=== PATIENT | female | born 1950 | race Caucasian/White ===

== ENCOUNTER 2023-04-23 13:50 | Inpatient (IN) | payer MEDICARE, BC, SELFPAY ==
[2023-04-23] VITALS (15 sets, daily range): BP systolic 138–199; BP diastolic 60–123; PULSE 85–109; RESP 18–32; TEMP 37.3–37.9; O2SAT 90–95; BMI 46.1
--- NOTE | 2023-04-23 14:28 | ED_ITS ---
HPI - General Adult General Time Seen by Provider: 14:28 Date Seen: 04/23/23 Chief complaint: Nausea/Vomiting Stated complaint: Nausea/vomiting fever Time Seen by Provider: 04/23/23 14:20 Source: patient, EMS and RN notes reviewed Mode of arrival: EMS Limitations: no limitations History of Present Illness HPI narrative: Patient is a 72-year-old female whom ambulance was called to come to her home to bring her in for abrupt change in her status. Patient reportedly was doing fine this morning, ate breakfast. By noon she suddenly had an abrupt change in status, had nausea vomiting chills and weakness. Temperature was noted to be 102.2. EMS brought her in from home. Her and daughter accompanied her into the ED. She has a history of sepsis, was hospitalized I believe they said about a year or so ago in [place] for sepsis, source was thought to be her lower extremities, has venous stasis changes and problems with skin of her lower extremities. Her daughter notes that she also had sepsis in 2019, again she believes it was the lower extremities. Patient is moaning, her notes that if she is uncomfortable or ill that she will frequently do this. She is not really giving us any meaningful communication but is hemodynamically stable outside of being febrile. She is not really answering my questions but is moving around, moaning. She seems to be maintaining her airway but cannot get a meaningful history from her. She is known to have atrial fibrillation, hypertension, CHF, diabetes per family. Linezolid is on her med rec, family knows that it was maybe recently filled but has no further information on this. They are not sure why this was filled. After arrival, nursing staff actually came to me with concerns this patient actually might be septic, did try to expedite seeing her. Related Data Home Medications Medication Instructions Recorded Confirmed diltiazem HCl 240 mg 240 mg PO DAILY 04/23/23 04/23/23 capsule,extended release 24 hr furosemide 20 mg tablet 20 mg PO DAILY 04/23/23 04/23/23 glipizide 5 mg tablet 5 mg PO DAILY 04/23/23 04/23/23 hydrochlorothiazide 25 mg tablet 25 mg PO DAILY 04/23/23 linezolid 600 mg tablet 600 mg PO BID 04/23/23 04/23/23 lisinopril 10 mg tablet 10 mg PO DAILY 04/23/23 04/23/23 metformin 500 mg tablet 500 mg PO BID 04/23/23 04/23/23 metoprolol succinate 50 mg 25 mg PO DAILY 04/23/23 04/23/23 tablet,extended release 24 hr sitagliptin phosphate 50 mg tablet 50 mg PO DAILY 04/23/23 04/23/23 (Januvia) warfarin 5 mg tablet 5 mg PO DAILY 04/23/23 04/23/23 Allergies Allergy/AdvReac Type Severity Reaction Status Date / Time No Known Drug Allergies Allergy Verified 04/23/23 17:54 Review of Systems Status of ROS: Reports: unobtainable due to medical condition PFSH PFS Social History Smoking Status: Never smoker How often do you have a drink containing alcohol: never AUDIT-C Alcohol total score: 0 Non-prescribed substance use: denies use Exam Const: Vital Signs, click to edit/add: Vital Signs - 24 hr 04/23/23 13:55 04/23/23 14:29 04/23/23 14:32 Temperature 99.2 F Pulse Rate 88 Pulse Rate [Pulse Oximeter] 85 Respiratory Rate 24 20 Blood Pressure 145/86 H Blood Pressure [Ri ght Upper Arm] 199/123 H Pulse Oximetry 95 94 95 Oxygen Delivery Me thod Room Air Oxygen Flow Rate 04/23/23 15:26 04/23/23 15:32 04/23/23 16:02 Temperature Pulse Rate 93 93 95 Pulse Rate [Pulse Oximeter] Respiratory Rate 22 20 22 Blood Pressure 144/87 H 160/66 H 155/60 H Blood Pressure [Ri ght Upper Arm] Pulse Oximetry 93 91 90 Oxygen Delivery Me thod Oxygen Flow Rate 04/23/23 16:15 04/23/23 16:32 04/23/23 17:02 Temperature Pulse Rate 97 102 H Pulse Rate [Pulse Oximeter] Respiratory Rate 18 20 Blood Pressure 158/74 H 152/97 H Blood Pressure [Ri ght Upper Arm] Pulse Oximetry 92 92 Oxygen Delivery Me thod Nasal Cannula Oxygen Flow Rate 2 04/23/23 17:51 04/23/23 18:02 04/23/23 18:25 Temperature 100.2 F H Pulse Rate 109 H 107 H Pulse Rate [Pulse Oximeter] Respiratory Rate 24 22 Blood Pressure 156/88 H 162/88 H Blood Pressure [Ri ght Upper Arm] Pulse Oximetry 90 92 Oxygen Delivery Me thod Nasal Cannula Oxygen Flow Rate 3 This is a 72-year-old female seen in exam room 1, she looks flushed and skin feels warm but is dry. She opens her eyes easily, does follow some minimal commands like squeezing my hands when ask her to. Strength is symmetric but diminished. She has a conjugate gaze, sclera look clear. Lips look dry and cracked. From what I can see she has normal symmetrical facial function. She is moaning and groaning, moving about some in the bed. CV fast but regular, soft murmur heard, normal S1-S2 no S3-S4. Lungs are clear but she really is not following commands to take a deep breath. Abdomen is obese, seems to be soft, does not seem to have any tenderness when I palpate. She has thickening in venous stasis changes of both lower extremities. She has significant nonpitting edema of her legs, her legs are large. Legs in the distribution of the pigmentary changes do have some erythema and warmth, seemed to be bilateral. Documenting provider has reviewed patient's vital signs: yes Course Course ED Course: Patient is concerning for recurrent sepsis. Certainly her legs could be the source but need to consider other etiologies. Also need to consider possible viral etiologies such as COVID or influenza. Blood cultures will be drawn, will establish a line. Will get full complement of blood work. Order portable chest x-ray. Patient did do some coughing when I with his interacting with her. She certainly has altered mental status but with the fever this is most definitely infectious. Reevaluation(s) Time of Reevaluation #1: 15:34 Reevaluation #1: Have checked back on patient, monitoring is on her. I asked staff to recheck her temperature. Daughter thinks she might be able to take some Tylenol, took Tylenol about 11 15, did throw that back up. She is moaning, face is flushed. Would really like to know what her temperature is. We could consider rectal Tylenol, even IV Tylenol if need be. I have ordered IV antibiotics, nursing staff is getting the Zosyn to start right now. Vitals are still stable, need to consider IV fluids if we start seeing her pressures drop. Need to be judicious with fluids as daughter notes that this patient does have congestive heart failure. Time of Reevaluation #2: 15:48 Reevaluation #2: Nursing staff has hung the Zosyn, did talk to me about patient's agitation. I still do not have a temperature on her. May need to use IV Tylenol, would like to see what her temperature is 1st. Her lactate is elevated at 3.4. I will start a L of normal saline over 2 hours but watch her closely. Her O2 sats are hovering just above 90, need to watch her closely. Time of Reevaluation #3: 15:55 Reevaluation #3: Nursing staff did do a rectal temperature, patient has a fever of 103.3? F. 650 mg rectal Tylenol has been administered. There where that I have ordered a L of IV fluids over 2 hours, she needs to be watched closely for fluid overload but do believe she is septic. Additional Reevaluation(s): 4:33pm Have reviewed with and daughter that she is certainly septic, we need to ensure that we are not missing occult infection. Per , they have discussed DNR/DNI if things were looking severe. I reviewed with them that she is certainly ill, would consider her situation concerning. She is more comfortable now that the Tylenol seems to be taking effect. Her CXR is showing changes of fluid overload, have asked nursing staff to slow IVF, the vancomycin is in 500ml as well which is infusing. Do think that we need to proceed with CT CAP on this patient but her girth may be problematic, are talking to radiology about limits. Will proceed if able. Also reviewed with family that she may very well require transfer to higher level of care, reviewed that even when needed that we run into problems with outside institutions not having capacity. We will continue to monitor closely. 5:21pm patient is moving about in the CT scan, not redirectable. We are going to order Ativan 1 mg, nursing staff will start was 0.5 mg IV, give her another dose if needed. Unfortunately, Ativan did not work at all for patient. She was brought back to room. I will talk to the hospitalist regarding her situation. 7:08pm despite 5 mg IV Zyprexa, patient is not tolerating CT imaging. She is moving around, cannot be talked into holding still. Called Dr. Vega back to let him know that we cannot get imaging. He will still take the patient. Consultations Consultation #1: Did speak with hospitalist Dr. Vega. He will accept this patient, does not feel she needs to transfer. He would like me try to give her IV Zyprexa to see if we can get the scan done. Reviewed fluid given to this patient, her lactate is now 3.5, may need to give her more fluids despite the concern for congestive heart failure. She is not hypotensive and does not require blood pressure support at this time. Time: 18:28 Vital Signs Vital signs: Initial Vital Signs Temperature 99.2 F 04/23/23 13:55 Temperature Source Oral 04/23/23 13:55 Pulse Rate 85 04/23/23 13:55 Pulse Rhythm Regular 04/23/23 13:55 Respiratory Rate 24 04/23/23 13:55 Blood Pressure 199/123 H 04/23/23 13:55 Blood Pressure Mean 148 H 04/23/23 13:55 Blood Pressure Position Supine 04/23/23 13:55 Pulse Oximetry 95 04/23/23 13:55 Oxygen Delivery Method Room Air 04/23/23 13:55 Vital Signs Temperature 99.2 F 04/23/23 13:55 Pulse Rate 85 04/23/23 13:55 Respiratory Rate 24 04/23/23 13:55 Blood Pressure 199/123 H 04/23/23 13:55 Pulse Oximetry 95 04/23/23 13:55 Oxygen Delivery Method Room Air 04/23/23 13:55 Temperature 100.2 F H 04/23/23 18:25 Pulse Rate 107 H 04/23/23 18:02 Respiratory Rate 22 04/23/23 18:02 Blood Pressure 162/88 H 04/23/23 18:02 Pulse Oximetry 92 04/23/23 18:02 Oxygen Delivery Method Nasal Cannula 04/23/23 17:51 Oxygen Flow Rate 3 04/23/23 17:51 Medications Administered Medications: Discontinued Medications Generic Name Dose Route Start Last Admin Trade Name Freq PRN Reason Stop Dose Admin Acetaminophen 650 mg 04/23/23 15:54 04/23/23 16:05 Acetaminophen 650 Mg Supp [place] 04/23/23 15:55 650 mg ONCE ONE Administration Piperacillin Sod/Tazobactam 100 mls @ 200 mls/hr 04/23/23 15:15 04/23/23 16:30 Sod 3.375 gm/ Sodium Chloride IVPB 04/23/23 15:16 Infused ONCE ONE Infusion Vancomycin HCl 2,000 mg/ 520 mls @ 260 mls/hr 04/23/23 15:28 04/23/23 16:10 Sodium Chloride IVPB 04/23/23 15:29 260 mls/hr ONCE ONE Administration Protocol Sodium Chloride 1,000 mls @ 500 mls/hr 04/23/23 15:47 04/23/23 18:23 0.9 % Sodium Chloride 1000 Ml IV 04/23/23 17:46 Infused .Q2H JESSICA Infusion Lorazepam 1 mg 04/23/23 17:20 04/23/23 17:20 Lorazepam 2 Mg/Ml Inj IVP 04/23/23 17:21 1 mg ONCE ONE Administration Medical Decision Making Lab Data Lab results reviewed: Yes I reviewed the patient's lab results Labs: Lab Results 04/23/23 04/23/23 04/23/23 Range/Units 14:35 14:44 18:10 WBC 10.38 (4.50-11.00) K/uL RBC 3.74 L (4.00-5.20) m/uL Hgb 11.9 L (12.0-16.0) gm/dL Hct 37.2 (33.0-51.0) % MCV 100 (80-100) fL MCH 32 (26-34) pg MCHC 32 (32-36) gm/dL RDW Coeff of Maria 15.2 (11.5-15.5) % Plt Count 268 (140-440) K/uL Neut % (Auto) 87.4 H (42.0-72.0) % Lymph % (Auto) 6.8 L (20-44) % [place] % (Auto) 4.2 (0.0-11.0) % Eos % (Auto) 0.3 (0.0-7.0) % Baso % (Auto) 0.3 (0.0-3.0) % Neut # (Auto) 9.10 H (1.7-7.0) K/uL Lymph # (Auto) 0.70 L (0.90-2.90) K/uL [place] # (Auto) 0.40 (0.00-0.90) K/UL Eos # (Auto) 0.03 (0.00-0.50) K/uL Baso # (Auto) 0.03 (0.00-0.30) K/uL Abs Immat Gran (auto) 0.10 (0.00-0.30) K/uL Imm/Tot Granulo (auto) 1.0 % VBG pH 7.393 (7.32-7.43) VBG pCO2 33 L (40-50) mmHG VBG pO2 48.6 H (25-47) mmHG VBG HCO3 20 L (21-28) mmol/L Sodium 139 (135-149) mmol/L Potassium 4.3 (3.6-5.1) mmol/L Chloride 108 (96-114) mmol/L Carbon Dioxide 19 L (20-32) mmol/L Anion Gap 12 (7-15) mEq/L BUN 12 (7-30) mg/dL Creatinine 0.8 (0.5-1.5) mg/dL Estimated Creat Clear 43.30 Estimated GFR 79 ml/min Glucose 190 H (60-115) mg/dL Lactate 3.4 H 3.5 H (0.5-1.9) mmol/L Calcium 9.5 (8.4-10.6) mg/dL Total Bilirubin 1.6 H (0.1-1.5) mg/dL AST 35 (12-35) U/L ALT 21 (4-35) U/L Alkaline Phosphatase 71 (40-150) U/L Troponin I < 0.01 L (0.01-0.04) ng/mL C-Reactive Protein 0.7 (0.5-1.0) mg/dL NT-Pro-B Natriuret Pep 386 pg/mL Total Protein 7.5 (6.0-8.3) g/dL Albumin 4.2 (3.3-5.0) g/dL Urine Color (Yellow) Urine Appearance (Clear) Urine pH (5.0-8.5) Ur Specific [place] (1.000-1.030) Urine Protein (Negative) Urine Glucose (UA) (Negative) Urine Ketones (Negative) Urine Blood (Negative) Urine Nitrite (Negative) Urine Bilirubin (Negative) Urine Urobilinogen (0.2-1.0) Ur Leukocyte Esterase (Negative) Urine RBC (0-2) Urine WBC (0-5) Ur Squamous Epith Cells (None-Few) Urine Bacteria (None) Ethyl Alcohol < 0.01 L (0.01-0.03) % SARS-CoV-2 (PCR) Negative SARS-CoV-2 (Negative) Influenza Type A (PCR) Negative PCR FLU A (Negative) Influenza Type B (PCR) Negative PCR FLU B (Negative) RSV (PCR) Negative PCR RSV (Negative) 04/23/23 Range/Units 18:58 WBC (4.50-11.00) K/uL RBC (4.00-5.20) m/uL Hgb (12.0-16.0) gm/dL Hct (33.0-51.0) % MCV (80-100) fL MCH (26-34) pg MCHC (32-36) gm/dL RDW Coeff of Maria (11.5-15.5) % Plt Count (140-440) K/uL Neut % (Auto) (42.0-72.0) % Lymph % (Auto) (20-44) % [place] % (Auto) (0.0-11.0) % Eos % (Auto) (0.0-7.0) % Baso % (Auto) (0.0-3.0) % Neut # (Auto) (1.7-7.0) K/uL Lymph # (Auto) (0.90-2.90) K/uL [place] # (Auto) (0.00-0.90) K/UL Eos # (Auto) (0.00-0.50) K/uL Baso # (Auto) (0.00-0.30) K/uL Abs Immat Gran (auto) (0.00-0.30) K/uL Imm/Tot Granulo (auto) % VBG pH (7.32-7.43) VBG pCO2 (40-50) mmHG VBG pO2 (25-47) mmHG VBG HCO3 (21-28) mmol/L Sodium (135-149) mmol/L Potassium (3.6-5.1) mmol/L Chloride (96-114) mmol/L Carbon Dioxide (20-32) mmol/L Anion Gap (7-15) mEq/L BUN (7-30) mg/dL Creatinine (0.5-1.5) mg/dL Estimated Creat Clear Estimated GFR ml/min Glucose (60-115) mg/dL Lactate (0.5-1.9) mmol/L Calcium (8.4-10.6) mg/dL Total Bilirubin (0.1-1.5) mg/dL AST (12-35) U/L ALT (4-35) U/L Alkaline Phosphatase (40-150) U/L Troponin I (0.01-0.04) ng/mL C-Reactive Protein (0.5-1.0) mg/dL NT-Pro-B Natriuret Pep pg/mL Total Protein (6.0-8.3) g/dL Albumin (3.3-5.0) g/dL Urine Color Yellow (Yellow) Urine Appearance Clear (Clear) Urine pH 5.5 (5.0-8.5) Ur Specific [place] 1.025 (1.000-1.030) Urine Protein Negative (Negative) Urine Glucose (UA) Negative (Negative) Urine Ketones Negative (Negative) Urine Blood Negative (Negative) Urine Nitrite Negative (Negative) Urine Bilirubin Negative (Negative) Urine Urobilinogen 0.2 (0.2-1.0) Ur Leukocyte Esterase Negative (Negative) Urine RBC 2-5 A (0-2) Urine WBC 2-5 (0-5) Ur Squamous Epith Cells None (None-Few) Urine Bacteria None (None) Ethyl Alcohol (0.01-0.03) % SARS-CoV-2 (PCR) (Negative) Influenza Type A (PCR) (Negative) Influenza Type B (PCR) (Negative) RSV (PCR) (Negative) Imaging Data Chest x-ray: Attestation: I have reviewed the pertinent imaging results. Radiologist's impression: Patient: [facility] Facility:?[facility] Patient ID:?[id number] Site Patient ID:?[id number]. Site :?[id number] Study:?XRay Chest PORTABLE-04/23/2023 3:08:35 PM Ordering Physician:Tiffanie Garnett Final Report: Indication: Fever and wheezing Comparison: None available. Technique: Single AP view chest Findings: There is mild central bronchial thickening. Evaluation of the lung bases is limited due to large body habitus. There is no apical consolidation or pneumothorax. There is no focal consolidation, effusion, or pneumothorax. The cardiac silhouette is mildly prominent. The bony thorax is grossly intact. Impression: Diffusely increased interstitial markings likely representing pulmonary edema and/or bronchitis changes. Somewhat limited evaluation of the lung bases due to patient body habitus. Lower lobe infiltrates may not be entirely excluded. Dictated by Maxi Ventura MD @ 04/23/2023 4:13:45 PM (Electronic Signature) ECG Data Attestation: I personally reviewed and interpreted this ECG as follows: (Atrial fibrillation, 87 beats per minute. QT corrected 442 milliseconds. No definitive evidence of ischemia.) Prior ECG tracings: not available for review Critical Care Time Critical Care Time Critical Care Time: Yes Attestation: The patient required my highest level preparedness to intervene emergently and I personally spent this critical care time directly and personally managing the patient. This critical care time included: Obtaining a history; Examining the patient; Pulse oximetry; Ordering and reviewing of studies; Arranging urgent treatment with development of a management plan; Evaluation of patients respo nse to treatment; Frequent reassessment discussions with other providers. This critical care time was performed to assess and manage the high probability of imminent life-threatening deterioration that could result in multiorgan failure. It was exclusive of separate billable procedures and treating other patients and teaching time. Total Critical Care Time in Minutes: 120 (2 hours patient's time in the ED is attributed to critical care time.) Discharge Plan Discharge Clinical Impression: Fever Qualifiers: Fever type: unspecified Qualified Code(s): R50.9 - Fever, unspecified Sepsis Qualifiers: Sepsis type: sepsis due to unspecified organism Patient Disposition: Admitted As Observation Prescriptions: No Action metformin 500 mg tablet 500 mg PO BID metoprolol succinate 50 mg tablet extended release 24 hr 25 mg PO DAILY diltiazem HCl 240 mg capsule,extended release 24hr 240 mg PO DAILY linezolid 600 mg tablet 600 mg PO BID lisinopril 10 mg tablet 10 mg PO DAILY warfarin 5 mg tablet 5 mg PO DAILY hydrochlorothiazide 25 mg tablet 25 mg PO DAILY furosemide 20 mg tablet 20 mg PO DAILY glipizide 5 mg tablet 5 mg PO DAILY Januvia 50 mg tablet 50 mg PO DAILY Follow Up/Referrals: Gomez Argueta MD [Primary Care Provider] -
--- NOTE | 2023-04-23 14:29 | CRLHL7_ITS ---
For Patients: As a result of the Cures Act, medical imaging exams and procedure reports are released immediately into your electronic medical record. You may view this report before your referring provider. If you have questions, please contact your health care provider. Indication: Fever and wheezing Comparison: None available. Technique: Single AP view chest Findings: There is mild central bronchial thickening. Evaluation of the lung bases is limited due to large body habitus. There is no apical consolidation or pneumothorax. There is no focal consolidation, effusion, or pneumothorax. The cardiac silhouette is mildly prominent. The bony thorax is grossly intact. Impression: Diffusely increased interstitial markings likely representing pulmonary edema and/or bronchitis changes. Somewhat limited evaluation of the lung bases due to patient body habitus. Lower lobe infiltrates may not be entirely excluded. Dictated by Maxi Ventura MD @ 04/23/2023 4:13:45 PM (Electronically Signed)
[2023-04-23 14:57] LABS: HCO3 VBG 20 mmol/L (21-28); Lactate* 3.4 mmol/L (0.5-1.9); PCO2 VBG 33 mmHG (40-50); PO2 VBG 48.6 mmHG (25-47); pH VBG 7.393 (7.32-7.43)
[2023-04-23 14:58] LABS: Basophils Absolute Auto 0.03 K/uL (0.00-0.30); Basophils Percent Auto 0.3 % (0.0-3.0); Eosinophils Absolute Auto 0.03 K/uL (0.00-0.50); Eosinophils Percent Auto 0.3 % (0.0-7.0); Hematocrit 37.2 % (33.0-51.0); Hemoglobin* 11.9 gm/dL (12.0-16.0); Lymphocytes Percent Auto 6.8 % (20-44); Mean Corpuscular HGB Conc 32 gm/dL (32-36); Mean Corpuscular Hemoglobin 32 pg (26-34); Mean Corpuscular Volume 100 fL (80-100); Monocytes Percent Auto 4.2 % (0.0-11.0); Neutrophils Percent Auto 87.4 % (42.0-72.0); Platelet Count* 268 K/uL (140-440); RDW Coefficient of Variation % 15.2 % (11.5-15.5); Red Blood Count 3.74 m/uL (4.00-5.20); White Blood Count* 10.38 K/uL (4.50-11.00)
[2023-04-23 15:11] LABS: Slide Review Reflex No
[2023-04-23 15:22] LABS: Albumin* 4.2 g/dL (3.3-5.0); Chloride* 108 mmol/L (96-114)
[2023-04-23 15:23] LABS: Potassium* 4.3 mmol/L (3.6-5.1); Sodium* 139 mmol/L (135-149)
[2023-04-23 15:25] LABS: Bilirubin Total* 1.6 mg/dL (0.1-1.5); Creatinine* 0.8 mg/dL (0.5-1.5); Estimated Glomerular Filt Rate 79 ml/min
[2023-04-23 15:26] LABS: Alanine Aminotransferase* 21 U/L (4-35); Alkaline Phosphatase* 71 U/L (40-150); Anion Gap 12 mEq/L (7-15); Aspartate Amino Transferase* 35 U/L (12-35); Blood Urea Nitrogen* 12 mg/dL (7-30); Carbon Dioxide* 19 mmol/L (20-32); Glucose* 190 mg/dL (60-115); Total Protein* 7.5 g/dL (6.0-8.3)
[2023-04-23 15:27] LABS: Calcium* 9.5 mg/dL (8.4-10.6); Ethanol* < 0.01 % (0.01-0.03)
[2023-04-23 15:29] LABS: C Reactive Protein* 0.7 mg/dL (0.5-1.0)
[2023-04-23 15:37] LABS: NT Pro B Type NatriureticPept* 386 pg/mL
[2023-04-23 15:39] LABS: PCR FLU A Negative PCR FLU A (Negative); PCR FLU B Negative PCR FLU B (Negative); PCR RSV Negative PCR RSV (Negative)
[2023-04-23] MEDS: PIPERACILLIN/TAZOBACTAM 3.375 GM in 0.9 % SODIUM CHLORIDE Mini-bag 100 ML IVPB (15:42)
[2023-04-23 15:45] LABS: Troponin I* < 0.01 ng/mL (0.01-0.04)
[2023-04-23 15:46] LABS: SARS PCR* Negative SARS-CoV-2 (Negative)
[2023-04-23] MEDS: ACETAMINOPHEN 650 MG SUPP PR (16:05)
[2023-04-23] MEDS: 0.9 % SODIUM CHLORIDE 1000 ml 1,000 ML 500 ML IV (16:30)
--- NOTE | 2023-04-23 16:38 | CRLHL7_ITS ---
For Patients: As a result of the 21st Century Cures Act, medical imaging exams and procedure reports are released immediately into your electronic medical record. You may view this report before your referring provider. If you have questions, please contact your health care provider. INDICATION: Altered mental status, fever, sepsis unknown source TECHNIQUE: CT chest, abdomen, and pelvis without i.v. contrast. Coronal and sagittal reformats were obtained. COMPARISON: None FINDINGS: The sensitivity and specificity of the exam are severely limited by artifacts from patient motion and beam hardening artifacts from the patient`s arms at the patient`s side. CHEST: Cardiovascular: Moderate biventricular cardiomegaly is noted. Moderate enlargement of the main pulmonary artery is present and measures 3.3 cm in maximal short axis. The pulmonary arteries are unremarkable in appearance. Ectasia of the ascending aorta is noted measuring 3.7 cm. Mediastinum: No mass or adenopathy seen. Lung: Mild ground-glass opacities are present in the apices with smooth interlobular septal thickening which may be due to mild edema. Dependent ground-glass atelectasis present in both lung bases. Pleura and pericardium: No sign of pleural effusion seen. No significant pericardial effusion is present. Chest wall and axilla: No mass or adenopathy seen. Bone: Unremarkable for age. No acute osseous injuries seen. ABDOMEN/PELVIS: Liver: Unremarkable. Spleen: Unremarkable. Pancreas: Unremarkable. Gallbladder: Faint layering densities are present within the gallbladder which may be due to sludge or noncalcified gallstones. Kidney: Unremarkable. No kidney or ureteral stones or obstruction seen. Adrenal: Unremarkable. Bowel: Moderate amount of stool is present throughout the colon which may be due to chronic constipation. Unremarkable. The appendix is not visualized. 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 Moderate atherosclerotic calcifications of the abdominal aorta and its tributaries are present. Lymph: Unremarkable. Peritoneum: Unremarkable. No pneumoperitoneum is seen. No significant ascites is noted. Pelvis: Evaluation of the pelvic soft tissues, distal ureters and osseous structures are limited by beam hardening artifacts from the right hip prosthesis. Soft tissue: Severe subcutaneous edema is present in the abdominal wall. Bone: Unremarkable for age. No acute osseous injuries seen. IMPRESSIONS: 1. The sensitivity and specificity of the exam are severely limited by artifacts from patient motion and beam hardening artifacts from the patient`s arms at the patient`s side. 2. Mild ground-glass opacities are present in the apices with smooth interlobular septal thickening which may be due to mild edema. 3. Moderate enlargement of the main pulmonary artery is present and measures 3.3 cm in maximal short axis. This is likely due to pulmonary hypertension. 4. Moderate biventricular cardiomegaly is noted. 5. 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 Dictated by Branden Powell MD @ 04/23/2023 8:08:44 PM Please note that all CT scans at this facility use dose modulation, iterative reconstruction, and/or weight-based dosing when appropriate to reduce radiation dose to as low as reasonably achievable. Dictated by: Branden Powell MD @ 04/23/2023 20:10:28 (Electronically Signed)
[2023-04-23] MEDS: LORazepam 2 MG/ML inj 1 MG IVP (17:20)
--- NOTE | 2023-04-23 17:24 | CRLHL7_ITS ---
For Patients: As a result of the Century Cures Act, medical imaging exams and procedure reports are released immediately into your electronic medical record. You may view this report before your referring provider. If you have questions, please contact your health care provider. INDICATION: Altered mental status, sepsis TECHNIQUE: CT Head without i.v. contrast. Coronal and sagittal reformats were obtained. COMPARISON: None FINDINGS: The sensitivity and specificity of the exam are severely limited by artifacts from patient motion. CSF space: Unremarkable for age. Brain: No evidence of mass, acute infarction or hemorrhage is seen. No mass-effect or midline shift is seen. Mild diffuse cortical atrophy is noted. The brain parenchyma is otherwise normal in appearance with preservation of the oneal-white matter junction. Calvarium: The visualized paranasal sinuses are well aerated. The mastoid air cells are clear. The visualized orbits are grossly unremarkable. The calvarium is unremarkable in appearance with no fractures identified. IMPRESSION: 1. No evidence of acute infarction, intracranial hemorrhage, or mass-effect seen. 2. The sensitivity and specificity of the exam are severely limited by artifacts from patient motion. Please note that all CT scans at this facility use dose modulation, iterative reconstruction, and/or weight-based dosing when appropriate to reduce radiation dose to as low as reasonably achievable. Dictated by: Branden Powell MD @ 04/23/2023 19:59:09 (Electronically Signed)
[2023-04-23 18:13] LABS: Lactate* 3.5 mmol/L (0.5-1.9)
[2023-04-23] MEDS: OLANZapine 5 MG/ML inj IVP (18:40)
[2023-04-23 19:04] LABS: Appearance Urine Clear (Clear); Bilirubin Urine Negative (Negative); Blood Urine Negative (Negative); Color Urine Yellow (Yellow); Glucose Urine Negative (Negative); Ketones Urine Negative (Negative); Leukocyte Esterase Urine Negative (Negative); Nitrite Urine Negative (Negative); Protein Urine Negative (Negative); Specific Gravity Urine 1.025 (1.000-1.030); Urobilinogen Urine 0.2 (0.2-1.0); pH Urine 5.5 (5.0-8.5)
--- NOTE | 2023-04-23 19:13 | PM.IMHP1 ---
Hospitalist- H&P: HPI History of Present Illness Date Seen: 04/23/23 Chief complaint: Nausea/vomiting fever Narrative: Linh Munoz is a 72 year old female with unknown past medical history presenting for altered mental status. The patient unable to provide any history. Hx obtained from and daughter (RN at [facility]). She is on warfarin for Atrial fibrillation? She presented to ED for fever and confusion. Per family she has had nausea, vomiting, chills and weakness. She has linezolid listed on home med rec but /Daughter do not know if she was taking this antibiotic and indication. She presented to ED where she was febrile. She was hypertensive and hypoxic on 4 liters supplemental oxygen. Notable labs include normal WBc, lactate 3.4->3.5, Tbili 1.6. Procal and INR not obtained. UA unremarkable. COVID PCR negative. CXR with Diffusely increased interstitial markings likely representing pulmonary edema and/or bronchitis changes. Somewhat limited evaluation of the lung bases due to patient body habitus. Lower lobe infiltrates may not be entirely excluded. She was given ativan and first attempt at CT Head CAP unable to be completed. She was subsequently given zyprexa and unable to complete CT scan imaging. She was given vancomycin and zosyn and admitted for further evaluation. cxr Diffusely increased interstitial markings likely representing pulmonary edema and/or bronchitis changes. Somewhat limited evaluation of the lung bases due to patient body habitus. Lower lobe infiltrates may not be entirely excluded. CT head CAP-pending Review of Systems Status of ROS: Reports: unobtainable due to medical condition PFSH [facility] [place] Social History Smoking Status: Never smoker How often do you have a drink containing alcohol: never AUDIT-C Alcohol total score: 0 Non-prescribed substance use: denies use Meds Home Medications and Allergies Home Medications Medication Instructions Recorded Confirmed Type diltiazem HCl 240 mg 240 mg PO DAILY 04/23/23 04/23/23 History capsule,extended release 24 hr furosemide 20 mg tablet 20 mg PO DAILY 04/23/23 04/23/23 History glipizide 5 mg tablet 5 mg PO DAILY 04/23/23 04/23/23 History hydrochlorothiazide 25 mg tablet 25 mg PO DAILY 04/23/23 History linezolid 600 mg tablet 600 mg PO BID 04/23/23 04/23/23 History lisinopril 10 mg tablet 10 mg PO DAILY 04/23/23 04/23/23 History metformin 500 mg tablet 500 mg PO BID 04/23/23 04/23/23 History metoprolol succinate 50 mg 25 mg PO DAILY 04/23/23 04/23/23 History tablet,extended release 24 hr sitagliptin phosphate 50 mg tablet 50 mg PO DAILY 04/23/23 04/23/23 History (Diogoia) warfarin 5 mg tablet 5 mg PO DAILY 04/23/23 04/23/23 History Allergies Allergy/AdvReac Type Severity Reaction Status Date / Time No Known Drug Allergies Allergy Verified 04/23/23 17:54 Exam Narrative: Exam Narrative: Gen:morbid obese female moderate distress HEENT: NCAT dry mucous membranes; oral lesions with dried blood Neck: Supple CV: RRR normal s1 s2 Lungs: diminished Abd: Soft,nt, nd Neuro: somnolent and lethargic MSK: age appropriate muscle mass Skin; bilatera venous stasis changes of lower extremities Const: Vital Signs, click to edit/add: Vital Signs - 24 hr 04/23/23 13:55 04/23/23 14:29 04/23/23 14:32 Temperature 99.2 F Pulse Rate 88 Pulse Rate [Pulse Oximeter] 85 Respiratory Rate 24 20 Blood Pressure 145/86 H Blood Pressure [Ri ght Upper Arm] 199/123 H Pulse Oximetry 95 94 95 Oxygen Delivery Me thod Room Air Oxygen Flow Rate 04/23/23 15:26 04/23/23 15:32 04/23/23 16:02 Temperature Pulse Rate 93 93 95 Pulse Rate [Pulse Oximeter] Respiratory Rate 22 20 22 Blood Pressure 144/87 H 160/66 H 155/60 H Blood Pressure [Ri ght Upper Arm] Pulse Oximetry 93 91 90 Oxygen Delivery Me thod Oxygen Flow Rate 04/23/23 16:15 04/23/23 16:32 04/23/23 17:02 Temperature Pulse Rate 97 102 H Pulse Rate [Pulse Oximeter] Respiratory Rate 18 20 Blood Pressure 158/74 H 152/97 H Blood Pressure [Ri ght Upper Arm] Pulse Oximetry 92 92 Oxygen Delivery Me thod Nasal Cannula Oxygen Flow Rate 2 04/23/23 17:51 04/23/23 18:02 12/15/23 18:25 Temperature 100.2 F H Pulse Rate 109 H 107 H Pulse Rate [Pulse Oximeter] Respiratory Rate 24 22 Blood Pressure 156/88 H 162/88 H Blood Pressure [Ri ght Upper Arm] Pulse Oximetry 90 92 Oxygen Delivery Me thod Nasal Cannula Oxygen Flow Rate 3 Hospitalist - H&P: Result Labs Labs: Short CBC 04/23/23 Range/Units 14:44 WBC 10.38 (4.50-11.00) K/uL Hgb 11.9 L (12.0-16.0) gm/dL Hct 37.2 (33.0-51.0) % Plt Count 268 (140-440) K/uL BMP 04/23/23 14:44 Sodium 139 Potassium 4.3 Chloride 108 Carbon Dioxide 19 L BUN 12 Creatinine 0.8 Glucose 190 H Calcium 9.5 Cardiac Enzymes 04/23/23 Range/Units 14:44 Troponin I < 0.01 L (0.01-0.04) ng/mL Liver Function 04/23/23 Range/Units 14:44 Total Bilirubin 1.6 H (0.1-1.5) mg/dL AST 35 (12-35) U/L ALT 21 (4-35) U/L Alkaline Phosphatase 71 (40-150) U/L Albumin 4.2 (3.3-5.0) g/dL Assessment and Plan Assessment and plan (1) Sepsis: Status: Acute (2) Metabolic encephalopathy: Status: Acute (3) Acute hypoxic respiratory failure: Status: Acute (4) Atrial fibrillation: Status: Acute (5) Obesity hypoventilation syndrome: Status: Acute (6) MARCELL (obstructive sleep apnea): Status: Acute Plan Linh Munoz is a 72 year old female with unknown past medical history presenting for altered mental status. The patient unable to provide any history. Hx obtained from and daughter (RN at [facility]). She is on warfarin for Atrial fibrillation? She presented to ED for fever and confusion. Per family she has had nausea, vomiting, chills and weakness. She has linezolid listed on home med rec but /Daughter do not know if she was taking this antibiotic and indication. She presented to ED where she was febrile. She was hypertensive and hypoxic on 4 liters supplemental oxygen. Notable labs include normal WBc, lactate 3.4->3.5, Tbili 1.6. Procal and INR not obtained. UA unremarkable. COVID PCR negative. CXR with Diffusely increased interstitial markings likely representing pulmonary edema and/or bronchitis changes. Somewhat limited evaluation of the lung bases due to patient body habitus. Lower lobe infiltrates may not be entirely excluded. She was given ativan and first attempt at CT Head CAP unable to be completed. She was subsequently given zyprexa and unable to complete CT scan imaging. She was given vancomycin and zosyn and admitted for further evaluation. 1. Presumed Sepsis 2. Hx of Atrial Fibrillation on warfarin? 3. Metabolic encephalopathy 4. Acute hypoxic resp failure; suspected MARCELL and OHS 5 chronic venous stasis changes 6. Hx of Type II DM Plan -admit to CCU -check stat INR, procal, -IVF Bolus -serial lactate -NPO -Broad spectrum antibiotics -obtain [place] Records -repeat VBG -ertapenem Code DNR/DNI DVT ppx: Warfarin GI PPx: protonix addendum #1: INR subtherapeutic; plan for CT PE but patient too agitated and do not want to give additional ativan due to increased sedation earlier; will empirically place on heparin infusion; consider CT PE study tomorrow if warranted addendum#1: positive blood cx, GPC vanco added pharm to dose
--- NOTE | 2023-04-23 19:55 | ED.NURSE ---
Pt IV infiltrated in L AC while at imaging. Pt unable to lay still for imaging after Zyprexa IVP given in ED. Per M/S, okay to bring Pt directly to /S and give bedside report. Pt tolerated transfer well to /S bed with Airmat. Infiltrated IV removed and #22G IV established in L FA, patent and SL. Family speaking to hospitalist in waiting area.
[2023-04-23] MEDS: 0.9 % SODIUM CHLORIDE 1000 ml 1,000 ML IV (20:15)
[2023-04-23 20:46] LABS: HCO3 VBG 21 mmol/L (21-28); Lactate Sepsis w/Reflex* 3.3 mmol/L (0.5-1.9); PCO2 VBG 35 mmHG (40-50); PO2 VBG 73.7 mmHG (25-47); pH VBG 7.384 (7.32-7.43)
[2023-04-23 21:02] LABS: INR 1.59 (0.91-1.10); Prothrombin Time 20.1 Seconds
[2023-04-23 21:40] LABS: Procalcitonin* 9.73 ng/mL (<0.50)
[2023-04-23] MEDS: 0.9 % SODIUM CHLORIDE 1000 ml 1,000 ML 125 ML IV (21:44)
[2023-04-23] MEDS: ERTAPENEM 1 GM in 0.9 % SODIUM CHLORIDE Mini-bag 100 ML IVPB (21:45)
[2023-04-23] MEDS: SODIUM CHLORIDE 0.9 % (FLUSH) 10 ML SYRINGE 5 ML IVF ×3 (21:45→23:57)
[2023-04-23] MEDS: HYDROmorphone 0.5 mg/0.5 ml inj IVP ×2 (22:05→23:57)
[2023-04-23 23:31] LABS: Hemoglobin* 10.7 gm/dL (12.0-16.0); Mean Corpuscular HGB Conc 32 gm/dL (32-36); Mean Corpuscular Hemoglobin 32 pg (26-34); Mean Corpuscular Volume 100 fL (80-100); Platelet Count* 234 K/uL (140-440); Red Blood Count 3.39 m/uL (4.00-5.20); White Blood Count* 12.23 K/uL (4.50-11.00)
[2023-04-23 23:40] LABS: Slide Review Reflex No
[2023-04-23 23:47] LABS: INR 1.69 (0.91-1.10); Partial Thromboplastin Time* 33 Seconds (23-33); Prothrombin Time 21.1 Seconds
[2023-04-24] VITALS (34 sets, daily range): BP systolic 84–155; BP diastolic 43–98; PULSE 57–92; RESP 17–30; TEMP 36.6–37.9; O2SAT 87–98
[2023-04-24 01:19] LABS: Lactate Sepsis w/Reflex* 3.3 mmol/L (0.5-1.9)
[2023-04-24] MEDS: ACETAMINOPHEN 650 MG SUPP PR (01:35)
[2023-04-24] MEDS: HEPARIN 5,000 UNIT/0.5 ML INJ 9400 UNIT IVP (01:37)
[2023-04-24] MEDS: NYSTATIN POWDER 1 APPLIC TOPICAL ×3 (01:37→20:38)
[2023-04-24] MEDS: SODIUM CHLORIDE 0.9 % (FLUSH) 10 ML SYRINGE 5 ML IVF ×3 (01:39→20:38)
[2023-04-24] MEDS: PANTOPRAZOLE SODIUM 40 MG INJ IVP ×3 (01:40→20:37)
[2023-04-24] MEDS: HEPARIN 25,000 UNIT/500 ML BAG 30 UNIT IV (01:42)
[2023-04-24] MEDS: 0.9 % SODIUM CHLORIDE 1000 ml 1,000 ML IV (02:19)
[2023-04-24] MEDS: 0.9 % SODIUM CHLORIDE 1000 ml 1,000 ML 500 ML IV (03:40)
[2023-04-24 03:44] LABS: Lactate Sepsis 2 Hour 3.4 mmol/L (0.5-1.9)
[2023-04-24] MEDS: HYDROmorphone 0.5 mg/0.5 ml inj IVP ×2 (04:03→10:39)
[2023-04-24 06:37] LABS: HCO3 VBG 19 mmol/L (21-28); Lactate* 3.5 mmol/L (0.5-1.9); PCO2 VBG 57 mmHG (40-50); PO2 VBG 62.8 mmHG (25-47)
[2023-04-24] MEDS: 0.9 % SODIUM CHLORIDE 1000 ml 1,000 ML 150 ML IV (06:37)
[2023-04-24 06:41] LABS: pH VBG 7.133 (7.32-7.43)
[2023-04-24 06:48] LABS: Hematocrit 38.7 % (33.0-51.0); Hemoglobin* 11.5 gm/dL (12.0-16.0); Lymphocytes Percent Auto 4.9 % (20-44); Mean Corpuscular HGB Conc 30 gm/dL (32-36); Mean Corpuscular Hemoglobin 31 pg (26-34); Mean Corpuscular Volume 105 fL (80-100); Monocytes Percent Auto 5.4 % (0.0-11.0); Neutrophils Percent Auto 88.2 % (42.0-72.0); Platelet Count* 228 K/uL (140-440); RDW Coefficient of Variation % 15.7 % (11.5-15.5); Red Blood Count 3.68 m/uL (4.00-5.20); White Blood Count* 18.35 K/uL (4.50-11.00)
[2023-04-24 06:49] LABS: Basophils Percent Auto 0.2 % (0.0-3.0); Immature Granulocytes Pct Auto 1.3 %
[2023-04-24 06:51] LABS: Slide Review Reflex Yes
[2023-04-24 07:02] LABS: Albumin* 3.5 g/dL (3.3-5.0); Chloride* 113 mmol/L (96-114); INR 2.18 (0.91-1.10); Prothrombin Time 25.9 Seconds
[2023-04-24 07:03] LABS: Potassium* 5.3 mmol/L (3.6-5.1); Sodium* 140 mmol/L (135-149)
[2023-04-24 07:05] LABS: Alanine Aminotransferase* 26 U/L (4-35); Alkaline Phosphatase* 42 U/L (40-150); Anion Gap 9 mEq/L (7-15); Aspartate Amino Transferase* 48 U/L (12-35); Bilirubin Total* 1.9 mg/dL (0.1-1.5); Blood Urea Nitrogen* 17 mg/dL (7-30); Carbon Dioxide* 18 mmol/L (20-32); Creatinine* 1.4 mg/dL (0.5-1.5); Est. Creatinine Clearance* 30.93; Estimated Glomerular Filt Rate 40 ml/min; Glucose* 195 mg/dL (60-115); Total Protein* 6.6 g/dL (6.0-8.3)
[2023-04-24 07:06] LABS: Calcium* 8.1 mg/dL (8.4-10.6); Magnesium* 1.4 mg/dL (1.5-2.6); Phosphorus* 5.5 mg/dL (2.5-4.5)
[2023-04-24 07:37] LABS: Slide Review Acceptable Review (Acceptable)
[2023-04-24] MEDS: FUROSEMIDE 10 MG/ML inj 40 MG IVP ×3 (07:58→13:45)
--- NOTE | 2023-04-24 08:07 | PC.NURSE ---
END OF SHIFT NOTE: PT LETHARGIC. NOT OPENING EYES WHEN SPOKEN TO. UNABLE TO FOLLOW COMMANDS. ADMISSION COMPLETED BY PT'S -RAY AND DTG-IRA. T&R FOR COMFORT AND OFFLOADING. TMAX 100.3 AXILLARY. BP HYPOTENSIVE 80'S/50'S. SPO2 85-97 ON 0-2L OXYMASK. GENERALIZED EDEMA. MEPILEX APPLIED ABOVE COCCYX. REDDENED VAGINA, UNDER BREASTS, UNDER PANNUS (ESPECIALLY TO LEFT SIDE). VENOUS STASIS TO BLE. WITH WHAT APPEARS TO BE WARTS TO BLE. BED ALARM ON AND CALL LIGHT WITHIN PT?S REACH. LEFT IV INFILTRATED; SWOLLEN- ELEVATED ON PILLOWS AND WARM COMPRESS APPLIED. HEPARIN DRIP STARTED PER PROTOCOL. DR. HOOK-HORIZON UPDATED THROUGHOUT THE NIGHT. NOREPI STARTED AT END OF SHIFT PER PROTOCOL. ?
[2023-04-24 08:34] LABS: Partial Thromboplastin Time* > 180 Seconds (23-33)
[2023-04-24] MEDS: INSULIN ASPART 100 UNIT/ML SUBCUT ×2 (08:57→13:38)
--- NOTE | 2023-04-24 09:29 | REH.OT ---
Orders received, chart reviewed and spoke with RN. OT/PT to hold today due to decline in medical status.
[2023-04-24 11:44] LABS: Basophils Percent Auto 0.1 % (0.0-3.0); Hematocrit 40.2 % (33.0-51.0); Hemoglobin* 12.4 gm/dL (12.0-16.0); Immature Granulocytes Pct Auto 0.5 %; Mean Corpuscular HGB Conc 31 gm/dL (32-36); Mean Corpuscular Hemoglobin 32 pg (26-34); Mean Corpuscular Volume 103 fL (80-100); Monocytes Percent Auto 6.6 % (0.0-11.0); Neutrophils Percent Auto 87.8 % (42.0-72.0); Platelet Count* 284 K/uL (140-440); RDW Coefficient of Variation % 15.7 % (11.5-15.5); White Blood Count* 21.26 K/uL (4.50-11.00)
[2023-04-24 11:45] LABS: HCO3 VBG 18 mmol/L (21-28); PCO2 VBG 36 mmHG (40-50); PO2 VBG 58.4 mmHG (25-47); pH VBG 7.294 (7.32-7.43)
[2023-04-24 11:49] LABS: Slide Review Reflex No
[2023-04-24 12:02] LABS: Albumin* 3.5 g/dL (3.3-5.0); Chloride* 114 mmol/L (96-114)
[2023-04-24 12:03] LABS: Sodium* 141 mmol/L (135-149)
[2023-04-24 12:05] LABS: Creatinine* 1.4 mg/dL (0.5-1.5); Est. Creatinine Clearance* 30.93; Estimated Glomerular Filt Rate 40 ml/min
[2023-04-24 12:06] LABS: Alanine Aminotransferase* 95 U/L (4-35); Alkaline Phosphatase* 42 U/L (40-150); Anion Gap 13 mEq/L (7-15); Aspartate Amino Transferase* 193 U/L (12-35); Bilirubin Total* 1.4 mg/dL (0.1-1.5); Blood Urea Nitrogen* 19 mg/dL (7-30); Calcium* 8.3 mg/dL (8.4-10.6); Carbon Dioxide* 14 mmol/L (20-32); Glucose* 201 mg/dL (60-115); Phosphorus* 4.6 mg/dL (2.5-4.5); Total Protein* 6.6 g/dL (6.0-8.3)
[2023-04-24 12:07] LABS: INR 2.15 (0.91-1.10); Prothrombin Time 25.6 Seconds
[2023-04-24 12:09] LABS: C Reactive Protein* 7.7 mg/dL (0.5-1.0)
[2023-04-24 12:17] LABS: NT Pro B Type NatriureticPept* 2430 pg/mL
[2023-04-24] MEDS: 0.9 % SODIUM CHLORIDE 1000 ml 1,000 ML 100 ML IV ×2 (13:39→23:40)
[2023-04-24 15:27] LABS: HCO3 VBG 20 mmol/L (21-28); Lactate* 2.6 mmol/L (0.5-1.9); PCO2 VBG 37 mmHG (40-50); pH VBG 7.333 (7.32-7.43)
[2023-04-24 15:29] LABS: Basophils Percent Auto 0.2 % (0.0-3.0); Eosinophils Percent Auto 0.1 % (0.0-7.0); Hematocrit 39.6 % (33.0-51.0); Hemoglobin* 12.3 gm/dL (12.0-16.0); Lymphocytes Percent Auto 6.3 % (20-44); Mean Corpuscular HGB Conc 31 gm/dL (32-36); Mean Corpuscular Hemoglobin 32 pg (26-34); Mean Corpuscular Volume 102 fL (80-100); Monocytes Percent Auto 7.3 % (0.0-11.0); Neutrophils Percent Auto 85.1 % (42.0-72.0); Platelet Count* 132 K/uL (140-440); RDW Coefficient of Variation % 15.6 % (11.5-15.5); Red Blood Count 3.88 m/uL (4.00-5.20); White Blood Count* 18.56 K/uL (4.50-11.00)
[2023-04-24 15:32] LABS: Slide Review Reflex No
[2023-04-24 15:45] LABS: Albumin* 3.4 g/dL (3.3-5.0); Chloride* 114 mmol/L (96-114)
[2023-04-24 15:46] LABS: Potassium* 4.8 mmol/L (3.6-5.1); Sodium* 140 mmol/L (135-149)
[2023-04-24 15:48] LABS: Creatinine* 1.3 mg/dL (0.5-1.5); Est. Creatinine Clearance* 33.31; Estimated Glomerular Filt Rate 44 ml/min
[2023-04-24 15:49] LABS: Alanine Aminotransferase* 119 U/L (4-35); Alkaline Phosphatase* 40 U/L (40-150); Anion Gap 8 mEq/L (7-15); Aspartate Amino Transferase* 259 U/L (12-35); Bilirubin Total* 1.2 mg/dL (0.1-1.5); Blood Urea Nitrogen* 21 mg/dL (7-30); Calcium* 8.3 mg/dL (8.4-10.6); Carbon Dioxide* 18 mmol/L (20-32); Glucose* 166 mg/dL (60-115); Magnesium* 1.5 mg/dL (1.5-2.6); Phosphorus* 3.9 mg/dL (2.5-4.5); Total Protein* 6.6 g/dL (6.0-8.3)
[2023-04-24 15:51] LABS: C Reactive Protein* 8.8 mg/dL (0.5-1.0)
--- NOTE | 2023-04-24 16:35 | PM.IMPN1 ---
Progress Note: A&P Assessment and plan (1) Sepsis: Problem details: Bacteremia - Blood cultures reported to be growing rapidly last night, groin gram-positive cocci in chains (? Streptococcus, Enterococcus) CT chest abdomen pelvis unremarkable for acute findings of infection Leukocytosis, lactate, procalcitonin uptrending this morning. Poor urine output, concern for fluid overload ROSA, hyperkalemia, hyperphosphatemia, liver functions worsening VBG showing metabolic acidosis Discussed with [facility], Dr. Preciado, recommendations as follows, suspecting skin as source as well. Recent blood culture growing at [facility] epidermis, treated with linezolid. If patient has a bowel movement recommend GI pathogen panel, C difficile testing Continue IV vancomycin ertapenem. Pharmacy involved, renally dosing Patient placed on BiPAP Home medications held Reached out to [facility], spoke with Dr. Early. No beds available. Family not interested in transfer. Per Dr Early, critical care team unable to assist with further management at this location. Update: As day progressed, trending labs noted to be improving. Patient awakens and is actually conversant with family and staff. Blood pressure is improving. Urine output improved following 120 mg Lasix. Heparin drip discontinued. Lovenox b.i.d. dosing. Normal saline decreased to 100 mL. Norepinephrine drip discontinued per protocol. Will continue with BiPAP intermittently to prevent fluid retention Status: Acute (2) Metabolic encephalopathy: Problem details: In setting of sepsis. Awake and alert middle of the afternoon. Continue to follow closely Status: Acute (3) Acute hypoxic respiratory failure: Problem details: In setting of sepsis. BiPAP initiated will continue to use intermittently Respiratory therapy for pulmonary support Status: Acute (4) Atrial fibrillation: Problem details: Telemetry Metoprolol and diltiazem have been held given hypotension in sepsis. Monitor and restart when appropriate Heparin drip discontinued Lovenox b.i.d. Warfarin held Status: Acute (5) Obesity hypoventilation syndrome: Problem details: In setting of sepsis as above Status: Acute (6) MARCELL (obstructive sleep apnea): Problem details: Will need outpatient follow-up Status: Acute (7) Diabetes mellitus: Problem details: A1c 7.4. Blood glucose ACHS, insulin sliding scale. Glipizide, Januvia, and metformin held Status: Acute Time Spent With Patient Total time spent: Total time spent caring for the patient today was 120 minutes of critical care time. This includes time spent for the visit reviewing the chart, time spent during the visit, time spent after the visit and documentation and planning in coordination of care. Subjective Date Seen: 04/24/23 Interval history: Patient is seen this morning, obtunded, pinpoint pupils 3 and a 1/2 hours after Dilaudid, unresponsive to voice. Admitted overnight septic unknown source. Hypotensive overnight now requiring norepinephrine drip. Has normal saline running at 150 mL. Heparin drip per protocol. Norepinephrine drip per protocol. Has received 2 doses of vancomycin and 1 dose of ertapenem. O2 saturations low 80s on 2-1/2 L face mask. Discussed with Corine, daughter, plan to continue management of sepsis. She discussed with her father and decision has been made not to transfer for higher level of care but to keep patient locally. Code status is DNR/DNI. They do not want a central line nor at this time a PICC line. Exam Narrative: Exam Narrative: PHYSICAL EXAM On initial exam this morning General: Patient is obtunded, nonresponsive HEENT: Pinpoint pupils, sluggish with minimal reaction. Oral mucosa is dry appears to be some old blood but I did not use a tongue depressor given unprotected airway and DNI status. Ulceration noted right lateral aspect of tongue. Some desquamation of the buccal mucosa noted Cardiovascular: RRR, lower extremities edematous Pulmonary: Coarse breath sounds, wet, dyspnea, accessory muscle use noted Abdominal: Obese, soft Neurological: Obtunded, unresponsive Extremities: Edematous, chronic skin changes Skin: Pannus erythematous, moist. No streaking bright erythema of extremities. Const: Vital Signs, click to edit/add: Vital Signs - 24 hr 04/23/23 17:02 04/23/23 17:51 04/23/23 18:02 Temperature Pulse Rate 102 H 109 H 107 H Pulse Rate [Pulse Oximeter] Respiratory Rate 20 24 22 Blood Pressure 152/97 H 156/88 H 162/88 H Blood Pressure [Ri ght Arm] Blood Pressure [Ri ght Upper Arm] Pulse Oximetry 92 90 92 Oxygen Delivery Me thod Nasal Cannula Oxygen Flow Rate 3 Fraction of Inspir ed Oxygen 04/23/23 18:25 04/23/23 18:32 04/23/23 18:45 Temperature 100.2 F H Pulse Rate 100 98 Pulse Rate [Pulse Oximeter] Respiratory Rate 22 Blood Pressure 138/66 Blood Pressure [Ri ght Arm] Blood Pressure [Ri ght Upper Arm] Pulse Oximetry 91 92 Oxygen Delivery Me thod Nasal Cannula Oxygen Flow Rate 4 Fraction of Inspir ed Oxygen 04/23/23 20:00 04/23/23 21:32 04/24/23 00:40 Temperature 100.2 F H Pulse Rate 78 Pulse Rate [Pulse Oximeter] 98 Respiratory Rate 22 32 H Blood Pressure Blood Pressure [Ri ght Arm] Blood Pressure [Ri ght Upper Arm] 144/87 H Pulse Oximetry 92 Oxygen Delivery Me thod Nasal Cannula Oxygen Flow Rate 4 Fraction of Inspir ed Oxygen 04/24/23 00:40 04/24/23 01:30 04/24/23 01:35 Temperature 98.7 F 100.3 F H Pulse Rate Pulse Rate [Pulse Oximeter] 79 70 Respiratory Rate 26 H 22 Blood Pressure Blood Pressure [Ri ght Arm] 84/49 L Blood Pressure [Ri ght Upper Arm] Pulse Oximetry 91 Oxygen Delivery Me thod OxyMask Oxygen Flow Rate 2 Fraction of Inspir ed Oxygen 04/24/23 03:00 04/24/23 03:00 04/24/23 05:00 Temperature 99.2 F 99.2 F 98.3 F Pulse Rate Pulse Rate [Pulse Oximeter] 89 63 Respiratory Rate 22 22 Blood Pressure Blood Pressure [Ri ght Arm] 85/54 L 89/43 L Blood Pressure [Ri ght Upper Arm] Pulse Oximetry 92 92 Oxygen Delivery Me thod OxyMask OxyMask Oxygen Flow Rate 2 1 Fraction of Inspir ed Oxygen 04/24/23 05:40 04/24/23 07:00 04/24/23 07:30 Temperature 98.8 F 97.9 F Pulse Rate Pulse Rate [Pulse Oximeter] 62 57 L 66 Respiratory Rate 24 24 30 H Blood Pressure Blood Pressure [Ri ght Arm] 89/52 L 116/61 Blood Pressure [Ri ght Upper Arm] Pulse Oximetry 89 87 L Oxygen Delivery Me thod OxyMask OxyMask Oxygen Flow Rate 1 4 Fraction of Inspir ed Oxygen 04/24/23 08:00 04/24/23 08:08 04/24/23 08:30 Temperature Pulse Rate 63 Pulse Rate [Pulse Oximeter] 69 63 Respiratory Rate 30 H 22 Blood Pressure Blood Pressure [Ri ght Arm] 119/56 L 108/61 Blood Pressure [Ri ght Upper Arm] Pulse Oximetry 97 95 Oxygen Delivery Me thod CPAP BiPAP Oxygen Flow Rate 14 Fraction of Inspir ed Oxygen 30 30 04/24/23 09:00 04/24/23 09:19 04/24/23 09:30 Temperature 98.1 F Pulse Rate Pulse Rate [Pulse Oximeter] 57 L 59 L Respiratory Rate 22 29 H Blood Pressure Blood Pressure [Ri ght Arm] 110/68 117/72 Blood Pressure [Ri ght Upper Arm] Pulse Oximetry 93 93 Oxygen Delivery Me thod BiPAP BiPAP Oxygen Flow Rate Fraction of Inspir ed Oxygen 25 0.25 25 04/24/23 10:00 Temperature Pulse Rate Pulse Rate [Pulse Oximeter] 57 L Respiratory Rate 24 Blood Pressure Blood Pressure [Ri ght Arm] 128/64 Blood Pressure [Ri ght Upper Arm] Pulse Oximetry 92 Oxygen Delivery Me thod BiPAP Oxygen Flow Rate Fraction of Inspir ed Oxygen 25 Labs Labs: Laboratory Results - last 24 hr 04/23/23 04/23/23 04/23/23 18:10 18:40 18:58 WBC RBC Hgb Hct MCV MCH MCHC RDW Coeff of Maria Plt Count Neut % (Auto) Lymph % (Auto) [place] % (Auto) Eos % (Auto) Baso % (Auto) Neut # (Auto) Lymph # (Auto) [place] # (Auto) Eos # (Auto) Baso # (Auto) Abs Immat Gran (auto) Imm/Tot Granulo (auto) Diff Slide Review INR 1.59 H APTT VBG pH 7.384 VBG pCO2 35 L VBG pO2 73.7 H VBG HCO3 21 Sodium Potassium Chloride Carbon Dioxide Anion Gap BUN Creatinine Estimated Creat Clear Estimated GFR Glucose Lactate 3.5 H 3.3 H Calcium Phosphorus Magnesium Total Bilirubin Direct Bilirubin AST ALT Alkaline Phosphatase C-Reactive Protein NT-Pro-B Natriuret Pep Total Protein Albumin Procalcitonin 9.73 H Urine Color Yellow Urine Appearance Clear Urine pH 5.5 Ur Specific [place] 1.025 Urine Protein Negative Urine Glucose (UA) Negative Urine Ketones Negative Urine Blood Negative Urine Nitrite Negative Urine Bilirubin Negative Urine Urobilinogen 0.2 Ur Leukocyte Esterase Negative Urine RBC 2-5 A Urine WBC 2-5 Ur Squamous Epith Cells None Urine Bacteria None Lab Acknowledgement 04/23/23 04/24/23 04/24/23 23:15 01:18 03:40 WBC 12.23 H RBC 3.39 L Hgb 10.7 L Hct 34.0 MCV 100 MCH 32 MCHC 32 RDW Coeff of Maria Plt Count 234 Neut % (Auto) Lymph % (Auto) [place] % (Auto) Eos % (Auto) Baso % (Auto) Neut # (Auto) Lymph # (Auto) [place] # (Auto) Eos # (Auto) Baso # (Auto) Abs Immat Gran (auto) Imm/Tot Granulo (auto) Diff Slide Review INR 1.69 H APTT 33 VBG pH VBG pCO2 VBG pO2 VBG HCO3 Sodium Potassium Chloride Carbon Dioxide Anion Gap BUN Creatinine Estimated Creat Clear Estimated GFR Glucose Lactate 3.3 H 3.4 H Calcium Phosphorus Magnesium Total Bilirubin Direct Bilirubin AST ALT Alkaline Phosphatase C-Reactive Protein NT-Pro-B Natriuret Pep Total Protein Albumin Procalcitonin Urine Color Urine Appearance Urine pH Ur Specific [place] Urine Protein Urine Glucose (UA) Urine Ketones Urine Blood Urine Nitrite Urine Bilirubin Urine Urobilinogen Ur Leukocyte Esterase Urine RBC Urine WBC Ur Squamous Epith Cells Urine Bacteria Lab Acknowledgement 04/24/23 04/24/23 04/24/23 06:30 06:30 06:30 WBC 18.35 H Cancelled RBC 3.68 L Cancelled Hgb 11.5 L Hct MCV MCH MCHC RDW Coeff of Maria Plt Count Neut % (Auto) Lymph % (Auto) [place] % (Auto) Eos % (Auto) Baso % (Auto) Neut # (Auto) Lymph # (Auto) [place] # (Auto) Eos # (Auto) Baso # (Auto) Abs Immat Gran (auto) Imm/Tot Granulo (auto) Diff Slide Review INR APTT VBG pH VBG pCO2 VBG pO2 VBG HCO3 Sodium Potassium Chloride Carbon Dioxide Anion Gap BUN Creatinine Estimated Creat Clear Estimated GFR Glucose Lactate Calcium Phosphorus Magnesium Total Bilirubin Direct Bilirubin AST ALT Alkaline Phosphatase C-Reactive Protein NT-Pro-B Natriuret Pep Total Protein Albumin Procalcitonin Urine Color Urine Appearance Urine pH Ur Specific [place] Urine Protein Urine Glucose (UA) Urine Ketones Urine Blood Urine Nitrite Urine Bilirubin Urine Urobilinogen Ur Leukocyte Esterase Urine RBC Urine WBC Ur Squamous Epith Cells Urine Bacteria Lab Acknowledgement 04/24/23 04/24/23 04/24/23 06:30 06:30 06:30 WBC RBC Hgb Cancelled Hct 38.7 Cancelled MCV 105 H Cancelled MCH 31 MCHC RDW Coeff of Maria Plt Count Neut % (Auto) Lymph % (Auto) [place] % (Auto) Eos % (Auto) Baso % (Auto) Neut # (Auto) Lymph # (Auto) [place] # (Auto) Eos # (Auto) Baso # (Auto) Abs Immat Gran (auto) Imm/Tot Granulo (auto) Diff Slide Review INR APTT VBG pH VBG pCO2 VBG pO2 VBG HCO3 Sodium Potassium Chloride Carbon Dioxide Anion Gap BUN Creatinine Estimated Creat Clear Estimated GFR Glucose Lactate Calcium Phosphorus Magnesium Total Bilirubin Direct Bilirubin AST ALT Alkaline Phosphatase C-Reactive Protein NT-Pro-B Natriuret Pep Total Protein Albumin Procalcitonin Urine Color Urine Appearance Urine pH Ur Specific [place] Urine Protein Urine Glucose (UA) Urine Ketones Urine Blood Urine Nitrite Urine Bilirubin Urine Urobilinogen Ur Leukocyte Esterase Urine RBC Urine WBC Ur Squamous Epith Cells Urine Bacteria Lab Acknowledgement 04/24/23 04/24/23 04/24/23 06:30 06:30 06:30 WBC RBC Hgb Hct MCV MCH Cancelled MCHC 30 L Cancelled RDW Coeff of Maria 15.7 H Plt Count 228 Cancelled Neut % (Auto) 88.2 H Lymph % (Auto) 4.9 L [place] % (Auto) 5.4 Eos % (Auto) 0.0 Baso % (Auto) 0.2 Neut # (Auto) 16.20 H Lymph # (Auto) 0.90 [place] # (Auto) 1.00 H Eos # (Auto) 0.00 Baso # (Auto) 0.00 Abs Immat Gran (auto) 0.20 Imm/Tot Granulo (auto) 1.3 Diff Slide Review Acceptable Review INR 2.18 H APTT > 180 H* VBG pH 7.133 L* VBG pCO2 57 H VBG pO2 62.8 H VBG HCO3 19 L Sodium 140 Potassium 5.3 H Chloride 113 Carbon Dioxide 18 L Anion Gap 9 BUN 17 Creatinine 1.4 Estimated Creat Clear 30.93 Estimated GFR 40 Glucose 195 H Lactate 3.5 H Calcium 8.1 L Phosphorus 5.5 H Magnesium 1.4 L Total Bilirubin 1.9 H Direct Bilirubin 1.0 H AST 48 H ALT 26 Alkaline Phosphatase 42 C-Reactive Protein NT-Pro-B Natriuret Pep Total Protein 6.6 Albumin 3.5 Procalcitonin 22.90 H Urine Color Urine Appearance Urine pH Ur Specific [place] Urine Protein Urine Glucose (UA) Urine Ketones Urine Blood Urine Nitrite Urine Bilirubin Urine Urobilinogen Ur Leukocyte Esterase Urine RBC Urine WBC Ur Squamous Epith Cells Urine Bacteria Lab Acknowledgement 04/24/23 04/24/23 04/24/23 07:41 08:09 11:36 WBC 21.26 H RBC 3.90 L Hgb 12.4 Hct 40.2 MCV 103 H MCH 32 MCHC 31 L RDW Coeff of Maria 15.7 H Plt Count 284 Neut % (Auto) 87.8 H Lymph % (Auto) 5.0 L [place] % (Auto) 6.6 Eos % (Auto) 0.0 Baso % (Auto) 0.1 Neut # (Auto) 18.70 H Lymph # (Auto) 1.10 [place] # (Auto) 1.40 H Eos # (Auto) 0.00 Baso # (Auto) 0.00 Abs Immat Gran (auto) 0.10 Imm/Tot Granulo (auto) 0.5 Diff Slide Review INR 2.15 H APTT VBG pH 7.294 L VBG pCO2 36 L VBG pO2 58.4 H VBG HCO3 18 L Sodium 141 Potassium 5.0 Chloride 114 Carbon Dioxide 14 L Anion Gap 13 BUN 19 Creatinine 1.4 Estimated Creat Clear 30.93 Estimated GFR 40 Glucose 201 H Lactate 3.0 H Calcium 8.3 L Phosphorus 4.6 H Magnesium Total Bilirubin 1.4 Direct Bilirubin AST 193 H ALT 95 H Alkaline Phosphatase 42 C-Reactive Protein 7.7 H NT-Pro-B Natriuret Pep 2430 Total Protein 6.6 Albumin 3.5 Procalcitonin Urine Color Urine Appearance Urine pH Ur Specific [place] Urine Protein Urine Glucose (UA) Urine Ketones Urine Blood Urine Nitrite Urine Bilirubin Urine Urobilinogen Ur Leukocyte Esterase Urine RBC Urine WBC Ur Squamous Epith Cells Urine Bacteria Lab Acknowledgement Test Added Test Added 04/24/23 15:20 WBC 18.56 H RBC 3.88 L Hgb 12.3 Hct 39.6 MCV 102 H MCH 32 MCHC 31 L RDW Coeff of Maria 15.6 H Plt Count 132 L Neut % (Auto) 85.1 H Lymph % (Auto) 6.3 L [place] % (Auto) 7.3 Eos % (Auto) 0.1 Baso % (Auto) 0.2 Neut # (Auto) 15.80 H Lymph # (Auto) 1.20 [place] # (Auto) 1.40 H Eos # (Auto) 0.00 Baso # (Auto) 0.00 Abs Immat Gran (auto) 0.20 Imm/Tot Granulo (auto) 1.0 Diff Slide Review INR APTT VBG pH 7.333 VBG pCO2 37 L VBG pO2 133.0 H VBG HCO3 20 L Sodium 140 Potassium 4.8 Chloride 114 Carbon Dioxide 18 L Anion Gap 8 BUN 21 Creatinine 1.3 Estimated Creat Clear 33.31 Estimated GFR 44 Glucose 166 H Lactate 2.6 H Calcium 8.3 L Phosphorus 3.9 Magnesium 1.5 Total Bilirubin 1.2 Direct Bilirubin AST 259 H ALT 119 H Alkaline Phosphatase 40 C-Reactive Protein 8.8 H NT-Pro-B Natriuret Pep Total Protein 6.6 Albumin 3.4 Procalcitonin 20.70 H Urine Color Urine Appearance Urine pH Ur Specific [place] Urine Protein Urine Glucose (UA) Urine Ketones Urine Blood Urine Nitrite Urine Bilirubin Urine Urobilinogen Ur Leukocyte Esterase Urine RBC Urine WBC Ur Squamous Epith Cells Urine Bacteria Lab Acknowledgement
[2023-04-24] MEDS: ENOXAPARIN 100 MG/ML INJ 94 MG SUBCUT (16:45)
[2023-04-24] MEDS: ACETAMINOPHEN 325 MG TABLET 650 MG PO (19:37)
--- NOTE | 2023-04-24 20:26 | PC.NURSE ---
End of shift-- Pt unresponsive this morning, alert to voice and oriented to person and place this afternoon/ evening. VSS and highest temp this shift 99.6F. SPO2 maintained >90% on RA while awake and on bipap (18 over 14) with 21% FiO2 while sleeping. Rhonchi noted throughout lung isidro this morning and LS clear but diminished this afternoon. Telemetry shows atrial fibrillation with normal ventricular rate. She denied nausea but has eaten only ice chips today. BS hypoactive this morning and active in all 4 quadrants this afternoon. Turned and repositioned only this shift. BS 120-200 and pt given insulin per sliding scale. Heparin drip and Norepinephrine drip were both discontinued by this evening. Redness noted beneath breasts and pannus and area was cleansed, dried and InterDry replaced. Numerous family members at bedside appear loving and supportive. Ayala is patent and drained adequate amounts of clear, yellow urine by this evening. Report to TARI Metcalf.
[2023-04-24] MEDS: ERTAPENEM 1 GM in 0.9 % SODIUM CHLORIDE Mini-bag 100 ML IVPB (20:36)
[2023-04-25] VITALS (17 sets, daily range): BP systolic 107–152; BP diastolic 67–90; PULSE 67–96; RESP 18–24; TEMP 36.4–37.4; O2SAT 92–97
[2023-04-25 02:15] LABS: HCO3 VBG 22 mmol/L (21-28); PCO2 VBG 33 mmHG (40-50); PO2 VBG 42.9 mmHG (25-47); pH VBG 7.428 (7.32-7.43)
[2023-04-25] MEDS: ENOXAPARIN 100 MG/ML INJ 94 MG SUBCUT ×2 (04:07→16:00)
[2023-04-25 06:37] LABS: Basophils Percent Auto 0.2 % (0.0-3.0); Eosinophils Percent Auto 0.3 % (0.0-7.0); Hematocrit 32.7 % (33.0-51.0); Hemoglobin* 10.2 gm/dL (12.0-16.0); Immature Granulocytes Pct Auto 1.2 %; Lymphocytes Percent Auto 8.6 % (20-44); Mean Corpuscular HGB Conc 31 gm/dL (32-36); Mean Corpuscular Hemoglobin 31 pg (26-34); Mean Corpuscular Volume 100 fL (80-100); Monocytes Percent Auto 8.3 % (0.0-11.0); Neutrophils Percent Auto 81.4 % (42.0-72.0); Platelet Count* 190 K/uL (140-440); RDW Coefficient of Variation % 15.5 % (11.5-15.5); Red Blood Count 3.26 m/uL (4.00-5.20)
--- NOTE | 2023-04-25 06:44 | PC.NURSE ---
END OF SHIFT NOTE: PT PLEASANT AND COOPERATIVE. A&Ox3 WITH OCCASIONAL CONFUSION. DENIES CP, SOB, N/V. TURN AND REPO WITH PILLOWS FOR OFFLOADING AND COMFORT. VSS ON RA/BIPAP; TMAX 100.[address] AND PATENT. INCREASED REDNESS AND WARMTH TO BLE; AREA OUTLINED WITH DATE AND TIME.?TELE READS AFIB. CALL LIGHT WITHIN PT?S REACH.?
[2023-04-25 06:48] LABS: Slide Review Reflex No
[2023-04-25 07:01] LABS: Albumin* 2.7 g/dL (3.3-5.0); Chloride* 112 mmol/L (96-114); Sodium* 139 mmol/L (135-149)
[2023-04-25 07:02] LABS: Potassium* 3.9 mmol/L (3.6-5.1)
[2023-04-25 07:04] LABS: Alanine Aminotransferase* 101 U/L (4-35); Alkaline Phosphatase* 45 U/L (40-150); Anion Gap 8 mEq/L (7-15); Aspartate Amino Transferase* 126 U/L (12-35); Bilirubin Total* 1.1 mg/dL (0.1-1.5); Blood Urea Nitrogen* 24 mg/dL (7-30); Carbon Dioxide* 19 mmol/L (20-32); Creatinine* 1.1 mg/dL (0.5-1.5); Est. Creatinine Clearance* 39.37; Estimated Glomerular Filt Rate 54 ml/min; Total Protein* 5.7 g/dL (6.0-8.3)
[2023-04-25 07:05] LABS: Calcium* 8.2 mg/dL (8.4-10.6); Glucose* 88 mg/dL (60-115)
[2023-04-25 07:23] LABS: C Reactive Protein* 15.4 mg/dL (0.5-1.0)
[2023-04-25 08:06] LABS: Lactate* 1.5 mmol/L (0.5-1.9)
[2023-04-25 08:52] LABS: Magnesium* 1.5 mg/dL (1.5-2.6)
[2023-04-25] MEDS: FUROSEMIDE 10 MG/ML inj 80 MG IVP (09:23)
[2023-04-25] MEDS: PANTOPRAZOLE SODIUM 40 MG INJ IVP ×2 (09:29→21:10)
[2023-04-25] MEDS: dilTIAZem 240 MG CAP (CD) PO (09:30)
[2023-04-25] MEDS: METOPROLOL SUCCINATE (XL) 50 MG TAB 25 MG PO (09:30)
[2023-04-25] MEDS: ACETAMINOPHEN 325 MG TABLET 650 MG PO (09:30)
[2023-04-25] MEDS: SODIUM CHLORIDE 0.9 % (FLUSH) 10 ML SYRINGE 5 ML IVF ×2 (09:31→21:11)
[2023-04-25] MEDS: lisinopriL 10 MG TABLET PO (09:31)
[2023-04-25] MEDS: NYSTATIN POWDER 1 APPLIC TOPICAL ×2 (09:31→21:10)
[2023-04-25] MEDS: 0.9 % SODIUM CHLORIDE 1000 ml 1,000 ML 75 ML IV (09:47)
[2023-04-25] MEDS: LACTOBACILLUS ACIDOPHILUS 1 TABLET 2 TAB PO ×2 (13:14→17:40)
--- NOTE | 2023-04-25 14:31 | P.IMPN_ITS ---
Progress Note: A&P Assessment and plan (1) Sepsis: Problem details: Bacteremia - initial blood cultures growing gram-positive cocci in chains (? Streptococcus, Enterococcus). Id and sensitivity of the organism is still pending. Subsequent blood cultures not growing organisms thus far. CT chest abdomen pelvis unremarkable for acute findings of infection. Leukocytosis, lactate, procalcitonin uptrending. Poor urine output, concern for fluid overload common of the less responsive to diuresis efforts. ROSA, hyperkalemia, hyperphosphatemia, liver functions worsening. VBG showing metabolic acidosis. On 04/24/2023, discussed with [facility], Dr. Preciado, recommendations as follows, suspecting skin as source as well. Recent blood culture growing at [facility] epidermis, treated with linezolid. If patient has a bowel movement recommend GI pathogen panel, C difficile testing. Continue IV vancomycin ertapenem for now as we await organism ID and sensitivity details. Pharmacy involved, renally dosing. Patient placed on BiPAP. Also on 04/24/2023, spoke with [facility], Dr. Early. No beds available. Family not interested in transfer. Per Dr Early, critical care team unable to assist with further management at this location. Modest urine output past 24 hours with IV fluids and diuresis. This morning IV fluids were at 100 mL an hour, decreased to 75 mL/hour. Again dose with furosemide, 80 mg IV. Will make decision about IV fluids and possible additional diuresis efforts in the morning. 04/25/2023: Examination of the skin suggests possible sites of cellulitis including in the left upper outer aspect of her panniculitis as well as bilateral lower extremities with changes of chronic venous insufficiency with warmth, redness suggestive of cellulitis. Status: Acute (2) Metabolic encephalopathy: Problem details: In setting of sepsis. Initially obtunded. Awake and alert middle of the afternoon on 04/24/2023 and since. Status: Acute (3) Acute hypoxic respiratory failure: Problem details: In setting of sepsis, BiPAP initiated and will continue to use intermittently. Respiratory therapy consult for pulmonary support. 04/25/2023, furosemide 80 mg IV x1. Status: Acute (4) Atrial fibrillation: Problem details: Telemetry. Metoprolol and diltiazem were initially held given hypotension in sepsis. Restarted these 04/25/2023. Heparin drip discontinued and enoxaparin ordered based on her weight. Warfarin held. Status: Acute (5) Obesity hypoventilation syndrome: Problem details: In setting of sepsis as above continue with BiPAP as needed. Status: Acute (6) MARCELL (obstructive sleep apnea): Problem details: Will need outpatient follow-up. Continue with BiPAP for now. Status: Acute (7) Diabetes mellitus: Problem details: A1c 7.4. Blood glucose ACHS, insulin sliding scale. Glipizide, Januvia, and metformin held Status: Acute (8) Panniculitis: Problem details: Left upper outer aspect of abdominal panniculus Status: Acute (9) Cellulitis: Problem details: Bilateral shins Status: Acute (10) Fever: Status: Acute Plan 1. Plan as specified above 2. Reviewed with patient and her son, answered their questions. They are agreeable. Time Spent With Patient Total time spent: 50 minutes Subjective Date Seen: 04/25/23 Interval history: History of present illness: ?Linh Munoz is a 72 year old female with unknown past medical history presenting [on 04/23/2023] for altered mental status. The patient unable to provide any history. Hx obtained from and daughter (RN at [employer]). She is on warfarin for Atrial fibrillation? She presented to ED for fever and confusion. Per family she has had nausea, vomiting, chills and weakness. She has linezolid listed on home med rec but /Daughter do not know if she was taking this antibiotic and indication. She presented to ED where she was febrile. She was hypertensive and hypoxic on 4 liters supplemental oxygen. Notable labs include normal WBc, lactate 3.4->3.5, Tbili 1.6. Procal and INR not obtained. UA unremarkable. COVID PCR negative. CXR with Diffusely increased interstitial markings likely representing pulmonary edema and/or bronchitis changes. Somewhat limited evaluation of the lung bases due to patient body habitus. Lower lobe infiltrates may not be entirely excluded. She was given ativan and first attempt at CT Head CAP unable to be completed. She was subsequently given zyprexa and unable to complete CT scan imaging. She was given vancomycin and zosyn and admitted for further evaluation. On 04/24/2023, patient condition gradually improves with maximum intervention efforts including IV norepinephrine, BiPAP, IV fluids, intermittent IV diuretics. In time patient no longer requires IV fluid boluses and the IV norepinephrine drip is stopped. Near the end of the day on 04/24/2023 her condition was discussed with Corine, daughter, plan to continue management of sepsis. She discussed with her father and decision has been made not to transf er for higher level of care but to keep patient locally. Code status is DNR/DNI. They do not want a central line nor at this time a PICC line. A 04/25/2023, patient notes no discomfort or pain. Denies chest heaviness, pressure, tightness. Denies syncope or near-syncope. Not interested in eating. Denies nausea vomiting. She states she feels a little better. She thinks she might even be able to get up with help. Interested in drinking. Not hungry. Exam Narrative: Exam Narrative: Appears comfortable and in no acute distress. Respiratory rate at rest between 16 and 18. On low-flow oxygen support. Alert, oriented to self, place, time, and oriented to situation. Does not have good recall about how she arrived here and what transpired since she arrived in the hospital. Lungs with good air entry bilaterally. Scattered rhonchi without wheezing or rales. Heart tones distant but with regular rhythm, normal S1-S2. No murmur, gallop, rub. Abdomen with large pannus and on the left upper outer aspect of the pannus she has a obvious panniculitis which is red and warm. Other skin exam and include a bilateral lower extremities where she has red warm chronic venous stasis changes plus what appears to be a cellulitis. No induration, fluctuance, or drainage. No focal motor neurologic deficits. Moving upper lower extremities volitionally. Cranial nerves 3-12 grossly normal. Const: Vital Signs, click to edit/add: Vital Signs - 24 hr 04/24/23 15:00 04/24/23 15:00 04/24/23 15:00 Temperature Pulse Rate 71 Pulse Rate [Pulse Oximeter] 82 76 Respiratory Rate 17 18 Blood Pressure [Ri ght Arm] 141/98 H Pulse Oximetry 93 Oxygen Delivery Me thod BiPAP Oxygen Flow Rate 14 Fraction of Inspir ed Oxygen 25 04/24/23 15:35 04/24/23 16:00 04/24/23 17:00 Temperature 97.8 F 97.8 F Pulse Rate Pulse Rate [Pulse Oximeter] 74 78 75 Respiratory Rate 17 Blood Pressure [Ri ght Arm] 142/86 H 108/64 99/68 Pulse Oximetry 94 98 Oxygen Delivery Me thod Room Air BiPAP BiPAP Oxygen Flow Rate 14 Fraction of Inspir ed Oxygen 21 25 04/24/23 17:30 04/24/23 18:10 04/24/23 18:45 Temperature Pulse Rate Pulse Rate [Pulse Oximeter] 76 76 82 Respiratory Rate 17 17 17 Blood Pressure [Ri ght Arm] 112/64 112/64 116/68 Pulse Oximetry 98 98 98 Oxygen Delivery Me thod BiPAP BiPAP Room Air Oxygen Flow Rate 14 14 Fraction of Inspir ed Oxygen 25 25 25 04/24/23 19:00 04/24/23 19:00 04/24/23 19:37 Temperature 100.2 F H Pulse Rate 83 Pulse Rate [Pulse Oximeter] 91 Respiratory Rate 20 Blood Pressure [Ri ght Arm] Pulse Oximetry Oxygen Delivery Me thod Oxygen Flow Rate Fraction of Inspir ed Oxygen 04/24/23 20:00 04/24/23 22:00 04/24/23 23:00 Temperature 98.8 F Pulse Rate 86 Pulse Rate [Pulse Oximeter] 92 91 Respiratory Rate 20 22 Blood Pressure [Ri ght Arm] 119/69 116/79 Pulse Oximetry 95 96 Oxygen Delivery Me thod Room Air Room Air Oxygen Flow Rate 14 Fraction of Inspir ed Oxygen 21 04/24/23 23:00 04/25/23 00:00 04/25/23 02:00 Temperature 98.9 F 99.1 F Pulse Rate Pulse Rate [Pulse Oximeter] 91 96 85 Respiratory Rate 20 24 22 Blood Pressure [Ri ght Arm] 107/69 131/84 Pulse Oximetry 96 95 Oxygen Delivery Me thod BiPAP BiPAP Oxygen Flow Rate 14 14 Fraction of Inspir ed Oxygen 21 21 04/25/23 02:24 04/25/23 04:00 04/25/23 04:00 Temperature 98.1 F Pulse Rate 86 Pulse Rate [Pulse Oximeter] 88 88 Respiratory Rate 23 23 Blood Pressure [Ri ght Arm] 137/80 Pulse Oximetry 97 Oxygen Delivery Me thod BiPAP Oxygen Flow Rate 14 Fraction of Inspir ed Oxygen 21 04/25/23 06:00 04/25/23 07:00 04/25/23 07:16 Temperature 99.3 F 99.4 F Pulse Rate 89 Pulse Rate [Pulse Oximeter] 86 93 Respiratory Rate 22 23 Blood Pressure [Ri ght Arm] 121/80 130/90 H Pulse Oximetry 94 96 Oxygen Delivery Me thod BiPAP Room Air Oxygen Flow Rate 14 Fraction of Inspir ed Oxygen 21 04/25/23 08:00 04/25/23 08:00 04/25/23 10:00 Temperature 99.4 F 98.7 F Pulse Rate Pulse Rate [Pulse Oximeter] 93 92 92 Respiratory Rate 23 22 22 Blood Pressure [Ri ght Arm] 130/90 H 152/85 H Pulse Oximetry 96 97 Oxygen Delivery Me thod Room Air BiPAP Oxygen Flow Rate Fraction of Inspir ed Oxygen 04/25/23 10:31 04/25/23 11:00 04/25/23 12:00 Temperature 98.3 F Pulse Rate 82 Pulse Rate [Pulse Oximeter] 80 Respiratory Rate 18 Blood Pressure [Ri ght Arm] 131/77 Pulse Oximetry 94 Oxygen Delivery Me thod Room Air Oxygen Flow Rate Fraction of Inspir ed Oxygen 21 04/25/23 12:00 04/25/23 13:08 Temperature 98.1 F Pulse Rate Pulse Rate [Pulse Oximeter] 80 Respiratory Rate 18 Blood Pressure [Ri ght Arm] Pulse Oximetry Oxygen Delivery Me thod Oxygen Flow Rate Fraction of Inspir ed Oxygen Documenting provider has reviewed patient's vital signs: yes Labs Labs: Laboratory Results - last 24 hr 04/24/23 04/25/23 04/25/23 15:20 02:14 06:26 WBC 18.56 H 11.80 H RBC 3.88 L 3.26 L Hgb 12.3 10.2 L Hct 39.6 32.7 L MCV 102 H 100 MCH 32 31 MCHC 31 L 31 L RDW Coeff of Maria 15.6 H 15.5 Plt Count 132 L 190 Neut % (Auto) 85.1 H 81.4 H Lymph % (Auto) 6.3 L 8.6 L [place] % (Auto) 7.3 8.3 Eos % (Auto) 0.1 0.3 Baso % (Auto) 0.2 0.2 Neut # (Auto) 15.80 H 9.60 H Lymph # (Auto) 1.20 1.00 [place] # (Auto) 1.40 H 1.00 H Eos # (Auto) 0.00 0.00 Baso # (Auto) 0.00 0.00 Abs Immat Gran (auto) 0.20 0.10 Imm/Tot Granulo (auto) 1.0 1.2 VBG pH 7.333 7.428 VBG pCO2 37 L 33 L VBG pO2 133.0 H 42.9 VBG HCO3 20 L 22 Sodium 140 139 Potassium 4.8 3.9 Chloride 114 112 Carbon Dioxide 18 L 19 L Anion Gap 8 8 BUN 21 24 Creatinine 1.3 1.1 Estimated Creat Clear 33.31 39.37 Estimated GFR 44 54 Glucose 166 H 88 Lactate 2.6 H 1.5 Calcium 8.3 L 8.2 L Phosphorus 3.9 Magnesium 1.5 1.5 Total Bilirubin 1.2 1.1 AST 259 H 126 H ALT 119 H 101 H Alkaline Phosphatase 40 45 C-Reactive Protein 8.8 H 15.4 H Total Protein 6.6 5.7 L Albumin 3.4 2.7 L Procalcitonin 20.70 H Lab Acknowledgement Test Added 04/25/23 08:34 WBC RBC Hgb Hct MCV MCH MCHC RDW Coeff of Maria Plt Count Neut % (Auto) Lymph % (Auto) [place] % (Auto) Eos % (Auto) Baso % (Auto) Neut # (Auto) Lymph # (Auto) [place] # (Auto) Eos # (Auto) Baso # (Auto) Abs Immat Gran (auto) Imm/Tot Granulo (auto) VBG pH VBG pCO2 VBG pO2 VBG HCO3 Sodium Potassium Chloride Carbon Dioxide Anion Gap BUN Creatinine Estimated Creat Clear Estimated GFR Glucose Lactate Calcium Phosphorus Magnesium Total Bilirubin AST ALT Alkaline Phosphatase C-Reactive Protein Total Protein Albumin Procalcitonin Lab Acknowledgement Test Added
--- NOTE | 2023-04-25 14:35 | PC.NURSE ---
End of shift-- Very pleasant and cooperative patient. Alert and oriented today. VSS and pt is afebrile. SPO2 maintained >90% on RA while awake and on bipap with 21% FiO2 while resting. She denied any pain. LS clear but diminished. Telemetry shows chronic rate controlled a fib. She denied nausea and ate 50% of a regular diet for lunch but did require minimal assistance with eating. Turned and repositioned only this shift, but did do bed exercises with PT/OT today. Ayala is patent and drained approximately 1900ml of clear, yellow urine today. Family was at bedside today and appears loving and supportive.
--- NOTE | 2023-04-25 18:22 | PC.NURSE ---
End of Shift: Patient pleasant and cooperative. Patient vitally stable, lungs clear/diminished, BS WNL, IV running NS at 75. Patient denies pain and currently bedrest with Q2 repo. Patient when sleeping Bipap applied. Family visits on and off. Ayala intact and draining. LE edema +2 edema. Tele-A.fib. Blood sugar 117. Patient tolerating regular diet.
[2023-04-25] MEDS: ERTAPENEM 1 GM in 0.9 % SODIUM CHLORIDE Mini-bag 100 ML IVPB (21:10)
[2023-04-26] VITALS (10 sets, daily range): BP systolic 115–149; BP diastolic 69–93; PULSE 62–95; RESP 16–20; TEMP 36.6–37.4; O2SAT 93–97
[2023-04-26] MEDS: diphenhydrAMINE 50 MG/ML inj 25 MG IVP (00:25)
[2023-04-26] MEDS: 0.9 % SODIUM CHLORIDE 1000 ml 1,000 ML 75 ML IV (00:26)
[2023-04-26] MEDS: SODIUM CHLORIDE 0.9 % (FLUSH) 10 ML SYRINGE 5 ML IVF ×3 (00:27→20:43)
[2023-04-26] MEDS: ACETAMINOPHEN 325 MG TABLET 650 MG PO ×3 (03:29→20:45)
[2023-04-26] MEDS: HYDROmorphone 0.5 mg/0.5 ml inj IVP (03:30)
[2023-04-26] MEDS: ENOXAPARIN 100 MG/ML INJ 94 MG SUBCUT ×2 (03:31→16:58)
[2023-04-26 06:32] LABS: HCO3 VBG 23 mmol/L (21-28); PCO2 VBG 37 mmHG (40-50); PO2 VBG 85.7 mmHG (25-47); pH VBG 7.396 (7.32-7.43)
[2023-04-26 06:40] LABS: Basophils Absolute Auto 0.04 K/uL (0.00-0.30); Basophils Percent Auto 0.4 % (0.0-3.0); Eosinophils Absolute Auto 0.06 K/uL (0.00-0.50); Eosinophils Percent Auto 0.6 % (0.0-7.0); Hematocrit 32.7 % (33.0-51.0); Hemoglobin* 10.3 gm/dL (12.0-16.0); Immature Granulocytes Abs Auto 0.17 K/uL (0.00-0.30); Immature Granulocytes Pct Auto 1.7 %; Lymphocytes Percent Auto 11.9 % (20-44); Mean Corpuscular HGB Conc 32 gm/dL (32-36); Mean Corpuscular Hemoglobin 31 pg (26-34); Mean Corpuscular Volume 100 fL (80-100); Monocytes Percent Auto 6.9 % (0.0-11.0); Neutrophils Percent Auto 78.5 % (42.0-72.0); Platelet Count* 185 K/uL (140-440); RDW Coefficient of Variation % 15.6 % (11.5-15.5); Red Blood Count 3.28 m/uL (4.00-5.20); White Blood Count* 9.85 K/uL (4.50-11.00)
[2023-04-26 06:48] LABS: Albumin* 2.9 g/dL (3.3-5.0); Chloride* 109 mmol/L (96-114); Slide Review Reflex No; Sodium* 137 mmol/L (135-149)
[2023-04-26 06:49] LABS: Potassium* 3.9 mmol/L (3.6-5.1)
[2023-04-26 06:50] LABS: Estimated Glomerular Filt Rate 61 ml/min
[2023-04-26 06:51] LABS: Alanine Aminotransferase* 98 U/L (4-35); Alkaline Phosphatase* 51 U/L (40-150); Anion Gap 7 mEq/L (7-15); Aspartate Amino Transferase* 91 U/L (12-35); Bilirubin Direct* 0.5 mg/dL (0.0-0.5); Bilirubin Total* 1.5 mg/dL (0.1-1.5); Blood Urea Nitrogen* 22 mg/dL (7-30); Carbon Dioxide* 21 mmol/L (20-32)
[2023-04-26 06:52] LABS: Calcium* 8.3 mg/dL (8.4-10.6); Glucose* 112 mg/dL (60-115)
[2023-04-26 07:13] LABS: C Reactive Protein* 14.2 mg/dL (0.5-1.0)
[2023-04-26] MEDS: PANTOPRAZOLE SODIUM 40 MG INJ IVP (09:06)
[2023-04-26] MEDS: dilTIAZem 240 MG CAP (CD) PO (09:06)
[2023-04-26] MEDS: FUROSEMIDE 10 MG/ML inj 80 MG IVP (09:06)
[2023-04-26] MEDS: LACTOBACILLUS ACIDOPHILUS 1 TABLET 2 TAB PO ×3 (09:07→18:17)
[2023-04-26] MEDS: lisinopriL 10 MG TABLET PO (09:07)
[2023-04-26] MEDS: METOPROLOL SUCCINATE (XL) 50 MG TAB 25 MG PO (09:07)
[2023-04-26] MEDS: NYSTATIN POWDER 1 APPLIC TOPICAL ×2 (11:22→20:43)
--- NOTE | 2023-04-26 12:30 | P.IMPN_ITS ---
Progress Note: A&P Assessment and plan (1) Sepsis: Problem details: Bacteremia - initial blood cultures growing gram-positive cocci in chains. Blood cultures grew out group B Streptococcus, streptococcal agalatiae, pansensitive to ampicillin, levofloxacin, linezolid, tetracycline, tigecycline, vancomycin. Subsequent blood cultures not growing organisms thus far. CT chest abdomen pelvis unremarkable for acute findings of infection. Leukocytosis, lactate, procalcitonin uptrending. Initially had reduced urine output, concerning for fluid overload common of the less responsive to diuresis efforts. ROSA, hyperkalemia, hyperphosphatemia, liver functions worsening. VBG showing metabolic acidosis. On 04/24/2023, discussed with [facility], Dr. Preciado, recommendations as follows, suspecting skin as source as well. Recent blood culture growing at [facility] epidermis, treated with linezolid. If patient has a bowel movement recommend GI pathogen panel, C difficile testing. Continue IV vancomycin ertapenem for now as we await organism ID and sensitivity details. Pharmacy involved, renally dosing. Patient placed on BiPAP. Also on 04/24/2023, spoke with [facility], Dr. Early. No beds available. Family not interested in transfer. Per Dr Early, critical care team unable to assist with further management at this location. Modest urine output past 24 hours with IV fluids and diuresis. This morning IV fluids were at 100 mL an hour, decreased to 75 mL/hour. Again dose with furosemide, 80 mg IV. Will make decision about IV fluids and possible additional diuresis efforts in the morning. 04/25/2023: Examination of the skin suggests possible sites of cellulitis incl uding in the left upper outer aspect of her panniculitis as well as bilateral lower extremities with changes of chronic venous insufficiency with warmth, redness suggestive of cellulitis. 04/26/2023: Vancomycin and ertapenem IV are stop. Patient is started on IV ceftriaxone. After she has made sufficient recovery with IV antibiotics with switch to oral antibiotics, likely ampicillin or cephalexin and complete 14 day course of the same. Continue with probiotic coverage for a minimum of 1 month beyond hospitalization. Status: Acute (2) Metabolic encephalopathy: Problem details: In setting of sepsis. Initially obtunded. Awake and alert middle of the afternoon on 04/24/2023 and since. Status: Acute (3) Acute hypoxic respiratory failure: Problem details: In setting of sepsis, BiPAP initiated and will continue to use intermittently. Respiratory therapy consult for pulmonary support. 04/25/2023, furosemide 80 mg IV x1. 04/26/2023, furosemide 80 mg IV x1 Status: Acute (4) Atrial fibrillation: Problem details: Telemetry. Metoprolol and diltiazem were initially held given hypotension in sepsis. Restarted these 04/25/2023. Heparin drip discontinued and enoxaparin ordered based on her weight. Warfarin held. Status: Acute (5) Obesity hypoventilation syndrome: Problem details: In setting of sepsis as above continue with BiPAP as needed. Status: Acute (6) MARCELL (obstructive sleep apnea): Problem details: Will need outpatient follow-up. Continue with BiPAP for now. Status: Acute (7) Diabetes mellitus: Problem details: A1c 7.4. Blood glucose ACHS, insulin sliding scale. Glipizide, Januvia, and metformin held Status: Acute (8) Panniculitis: Problem details: Left upper outer aspect of abdominal panniculus, significantly improved by 04/26/2023. Status: Acute (9) Cellulitis: Problem details: Bilateral shins, significantly improved by 04/26/2023. Status: Acute (10) Fever: Problem details: Resolved. Status: Acute Plan 1. Reviewed impression with patient. 2. Reviewed impression with patient and daughter. 3. Discussed very briefly with patient . 4. Patient and family agreeable with above stated plans and recommendations. 5. Continue to work with physical and occupational therapy regarding physical debility, generalized weakness. Initiated discussion about possible need for [facility] facility with patient and family. They will take these recommendations under advisement. Time Spent With Patient Total time spent: 45 Subjective Date Seen: 04/26/23 Interval history: History of present illness: ?Linh Munoz is a 72 year old female with unknown past medical history presenting [on 04/23/2023] for altered mental status. The patient unable to provide any history. Hx obtained from and daughter (RN at [employer]). She is on warfarin for Atrial fibrillation? She presented to ED for fever and confusion. Per family she has had nausea, vomiting, chills and weakness. She has linezolid listed on home med rec but /Daughter do not know if she was taking this antibiotic and indication. She presented to ED where she was febrile. She was hypertensive and hypoxic on 4 liters supplemental oxygen. Notable labs include normal WBc, lactate 3.4->3.5, Tbili 1.6. Procal and INR not obtained. UA unremarkable. COVID PCR negative. CXR with Diffusely increased interstitial markings likely representing pulmonary edema and/or bronchitis changes. Somewhat limited evaluation of the lung bases due to patient body habitus. Lower lobe infiltrates may not be entirely excluded. She was given ativan and first attempt at CT Head CAP unable to be completed. She was subsequently given zyprexa and unable to complete CT scan imaging. She was given vancomycin and zosyn and admitted for further evaluation. On 04/24/2023, patient condition gradually improves with maximum intervention efforts including IV norepinephrine, BiPAP, IV fluids, intermittent IV diuretics. In time patient no longer requires IV fluid boluses and the IV norepinephrine drip is stopped. Near the end of the day on 04/24/2023 her condition was discussed with Corine, daughter, plan to continue management of sepsis. She discussed with her father and decision has been made not to tr hao for higher level of care but to keep patient locally. Code status is DNR/DNI. They do not want a central line nor at this time a PICC line. On 04/25/2023, patient notes no discomfort or pain. Denies chest heaviness, pressure, tightness. Denies syncope or near-syncope. Not interested in eating. Denies nausea vomiting. She states she feels a little better. She thinks she might even be able to get up with help. Interested in drinking. Not hungry. On 04/26/2023, patient continues to show signs of improvement. Able to tolerate oral intake. Denies nausea or vomiting. Denies abdominal pain. Denies diarrhea or constipation. Starting to tolerating increased activity today or as yesterday she still was not able to even move from her bed without assist. Still working with physical therapy and occupational therapy. Presently still using BiPAP at bedtime. Tolerates the BiPAP, but would prefer not to use it if possible. Exam Narrative: Exam Narrative: I examine her in her hospital room. Appears comfortable and in no acute distress. Alert, oriented to self, place, time, situation. Currently, articulate, cooperative. Lungs remarkably clear. Heart tones with regular rhythm, without murmur, gallop, rub. Abdomen with morbid obesity, large pannus, soft, nontender. Skin on her shins and in the left upper quadrant of her pannus are vastly improved today compared to even yesterday. Decreased redness and warmth. No focal motor neurologic deficits. With assist of 1 she is able to transfer from bed to bedside chair. She was not able to care this activity all yesterday. Const: Vital Signs, click to edit/add: Vital Signs - 24 hr 04/25/23 13:08 04/25/23 15:47 04/25/23 15:47 Temperature 98.1 F 97.6 F Pulse Rate Pulse Rate [Pulse Oximeter] 73 73 Respiratory Rate 22 22 Blood Pressure [Ri ght Arm] 128/67 Pulse Oximetry 94 Oxygen Delivery Me thod Room Air Oxygen Flow Rate Fraction of Inspir ed Oxygen 04/25/23 17:18 04/25/23 20:55 04/25/23 20:55 Temperature 98.3 F Pulse Rate 67 Pulse Rate [Pulse Oximeter] 69 69 Respiratory Rate 23 23 Blood Pressure [Ri ght Arm] 126/80 Pulse Oximetry 96 Oxygen Delivery Me thod BiPAP Oxygen Flow Rate Fraction of Inspir ed Oxygen 04/25/23 21:30 04/25/23 23:00 04/26/23 02:00 Temperature 98.6 F Pulse Rate 76 77 Pulse Rate [Pulse Oximeter] 75 Respiratory Rate 22 Blood Pressure [Ri ght Arm] 124/82 Pulse Oximetry 92 Oxygen Delivery Me thod BiPAP Oxygen Flow Rate Fraction of Inspir ed Oxygen 04/26/23 03:30 04/26/23 08:01 04/26/23 08:20 Temperature 99.4 F 97.9 F Pulse Rate 63 Pulse Rate [Pulse Oximeter] 74 68 Respiratory Rate 16 20 Blood Pressure [Ri ght Arm] 130/69 127/93 H Pulse Oximetry 93 97 Oxygen Delivery Me thod BiPAP Room Air Oxygen Flow Rate 14 Fraction of Inspir ed Oxygen 21 04/26/23 11:06 04/26/23 11:37 Temperature 97.8 F Pulse Rate 72 Pulse Rate [Pulse Oximeter] 95 Respiratory Rate 18 Blood Pressure [Ri ght Arm] 115/69 Pulse Oximetry 95 Oxygen Delivery Me thod Room Air Oxygen Flow Rate Fraction of Inspir ed Oxygen Labs Labs: Laboratory Results - last 24 hr 04/26/23 04/26/23 05:56 06:06 WBC 9.85 RBC 3.28 L Hgb 10.3 L Hct 32.7 L MCV 100 MCH 31 MCHC 32 RDW Coeff of Maria 15.6 H Plt Count 185 Neut % (Auto) 78.5 H Lymph % (Auto) 11.9 L [place] % (Auto) 6.9 Eos % (Auto) 0.6 Baso % (Auto) 0.4 Neut # (Auto) 7.70 H Lymph # (Auto) 1.20 [place] # (Auto) 0.70 Eos # (Auto) 0.06 Baso # (Auto) 0.04 Abs Immat Gran (auto) 0.17 Imm/Tot Granulo (auto) 1.7 VBG pH 7.396 VBG pCO2 37 L VBG pO2 85.7 H VBG HCO3 23 Sodium 137 Potassium 3.9 Chloride 109 Carbon Dioxide 21 Anion Gap 7 BUN 22 Creatinine 1.0 Estimated Creat Clear 43.30 Estimated GFR 61 Glucose 112 Calcium 8.3 L Total Bilirubin 1.5 Direct Bilirubin 0.5 AST 91 H ALT 98 H Alkaline Phosphatase 51 C-Reactive Protein 14.2 H Total Protein 6.0 Albumin 2.9 L
[2023-04-26] MEDS: cefTRIAXone 2 GM in 0.9 % SODIUM CHLORIDE Mini-bag 100 ML IVPB (12:55)
--- NOTE | 2023-04-26 13:15 | NUTR.NU ---
RDN with nutrition screen related to diet education. Patient admitted for sepsis and metabolic encephalopathy. History of diabetes mellitus type 2. Current diet is diabetic. Weight 357lb 11.2oz; height 63 inches; BMI is obese at 63.4kg/m2. RDN visited with patient and whom reports doing well. She was eating lunch at visit. She reports her appetite wasn't very good on admit, however that has resolved. She order an egg salad sandwich with crenshaw, a side salad, and sugar free dessert for lunch. Patient reports following a diabetic diet at home and declined diet education related to diabetes at this time. RDN encouraged patient and to let staff know if they have any questions or concerns, or would like diet education. RDN will continue to monitor and follow-up prn.
[2023-04-26] MEDS: INSULIN ASPART 100 UNIT/ML SUBCUT ×3 (13:17→21:11)
--- NOTE | 2023-04-26 13:35 | PC.NURSE ---
Shift Summary: Patient pleasant and cooperative. Up with one assist, walker and gait belt to recliner. Good appetite today, feeding self. Vitals stable and WNL. Has been on RA since waking this morning. Skin care done with assist from OT. Catheter emptied q4h. Patient verbalized that she feels the swelling in bilat arms is improving. C/o some back pain this morning following therapy rated 1/10, given PRN acetaminophen with relief. IV saline locked and fluids D/C.
--- NOTE | 2023-04-26 16:43 | PC.SOCIAL ---
Discharge planning- Met with pt to discuss discharge plans. Discussed therapy recommendation of short-term rehab. Pt is aware that there is limited availability for rehab beds. Pt would like this worker to check with [facility] in [place] and [facility]. Pt is hopeful to find a SNF close to home. Contacted the following SNF's for possible placement. 1. [facility]- Phone call to admissions at [phone], left voicemail. Faxed referral to [phone]. 2. [facility] in [place]- Phone call to admissions at [phone], left voicemail. Faxed referral to [phone]. 3. [facility] in [place]- Phone call to admissions at [phone], left voicemail. Faxed referral to [phone]. 4. [facility] in [place]- E-mail to Ayleen in admissions to see if they have availability and if the facility is able to accommodate pt's weight. Social work will continue to follow up as needed.
[2023-04-26 18:06] LABS: INR 1.67 (0.91-1.10); Prothrombin Time 20.9 Seconds
[2023-04-26] MEDS: WARFARIN 5 MG TABLET PO (18:17)
--- NOTE | 2023-04-26 22:08 | PC.NURSE ---
End of Shift: Patient pleasant and cooperative. Afebrile. Up to chair and bathroom with 2 assist, walker and gait belt. Rating pain in right leg 2/10 and PRN Tylenol given x1. Redness to right leg noted to be increased from previous outline and weeping from back of leg. Updated MD and in to see patient, Paige added. Extremities elevated. O2 sats greater than 90% on room air. Tolerating regular diet with no nausea. Ayala patent.
[2023-04-27] VITALS (9 sets, daily range): BP systolic 110–146; BP diastolic 68–88; PULSE 59–81; RESP 16–24; TEMP 36.4–37.1; O2SAT 95–98
[2023-04-27] MEDS: ENOXAPARIN 120 MG/0.8 ML INJ SUBCUT ×2 (04:32→16:28)
--- NOTE | 2023-04-27 06:18 | PC.NURSE ---
End of shift report [id number]: Patient is pleasant and cooperative with cares. Denies any pain or shortness of breath. Up in recliner sleeping, patient declined to go back into the bed stating that it was uncomfortable and felt like she was laying on a board. Per patient she sleeps in a recliner at home and finds it more comfortable sitting upright. Redness contained within the margins on BLE. RLE continues to weep scant amount of clear to light yellow tinged serous fluid. Catheter intact and patent, draining dark yellow urine. 3-4+ pitting edema to BLE.
[2023-04-27 06:36] LABS: HCO3 VBG 24 mmol/L (21-28); PCO2 VBG 33 mmHG (40-50); pH VBG 7.467 (7.32-7.43)
[2023-04-27 07:07] LABS: Chloride* 111 mmol/L (96-114)
[2023-04-27 07:08] LABS: Albumin* 3.1 g/dL (3.3-5.0); Potassium* 4.1 mmol/L (3.6-5.1); Sodium* 137 mmol/L (135-149)
[2023-04-27 07:09] LABS: INR 1.48 (0.91-1.10); Prothrombin Time 18.9 Seconds
[2023-04-27 07:10] LABS: Creatinine* 0.8 mg/dL (0.5-1.5); Estimated Glomerular Filt Rate 79 ml/min
[2023-04-27 07:11] LABS: Alanine Aminotransferase* 88 U/L (4-35); Alkaline Phosphatase* 40 U/L (40-150); Anion Gap 6 mEq/L (7-15); Aspartate Amino Transferase* 91 U/L (12-35); Bilirubin Direct* 0.8 mg/dL (0.0-0.5); Bilirubin Total* 1.4 mg/dL (0.1-1.5); Blood Urea Nitrogen* 19 mg/dL (7-30); Carbon Dioxide* 20 mmol/L (20-32); Glucose* 153 mg/dL (60-115); Total Protein* 6.4 g/dL (6.0-8.3)
[2023-04-27 07:12] LABS: Calcium* 8.5 mg/dL (8.4-10.6)
[2023-04-27 07:14] LABS: C Reactive Protein* 6.2 mg/dL (0.5-1.0)
[2023-04-27 07:17] LABS: Basophils Absolute Auto 0.05 K/uL (0.00-0.30); Basophils Percent Auto 0.7 % (0.0-3.0); Eosinophils Absolute Auto 0.14 K/uL (0.00-0.50); Eosinophils Percent Auto 1.8 % (0.0-7.0); Hemoglobin* 10.3 gm/dL (12.0-16.0); Immature Granulocytes Abs Auto 0.32 K/uL (0.00-0.30); Immature Granulocytes Pct Auto 4.2 %; Lymphocytes Percent Auto 16.2 % (20-44); Mean Corpuscular HGB Conc 32 gm/dL (32-36); Mean Corpuscular Hemoglobin 32 pg (26-34); Mean Corpuscular Volume 99 fL (80-100); Monocytes Percent Auto 10.2 % (0.0-11.0); Neutrophils Absolute Auto 5.14 K/uL (1.7-7.0); Neutrophils Percent Auto 66.9 % (42.0-72.0); Platelet Count* 151 K/uL (140-440); RDW Coefficient of Variation % 15.5 % (11.5-15.5); Red Blood Count 3.23 m/uL (4.00-5.20); White Blood Count* 7.67 K/uL (4.50-11.00)
[2023-04-27 07:19] LABS: Slide Review Reflex No
[2023-04-27] MEDS: LACTOBACILLUS ACIDOPHILUS 1 TABLET 2 TAB PO ×3 (08:32→18:24)
[2023-04-27] MEDS: METOPROLOL SUCCINATE (XL) 25 MG TAB PO (08:32)
[2023-04-27] MEDS: lisinopriL 10 MG TABLET PO (08:32)
[2023-04-27] MEDS: dilTIAZem 240 MG CAP (CD) PO (08:32)
[2023-04-27] MEDS: SODIUM CHLORIDE 0.9 % (FLUSH) 10 ML SYRINGE 5 ML IVF ×3 (08:33→21:25)
[2023-04-27] MEDS: NYSTATIN POWDER 1 APPLIC TOPICAL ×2 (08:37→21:25)
[2023-04-27] MEDS: INSULIN ASPART 100 UNIT/ML SUBCUT ×2 (11:38→18:24)
[2023-04-27] MEDS: 0.9 % SODIUM CHLORIDE 250 ml IV (12:19)
[2023-04-27] MEDS: cefTRIAXone 2 GM in 0.9 % SODIUM CHLORIDE Mini-bag 100 ML IVPB (12:19)
--- NOTE | 2023-04-27 13:20 | PM.IMPN1 ---
Progress Note: A&P Assessment and plan (1) Sepsis: Problem details: Bacteremia - initial blood cultures growing gram-positive cocci in chains. Blood cultures grew out group B Streptococcus, streptococcal agalatiae, pansensitive to ampicillin, levofloxacin, linezolid, tetracycline, tigecycline, vancomycin. Subsequent blood cultures not growing organisms thus far. CT chest abdomen pelvis unremarkable for acute findings of infection. Leukocytosis, lactate, procalcitonin uptrending. Initially had reduced urine output, concerning for fluid overload common of the less responsive to diuresis efforts. ROSA, hyperkalemia, hyperphosphatemia, liver functions worsening. VBG showing metabolic acidosis. On 04/24/2023, discussed with [facility], Dr. Preciado, recommendations as follows, suspecting skin as source as well. Recent blood culture growing at [facility] epidermis, treated with linezolid. If patient has a bowel movement recommend GI pathogen panel, C difficile testing. Continue IV vancomycin ertapenem for now as we await organism ID and sensitivity details. Pharmacy involved, renally dosing. Patient placed on BiPAP. Also on 04/24/2023, spoke with [facility], Dr. Early. No beds available. Family not interested in transfer. Per Dr Early, critical care team unable to assist with further management at this location. Modest urine output past 24 hours with IV fluids and diuresis. This morning IV fluids were at 100 mL an hour, decreased to 75 mL/hour. Again dose with furosemide, 80 mg IV. Will make decision about IV fluids and possible additional diuresis efforts in the morning. 04/25/2023: Examination of the skin suggests possible sites of cellulitis including in the left upper outer aspect of her panniculitis as well as bilateral lower extremities with changes of chronic venous insufficiency with warmth, redness suggestive of cellulitis. 04/26/2023: Vancomycin and ertapenem IV are stop. Patient is started on IV ceftriaxone. After she has made sufficient recovery with IV antibiotics with switch to oral antibiotics, likely ampicillin or cephalexin and complete 14 day course of the same. Continue with probiotic coverage for a minimum of 1 month beyond hospitalization. 04/27/2023: Receiving ceftriaxone 2 g IV Q 24 hours. Given that patient had group B streptococcal uncomplicated bacteremia, without metastatic infection, meningitis, osteomyelitis, endocarditis, or prosthetic material associated with risk for seeding during bacteremia, will need to complete of full 2 week course of appropriate IV antibiotics. Will thus place PICC line tomorrow. Last dose of IV antibiotic will be 05/06/2023. Reviewed with patient, , 2 daughters, and all are in agreement. Status: Acute (2) Metabolic encephalopathy: Problem details: - In setting of sepsis. Initially obtunded. Awake and alert middle of the afternoon on 04/24/2023 and since. - her level of mentation has remained improved since then. Status: Acute (3) Acute hypoxic respiratory failure: Problem details: In setting of sepsis, BiPAP initiated. 04/25/2023, furosemide 80 mg IV x1. 04/26/2023, furosemide 80 mg IV x1. Patient refuse BiPAP support since. 04/27/2023, furosemide 80 mg IV x1. Will transition to oral diuretics tomorrow. Status: Acute (4) Atrial fibrillation: Problem details: Telemetry. Metoprolol and diltiazem were initially held given hypotension in sepsis. Restarted these 04/25/2023. Heparin drip discontinued and enoxaparin ordered based on her weight. Warfarin held in the initial part of the hospital stay. Restarted warfarin on 04/26/2023. Status: Acute (5) Obesity hypoventilation syndrome: Problem details: In setting of sepsis, benefited from BiPAP initially. Subsequently has done well without BiPAP. Status: Acute (6) MARCELL (obstructive sleep apnea): Problem details: - Required BiPAP therapy early in the course of hospitalization when she was acutely septic. - Patient has done adequately in the latter portion of the hospitalization without BiPAP. - will need outpatient sleep study in the future. Status: Acute (7) Diabetes mellitus: Problem details: A1c 7.4. Blood glucose ACHS, insulin sliding scale. Glipizide, Januvia, and metformin held Status: Acute (8) Panniculitis: Problem details: Left upper outer aspect of abdominal panniculus, significantly improved by 04/26/2023 and since. Status: Acute (9) Cellulitis: Problem details: Bilateral shins, significantly improved by 04/26/2023 and since. Status: Acute (10) Fever: Problem details: Resolved. Status: Acute (11) Physical debility: Problem details: - at baseline she did not move much. She sat in her recliner chair at home much of the day. - 04/27/2023, still requiring assist with transfers and ambulation and her ADLs. Will likely need transitional care services in a care home facility until such time as patient is able to demonstrate ability to safely carry out most of her activities of daily living. Reviewed with patient, , and 2 daughters today. All are in agreement. Status: Acute (12) Chronic acquired lymphedema: Problem details: - will need outpatient lymphedema clinic assessment and recommendations for long-term care with efforts directed toward reducing risk of potential complications associated therewith Status: Acute Plan 1. Reviewed above with patient, , 2 daughters, and all agreeable to above stated plans and recommendations. Time Spent With Patient Total time spent: 60 minutes Subjective Date Seen: 04/27/23 Interval history: Hospital day 5. History of present illness: ?Linh Munoz is a 72 year old female with unknown past medical history presenting [on 04/23/2023] for altered mental status. The patient unable to provide any history. Hx obtained from and daughter (RN at [employer] [facility] [employer]). She is on warfarin for Atrial fibrillation? She presented to ED for fever and confusion. Per family she has had nausea, vomiting, chills and weakness. She has linezolid listed on home med rec but /Daughter do not know if she was taking this antibiotic and indication. She presented to ED where she was febrile. She was hypertensive and hypoxic on 4 liters supplemental oxygen. Notable labs include normal WBc, lactate 3.4->3.5, Tbili 1.6. Procal and INR not obtained. UA unremarkable. COVID PCR negative. CXR with Diffusely increased interstitial markings likely representing pulmonary edema and/or bronchitis changes. Somewhat limited evaluation of the lung bases due to patient body habitus. Lower lobe infiltrates may not be entirely excluded. She was given ativan and first attempt at CT Head CAP unable to be completed. She was subsequently given zyprexa and unable to complete CT scan imaging. She was given vancomycin and zosyn and admitted for further evaluation. On 04/24/2023, patient condition gradually improves with maximum intervention efforts including IV norepinephrine, BiPAP, IV fluids, intermittent IV diuretics. In time patient no longer requires IV fluid boluses and the IV norepinephrine drip is stopped. Near the end of the day on 04/24/2023 her condition was discussed with Corine, daughter, plan to continue management of sepsis. She discussed with her father and decision has been made not to transfer for higher level of care but to keep patient locally. Code status is DNR/DNI. They do not want a central line nor at this time a PICC line. On 04/25/2023, patient notes no discomfort or pain. Denies chest heaviness, pressure, tightness. Denies syncope or near-syncope. Not interested in eating. Denies nausea vomiting. She states she feels a little better. She thinks she might even be able to get up with help. Interested in drinking. Not hungry. On 04/26/2023, patient continues to show signs of improvement. Able to tolerate oral intake. Denies nausea or vomiting. Denies abdominal pain. Denies diarrhea or constipation. Starting to tolerating increased activity today or as yesterday she still was not able to even move from her bed without assist. Still working with physical therapy and occupational therapy. Presently still using BiPAP at bedtime. Tolerates the BiPAP, but would prefer not to use it if possible. On 04/27/2023, patient more awake and more interactive. Able to take a few steps with assist of others and use of walker. She refused to use the BiPAP last night. Able to maintain her saturations off of any oxygen support. No change in mentation without the BiPAP. Received another dose of IV vancomycin last night with the thought that the redness on her right leg was extending beyond borders of previously marked area of involvement. Certainly has had no fever. No other signs of active infection. Does have the chronic lymphedema with stage 3-4 trophic changes. Exam Narrative: Exam Narrative: Evaluated patient in her hospital room. Appears comfortable and in no acute distress. Alert, oriented to self, place, time, situation. Friendly, articulate, cooperative. Able to engage in meaningful dialogue in discussion. Able to express simple and complex thoughts and ideas. Lungs remain clear to auscultation. Heart tones with regular rhythm, normal S1-S2. Abdomen is morbidly obese with a large pannus, with active bowel sounds, soft, nontender. Skin is intact. Left upper quadrant aspect of large pannus less erythematous, no longer warm to touch, nontender. Erythema, warmth of left lower extremity bauer is in great measure resolved. Does have underlying stage 3-4 chronic lymphedema trophic changes. Erythema of the right lower bauer still present and minimally warm. Does have baseline stage 3-4 chronic lymphedema trophic changes. Const: Vital Signs, click to edit/add: Vital Signs - 24 hr 04/26/23 15:00 04/26/23 15:00 04/26/23 16:00 Temperature 98.3 F Pulse Rate 62 Pulse Rate [Pulse Oximeter] 76 76 Respiratory Rate 20 20 Blood Pressure [Ri ght Arm] 126/70 Pulse Oximetry 94 Oxygen Delivery Me thod Room Air Fraction of Inspir ed Oxygen 04/26/23 16:37 04/26/23 19:00 04/26/23 23:00 Temperature 98.9 F Pulse Rate 71 Pulse Rate [Pulse Oximeter] 77 Respiratory Rate 20 Blood Pressure [Ri ght Arm] 149/93 H Pulse Oximetry 96 Oxygen Delivery Me thod Room Air Fraction of Inspir ed Oxygen 21 04/26/23 23:00 04/27/23 00:00 04/27/23 03:00 Temperature 98.3 F 98.3 F Pulse Rate Pulse Rate [Pulse Oximeter] 71 71 61 Respiratory Rate 20 20 16 Blood Pressure [Ri ght Arm] 128/70 110/73 Pulse Oximetry 96 96 Oxygen Delivery Me thod Room Air Room Air Fraction of Inspir ed Oxygen 04/27/23 07:10 04/27/23 07:28 04/27/23 07:28 Temperature 97.5 F L Pulse Rate 59 L Pulse Rate [Pulse Oximeter] 73 59 L Respiratory Rate 20 Blood Pressure [Ri ght Arm] 146/86 H Pulse Oximetry 96 Oxygen Delivery Me thod Room Air Fraction of Inspir ed Oxygen 04/27/23 11:05 Temperature 98.1 F Pulse Rate Pulse Rate [Pulse Oximeter] 60 Respiratory Rate 18 Blood Pressure [Ri ght Arm] 132/80 Pulse Oximetry 96 Oxygen Delivery Me thod Room Air Fraction of Inspir ed Oxygen Labs Labs: Laboratory Results - last 24 hr 04/26/23 04/27/23 05:56 05:45 WBC 7.67 RBC 3.23 L Hgb 10.3 L Hct 32.0 L MCV 99 MCH 32 MCHC 32 RDW Coeff of Maria 15.5 Plt Count 151 Neut % (Auto) 66.9 Lymph % (Auto) 16.2 L Catron % (Auto) 10.2 Eos % (Auto) 1.8 Baso % (Auto) 0.7 Neut # (Auto) 5.14 Lymph # (Auto) 1.20 Catron # (Auto) 0.80 Eos # (Auto) 0.14 Baso # (Auto) 0.05 Abs Immat Gran (auto) 0.32 H Imm/Tot Granulo (auto) 4.2 INR 1.67 H 1.48 H VBG pH 7.467 H VBG pCO2 33 L VBG pO2 126.0 H VBG HCO3 24 Sodium 137 Potassium 4.1 Chloride 111 Carbon Dioxide 20 Anion Gap 6 L BUN 19 Creatinine 0.8 Estimated Creat Clear 43.30 Estimated GFR 79 Glucose 153 H Calcium 8.5 Total Bilirubin 1.4 Direct Bilirubin 0.8 H AST 91 H ALT 88 H Alkaline Phosphatase 40 C-Reactive Protein 6.2 H Total Protein 6.4 Albumin 3.1 L Lab Acknowledgement Test Added
--- NOTE | 2023-04-27 15:57 | PC.SOCIAL ---
Discharge planning- Received a phone call from Senait in admissions at [facility] in [place] at [phone]. [facility] can accept pt for admission. Per MD, pt will not be ready for discharge until . Pt will have a private room with a potential charge of $45/day. Provided information to pt, pt's , and pt's daughters. Pt would like to accept the bed. Provided update to Senait at [facility]. Per charge nurse, pt will qualify for non-emergency EMS due to BMI. Received updated information from that pt will need IV antibiotics through May 06. Pt will have a PICC line placed prior to discharge. IV antibiotic is Ceftriaxone 2g one time daily. This worker will check with SNF to see if they are able to accommodate. Phone call to Senait at [facility] and provided update on IV antibiotics. Senait will discuss with nursing team and call this worker back. Social work will follow up as needed.
[2023-04-27] MEDS: WARFARIN 5 MG TABLET PO (16:28)
--- NOTE | 2023-04-27 17:00 | CRLHL7_ITS ---
For Patients: As a result of the Century Cures Act, medical imaging exams and procedure reports are released immediately into your electronic medical record. You may view this report before your referring provider. If you have questions, please contact your health care provider. Indication: rt basilic guidance for PICC line placement Technique: Grayscale ultrasound images of the right basilic vein and right internal jugular vein submitted. IMPRESSION: Sonographic guidance for right arm PICC line placement. Dictated by Tyron Mcmanus MD @ 05/04/2023 10:04:55 AM (Electronically Signed)
--- NOTE | 2023-04-27 17:30 | CRLHL7_ITS ---
For Patients: As a result of the Century Cures Act, medical imaging exams and procedure reports are released immediately into your electronic medical record. You may view this report before your referring provider. If you have questions, please contact your health care provider. INDICATION: PICC placement. TECHNIQUE: Chest 1 view. COMPARISON: CT chest, abdomen, and pelvis 04/23/2023. FINDINGS: Cardiovascular and mediastinum: Enlarged cardiac silhouette, possibly accentuated by portable technique. Right upper extremity PICC tip projects near the cavoatrial junction. Lungs and pleural spaces: No gross consolidation. No large pleural effusion. No pneumothorax. Bones and soft tissues: No significant findings. IMPRESSION: Right upper extremity PICC tip projects near the cavoatrial junction. Dictated by Kennedy Lee MD @ 04/27/2023 6:54:26 PM (Electronically Signed)
--- NOTE | 2023-04-27 19:45 | PC.NURSE ---
Pt alert and oriented. VSS. Pt had no complaints of pain. Pt up with assist of one with gait belt and walker. Pt up to chair most of shift. Pt walked x3 in room.?Pt had family visiting through out shift. Pt had PIIC line placed at 1717. Pt's mora discontinued at 1800.
[2023-04-27] MEDS: ACETAMINOPHEN 325 MG TABLET 650 MG PO (21:57)
[2023-04-28] VITALS (11 sets, daily range): BP systolic 110–128; BP diastolic 68–76; PULSE 65–76; RESP 17–22; TEMP 36.3–36.9; O2SAT 94–97
[2023-04-28] MEDS: ENOXAPARIN 120 MG/0.8 ML INJ SUBCUT ×2 (03:32→15:51)
--- NOTE | 2023-04-28 05:36 | PC.NURSE ---
[id number] end of shift: Pt A&O, afebrile and VSS overnight. Pt ambulates Ax1 with gait belt & walker to commode. Voiding after Ayala removal. BLE cellulitis has not exceeded past outlined margins. Blisters to RLE are weeping. Inter-dry in between abdominal & pannus folds. Nystatin powder applied per JUL. Pt c/o right ankle pain at beginning of shift in which PRN Tylenol given x1 dose. Pt remained on RA overnight. RUE PICC C/D/I and patent. On TELE showing A. Fib rate 60s-70s. Once PICC line was placed & confirmed, patient remained in recliner overnight. Pt was awake until about 0000 then slept well and very drowsy with cares.?
[2023-04-28 06:35] LABS: Basophils Absolute Auto 0.02 K/uL (0.00-0.30); Basophils Percent Auto 0.3 % (0.0-3.0); Eosinophils Absolute Auto 0.21 K/uL (0.00-0.50); Eosinophils Percent Auto 3.1 % (0.0-7.0); Hematocrit 33.3 % (33.0-51.0); Hemoglobin* 10.6 gm/dL (12.0-16.0); Immature Granulocytes Pct Auto 10.4 %; Lymphocytes Percent Auto 19.7 % (20-44); Mean Corpuscular HGB Conc 32 gm/dL (32-36); Mean Corpuscular Hemoglobin 31 pg (26-34); Mean Corpuscular Volume 99 fL (80-100); Monocytes Percent Auto 10.7 % (0.0-11.0); Neutrophils Absolute Auto 3.78 K/uL (1.7-7.0); Neutrophils Percent Auto 55.8 % (42.0-72.0); Platelet Count* 162 K/uL (140-440); RDW Coefficient of Variation % 15.1 % (11.5-15.5); Red Blood Count 3.38 m/uL (4.00-5.20); White Blood Count* 6.76 K/uL (4.50-11.00)
[2023-04-28 06:36] LABS: HCO3 VBG 25 mmol/L (21-28); PCO2 VBG 44 mmHG (40-50); PO2 VBG 54.4 mmHG (25-47); pH VBG 7.373 (7.32-7.43)
[2023-04-28 06:49] LABS: Chloride* 109 mmol/L (96-114)
[2023-04-28 06:50] LABS: Albumin* 2.9 g/dL (3.3-5.0); Potassium* 3.4 mmol/L (3.6-5.1); Sodium* 139 mmol/L (135-149)
[2023-04-28 06:52] LABS: Creatinine* 0.8 mg/dL (0.5-1.5); Estimated Glomerular Filt Rate 79 ml/min
[2023-04-28 06:53] LABS: Alanine Aminotransferase* 70 U/L (4-35); Alkaline Phosphatase* 63 U/L (40-150); Anion Gap 6 mEq/L (7-15); Aspartate Amino Transferase* 45 U/L (12-35); Bilirubin Total* 0.5 mg/dL (0.1-1.5); Blood Urea Nitrogen* 15 mg/dL (7-30); Calcium* 8.8 mg/dL (8.4-10.6); Carbon Dioxide* 24 mmol/L (20-32); Glucose* 170 mg/dL (60-115); INR 1.71 (0.91-1.10); Prothrombin Time 21.3 Seconds
[2023-04-28 06:56] LABS: C Reactive Protein* 5.3 mg/dL (0.5-1.0)
[2023-04-28 07:05] LABS: Slide Review Reflex Yes
[2023-04-28 07:12] LABS: Slide Review Acceptable Review (Acceptable)
[2023-04-28] MEDS: INSULIN ASPART 100 UNIT/ML SUBCUT ×4 (07:51→21:08)
[2023-04-28] MEDS: LACTOBACILLUS ACIDOPHILUS 1 TABLET 2 TAB PO ×3 (08:15→17:39)
[2023-04-28] MEDS: lisinopriL 10 MG TABLET PO (08:15)
[2023-04-28] MEDS: dilTIAZem 240 MG CAP (CD) PO (08:15)
[2023-04-28] MEDS: SODIUM CHLORIDE 0.9 % (FLUSH) 10 ML SYRINGE 5 ML IVF ×2 (08:16→21:08)
[2023-04-28] MEDS: METOPROLOL SUCCINATE (XL) 25 MG TAB PO (08:16)
[2023-04-28] MEDS: POTASSIUM BICARB 25 MEQ EFFERVESCENT TAB PO ×2 (09:37→10:59)
[2023-04-28] MEDS: NYSTATIN POWDER 1 APPLIC TOPICAL ×2 (09:38→21:11)
[2023-04-28] MEDS: FUROSEMIDE 40 MG TABLET 80 MG PO (10:58)
--- NOTE | 2023-04-28 11:17 | PM.IMPN1 ---
Progress Note: A&P Assessment and plan (1) Sepsis: Problem details: Bacteremia - initial blood cultures growing gram-positive cocci in chains. Blood cultures grew out group B Streptococcus, streptococcal agalatiae, pansensitive to ampicillin, levofloxacin, linezolid, tetracycline, tigecycline, vancomycin. Subsequent blood cultures not growing organisms thus far. CT chest abdomen pelvis unremarkable for acute findings of infection. ROSA, hyperkalemia, hyperphosphatemia, abnormal LFTs. VBG showing metabolic acidosis. On 04/24/2023, discussed with [place], Dr. Preciado, recommendations as follows, suspecting skin as source as well. Recent blood culture growing at [facility], treated with linezolid. If patient has a bowel movement recommend GI pathogen panel, C difficile testing. Continue IV vancomycin ertapenem for now as we await organism ID and sensitivity details. Pharmacy involved, renally dosing. Patient placed on BiPAP. Also on 04/24/2023, spoke with [place] [facility], Dr. Early. No beds available. Family not interested in transfer. Per Dr Early, critical care team unable to assist with further management at this location. Modest urine output past 24 hours with IV fluids and diuresis. This morning IV fluids were at 100 mL an hour, decreased to 75 mL/hour. Again dose with furosemide, 80 mg IV. Will make decision about IV fluids and possible additional diuresis efforts in the morning. 04/25/2023: Examination of the skin suggests possible sites of cellulitis including in the left upper outer aspect of her panniculitis as well as bilateral lower extremities with changes of chronic venous insufficiency with warmth, redness suggestive of cellulitis. 04/26/2023: Vancomycin and ertapenem IV are stop. Patient is started on IV ceftriaxone. After she has made sufficient recovery with IV antibiotics with switch to oral antibiotics, likely ampicillin or cephalexin and complete 14 day course of the same. Continue with probiotic coverage for a minimum of 1 month beyond hospitalization. 04/27/2023: Receiving ceftriaxone 2 g IV Q 24 hours. Given that patient had group B streptococcal uncomplicated bacteremia, without metastatic infection, meningitis, osteomyelitis, endocarditis, or prosthetic material associated with risk for seeding during bacteremia, will need to complete of full 2 week course of appropriate IV antibiotics. Will thus place PICC line tomorrow. Last dose of IV antibiotic will be 05/06/2023. Reviewed with patient, , 2 daughters, and all are in agreement. 04/28/2023: With the group B streptococcal uncomplicated bacteremia, patient will need to complete a full 2 week course of IV antibiotics, ceftriaxone 2 g IV Q 24 hours, with last dose to be administered on 05/06/2023. Status: Acute (2) Metabolic encephalopathy: Problem details: - In setting of sepsis. Initially obtunded. Awake and alert middle of the afternoon on 04/24/2023 and since. - her level of mentation has remained improved since then. Status: Acute (3) Acute hypoxic respiratory failure: Problem details: In setting of sepsis, BiPAP initiated. 04/25/2023, furosemide 80 mg IV x1. 04/26/2023, furosemide 80 mg IV x1. Patient refuse BiPAP support since. 04/27/2023, furosemide 80 mg IV x1. Will transition to oral diuretics tomorrow. 04/28/2023, furosemide 80 mg p.o.. Tomorrow will begin furosemide 60 mg p.o. daily. Prior to admission patient was on furosemide 20 mg once daily. Status: Acute (4) Atrial fibrillation: Problem details: Telemetry. Metoprolol and diltiazem were initially held given hypotension in sepsis. Restarted these 04/25/2023. Heparin drip discontinued and enoxaparin ordered based on her weight. Warfarin held in the initial part of the hospital stay. Restarted warfarin on 04/26/2023. INR goal continues to be 2-3. Status: Acute (5) Obesity hypoventilation syndrome: Problem details: In setting of sepsis, benefited from BiPAP initially. Subsequently has done well without BiPAP. Status: Acute (6) MARCELL (obstructive sleep apnea): Problem details: - Required BiPAP therapy early in the course of hospitalization when she was acutely septic. - Patient has done adequately in the latter portion of the hospitalization without BiPAP. - will need outpatient sleep study in the future. Status: Acute (7) Diabetes mellitus: Problem details: A1c 7.4. Blood glucose ACHS, insulin sliding scale. Glipizide, Januvia, and metformin held Status: Acute (8) Panniculitis: Problem details: Left upper outer aspect of abdominal panniculus, significantly improved by 04/26/2023 and since. Status: Acute (9) Cellulitis: Problem details: Bilateral shins, significantly improved by 04/26/2023 and since. Status: Acute (10) Fever: Problem details: Resolved. Status: Acute (11) Physical debility: Problem details: - at baseline she did not move much. She sat in her recliner chair at home much of the day. - 04/27/2023, still requiring assist with transfers and ambulation and her ADLs. Will likely need transitional care services in a nursing home facility until such time as patient is able to demonstrate ability to safely carry out most of her activities of daily living. Reviewed with patient, , and 2 daughters today. All are in agreement. - 04/28/2023, patient requesting to go home. Reviewed with patient that hospital staff and her family do not think it is in her best interest to go home at this time, that would be dangerous for patient to do so at this time, that would be beneficial for patient to continue with efforts for her to strengthen herself in a transitional care setting prior to going home, allowing more time for coordination of care in the home and with her family. Status: Acute (12) Chronic acquired lymphedema: Problem details: - would benefit from outpatient lymphedema clinic assessment and recommendations for long-term care with efforts directed toward reducing risk of potential complications associated therewith Status: Acute Plan 1. Reviewed impression with patient and family 2. If all continues to go well she may be ready for discharge to the nursing home facility as early as tomorrow. 3. PICC care. 4. Remove Ayala catheter today. Time Spent With Patient Total time spent: 50 minute Subjective Date Seen: 04/28/23 Interval history: Hospital day 5. History of present illness: ?Linh Munoz is a 72 year old female with unknown past medical history presenting [on 04/23/2023] for altered mental status. The patient unable to provide any history. Hx obtained from and daughter (RN at [facility]). She is on warfarin for Atrial fibrillation? She presented to ED for fever and confusion. Per family she has had nausea, vomiting, chills and weakness. She has linezolid listed on home med rec but /Daughter do not know if she was taking this antibiotic and indication. She presented to ED where she was febrile. She was hypertensive and hypoxic on 4 liters supplemental oxygen. Notable labs include normal WBc, lactate 3.4->3.5, Tbili 1.6. Procal and INR not obtained. UA unremarkable. COVID PCR negative. CXR with Diffusely increased interstitial markings likely representing pulmonary edema and/or bronchitis changes. Somewhat limited evaluation of the lung bases due to patient body habitus. Lower lobe infiltrates may not be entirely excluded. She was given ativan and first attempt at CT Head CAP unable to be completed. She was subsequently given zyprexa and unable to complete CT scan imaging. She was given vancomycin and zosyn and admitted for further evaluation. On 04/24/2023, patient condition gradually improves with maximum intervention efforts including IV norepinephrine, BiPAP, IV fluids, intermittent IV diuretics. In time patient no longer requires IV fluid boluses and the IV norepinephrine drip is stopped. Near the end of the day on 04/24/2023 her condition was discussed with Corine, daughter, plan to continue management of sepsis. She discussed with her father and decision has been made not to transfer for higher level of care but to keep patient locally. Code status is DNR/DNI. They do not want a central line nor at this time a PICC line. On 04/25/2023, patient notes no discomfort or pain. Denies chest heaviness, pressure, tightness. Denies syncope or near-syncope. Not interested in eating. Denies nausea vomiting. She states she feels a little better. She thinks she might even be able to get up with help. Interested in drinking. Not hungry. On 04/26/2023, patient continues to show signs of improvement. Able to tolerate oral intake. Denies nausea or vomiting. Denies abdominal pain. Denies diarrhea or constipation. Starting to tolerating increased activity today or as yesterday she still was not able to even move from her bed without assist. Still working with physical therapy and occupational therapy. Presently still using BiPAP at bedtime. Tolerates the BiPAP, but would prefer not to use it if possible. On 04/27/2023, patient more awake and more interactive. Able to take a few steps with assist of others and use of walker. She refused to use the BiPAP last night. Able to maintain her saturations off of any oxygen support. No change in mentation without the BiPAP. Received another dose of IV vancomycin last night with the thought that the redness on her right leg was extending beyond borders of previously marked area of involvement. Certainly has had no fever. No other signs of active infection. Does have the chronic lymphedema with stage 3-4 trophic changes. On 04/28/2023, patient notes she is feeling close to back to baseline. Yet in conferring with the patient's family members, her nursing staff, physical therapy staff, and occupational therapy staff, it is apparent that patient is still not in a position to be safely discharged from the hospital back to her home. Patient clearly still requires 24 hour assistance, supervision, and care. Family is more forthcoming than the patient. Evidently the patient lives a very sedate lifestyle at home. Patient ordinarily walks from her recliner chair to the kitchen and to the bathroom, nothing else. Her has literally been preparing her food, delivering delivering it, and cleaning her eating utensils for over a year. Patient sleeps in a recliner chair but does not elevate her legs with her legs in a dependent position 24 hours a day. Patient does have a walk-in shower which she used to be able to use to care for herself but lately has not. The questions that will eventually need to be answered include patient ability, patient safety, need for supervision and attention in the home, need for adaptive equipment in the home, and so forth. A PICC line was placed yesterday successfully. PICC line in use. Tip of PICC in good place. Exam Narrative: Exam Narrative: I examined patient in her hospital room. Vision and hearing are adequate. Alert and oriented to self, place, time, situation. Friendly, articulate, cooperative. Poor insight about her physical debility and her need for support from those around her. Lungs are clear to auscultation. Heart tones with regular rhythm. Abdomen with active bowel sounds, soft, nontender. Skin in abdomen is generally much improved. Skin on left bauer is generally much improved. Skin on right bauer improved today from yesterday but still erythematous but less warm. The trophic changes of both lower extremities is chronic with possibly some acute changes. Const: Vital Signs, click to edit/add: Vital Signs - 24 hr 04/27/23 14:52 04/27/23 15:05 04/27/23 19:00 Temperature 97.7 F 98.8 F Pulse Rate 73 Pulse Rate [Pulse Oximeter] 74 81 Respiratory Rate 20 24 Blood Pressure [Le ft Arm] 144/88 H Blood Pressure [Ri ght Arm] 140/68 H Pulse Oximetry 98 97 Oxygen Delivery Me thod Room Air Room Air 04/27/23 23:00 04/27/23 23:00 04/27/23 23:00 Temperature 97.6 F Pulse Rate 68 Pulse Rate [Pulse Oximeter] 81 72 Respiratory Rate 24 22 Blood Pressure [Le ft Arm] 137/77 Blood Pressure [Ri ght Arm] Pulse Oximetry 95 Oxygen Delivery Me thod Room Air 04/28/23 03:00 04/28/23 07:00 04/28/23 07:22 Temperature 97.3 F L 98.2 F Pulse Rate Pulse Rate [Pulse Oximeter] 76 71 71 Respiratory Rate 22 20 20 Blood Pressure [Le ft Arm] 124/76 128/72 Blood Pressure [Ri ght Arm] Pulse Oximetry 94 97 Oxygen Delivery Ut thod Room Air Room Air 04/28/23 08:57 04/28/23 11:07 Temperature 98.1 F Pulse Rate 66 Pulse Rate [Pulse Oximeter] 67 Respiratory Rate 20 Blood Pressure [Le ft Arm] 122/76 Blood Pressure [Ri ght Arm] Pulse Oximetry 97 Oxygen Delivery Me thod Room Air Labs Labs: Laboratory Results - last 24 hr 04/28/23 Unknown WBC 6.76 RBC 3.38 L Hgb 10.6 L Hct 33.3 MCV 99 MCH 31 MCHC 32 RDW Coeff of Maria 15.1 Plt Count 162 Neut % (Auto) 55.8 Lymph % (Auto) 19.7 L Chaves % (Auto) 10.7 Eos % (Auto) 3.1 Baso % (Auto) 0.3 Neut # (Auto) 3.78 Lymph # (Auto) 1.30 Chaves # (Auto) 0.70 Eos # (Auto) 0.21 Baso # (Auto) 0.02 Abs Immat Gran (auto) 0.70 H Imm/Tot Granulo (auto) 10.4 Diff Slide Review Acceptable Review INR 1.71 H VBG pH 7.373 VBG pCO2 44 VBG pO2 54.4 H VBG HCO3 25 Sodium 139 Potassium 3.4 L Chloride 109 Carbon Dioxide 24 Anion Gap 6 L BUN 15 Creatinine 0.8 Estimated Creat Clear 43.30 Estimated GFR 79 Glucose 170 H Calcium 8.8 Total Bilirubin 0.5 Direct Bilirubin 0.0 AST 45 H ALT 70 H Alkaline Phosphatase 63 C-Reactive Protein 5.3 H Total Protein 6.0 Albumin 2.9 L
[2023-04-28] MEDS: cefTRIAXone 2 GM in 0.9 % SODIUM CHLORIDE Mini-bag 100 ML IVPB (12:06)
[2023-04-28] MEDS: 0.9 % SODIUM CHLORIDE 250 ml IV (12:06)
--- NOTE | 2023-04-28 12:16 | PC.SOCIAL ---
Received a phone call from pt's daughter (Maxine) on the process to make decisions for pt to go to SNF. Pt's daughter is aware that the short-term rehab for SNF is a strong recommendation from therapy. Pt's daughter informs that she understands that pt could benefit from SNF to get therapy 5 days a week and get stronger. Pt's daughter was not aware that home care did not come in the home 5 days a week, provided information on home care. Pt will be into the hospital shortly to talk with pt. Charge nurse will set non-emergency ambulance for tomorrow. Provided information to pt's family that pt will transport via non-emergency ambulance, however, the time is not set yet. Social work will follow up as needed.
--- NOTE | 2023-04-28 15:49 | PC.SOCIAL ---
Discharge planning: Met with pt at her request regarding her discharge plan. Shared information on the transitional care stay and how this supports her goal of being at home safely as soon as possible and answered all patient's questions. After lengthy discussion, pt shared that she is agreeable to plan for discharge tomorrow morning to [facility] for transitional care stay. Shared with pt that it is expected her transportation needs would meet qualifications for insurance coverage of ambulance transfer. She is in agreement with this transportation. Pt requested social insurance analyst visit her tomorrow morning to confirm plans and see if she has any more questions. Provided pt with copy of originally signed Medicare Rights form and explained the appeal process. Pt states she is not interested in appealing the hospital discharge planned for tomorrow. hide worker to follow up as needed.
[2023-04-28] MEDS: ACETAMINOPHEN 325 MG TABLET 650 MG PO (15:58)
[2023-04-28] MEDS: WARFARIN 5 MG TABLET PO (17:39)
--- NOTE | 2023-04-28 18:35 | PC.NURSE ---
Shift note [id number]: Pt has been alert & oriented x 4 and able to make needs known. She has been using the bathroom for toileting and has been mostly continent of bladder and continent of bowel. She is able to transfer with assist of 1 using walker and GB. Scant amount of serous drainage observed to RLE this morning which is not a new finding. Redness to bilateral extremities has not extended beyond margins previously marked. No c/o SOB, CP or N/V this shift. VSS and pt has been afebrile. Nystatin Powder followed by Interdry applied to reddened abdominal folds/pannus area after cleansing and patting dry. Sacral Mepilex noted to be C/D/I upon inspection. PRN Tylenol given this afternoon for c/o 2/10 R ankle pain which is not a new finding- PRN medication effective upon followup. Discharge plan is to discharge to [facility] in [place] on 04/29/23 at 1000 via non-emergent transportation. PICC remains intact to RUE with no s/sx of infection observed to surrounding area. ?
[2023-04-29] MEDS: ENOXAPARIN 120 MG/0.8 ML INJ SUBCUT (04:00)
[2023-04-29 05:01] VITALS: RESP 17
[2023-04-29 06:09] LABS: HCO3 VBG 26 mmol/L (21-28); PCO2 VBG 37 mmHG (40-50); PO2 VBG 54.8 mmHG (25-47); pH VBG 7.453 (7.32-7.43)
--- NOTE | 2023-04-29 06:13 | PC.NURSE ---
End of shift [id number]: Patient pleasant and cooperative with cares. Denies any pain this shift, patient reports tylenol received by prior shift was effective for ankle pain. Slept well, on restful vitals. Under pannus and groin cleansed, nystatin applied and interdry replaced. PICC line to upper right extremity patent and asymptomatic. Up x 2 to void with SBA with walker and gait belt.
[2023-04-29 06:16] LABS: Basophils Absolute Auto 0.04 K/uL (0.00-0.30); Basophils Percent Auto 0.5 % (0.0-3.0); Eosinophils Absolute Auto 0.19 K/uL (0.00-0.50); Eosinophils Percent Auto 2.6 % (0.0-7.0); Hematocrit 33.5 % (33.0-51.0); Hemoglobin* 10.6 gm/dL (12.0-16.0); Immature Granulocytes Abs Auto 0.82 K/uL (0.00-0.30); Immature Granulocytes Pct Auto 11.1 %; Lymphocytes Percent Auto 17.7 % (20-44); Mean Corpuscular HGB Conc 32 gm/dL (32-36); Mean Corpuscular Hemoglobin 31 pg (26-34); Mean Corpuscular Volume 98 fL (80-100); Monocytes Percent Auto 10.4 % (0.0-11.0); Neutrophils Absolute Auto 4.28 K/uL (1.7-7.0); Neutrophils Percent Auto 57.7 % (42.0-72.0); Platelet Count* 147 K/uL (140-440); RDW Coefficient of Variation % 15.3 % (11.5-15.5); Red Blood Count 3.43 m/uL (4.00-5.20); White Blood Count* 7.41 K/uL (4.50-11.00)
[2023-04-29 06:35] LABS: Chloride* 108 mmol/L (96-114)
[2023-04-29 06:36] LABS: Albumin* 3.1 g/dL (3.3-5.0); Sodium* 139 mmol/L (135-149)
[2023-04-29 06:37] LABS: Potassium* 3.7 mmol/L (3.6-5.1); Slide Review Reflex Yes
[2023-04-29 06:38] LABS: INR 1.66 (0.91-1.10); Prothrombin Time 20.7 Seconds
[2023-04-29 06:39] LABS: Alkaline Phosphatase* 62 U/L (40-150); Anion Gap 7 mEq/L (7-15); Aspartate Amino Transferase* 36 U/L (12-35); Bilirubin Direct* 0.1 mg/dL (0.0-0.5); Bilirubin Total* 0.8 mg/dL (0.1-1.5); Carbon Dioxide* 24 mmol/L (20-32); Creatinine* 0.7 mg/dL (0.5-1.5); Estimated Glomerular Filt Rate 93 ml/min; Total Protein* 6.3 g/dL (6.0-8.3)
[2023-04-29 06:40] LABS: Alanine Aminotransferase* 60 U/L (4-35); Blood Urea Nitrogen* 13 mg/dL (7-30); Calcium* 8.9 mg/dL (8.4-10.6); Glucose* 153 mg/dL (60-115)
[2023-04-29 06:42] LABS: C Reactive Protein* 4.4 mg/dL (0.5-1.0)
[2023-04-29 07:31] LABS: Slide Review Acceptable Review (Acceptable)
[2023-04-29] MEDS: INSULIN ASPART 100 UNIT/ML SUBCUT (08:06)
[2023-04-29] MEDS: dilTIAZem 240 MG CAP (CD) PO (08:07)
[2023-04-29] MEDS: LACTOBACILLUS ACIDOPHILUS 1 TABLET 2 TAB PO (08:07)
[2023-04-29] MEDS: lisinopriL 10 MG TABLET PO (08:07)
[2023-04-29] MEDS: NYSTATIN POWDER 1 APPLIC TOPICAL (08:08)
[2023-04-29] MEDS: METOPROLOL SUCCINATE (XL) 25 MG TAB PO (08:08)
[2023-04-29] MEDS: cefTRIAXone 2 GM in 0.9 % SODIUM CHLORIDE Mini-bag 100 ML IVPB (08:15)
[2023-04-29] MEDS: SODIUM CHLORIDE 0.9 % (FLUSH) 10 ML SYRINGE 5 ML IVF (08:15)
[2023-04-29 08:24] VITALS: BP 138/79; PULSE 79; RESP 20; TEMP 37; O2SAT 95
--- NOTE | 2023-04-29 09:52 | P.DS_ITS ---
DS: Providers Provider Date Seen: 04/29/23 Date of admission: 04/23/23 19:58 Primary care physician: Gomez Argueta MD Admitting Clinician: Shukri Vega MD Consults: 04/23/23 22:52 Consult to Occupational Therapy [CONS] Routine Comment: Reason(s) for OT Consult:: Evaluate and Treat Any Restrictions?:: See Comment Comment: Unsure, pt was not coherent during admission family stated she spends most of her day in a recliner. Family states pt has ankle pain/issues but unsure which one. Consult to Physical Therapy [CONS] Routine Comment: Reason(s) for PT Consult:: Evaluate and Treat Any Restrictions?:: See Comment Comment: Unsure, pt was not coherent during admission family stated she spends most of her day in a recliner. Family states pt has ankle pain/issues but unsure which one. Attending Physician on discharge: Jc Henderson MD Date of Discharge: 04/29/23 DS: Diagnosis Discharge Diagnosis (1) Sepsis: Status: Acute Problem details: Bacteremia - initial blood cultures growing gram-positive cocci in chains. Blood cultures grew out group B Streptococcus, streptococcal agalatiae, pansensitive to ampicillin, levofloxacin, linezolid, tetracycline, tigecycline, vancomycin. Subsequent blood cultures not growing organisms thus far. CT chest abdomen pelvis unremarkable for acute findings of infection. ROSA, hyperkalemia, hyperphosphatemia, abnormal LFTs. VBG showing metabolic acidosis. On 04/24/2023, discussed with [facility], Dr. Preciado, recommendations as follows, suspecting skin as source as well. Recent blood culture growing at Staph epidermis, treated with linezolid. If patient has a bowel movement recommend GI pathogen panel, C difficile testing. Continue IV vancomycin ertapenem for now as we await organism ID and sensitivity details. Pharmacy involved, [facility] dosing. Patient placed on BiPAP. Also on 04/24/2023, spoke with [facility], Dr. Early. No beds available. Family not interested in transfer. Per Dr Early, critical care team unable to assist with further management at this location. Modest urine output past 24 hours with IV fluids and diuresis. This morning IV fluids were at 100 mL an hour, decreased to 75 mL/hour. Again dose with furosemide, 80 mg IV. Will make decision about IV fluids and possible additional diuresis efforts in the morning. 04/25/2023: Examination of the skin suggests possible sites of cellulitis including in the left upper outer aspect of her panniculitis as well as bilateral lower extremities with changes of chronic venous insufficiency with warmth, redness suggestive of cellulitis. 04/26/2023: Vancomycin and ertapenem IV are stop. Patient is started on IV ceftriaxone. After she has made sufficient recovery with IV antibiotics with switch to oral antibiotics, likely ampicillin or cephalexin and complete 14 day course of the same. Continue with probiotic coverage for a minimum of 1 month beyond hospitalization. 04/27/2023: Receiving ceftriaxone 2 g IV Q 24 hours. Given that patient had group B streptococcal uncomplicated bacteremia, without metastatic infection, meningitis, osteomyelitis, endocarditis, or prosthetic material associated with risk for seeding during bacteremia, will need to complete of full 2 week course of appropriate IV antibiotics. Will thus place PICC line tomorrow. Last dose of IV antibiotic will be 05/06/2023. Reviewed with patient, , 2 daughters, and all are in agreement. 04/28/2023: With the group B streptococcal uncomplicated bacteremia, patient will need to complete a full 2 week course of IV antibiotics, ceftriaxone 2 g IV Q 24 hours, with last dose to be administered on 05/06/2023. (2) Metabolic encephalopathy: Status: Acute Problem details: - In setting of sepsis. Initially obtunded. Awake and alert middle of the afternoon on 04/24/2023 and since. - her level of mentation has remained improved since then. (3) Cellulitis: Status: Acute Problem details: - Bilateral shins, significantly improved by 04/26/2023 and since. - predisposing factor is chronic lymphedema stage 3 bilateral lower extremities, right worse than left. (4) Panniculitis: Status: Acute Problem details: Left upper outer aspect of abdominal panniculus, significantly improved by 04/26/2023 and since. (5) Obesity hypoventilation syndrome: Status: Acute Problem details: In setting of sepsis, benefited from BiPAP initially. Subsequently has done well without BiPAP. (6) MARCELL (obstructive sleep apnea): Status: Acute Problem details: - Required BiPAP therapy early in the course of hospitalization when she was acutely septic. - Patient has done adequately in the latter portion of the hospitalization without BiPAP. - will need outpatient sleep study in the future. (7) Acute hypoxic respiratory failure: Status: Acute Problem details: In setting of sepsis, BiPAP initiated. 04/25/2023, furosemide 80 mg IV x1. 04/26/2023, furosemide 80 mg IV x1. Patient refuse BiPAP support since. 04/27/2023, furosemide 80 mg IV x1. Will transition to oral diuretics tomorrow. 04/28/2023, furosemide 80 mg p.o.. Tomorrow will begin furosemide 60 mg p.o. daily. Prior to admission patient was on furosemide 20 mg once daily. (8) Chronic acquired lymphedema: Status: Acute Problem details: - chronic bilateral lower extremity lymphedema stage 3 - She has NOT addressed this adequately heretofore, including keeps her feet and legs in dependent position when home, does not undertake any compression or skin cares, does not use pumps - would benefit from outpatient lymphedema clinic assessment and recommendations for long-term care with efforts directed toward reducing risk of potential complications associated therewith (9) Physical debility: Status: Acute Problem details: - at baseline she did not move much. She sat in her recliner chair at home much of the day. - 04/27/2023, still requiring assist with transfers and ambulation and her ADLs. Will likely need transitional care services in a [place] [facility] facility until such time as patient is able to demonstrate ability to safely carry out most of her activities of daily living. Reviewed with patient, , and 2 daughters today. All are in agreement. - 04/28/2023, patient requesting to go home. Reviewed with patient that hospital staff and her family do not think it is in her best interest to go home at this time, that would be dangerous for patient to do so at this time, that would be beneficial for patient to continue with efforts for her to strengthen herself in a transitional care setting prior to going home, allowing more time for coordination of care in the home and with her family. (10) Diabetes mellitus: Status: Acute Problem details: A1c 7.4. Blood glucose ACHS, insulin sliding scale. Glipizide, Januvia, and metformin held (11) Atrial fibrillation: Status: Acute Problem details: Telemetry. Metoprolol and diltiazem were initially held given hypotension in sepsis. Restarted these 04/25/2023. Heparin drip discontinued and enoxaparin ordered based on her weight. Warfarin held in the initial part of the hospital stay. Restarted warfarin on 04/26/2023. INR goal continues to be 2-3. DS: Summary Hospital Course Hospital Course: 72-year-old woman presented with sepsis, eventually discerned to be due to cellulitis from left upper quadrant panniculitis plus bilateral shins cellulitis with underlying chronic bilateral lower extremity lymphedema stage III. Was bacteremic and grew out group B strep, streptococcal agalatiae. Eventually transitioned from IV vancomycin plus IV ertapenem to IV ceftriaxone. Given that patient has group B strep, she requires 14 days of IV antibiotics total. Last dose of ceftriaxone to be administered on 05/06/2023. PICC line was placed in hospital for patient to receive the once daily ceftriaxone dosing while in the senior care. Discharge to senior care for ongoing transitional care services. Her desires to go home as soon as possible. Her family supports her in this desire only in so far as it is determined that it is safe and feasible for her to do so. Will work with physical therapy and occupational therapy to achieve a safer level of independence and to ascertain when she might be ready to go home safely, and to consider home safety assessment and home care needs. Lymphedema for now will be managed with keeping legs elevated when nonweightbearing, when not using the bathroom, when not eating. Will also require daily compression wraps. Will need a daily skin care as well. Will use ABD pads to soak any drainage for now. Consider lymphedema consultation for long-term care and treatment. With a stage III trophic lymphedema changes, patient will have intermittent erythema of the affected part of the leg. Hence is important to assess at least once daily and strive to keep leg elevated and c ompressed. See discharge diagnosis section above for additional details of her hospital stay and plans. Status at Discharge Functional status at discharge: uses cane/walker Overall status at discharge: patient is progressing back to baseline Time Spent with Patient Time attestation: Total time spent providing and/or coordinating discharge services: Time spent: Greater than 30 minutes Exam Narrative: Exam Narrative: I examined patient in her hospital room. Vision and hearing are adequate. Alert and oriented to self, place, time, situation. Friendly, articulate, cooperative. Poor insight about her physical debility and her need for support from those around her. Lungs are clear to auscultation. Heart tones with regular rhythm. Abdomen with active bowel sounds, soft, nontender. Skin in abdomen is generally much improved. Skin on left bauer is generally much improved. Skin on right bauer improved today from yesterday but still erythematous but less warm. The trophic changes of both lower extremities is chronic with possibly some acute changes. Still requires a fair amount of support to transfer and to care for herself. Const: Vital Signs, click to edit/add: Vital Signs - 24 hr 04/28/23 11:07 04/28/23 15:00 04/28/23 15:31 Temperature 98.1 F Pulse Rate 65 Pulse Rate [Pulse Oximeter] 67 70 Respiratory Rate 20 Blood Pressure [Le ft Arm] 122/76 Pulse Oximetry 97 Oxygen Delivery Me thod Room Air 04/28/23 15:54 04/28/23 19:00 04/28/23 22:47 Temperature 98.0 F 98.5 F Pulse Rate Pulse Rate [Pulse Oximeter] 70 76 76 Respiratory Rate 18 18 18 Blood Pressure [Le ft Arm] 124/76 110/68 Pulse Oximetry 97 95 Oxygen Delivery Me thod Room Air Room Air 04/28/23 22:57 04/29/23 05:01 04/29/23 08:24 Temperature 98.6 F Pulse Rate Pulse Rate [Pulse Oximeter] 79 Respiratory Rate 17 17 20 Blood Pressure [Le ft Arm] 138/79 Pulse Oximetry 95 Oxygen Delivery Me thod Room Air Documenting provider has reviewed patient's vital signs: yes DS: Data Data Completed and Pending Labs on day of discharge: Labs from last 24 hours 04/29/23 05:40 WBC 7.41 RBC 3.43 L Hgb 10.6 L Hct 33.5 MCV 98 MCH 31 MCHC 32 RDW Coeff of Maria 15.3 Plt Count 147 Neut % (Auto) 57.7 Lymph % (Auto) 17.7 L [place] % (Auto) 10.4 Eos % (Auto) 2.6 Baso % (Auto) 0.5 Neut # (Auto) 4.28 Lymph # (Auto) 1.30 [place] # (Auto) 0.80 Eos # (Auto) 0.19 Baso # (Auto) 0.04 Abs Immat Gran (auto) 0.82 H Imm/Tot Granulo (auto) 11.1 Diff Slide Review Acceptable Review INR 1.66 H VBG pH 7.453 H VBG pCO2 37 L VBG pO2 54.8 H VBG HCO3 26 Sodium 139 Potassium 3.7 Chloride 108 Carbon Dioxide 24 Anion Gap 7 BUN 13 Creatinine 0.7 Estimated Creat Clear 43.30 Estimated GFR 93 Glucose 153 H Calcium 8.9 Total Bilirubin 0.8 Direct Bilirubin 0.1 AST 36 H ALT 60 H Alkaline Phosphatase 62 C-Reactive Protein 4.4 H Total Protein 6.3 Albumin 3.1 L Preliminary micro results at discharge 04/26/23 06:06 Blood Culture - Preliminary Blood NO GROWTH AFTER 72 HOURS 04/26/23 05:56 Blood Culture - Preliminary Blood NO GROWTH AFTER 72 HOURS Imaging Chest x-ray: Attestation: I have reviewed the pertinent imaging results. Radiologist's impression: Impression: Diffusely increased interstitial markings likely representing pulmonary edema and/or bronchitis changes. Somewhat limited evaluation of the lung bases due to patient body habitus. Lower lobe infiltrates may not be entirely excluded. Post PICC insertion, impression: Right upper extremity PICC tip projects near the cavoatrial junction. CT Chest/Ab/Pelvis: Attestation: I have reviewed the pertinent imaging results. Radiologist's impression: IMPRESSIONS: 1. The sensitivity and specificity of the exam are severely limited by artifacts from patient motion and beam hardening artifacts from the patient`s arms at the patient`s side. 2. Mild ground-glass opacities are present in the apices with smooth interlobular septal thickening which may be due to mild edema. 3. Moderate enlargement of the main pulmonary artery is present and measures 3.3 cm in maximal short axis. This is likely due to pulmonary hypertension. 4. Moderate biventricular cardiomegaly is noted. 5. 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 CT scan - head: Radiologist's impression: IMPRESSION: 1. No evidence of acute infarction, intracranial hemorrhage, or mass-effect seen. 2. The sensitivity and specificity of the exam are severely limited by artifacts from patient motion. Discharge Plan Discharge Disposition: [facility] Date of Admission: 04/23/23 19:58 Attending Provider on Discharge: Jc Henderson Primary Care Provider: Gomez Argueta Anticipated Discharge Date/Time: 04/29/23 10:00 Discharge Medications: New acetaminophen 325 mg Tablet 650 mg PO Q6H PRN30 Days Qty: 100 0RF furosemide 20 mg Tablet 60 mg PO DAILY@0800 30 Days Qty: 90 0RF ceftriaxone 2 gram Recon Soln 2 g IVPB Q24H 7 Days Qty: 7 0RF Lactobacillus acidophilus 0.5 mg (100 million cell) Tablet 1 mg PO TIDWM 30 Days Qty: 90 1RF nystatin 100,000 unit/gram Powder 1 applic topical BID 14 Days Qty: 30 1RF Continued metformin 500 mg tablet 500 mg PO BID metoprolol succinate 50 mg tablet extended release 24 hr 25 mg PO DAILY diltiazem HCl 240 mg capsule,extended release 24hr 240 mg PO DAILY lisinopril 10 mg tablet 10 mg PO DAILY warfarin 5 mg tablet 5 mg PO DAILY glipizide 5 mg tablet 5 mg PO DAILY Discontinued linezolid 600 mg tablet 600 mg PO BID furosemide 20 mg tablet 20 mg PO DAILY Januvia 50 mg tablet 50 mg PO DAILY Discharge Orders: Discharge Order (Routine); Ordered 04/29/23 Ordered By: Jc Henderson Additional Instructions: 1. Additional OT/PT order: please assess her chronic lymphedema and recommend regarding treatment; 2. Her goal is simply to return home. He family concurs, but want her to return home when it is deemed safe for her to do so, with additional support/services and/or equipment. Activity Level: Activity as Tolerated and Use Walker Activity Detail: Keep legs elevated when not weight bearing, going to the bathroom, eating Discharge Diet: Diabetic Follow Up Appointments: Gomez Argueta MD [Primary Care Provider] - Forms: [facility] Info Instructions Admit to: SNF Discharge Potential: Fair Length of Stay: <30 days Can use facility standing orders?: Yes Code Status: DNR/DNI Rehab Potential: Fair Therapy: Physical Therapy and Occupational Therapy Therapy Orders: Evaluate and Treat Oxygen: No Urinary Catheter: No Glucose Checks: twice daily Next INR: 05/01/2023 INR Goal: 2-3 Orders are good >30 days: Yes Signature: Jc Henderson
--- NOTE | 2023-04-29 10:29 | PC.NURSE ---
Discharge - Pt alert, oriented, cooperative. Standby assist with walker to bathroom. VSS, afebrile. Pt voiced feelings of anxiety related to not going home. RN provided emotional support. ABD pads x2 and compression wraps x 1 applied to bilateral LE per MD order, CDI upon discharge. Belongings sheet signed, instruction given to EMS and pt regarding disposition to [facility]. Pt left with non-emergent EMS at approximately 1020.
--- NOTE | 2023-04-29 10:41 | PC.SOCIAL ---
Pt is discharging to SNF ([facility] in [place]) and will be transporting via Non-emergency EMS at 10:00 am. Provided update to Senait in admissions at [facility]. Completed Preadmission screening. Confirmation #[id number]. Facility requested information on PICC line and I&R with dosing. Charge nurse will provide requested information. Social work will follow up as needed.
--- NOTE | 2023-04-29 11:59 | PC.SOCIAL ---
Pt is discharging to SNF ([facility] in [place]) and will be transporting via Non-emergency EMS at 10:00 am. Provided update to Senait in admissions at [facility]. Completed Preadmission screening. Confirmation #[id number]. Facility requested information on PICC line and I&R with dosing. Charge nurse will provide requested information. Social work will follow up as needed.
== END 2023-04-29 10:20 | DRG 871 ==
LOC: ED 19:30 → MEDSURG 19:32
PROVIDERS: Internal Medicine; Physician Assistant; Admitting Provider Hospitalist; Emergency Provider Family Medicine; PCP Family Medicine; Visit Provider Hospitalist
DX: A40.1 Sepsis due to streptococcus, group B (principal); G93.41 Metabolic encephalopathy; J96.01 Acute respiratory failure with hypoxia; E66.2 Morbid (severe) obesity with alveolar hypoventilation; Z68.44 Body mass index [BMI] 60.0-69.9, adult; N17.9 Acute kidney failure, unspecified; L03.116 Cellulitis of left lower limb; L03.115 Cellulitis of right lower limb; L03.311 Cellulitis of abdominal wall; M79.3 Panniculitis, unspecified; I48.91 Unspecified atrial fibrillation; Z79.01 Long term (current) use of anticoagulants; I95.9 Hypotension, unspecified; E87.5 Hyperkalemia; I89.0 Lymphedema, not elsewhere classified; I11.0 Hypertensive heart disease with heart failure; I50.9 Heart failure, unspecified; E11.9 Type 2 diabetes mellitus without complications; Z79.84 Long term (current) use of oral hypoglycemic drugs; I72.8 Aneurysm of other specified arteries; I87.8 Other specified disorders of veins; I08.1 Rheumatic disorders of both mitral and tricuspid valves; R11.2 Nausea with vomiting, unspecified
CPT/HCPCS: 36415; 36573; 70450; 71045; 71250; 74176; 80048; 80053; 80076; 81001; 82077; 82803; 82962; 83605; 83735; 83880; 84100; 84145; 84484; 85025; 85027; 85610; 85730; 86140; 87040; 87081; 87086; 87186; 87493; 87505; 87631; 93306; 94660; 94761; 95992; 97110; 97116; 97161; 97166; 97530; 97535; 99285; 99291; 99292; A9270; C1751; C9113; J0696; J1170; J1200; J1335; J1644; J1650; J1940; J2060; J2543; J3370; J7030; J7050; J7120; S0166

== ENCOUNTER 2023-04-29 10:05 | Outpatient (CLI) | payer MEDICARE, BC, SELFPAY | END 2023-04-29 10:06 | disposition home or self-care (01) | LOC: AMB 05-01 05:38 | PROVIDERS: PCP Family Medicine; Visit Provider Family Medicine | DX: E53.1 Pyridoxine deficiency (principal); E66.01 Morbid (severe) obesity due to excess calories | CPT/HCPCS: A0425; A0428 ==

== ENCOUNTER 2023-05-12 05:20 | Inpatient (IN) | payer MEDICARE, BC, SELFPAY ==
[2023-05-12] VITALS (44 sets, daily range): BP systolic 93–182; BP diastolic 58–113; PULSE 70–106; RESP 20–28; TEMP 36.7–38.9; O2SAT 87–96; BMI 30.9; BMI 58.5
--- NOTE | 2023-05-12 05:24 | ED_ITS ---
HPI - General Adult General Time Seen by Provider: 05:24 Date Seen: 05/12/23 Chief complaint: Cough Stated complaint: ill Time Seen by Provider: 05/12/23 05:33 Source: EMS Mode of arrival: EMS Limitations: altered mental status History of Present Illness HPI narrative: 72-year-old female who comes in today feeling poorly. Review of chart shows she was seen about 3 weeks ago and diagnosed with sepsis of unknown source full a to be related to skin source, sounds like he had so moved failure requiring diuresis as well. Patient presents today since she does not feel well, very vague about her symptoms. She has nonproductive cough. She denies fever, chills, body aches, nausea, vomiting, diarrhea, runny nose. She is moaning but does answer questions appropriately. Related Data Home Medications Medication Instructions Recorded Confirmed diltiazem HCl 240 mg 240 mg PO DAILY 04/23/23 04/23/23 capsule,extended release 24 hr glipizide 5 mg tablet 5 mg PO DAILY 04/23/23 04/23/23 lisinopril 10 mg tablet 10 mg PO DAILY 04/23/23 04/23/23 metformin 500 mg tablet 500 mg PO BID 04/23/23 04/23/23 metoprolol succinate 50 mg 25 mg PO DAILY 04/23/23 04/23/23 tablet,extended release 24 hr warfarin 5 mg tablet 5 mg PO DAILY 04/23/23 04/23/23 Previous Rx's Medication Instructions Recorded Lactobacillus acidophilus 0.5 mg 1 mg (2 x 0.5 mg (100 million 04/29/23 (100 million cell) tablet cell)) PO TIDWM 30 days #90 tabs acetaminophen 325 mg tablet 650 mg (2 x 325 mg) PO Q6H PRN 30 04/29/23 days #100 tabs ceftriaxone 2 gram solution for 2 g IVPB Q24H 7 days #7 ea 04/29/23 injection furosemide 20 mg tablet 60 mg (3 x 20 mg) PO DAILY@0800 30 04/29/23 days #90 tabs nystatin 100,000 unit/gram topical 1 applic topical BID 14 days #30 04/29/23 powder grams Allergies Allergy/AdvReac Type Severity Reaction Status Date / Time No Known Drug Allergies Allergy Verified 04/23/23 17:54 [facility] Medical History (Updated 05/12/23 @ 07:59 by Vinicius Penaloza MD) Chronic acquired lymphedema ?I89.0 - Lymphedema, not elsewhere classified (ICD-10) Social History What is your current living situation?: I presently have a place to live Problems where you live: no known problems Problems where you live details: N/A In the past 12 months, utilities in danger of being shut off: unable to answer In past 12 months, lack of transportation kept you from medical appts, meetings, work, or getting things needed for daily living: unable to answer In the past 12 mos, have been you worried that your food would run out before you had money to buy more?: unable to answer In the past 12 mos, the food you bought just didn't last and you didn't have money to buy more?: unable to answer Highest level of school completed/degree received: Associate degree: occupational, technical, vocational program Smoking Status: Never smoker Do you use any of these nicotine containing products: None Second hand tobacco smoke exposure: No How often do you have a drink containing alcohol: never AUDIT-C Alcohol total score: 0 Non-prescribed substance use: denies use Caffeine: Yes (1-2 CAN OF POP/DAY) How often does anyone, including family, friends and others, physically hurt you : unable to answer How often does anyone, including family, friends and others, insult or talk down to you: unable to answer How often does anyone, including family, friends and others, threaten you with harm: unable to answer How often does anyone, including family, friends and others, scream or curse at you: unable to answer service: No Exam Narrative: Exam Narrative: General: Well-developed and well-nourished, no acute distress Head: Atraumatic and normocephalic Eyes: Pupils are equal reactive, extraocular motions intact, conjunctiva clear ENT: External nose and ears are normal, posterior pharynx without erythema or exudate Neck: No midline cervical tenderness, full spontaneous range of motion the neck, trachea midline, no adenopathy Heart: Regular rate and rhythm no murmurs or thrills Lungs: Clear to auscultation bilaterally without wheezes or crackles Abdomen: Soft, nontender, nondistended with active bowel sounds Musculoskeletal: Marked bilateral lower extremity edema with chronic venous stasis changes Neurologic: Awake, alert, and oriented x3, no gross focal neurologic deficits, cranial nerves intact as tested Psych: Mood and affect are appropriate Skin: Right leg edema wraps in place but superior to this skin is hot and red. Right lower abdomen with erythema and warmth as well. Const: Vital Signs, click to edit/add: Vital Signs - 24 hr 05/12/23 05:54 05/12/23 06:24 Temperature 102.0 F H 102.0 F H Pulse Rate [Right Pulse Oximeter] 99 Respiratory Rate 20 Blood Pressure [Le ft Upper Arm] 174/86 H Pulse Oximetry 94 Oxygen Delivery Me thod Room Air Course Course ED Course: Patient seen examined, prior records reviewed. Patient presents today feeling poorly with a cough but really not giving much more information. On exam, borderline tachycardia, tactile fever, and nonproductive cough but lungs are clear, no hypoxia. Labs and chest x-ray ordered, judicious use of IV fluids for this patient given her history of heart failure. With recent hospitalization, in general immobility, consider pulmonary embolism although patient is on warfarin. Reevaluation(s) Time of Reevaluation #1: 05:49 Reevaluation #1: Patient noted to be febrile but no hypotension. With nonproductive cough, consider influenza or COVID but given recent history of sepsis, antibiotics will be initiated prior to completion of respiratory swabs Time of Reevaluation #2: 06:46 Reevaluation #2: Labs ordered a.m. independently interpreted by me with elevated lactate 2.3, small bolus of IV fluids ordered but concern for fluid overload with history of some heart failure so will monitor closely. Magnesium 1.2, this will be replaced intravenously. CBC with no leukocytosis, mild anemia which is chronic for the patient. Basic panel otherwise reassuring with normal creatinine for patient, reassuring electrolytes. Hepatic panel is normal. Time of Reevaluation #3: 08:02 Reevaluation #3: Updated patient and family with diagnosis and plan. No beds at [facility]. Signout to oncoming provider with plan to admit or transfer based on bed availability. Vital Signs Vital signs: Initial Vital Signs Respiratory Effort Normal, Spontaneous, Non-Labored 05/12/23 05:32 Respiratory Depth Normal 05/12/23 05:32 Vital Signs Temperature 102.0 F H 05/12/23 05:54 Pulse Rate 99 05/12/23 05:54 Respiratory Rate 20 05/12/23 05:54 Blood Pressure 174/86 H 05/12/23 05:54 Pulse Oximetry 94 05/12/23 05:54 Oxygen Delivery Method Room Air 05/12/23 05:54 Temperature 102.0 F H 05/12/23 06:24 Pulse Rate 99 05/12/23 05:54 Respiratory Rate 20 05/12/23 05:54 Blood Pressure 174/86 H 05/12/23 05:54 Pulse Oximetry 94 05/12/23 05:54 Oxygen Delivery Method Room Air 05/12/23 05:54 Medications Administered Medications: Discontinued Medications Generic Name Dose Route Start Last Admin Trade Name Freq PRN Reason Stop Dose Admin Acetaminophen 1,000 mg 05/12/23 05:58 05/12/23 06:24 Acetaminophen 500 Mg Tablet PO 05/12/23 05:59 1,000 mg ONCE ONE Administration Sodium Chloride 500 mls @ 500 mls/hr 05/12/23 06:02 05/12/23 06:24 0.9 % Sodium Chloride 500 Ml IV 05/12/23 07:01 500 mls/hr .Q1H ONE Administration Magnesium Sulfate 2 gm in 50 mls @ 50 mls/hr 05/12/23 06:45 05/12/23 06:51 Magnesium Iv IVPB 05/12/23 07:44 50 mls/hr ONCE ONE Administration Medical Decision Making Lab Data Labs: Lab Results 05/12/23 05/12/23 Range/Units 05:32 05:40 WBC 9.07 (4.50-11.00) K/uL RBC 3.73 L (4.00-5.20) m/uL Hgb 11.8 L (12.0-16.0) gm/dL Hct 36.8 (33.0-51.0) % MCV 99 (80-100) fL MCH 32 (26-34) pg MCHC 32 (32-36) gm/dL RDW Coeff of Maria 16.1 H (11.5-15.5) % Plt Count 188 (140-440) K/uL Neut % (Auto) 83.3 H (42.0-72.0) % Lymph % (Auto) 8.4 L (20-44) % Mcpherson % (Auto) 6.3 (0.0-11.0) % Eos % (Auto) 0.7 (0.0-7.0) % Baso % (Auto) 0.4 (0.0-3.0) % Neut # (Auto) 7.60 H (1.7-7.0) K/uL Lymph # (Auto) 0.80 L (0.90-2.90) K/uL Mcpherson # (Auto) 0.60 (0.00-0.90) K/UL Eos # (Auto) 0.06 (0.00-0.50) K/uL Baso # (Auto) 0.04 (0.00-0.30) K/uL Abs Immat Gran (auto) 0.08 (0.00-0.30) K/uL Imm/Tot Granulo (auto) 0.9 % INR 2.09 H (0.91-1.10) Sodium 136 (135-149) mmol/L Potassium 3.8 (3.6-5.1) mmol/L Chloride 103 (96-114) mmol/L Carbon Dioxide 21 (20-32) mmol/L Anion Gap 12 (7-15) mEq/L BUN 13 (7-30) mg/dL Creatinine 0.8 (0.5-1.5) mg/dL Estimated Creat Clear 45.20 Estimated GFR 79 ml/min Glucose 191 H (60-115) mg/dL Lactate 2.3 H (0.5-1.9) mmol/L Calcium 9.1 (8.4-10.6) mg/dL Magnesium 1.2 L (1.5-2.6) mg/dL Total Bilirubin 1.4 (0.1-1.5) mg/dL Direct Bilirubin 0.5 (0.0-0.5) mg/dL AST 30 (12-35) U/L ALT 19 (4-35) U/L Alkaline Phosphatase 74 (40-150) U/L Total Protein 7.3 (6.0-8.3) g/dL Albumin 3.8 (3.3-5.0) g/dL SARS-CoV-2 (PCR) Negative SARS-CoV-2 (Negative) Influenza Type A (PCR) Negative PCR FLU A (Negative) Influenza Type B (PCR) Negative PCR FLU B (Negative) RSV (PCR) Negative PCR RSV (Negative) ECG Data Attestation: I personally reviewed and interpreted this ECG as follows: Prior ECG tracings: not available for review Interpretation: Performed at 6 1:00 a.m. demonstrates atrial fibrillation rate 99, no acute ischemic changes, normal axis, QTC 444. No prior for comparison. Discharge Plan Discharge Clinical Impression: Fever, Sepsis, Cellulitis, Chronic acquired lymphedema, Atrial fibrillation, Panniculitis, Hypomagnesemia Prescriptions: No Action metformin 500 mg tablet 500 mg PO BID metoprolol succinate 50 mg tablet extended release 24 hr 25 mg PO DAILY diltiazem HCl 240 mg capsule,extended release 24hr 240 mg PO DAILY lisinopril 10 mg tablet 10 mg PO DAILY warfarin 5 mg tablet 5 mg PO DAILY glipizide 5 mg tablet 5 mg PO DAILY acetaminophen 325 mg Tablet 650 mg PO Q6H PRN30 Days Qty: 100 0RF furosemide 20 mg Tablet 60 mg PO DAILY@0800 30 Days Qty: 90 0RF ceftriaxone 2 gram Recon Soln 2 g IVPB Q24H 7 Days Qty: 7 0RF Lactobacillus acidophilus 0.5 mg (100 million cell) Tablet 1 mg PO TIDWM 30 Days Qty: 90 1RF nystatin 100,000 unit/gram Powder 1 applic topical BID 14 Days Qty: 30 1RF Follow Up/Referrals: Gomez Argueta MD [Primary Care Provider] -
[2023-05-12 05:53] LABS: Lactate* 2.3 mmol/L (0.5-1.9)
[2023-05-12 06:11] LABS: Basophils Absolute Auto 0.04 K/uL (0.00-0.30); Basophils Percent Auto 0.4 % (0.0-3.0); Eosinophils Absolute Auto 0.06 K/uL (0.00-0.50); Eosinophils Percent Auto 0.7 % (0.0-7.0); Hematocrit 36.8 % (33.0-51.0); Hemoglobin* 11.8 gm/dL (12.0-16.0); Immature Granulocytes Abs Auto 0.08 K/uL (0.00-0.30); Immature Granulocytes Pct Auto 0.9 %; Lymphocytes Percent Auto 8.4 % (20-44); Mean Corpuscular HGB Conc 32 gm/dL (32-36); Mean Corpuscular Hemoglobin 32 pg (26-34); Mean Corpuscular Volume 99 fL (80-100); Monocytes Percent Auto 6.3 % (0.0-11.0); Neutrophils Percent Auto 83.3 % (42.0-72.0); Platelet Count* 188 K/uL (140-440); RDW Coefficient of Variation % 16.1 % (11.5-15.5); Red Blood Count 3.73 m/uL (4.00-5.20); White Blood Count* 9.07 K/uL (4.50-11.00)
[2023-05-12 06:12] LABS: Slide Review Reflex No
[2023-05-12] MEDS: 0.9 % SODIUM CHLORIDE 500 ML 500 ML IV (06:24)
[2023-05-12] MEDS: ACETAMINOPHEN 500 MG TABLET 1000 MG PO ×2 (06:24→14:43)
[2023-05-12 06:38] LABS: Albumin* 3.8 g/dL (3.3-5.0); Chloride* 103 mmol/L (96-114); INR 2.09 (0.91-1.10)
[2023-05-12 06:39] LABS: Potassium* 3.8 mmol/L (3.6-5.1); Sodium* 136 mmol/L (135-149)
[2023-05-12 06:40] LABS: PCR FLU A Negative PCR FLU A (Negative); PCR FLU B Negative PCR FLU B (Negative); PCR RSV Negative PCR RSV (Negative)
[2023-05-12 06:41] LABS: Anion Gap 12 mEq/L (7-15); Aspartate Amino Transferase* 30 U/L (12-35); Bilirubin Direct* 0.5 mg/dL (0.0-0.5); Bilirubin Total* 1.4 mg/dL (0.1-1.5); Blood Urea Nitrogen* 13 mg/dL (7-30); Carbon Dioxide* 21 mmol/L (20-32); Creatinine* 0.8 mg/dL (0.5-1.5); Estimated Glomerular Filt Rate 79 ml/min; Total Protein* 7.3 g/dL (6.0-8.3)
[2023-05-12 06:42] LABS: Alanine Aminotransferase* 19 U/L (4-35); Alkaline Phosphatase* 74 U/L (40-150); Calcium* 9.1 mg/dL (8.4-10.6); Glucose* 191 mg/dL (60-115); Magnesium* 1.2 mg/dL (1.5-2.6)
[2023-05-12] MEDS: MAGNESIUM IV 2 GM/50 ML PIGGYBACK IVPB (06:51)
[2023-05-12 07:14] LABS: SARS PCR* Negative SARS-CoV-2 (Negative)
--- NOTE | 2023-05-12 07:45 | CRLHL7_ITS ---
For Patients: As a result of the Century Cures Act, medical imaging exams and procedure reports are released immediately into your electronic medical record. You may view this report before your referring provider. If you have questions, please contact your health care provider. INDICATION: Cough, fever and sepsis. COMPARISON: A similar examination dated April 23, 2023 in portions of an examination from March 22, 2023 TECHNIQUE: CT examination of the chest, abdomen and pelvis was performed following the uneventful intravenous administration of 128 cc of Isovue 370. Thin section axial images were obtained from the thoracic inlet through the pubic symphysis. Oral contrast was not administered. Sagittal and coronal reformatted imaging was performed Please note that all CT scans at this facility use dose modulation, iterative reconstruction, and/or weight-based dosing when appropriate to reduce radiation dose to as low as reasonably achievable. FINDINGS: CHEST: Technically limited due to patient related motion artifact Enlarged heart. Atherosclerotic vascular and valvular calcifications. Enlarged central pulmonary arteries likely related to pulmonary hypertension. Ectasia of the aorta. No significant pericardial fluid. Basilar and dependent lung opacities are probably due to atelectasis. No definite focal consolidation, infiltrate or mass. No pleural effusion or pneumothorax. ABDOMEN AND PELVIS: Limited due to motion LIVER/BILIARY SYSTEM:Hepatic steatosis. The infiltration is in a geographic pattern. 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 These were present on the prior contrast-enhanced study of 03/22/2023. There is cholelithiasis. I question gallbladder wall thickening. Recommend sonography for further evaluation. No intra or extrahepatic biliary ductal dilation. ADRENALS: Normal KIDNEYS, URETERS and BLADDER:The kidneys appear normal. The bladder is poorly evaluated due to streak artifact from a right hip arthroplasty. 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 This is unchanged. Splenic artery aneurysms larger than 2 centimeters are considered at risk for rupture and appropriate follow-up is recommended. PANCREAS: Appears normal. RETROPERITONEUM and MESENTERY: No mass or adenopathy. Atherosclerotic vascular calcification. 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 The small bowel as visualized appears normal. PELVIS: Fluid and gas within the endometrial canal. This is not a normal finding and could be due to neoplasia or endometritis. Correlate clinically.. OSSEOUS STRUCTURES and ABDOMINAL WALL: There is an age-appropriate appearance of the osseous structures.Diastasis of the anterior abdominal wall. There is also a fat containing ventral hernias. OTHER: No free fluid or free air. IMPRESSION: 1. CHEST: Basilar opacities probably due to atelectasis. No pleural effusion or pneumothorax. No specific visible cause for sepsis in the chest. Nonacute appearing findings as above 2. ABDOMEN: Cholelithiasis and possible gallbladder wall thickening. Correlate with sonography. Hepatic steatosis. 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 These were present previously. 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 This is not currently bleeding but should be considered for treatment at a clinically appropriate time, based on its size. 3. PELVIS: There is gas and fluid in the endometrium. Primary differential considerations are neoplasia versus endometritis. Correlate clinically 4. There are other nonacute appearing findings as discussed above. Please review the comments. Please note that all CT scans at this facility use dose modulation, iterative reconstruction, and/or weight-based dosing when appropriate to reduce radiation dose to as low as reasonably achievable. Dictated by Gomez Balbuena MD @ 05/12/2023 9:05:24 AM (Electronically Signed)
[2023-05-12] MEDS: METOPROLOL SUCCINATE (XL) 25 MG TAB PO (08:23)
[2023-05-12] MEDS: dilTIAZem 240 MG CAP (CD) PO (09:25)
--- NOTE | 2023-05-12 09:38 | CRLHL7_ITS ---
For Patients: As a result of the Cures Act, medical imaging exams and procedure reports are released immediately into your electronic medical record. You may view this report before your referring provider. If you have questions, please contact your health care provider. INDICATION: Gallbladder wall thickening on CT COMPARISON: Same day CT of the abdomen and pelvis TECHNIQUE: Severino-scale and color ultrasound of the gallbladder and biliary tree. FINDINGS: Gallbladder: Distention: Normal. Wall: 4 mm, slightly thickened diffusely. Stones: Yes. Sludge: Yes. Pericholecystic inflammation / fluid: None. Sonographic Franco`s sign: Not reported. Bile ducts: Not dilated. The common bile duct measures 6 mm. Included liver: Normal. Included pancreatic head: Obscured by bowel gas Ascites: None. IMPRESSION: Thickened gallbladder wall with gallstones and sludge. However the gallbladder does not appear overly distended. Could be hydropic versus cholecystitis. Correlate with the patient`s clinical presentation for acute cholecystitis. Dictated by Jessica Diaz MD @ 05/12/2023 11:12:36 AM (Electronically Signed)
--- NOTE | 2023-05-12 09:39 | CRLHL7_ITS ---
For Patients: As a result of the Century Cures Act, medical imaging exams and procedure reports are released immediately into your electronic medical record. You may view this report before your referring provider. If you have questions, please contact your health care provider. INDICATION: Gas in endometrium COMPARISON: Same day CT, CT 04/23/2023 TECHNIQUE: TV: Transvaginal ultrasound of the pelvis was performed to better visualize the genitourinary organs, such as the ovaries and/or endometrium. Color-flow and spectral Doppler imaging of both ovaries is attempted. FINDINGS: Reported last menstrual period: Postmenopausal. Technically difficult exam due to patient tolerance and body habitus. Limited visualization of the uterus and endometrium. Technologist indicated that the endometrium with fluid filled. However accurate measurements cannot be obtained. Neither ovary could be seen. IMPRESSION: Essentially nondiagnostic pelvic ultrasound due to body habitus and patient tolerance. Dictated by Jessica Diaz MD @ 05/12/2023 11:06:23 AM (Electronically Signed)
[2023-05-12] MEDS: PIPERACILLIN/TAZOBACTAM 3.375 GM in 0.9 % SODIUM CHLORIDE Mini-bag 100 ML IVPB ×3 (11:25→23:38)
[2023-05-12 12:36] LABS: HCO3 VBG 25 mmol/L (21-28); Lactate* 1.9 mmol/L (0.5-1.9); PCO2 VBG 33 mmHG (40-50); PO2 VBG 54.4 mmHG (25-47); pH VBG 7.484 (7.32-7.43)
[2023-05-12 12:39] LABS: Basophils Percent Auto 0.2 % (0.0-3.0); Eosinophils Percent Auto 0.1 % (0.0-7.0); Hematocrit 36.1 % (33.0-51.0); Hemoglobin* 11.6 gm/dL (12.0-16.0); Immature Granulocytes Pct Auto 1.2 %; Lymphocytes Percent Auto 7.4 % (20-44); Mean Corpuscular HGB Conc 32 gm/dL (32-36); Mean Corpuscular Hemoglobin 32 pg (26-34); Mean Corpuscular Volume 98 fL (80-100); Monocytes Percent Auto 6.8 % (0.0-11.0); Neutrophils Percent Auto 84.3 % (42.0-72.0); Platelet Count* 184 K/uL (140-440); Red Blood Count 3.68 m/uL (4.00-5.20); White Blood Count* 12.09 K/uL (4.50-11.00)
[2023-05-12 12:43] LABS: Slide Review Reflex No
[2023-05-12] MEDS: LORazepam 2 MG/ML inj 1 MG IVP (14:43)
--- NOTE | 2023-05-12 16:03 | PM.IMHP1 ---
Hospitalist- H&P: HPI History of Present Illness Date Seen: 05/12/23 Chief complaint: ill Narrative: Linh Munoz is a 72 year old woman presents to the emergency department for assessment of concern for sepsis. Recently hospitalized at [facility] from 04/23/2023 through 04/29/2023. Summary of this hospitalization is as follows: 72-year-old woman presented with sepsis, eventually discerned to be due to cellulitis from left upper quadrant panniculitis plus bilateral shins cellulitis with underlying chronic bilateral lower extremity lymphedema stage III. Was bacteremic and grew out group B strep, streptococcal agalatiae. Eventually transitioned from IV vancomycin plus IV ertapenem to IV ceftriaxone. Given that patient has group B strep, she requires 14 days of IV antibiotics total. Last dose of ceftriaxone to be administered on 05/06/2023. PICC line was placed in hospital for patient to receive the once daily ceftriaxone dosing while in the [facility]. [facility] to [facility] for ongoing transitional care services. Her desires is to go home as soon as possible. Her family supports her in this desire only in so far as it is determined that it is safe and feasible for her to do so. Will work with physical therapy and occupational therapy to achieve a safer level of independence and to ascertain when she might be ready to go home safely, and to consider home safety assessment and home care needs. Lymphedema for now will be managed with keeping legs elevated when nonweightbearing, when not using the bathroom, when not eating. Will also require daily compression wraps. Will need a daily skin care as well. Will use ABD pads to soak any drainage for now. Consider lymphedema consultation for long-term care and treatment. With a stage III trophic lymphedema changes, patient will have intermittent erythema of the affected part of the leg. Hence is important to assess at least once daily and strive to keep leg elevated and compressed. [facility] to her home about 5 and half days ago. Had been doing well until this morning when she see more encephalopathic, more weak and tired, daughter noticed erythema of the right lower extremity extending up to the groin. This had not been present previously when she performed her mother's lymphedema wraps yesterday. In the emergency department today patient not very interactive. Moaning intermittently. At times answers questions. Erythema, warmth, and swelling of right lower extremity noted extending all the way to the groin. Additionally erythema and warmth of the panniculus. Patient has urinary incontinence with urine in the skin folds of the groin and pannus. Multiple imaging studies performed without any obvious other source for sepsis. Blood cultures and urine cultures were obtained. Patient started on IV vancomycin and IV Zosyn. Patient family asked that patient remain here in the hospital for cares. They decline transferring patient to a tertiary medical facility. Review of Systems Status of ROS: Reports: 10 or more systems reviewed and unremarkable except as noted in History and below Narrative: Patient family has been [place] in to help support the patient in her home for the past 5 days. Family had been able to managed relatively well until earlier this morning when the patient's condition suddenly worsened and thus they brought her in to the hospital for further assessment and treatment. No apparent angina, anginal equivalent, syncope, near syncope, nausea, vomiting, palpitations, fluttering, cough, dyspnea at rest, paroxysmal nocturnal dyspnea, abdominal pain, dysuria, urgency, frequency, hematuria. Did develop fever and chills while here in the hospital. They were concerned that she developed a fever when at home also but they did not check her temperature. Denies diarrhea or constipation. PICC line was removed after completion of 2 weeks of IV ceftriaxone on 05/06/2023. No other medical devices in place. Patient has longstanding DNR DNI resuscitation status. This is reiterated again. [facility] Medical History (Updated 05/12/23 @ 16:31 by Jc Henderson MD) Physical debility ?R53.81 - Other malaise (ICD-10) Cellulitis ?L03.90 - Cellulitis, unspecified (ICD-10) Panniculitis ?M79.3 - Panniculitis, unspecified (ICD-10) Diabetes mellitus ?E11.9 - Type 2 diabetes mellitus without complications (ICD-10) MARCELL (obstructive sleep apnea) ?G47.33 - Obstructive sleep apnea (adult) (pediatric) (ICD-10) Obesity hypoventilation syndrome ?E66.2 - Morbid (severe) obesity with alveolar hypoventilation (ICD-10) Atrial fibrillation ?I48.91 - Unspecified atrial fibrillation (ICD-10) Acute hypoxic respiratory failure ?J96.01 - Acute respiratory failure with hypoxia (ICD-10) Metabolic encephalopathy ?G93.41 - Metabolic encephalopathy (ICD-10) Sepsis ?A41.9 - Sepsis, unspecified organism (ICD-10) Chronic acquired lymphedema ?I89.0 - Lymphedema, not elsewhere classified (ICD-10) Social History What is your current living situation?: I presently have a place to live Problems where you live: no known problems Problems where you live details: N/A In the past 12 months, utilities in danger of being shut off: unable to answer In past 12 months, lack of transportation kept you from medical appts, meetings, work, or getting things needed for daily living: unable to answer In the past 12 mos, have been you worried that your food would run out before you had money to buy more?: unable to answer In the past 12 mos, the food you bought just didn't last and you didn't have money to buy more?: unable to answer Highest level of school completed/degree received: Associate degree: occupational, technical, vocational program Smoking Status: Never smoker Do you use any of these nicotine containing products: None Second hand tobacco smoke exposure: No How often do you have a drink containing alcohol: never AUDIT-C Alcohol total score: 0 Non-prescribed substance use: denies use Caffeine: Yes (1-2 CAN OF POP/DAY) How often does anyone, including family, friends and others, physically hurt you: unable to answer How often does anyone, including family, friends and others, insult or talk down to you: unable to answer How often does anyone, including family, friends and others, threaten you with harm: unable to answer How often does anyone, including family, friends and others, scream or curse at you: unable to answer service: No Meds Home Medications and Allergies Home Medications Medication Instructions Recorded Confirmed Type diltiazem HCl 240 mg 240 mg PO DAILY 04/23/23 04/23/23 History capsule,extended release 24 hr glipizide 5 mg tablet 5 mg PO DAILY 04/23/23 04/23/23 History lisinopril 10 mg tablet 10 mg PO DAILY 04/23/23 04/23/23 History metformin 500 mg tablet 500 mg PO BID 04/23/23 04/23/23 History metoprolol succinate 50 mg 25 mg PO DAILY 04/23/23 04/23/23 History tablet,extended release 24 hr warfarin 5 mg tablet 5 mg PO DAILY 04/23/23 04/23/23 History Allergies Allergy/AdvReac Type Severity Reaction Status Date / Time No Known Drug Allergies Allergy Verified 05/12/23 08:53 Exam Narrative: Exam Narrative: Examined patient in the hospital room. Her and daughter are at her side. Not interactive. A times moans. At times open her eyes and will answer simple yes no questions, indicating she has no pain. Hearing is preserved. Vision appears adequate. Alert and oriented to self only. Tympanic membranes are normal. Midline nasal septum. Dry buccal mucosa. Dentition in fair repair. Neck is supple. Midline trachea. Does not have adenopathy in the pre or postauricular chains, anterior-posterior cervical chains, supra or infraclavicular fossa, or axilla bilaterally. Lungs are clear to auscultation. Heart tones with regular rhythm. Obese abdomen. Pannus is warm and red right side more so than left side. In the skin folds of the pannus it is red and moist with Mouna satellite lesions. Bilateral lower extremity erythema, warmth, swelling, right more so than left. Appears to have active cellulitis again. No other skin lesions. Const: Vital Signs, click to edit/add: Vital Signs - 24 hr 05/12/23 05:52 05/12/23 05:54 05/12/23 06:00 Temperature 102.0 F H Pulse Rate 106 H 101 H Pulse Rate [Pulse Oximeter] Pulse Rate [Right Pulse Oximeter] 99 Respiratory Rate 20 Blood Pressure Blood Pressure [Le ft Upper Arm] 174/86 H Blood Pressure [Ri ght Arm] Pulse Oximetry 89 94 92 Oxygen Delivery Me thod Room Air 05/12/23 06:24 05/12/23 08:42 05/12/23 08:43 Temperature 102.0 F H Pulse Rate 91 88 Pulse Rate [Pulse Oximeter] Pulse Rate [Right Pulse Oximeter] Respiratory Rate Blood Pressure 120/96 H Blood Pressure [Le ft Upper Arm] Blood Pressure [Ri ght Arm] Pulse Oximetry 90 91 Oxygen Delivery Me thod 05/12/23 08:45 05/12/23 09:00 05/12/23 09:01 Temperature Pulse Rate 92 90 89 Pulse Rate [Pulse Oximeter] Pulse Rate [Right Pulse Oximeter] Respiratory Rate Blood Pressure 135/75 Blood Pressure [Le ft Upper Arm] Blood Pressure [Ri ght Arm] Pulse Oximetry 89 92 [facility] 09:15 05/12/23 09:31 05/12/23 09:32 Temperature Pulse Rate 91 92 89 Pulse Rate [Pulse Oximeter] Pulse Rate [Right Pulse Oximeter] Respiratory Rate Blood Pressure 133/72 Blood Pressure [Le ft Upper Arm] Blood Pressure [Ri ght Arm] Pulse Oximetry 89 92 93 [facility] 05/12/23 09:32 05/12/23 09:45 05/12/23 10:01 Temperature Pulse Rate 89 92 87 Pulse Rate [Pulse Oximeter] Pulse Rate [Right Pulse Oximeter] Respiratory Rate Blood Pressure 133/72 109/69 Blood Pressure [Le ft Upper Arm] Blood Pressure [Ri ght Arm] Pulse Oximetry 93 94 94 [facility] 05/12/23 10:02 05/12/23 10:15 05/12/23 10:30 Temperature Pulse Rate 92 84 89 Pulse Rate [Pulse Oximeter] Pulse Rate [Right Pulse Oximeter] Respiratory Rate Blood Pressure Blood Pressure [Le ft Upper Arm] Blood Pressure [Ri ght Arm] Pulse Oximetry 93 93 92 [facility] 05/12/23 10:32 05/12/23 10:45 05/12/23 11:00 Temperature Pulse Rate 89 85 79 Pulse Rate [Pulse Oximeter] Pulse Rate [Right Pulse Oximeter] Respiratory Rate Blood Pressure 157/84 H Blood Pressure [Le ft Upper Arm] Blood Pressure [Ri ght Arm] Pulse Oximetry 93 93 88 [facility] 05/12/23 11:01 05/12/23 11:15 05/12/23 11:30 Temperature Pulse Rate 81 78 78 Pulse Rate [Pulse Oximeter] Pulse Rate [Right Pulse Oximeter] Respiratory Rate Blood Pressure 166/88 H Blood Pressure [Le ft Upper Arm] Blood Pressure [Ri ght Arm] Pulse Oximetry 91 88 92 [facility] 05/12/23 11:32 05/12/23 11:45 05/12/23 12:00 Temperature Pulse Rate 84 90 80 Pulse Rate [Pulse Oximeter] Pulse Rate [Right Pulse Oximeter] Respiratory Rate Blood Pressure 149/98 H Blood Pressure [Le ft Upper Arm] Blood Pressure [Ri ght Arm] Pulse Oximetry 93 95 95 [facility] 05/12/23 12:02 05/12/23 12:03 05/12/23 12:15 Temperature Pulse Rate 87 81 75 Pulse Rate [Pulse Oximeter] Pulse Rate [Right Pulse Oximeter] Respiratory Rate Blood Pressure 137/113 H Blood Pressure [Le ft Upper Arm] Blood Pressure [Ri ght Arm] Pulse Oximetry 91 88 96 [facility] 05/12/23 12:42 05/12/23 12:55 05/12/23 13:00 Temperature Pulse Rate 73 83 Pulse Rate [Pulse Oximeter] Pulse Rate [Right Pulse Oximeter] Respiratory Rate Blood Pressure 134/101 H Blood Pressure [Le ft Upper Arm] Blood Pressure [Ri ght Arm] Pulse Oximetry 92 91 Oxygen Delivery [facility] 05/12/23 13:03 05/12/23 13:04 05/12/23 13:15 Temperature Pulse Rate 82 76 72 Pulse Rate [Pulse Oximeter] Pulse Rate [Right Pulse Oximeter] Respiratory Rate Blood Pressure 150/62 H Blood Pressure [Le ft Upper Arm] Blood Pressure [Ri ght Arm] Pulse Oximetry 92 89 87 L Oxygen Delivery [facility] 05/12/23 13:30 05/12/23 13:33 05/12/23 13:52 Temperature Pulse Rate 79 81 Pulse Rate [Pulse Oximeter] Pulse Rate [Right Pulse Oximeter] Respiratory Rate Blood Pressure 114/58 L Blood Pressure [Le ft Upper Arm] Blood Pressure [Ri ght Arm] Pulse Oximetry 92 95 Oxygen Delivery [facility] 05/12/23 14:02 05/12/23 14:31 05/12/23 15:20 Temperature 100.1 F H Pulse Rate Pulse Rate [Pulse Oximeter] 83 Pulse Rate [Right Pulse Oximeter] Respiratory Rate 24 Blood Pressure 93/65 111/97 H Blood Pressure [Le ft Upper Arm] Blood Pressure [Ri ght Arm] 182/109 H Pulse Oximetry 89 Oxygen Delivery [facility] Room Air Documenting provider has reviewed patient's vital signs: yes Hospitalist - H&P: Result Labs Labs: Short CBC 05/12/23 05/12/23 Range/Units 05:40 12:32 WBC 9.07 12.09 H (4.50-11.00) K/uL Hgb 11.8 L 11.6 L (12.0-16.0) gm/dL Hct 36.8 36.1 (33.0-51.0) % Plt Count 188 184 (140-440) K/uL BMP 05/12/23 05:32 Sodium 136 Potassium 3.8 Chloride 103 Carbon Dioxide 21 BUN 13 Creatinine 0.8 Glucose 191 H Calcium 9.1 Liver Function 05/12/23 Range/Units 05:32 Total Bilirubin 1.4 (0.1-1.5) mg/dL Direct Bilirubin 0.5 (0.0-0.5) mg/dL AST 30 (12-35) U/L ALT 19 (4-35) U/L Alkaline Phosphatase 74 (40-150) U/L Albumin 3.8 (3.3-5.0) g/dL Imaging CT scan of chest, abdomen, pelvis: Attestation: I have reviewed the pertinent imaging results. Radiologist's impression: FINDINGS: CHEST: Technically limited due to patient related motion artifact Enlarged heart. Atherosclerotic vascular and valvular calcifications. Enlarged central pulmonary arteries likely related to pulmonary hypertension. Ectasia of the aorta. No significant pericardial fluid. Basilar and dependent lung opacities are probably due to atelectasis. No definite focal consolidation, infiltrate or mass. No pleural effusion or pneumothorax. ABDOMEN AND PELVIS: Limited due to motion LIVER/BILIARY SYSTEM:Hepatic steatosis. The infiltration is in a geographic pattern. 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 These were present on the prior contrast-enhanced study of 03/22/2023. There is cholelithiasis. I question gallbladder wall thickening. Recommend sonography for further evaluation. No intra or extrahepatic biliary ductal dilation. ADRENALS: Normal KIDNEYS, URETERS and BLADDER:The kidneys appear normal. The bladder is poorly evaluated due to streak artifact from a right hip arthroplasty. 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 This is unchanged. Splenic artery aneurysms larger than 2 centimeters are considered at risk for rupture and appropriate follow-up is recommended. PANCREAS: Appears normal. RETROPERITONEUM and MESENTERY: No mass or adenopathy. Atherosclerotic vascular calcification. 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 The small bowel as visualized appears normal. PELVIS: Fluid and gas within the endometrial canal. This is not a normal finding and could be due to neoplasia or endometritis. Correlate clinically.. OSSEOUS STRUCTURES and ABDOMINAL WALL: There is an age-appropriate appearance of the osseous structures.Diastasis of the anterior abdominal wall. There is also a fat containing ventral hernias. OTHER: No free fluid or free air. IMPRESSION: 1. CHEST: Basilar opacities probably due to atelectasis. No pleural effusion or pneumothorax. No specific visible cause for sepsis in the chest. Nonacute appearing findings as above 2. ABDOMEN: Cholelithiasis and possible gallbladder wall thickening. Correlate with sonography. Hepatic steatosis. 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 These were present previously. 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 This is not currently bleeding but should be considered for treatment at a clinically appropriate time, based on its size. 3. PELVIS: There is gas and fluid in the endometrium. Primary differential considerations are neoplasia versus endometritis. Correlate clinically 4. There are other nonacute appearing findings as discussed above. Please review the comments. Gallbladder ultrasound: Attestation: I have reviewed the pertinent imaging results. Radiologist's impression: FINDINGS: Gallbladder: Distention: Normal. Wall: 4 mm, slightly thickened diffusely. Stones: Yes. Sludge: Yes. Pericholecystic inflammation / fluid: None. Sonographic Franco`s sign: Not reported. Bile ducts: Not dilated. The common bile duct measures 6 mm. Included liver: Normal. Included pancreatic head: Obscured by bowel gas Ascites: None. IMPRESSION: Thickened gallbladder wall with gallstones and sludge. However the gallbladder does not appear overly distended. Could be hydropic versus cholecystitis. Correlate with the patient`s clinical presentation for acute cholecystitis. Transvaginal ultrasound: Attestation: I have reviewed the pertinent imaging results. Radiologist's impression: FINDINGS: Reported last menstrual period: Postmenopausal. Technically difficult exam due to patient tolerance and body habitus. Limited visualization of the uterus and endometrium. Technologist indicated that the endometrium with fluid filled. However accurate measurements cannot be obtained. Neither ovary could be seen. IMPRESSION: Essentially nondiagnostic pelvic ultrasound due to body habitus and patient tolerance. Assessment and Plan Assessment and plan (1) Sepsis: Problem comment: - urine and blood cultures obtained. - IV vancomycin and Zosyn started empirically. - IV normal saline Status: Acute (2) Cellulitis of right leg: Status: Acute (3) Metabolic encephalopathy: Problem comment: - In setting of sepsis. Status: Acute (4) Diabetes mellitus: Problem comment: A1c 7.4. Blood glucose ACHS, insulin sliding scale. Glipizide, Januvia, and metformin held Status: Acute (5) MARCELL (obstructive sleep apnea): Problem comment: - Required BiPAP therapy early in the course of hospitalization when she was acutely septic. - Patient has done adequately in the latter portion of the hospitalization without BiPAP. - will need outpatient sleep study in the future. Status: Acute (6) Physical debility: Problem comment: - at baseline she did not move much. She sat in her recliner chair at home much of the day. Status: Acute Plan 1. Reviewed impression with patient, , and daughter. 2. Answered their questions. 3. Continue with treatments as specified above. 4. Physical therapy and occupational therapy to assist 5. Patient family declined transfer to tertiary medical facility. They asked that we do the best we can and they were satisfied with this. 6. Skin care, Ayala catheter to maintain skin integrity. 7. Sliding scale insulin. 8. Patient family agreeable to above stated plans and recommendations.
[2023-05-12] MEDS: FLUCONAZOLE 100 MG TABLET 200 MG PO (18:07)
[2023-05-12] MEDS: METFORMIN 500 MG TABLET PO (18:07)
[2023-05-12] MEDS: WARFARIN 5 MG TABLET 7.5 MG PO (18:08)
[2023-05-12] MEDS: 0.9 % SODIUM CHLORIDE 1000 ml 1,000 ML 75 ML IV (18:08)
[2023-05-12 19:06] LABS: Appearance Urine Clear (Clear); Bilirubin Urine Negative (Negative); Blood Urine Trace-intact (Negative); Color Urine Yellow (Yellow); Glucose Urine Negative (Negative); Ketones Urine Trace (Negative); Leukocyte Esterase Urine Negative (Negative); Nitrite Urine Negative (Negative); Protein Urine 1+ (Negative); Urobilinogen Urine 0.2 (0.2-1.0)
[2023-05-12 19:28] LABS: RBC Urine 0-2 (0-2); WBC Urine 0-2 (0-5)
[2023-05-12] MEDS: LACTOBACILLUS ACIDOPHILUS 1 TABLET 2 TAB PO (21:03)
[2023-05-12] MEDS: ACETAMINOPHEN 325 MG TABLET 650 MG PO (21:03)
[2023-05-12] MEDS: INSULIN ASPART 100 UNIT/ML SUBCUT (21:26)
[2023-05-12] MEDS: NYSTATIN POWDER 1 APPLIC TOPICAL (21:26)
--- NOTE | 2023-05-12 21:56 | P.IMHP_ITS ---
Hospitalist- H&P: HPI History of Present Illness Date Seen: 06/09/23 Chief complaint: ill Narrative: Linh Munoz is a 72 year old female [facility] Medical History (Updated 05/24/23 @ 00:01 by Background Dayeni) Physical debility ?R53.81 - Other malaise (ICD-10) Cellulitis ?L03.90 - Cellulitis, unspecified (ICD-10) Diabetes mellitus ?E11.9 - Type 2 diabetes mellitus without complications (ICD-10) MARCELL (obstructive sleep apnea) ?G47.33 - Obstructive sleep apnea (adult) (pediatric) (ICD-10) Obesity hypoventilation syndrome ?E66.2 - Morbid (severe) obesity with alveolar hypoventilation (ICD-10) Atrial fibrillation ?I48.91 - Unspecified atrial fibrillation (ICD-10) Acute hypoxic respiratory failure ?J96.01 - Acute respiratory failure with hypoxia (ICD-10) Metabolic encephalopathy ?G93.41 - Metabolic encephalopathy (ICD-10) Sepsis ?A41.9 - Sepsis, unspecified organism (ICD-10) Chronic acquired lymphedema ?I89.0 - Lymphedema, not elsewhere classified (ICD-10) Social History What is your current living situation?: I presently have a place to live Problems where you live: no known problems Problems where you live details: none In the past 12 months, utilities in danger of being shut off: no In past 12 months, lack of transportation kept you from medical appts, meetings, work, or getting things needed for daily living: no In the past 12 mos, have been you worried that your food would run out before you had money to buy more?: never true In the past 12 mos, the food you bought just didn't last and you didn't have money to buy more?: never true Highest level of school completed/degree received: Associate degree: occupational, technical, vocational program Smoking Status: Never smoker Do you use any of these nicotine containing products: None Second hand tobacco smoke exposure: No How often do you have a drink containing alcohol: never AUDIT-C Alcohol total score: 0 Non-prescribed substance use: denies use Caffeine: Yes (diet coke) How often does anyone, including family, friends and others, physically hurt you : never How often does anyone, including family, friends and others, insult or talk down to you: never How often does anyone, including family, friends and others, threaten you with harm: never How often does anyone, including family, friends and others, scream or curse at you: never service: No Meds Home Medications and Allergies Home Medications Medication Instructions Recorded Confirmed Type diltiazem HCl 240 mg 240 mg PO DAILY 04/23/23 05/12/23 History capsule,extended release 24 hr glipizide 5 mg tablet 5 mg PO DAILY 04/23/23 05/12/23 History lisinopril 10 mg tablet 10 mg PO DAILY 04/23/23 05/12/23 History metformin 500 mg tablet 500 mg PO BID 04/23/23 05/12/23 History metoprolol succinate 50 mg 25 mg PO DAILY 04/23/23 05/12/23 History tablet,extended release 24 hr warfarin 5 mg tablet 5 - 7.5 mg PO DAILY 04/23/23 05/12/23 History lisinopril 5 mg tablet 5 mg PO DAILY 05/12/23 05/12/23 History sitagliptin phosphate 50 mg tablet 50 mg PO DAILY 05/12/23 05/12/23 History (Khoiuvjacqueline) Allergies Allergy/AdvReac Type Severity Reaction Status Date / Time No Known Drug Allergies Allergy Verified 05/12/23 08:53 Exam Const: Vital Signs, click to edit/add: Vital Signs - 24 hr 05/12/23 05:52 05/12/23 05:54 05/12/23 06:00 Temperature 102.0 F H Pulse Rate 106 H 101 H Pulse Rate [Pulse Oximeter] Pulse Rate [Right Pulse Oximeter] 99 Respiratory Rate 20 Blood Pressure Blood Pressure [Le ft Upper Arm] 174/86 H Blood Pressure [Ri ght Arm] Pulse Oximetry 89 94 92 Oxygen Delivery Me thod Room Air Oxygen Flow Rate 05/12/23 06:24 05/12/23 08:42 05/12/23 08:43 Temperature 102.0 F H Pulse Rate 91 88 Pulse Rate [Pulse Oximeter] Pulse Rate [Right Pulse Oximeter] Respiratory Rate Blood Pressure 120/96 H Blood Pressure [Le ft Upper Arm] Blood Pressure [Ri ght Arm] Pulse Oximetry 90 91 Oxygen Delivery Me thod Oxygen Flow Rate 05/12/23 08:45 01/03/24 09:00 05/12/23 09:01 Temperature Pulse Rate 92 90 89 Pulse Rate [Pulse Oximeter] Pulse Rate [Right Pulse Oximeter] Respiratory Rate Blood Pressure 135/75 Blood Pressure [Le ft Upper Arm] Blood Pressure [Ri ght Arm] Pulse Oximetry 89 92 95 Oxygen Delivery Me thod Oxygen Flow Rate 05/12/23 09:15 05/12/23 09:31 05/12/23 09:32 Temperature Pulse Rate 91 92 89 Pulse Rate [Pulse Oximeter] Pulse Rate [Right Pulse Oximeter] Respiratory Rate Blood Pressure 133/72 Blood Pressure [Le ft Upper Arm] Blood Pressure [Ri ght Arm] Pulse Oximetry 89 92 93 Oxygen Delivery Me thod Oxygen Flow Rate 05/12/23 09:32 05/12/23 09:45 05/12/23 10:01 Temperature Pulse Rate 89 92 87 Pulse Rate [Pulse Oximeter] Pulse Rate [Right Pulse Oximeter] Respiratory Rate Blood Pressure 133/72 109/69 Blood Pressure [Le ft Upper Arm] Blood Pressure [Ri ght Arm] Pulse Oximetry 93 94 94 Oxygen Delivery Me thod Oxygen Flow Rate 05/12/23 10:02 05/12/23 10:15 05/12/23 10:30 Temperature Pulse Rate 92 84 89 Pulse Rate [Pulse Oximeter] Pulse Rate [Right Pulse Oximeter] Respiratory Rate Blood Pressure Blood Pressure [Le ft Upper Arm] Blood Pressure [Ri ght Arm] Pulse Oximetry 93 93 92 Oxygen Delivery Me thod Oxygen Flow Rate 05/12/23 10:32 05/12/23 10:45 05/12/23 11:00 Temperature Pulse Rate 89 85 79 Pulse Rate [Pulse Oximeter] Pulse Rate [Right Pulse Oximeter] Respiratory Rate Blood Pressure 157/84 H Blood Pressure [Le ft Upper Arm] Blood Pressure [Ri ght Arm] Pulse Oximetry 93 93 88 Oxygen Delivery Me thod Oxygen Flow Rate 05/12/23 11:01 05/12/23 11:15 05/12/23 11:30 Temperature Pulse Rate 81 78 78 Pulse Rate [Pulse Oximeter] Pulse Rate [Right Pulse Oximeter] Respiratory Rate Blood Pressure 166/88 H Blood Pressure [Le ft Upper Arm] Blood Pressure [Ri ght Arm] Pulse Oximetry 91 88 92 Oxygen Delivery Me thod Oxygen Flow Rate 05/12/23 11:32 05/12/23 11:45 05/12/23 12:00 Temperature Pulse Rate 84 90 80 Pulse Rate [Pulse Oximeter] Pulse Rate [Right Pulse Oximeter] Respiratory Rate Blood Pressure 149/98 H Blood Pressure [Le ft Upper Arm] Blood Pressure [Ri ght Arm] Pulse Oximetry 93 95 95 Oxygen Delivery Me thod Oxygen Flow Rate 05/12/23 12:02 05/12/23 12:03 05/12/23 12:15 Temperature Pulse Rate 87 81 75 Pulse Rate [Pulse Oximeter] Pulse Rate [Right Pulse Oximeter] Respiratory Rate Blood Pressure 137/113 H Blood Pressure [Le ft Upper Arm] Blood Pressure [Ri ght Arm] Pulse Oximetry 91 88 96 Oxygen Delivery Me thod Oxygen Flow Rate 05/12/23 12:42 05/12/23 12:55 05/12/23 13:00 Temperature Pulse Rate 73 83 Pulse Rate [Pulse Oximeter] Pulse Rate [Right Pulse Oximeter] Respiratory Rate Blood Pressure 134/101 H Blood Pressure [Le ft Upper Arm] Blood Pressure [Ri ght Arm] Pulse Oximetry 92 91 Oxygen Delivery Me thod Oxygen Flow Rate 05/12/23 13:03 05/12/23 13:04 05/12/23 13:15 Temperature Pulse Rate 82 76 72 Pulse Rate [Pulse Oximeter] Pulse Rate [Right Pulse Oximeter] Respiratory Rate Blood Pressure 150/62 H Blood Pressure [Le ft Upper Arm] Blood Pressure [Ri ght Arm] Pulse Oximetry 92 89 87 L Oxygen Delivery Me thod Oxygen Flow Rate 05/12/23 13:30 05/12/23 13:33 05/12/23 13:52 Temperature Pulse Rate 79 81 Pulse Rate [Pulse Oximeter] Pulse Rate [Right Pulse Oximeter] Respiratory Rate Blood Pressure 114/58 L Blood Pressure [Le ft Upper Arm] Blood Pressure [Ri ght Arm] Pulse Oximetry 92 95 Oxygen Delivery Me thod Oxygen Flow Rate 05/12/23 14:02 05/12/23 14:31 05/12/23 15:12 Temperature 100.1 F H Pulse Rate Pulse Rate [Pulse Oximeter] 70 Pulse Rate [Right Pulse Oximeter] Respiratory Rate 22 Blood Pressure 93/65 111/97 H Blood Pressure [Le ft Upper Arm] Blood Pressure [Ri ght Arm] 151/83 H Pulse Oximetry 96 Oxygen Delivery Me thod Nasal Cannula Oxygen Flow Rate 1 05/12/23 15:20 05/12/23 19:00 Temperature 100.1 F H 100.1 F H Pulse Rate Pulse Rate [Pulse Oximeter] 83 73 Pulse Rate [Right Pulse Oximeter] Respiratory Rate 24 22 Blood Pressure Blood Pressure [Le ft Upper Arm] Blood Pressure [Ri ght Arm] 182/109 H 151/83 H Pulse Oximetry 89 90 Oxygen Delivery Me thod Room Air Nasal Cannula Oxygen Flow Rate 1 Hospitalist - H&P: Result Labs Labs: Short CBC 05/12/23 05/12/23 Range/Units 05:40 12:32 WBC 9.07 12.09 H (4.50-11.00) K/uL Hgb 11.8 L 11.6 L (12.0-16.0) gm/dL Hct 36.8 36.1 (33.0-51.0) % Plt Count 188 184 (140-440) K/uL BMP 05/12/23 05:32 Sodium 136 Potassium 3.8 Chloride 103 Carbon Dioxide 21 BUN 13 Creatinine 0.8 Glucose 191 H Calcium 9.1 Liver Function 05/12/23 Range/Units 05:32 Total Bilirubin 1.4 (0.1-1.5) mg/dL Direct Bilirubin 0.5 (0.0-0.5) mg/dL AST 30 (12-35) U/L ALT 19 (4-35) U/L Alkaline Phosphatase 74 (40-150) U/L Albumin 3.8 (3.3-5.0) g/dL Urine 05/12/23 Range/Units 18:50 Urine Color Yellow (Yellow) Urine Appearance Clear (Clear) Urine pH 6.0 (5.0-8.5) Ur Specific [place] 1.020 (1.000-1.030) Urine Protein 1+ A (Negative) Urine Glucose (UA) Negative (Negative)
--- NOTE | 2023-05-12 23:36 | PC.NURSE ---
Shift Note: Pt oriented, but has been lethargic and sleepy throughout this shift. VS WNL, although she is desaturating to 84% on RA. SpO2 94% or greater on 1L/O2 via NC. Elevated temp as high as 100.1, pt c/o chills and appears generally uncomfortable and restless despite denying pain. PRN Tylenol given. Bilateral LE's with erythema outlined as well as erythema to pannus. Skin folds cleansed, dried, and Nystatin powder applied. LE's elevated. Ayala placed and UA obtained. Moderate amounts of creamy/finn vaginal discharge noted and MD updated. Family at bedside throughout this shift.
[2023-05-13] VITALS (7 sets, daily range): BP systolic 120–156; BP diastolic 76–94; PULSE 58–73; RESP 18–24; TEMP 36.2–37.4; O2SAT 93–97; BMI 55.7
--- NOTE | 2023-05-13 05:01 | PC.NURSE ---
[id number] Pt diaphoretic and sleepy at beginning of shift, as night progressed pt more awake and able to respond to questions more clearly. Pt required O2 NC @ 1 LPM to maintain sats >90% while sleeping. afebrile during night, RR 24-28. reddened bilateral legs and pannus outlined, stayed within outline margins during shift. mora patent and draining
[2023-05-13] MEDS: PIPERACILLIN/TAZOBACTAM 3.375 GM in 0.9 % SODIUM CHLORIDE Mini-bag 100 ML IVPB ×4 (05:18→23:31)
[2023-05-13 07:23] LABS: HCO3 VBG 26 mmol/L (21-28); Lactate* 1.6 mmol/L (0.5-1.9); PCO2 VBG 40 mmHG (40-50); PO2 VBG 52.7 mmHG (25-47)
[2023-05-13 07:34] LABS: Hematocrit 35.2 % (33.0-51.0); Hemoglobin* 11.1 gm/dL (12.0-16.0); Mean Corpuscular HGB Conc 32 gm/dL (32-36); Mean Corpuscular Hemoglobin 32 pg (26-34); Mean Corpuscular Volume 100 fL (80-100); Platelet Count* 166 K/uL (140-440); Red Blood Count 3.52 m/uL (4.00-5.20)
[2023-05-13 07:35] LABS: Slide Review Reflex No
[2023-05-13 07:46] LABS: Albumin* 3.4 g/dL (3.3-5.0); Chloride* 106 mmol/L (96-114); Potassium* 3.7 mmol/L (3.6-5.1); Sodium* 138 mmol/L (135-149)
[2023-05-13 07:48] LABS: INR 2.53 (0.91-1.10); Prothrombin Time 29.1 Seconds
[2023-05-13 07:49] LABS: Anion Gap 7 mEq/L (7-15); Blood Urea Nitrogen* 12 mg/dL (7-30); Carbon Dioxide* 25 mmol/L (20-32); Creatinine* 0.7 mg/dL (0.5-1.5); Estimated Glomerular Filt Rate 93 ml/min
[2023-05-13 07:50] LABS: Calcium* 8.5 mg/dL (8.4-10.6); Glucose* 114 mg/dL (60-115); Magnesium* 1.7 mg/dL (1.5-2.6); Phosphorus* 3.3 mg/dL (2.5-4.5)
[2023-05-13 07:52] LABS: C Reactive Protein* 5.8 mg/dL (0.5-1.0)
[2023-05-13 08:00] LABS: Troponin I* 0.02 ng/mL (0.01-0.04)
[2023-05-13 08:05] LABS: Procalcitonin* 0.88 ng/mL (<0.50)
[2023-05-13] MEDS: FUROSEMIDE 20 MG TABLET 60 MG PO (08:08)
[2023-05-13] MEDS: glipiZIDE 5 MG TABLET PO (08:09)
[2023-05-13] MEDS: METFORMIN 500 MG TABLET PO ×2 (08:09→17:42)
[2023-05-13] MEDS: LACTOBACILLUS ACIDOPHILUS 1 TABLET 2 TAB PO ×3 (08:09→17:42)
[2023-05-13 08:13] LABS: NT Pro B Type NatriureticPept* 1290 pg/mL
[2023-05-13] MEDS: lisinopriL 10 MG TABLET PO (08:13)
[2023-05-13] MEDS: METOPROLOL SUCCINATE (XL) 50 MG TAB 25 MG PO (08:13)
[2023-05-13] MEDS: dilTIAZem 240 MG CAP (CD) PO (08:13)
[2023-05-13] MEDS: NYSTATIN POWDER 1 APPLIC TOPICAL ×2 (08:14→22:10)
[2023-05-13] MEDS: FLUCONAZOLE 100 MG TABLET PO (08:14)
--- NOTE | 2023-05-13 08:23 | PM.IMPN1 ---
Progress Note: A&P Assessment and plan (1) Sepsis: Problem details: - source unclear, presumably cellulitis of RLE/abdominal wall. Concern of possible cholecystitis on imaging; asymptomatic, reassuring LFTs - urine and blood cultures obtained, currently NGTD - IV vancomycin and Zosyn started empirically (05/12/23) - stable VS, IVFs discontinued on 05/13 Status: Acute (2) Cellulitis of right leg: Problem details: - presumably source of #1 above Status: Acute (3) Metabolic encephalopathy: Problem details: - In setting of sepsis, significant improvement on hospital day 1 Status: Acute (4) Diabetes mellitus: Problem details: - A1c 7.4. Blood glucose ACHS, insulin sliding scale - continue home doses Metformin, Sitagliptin, Glipizide Status: Acute (5) MARCELL (obstructive sleep apnea): Problem details: - has required BIPAP in the hospital previously - will need outpatient sleep study in the future Status: Acute (6) Physical debility: Problem details: - therapies ordered Status: Acute Plan - per above - continue IV abx, follow cultures - updated at bedside, questions answered - likely home with when medically appropriate Subjective Date Seen: 05/13/23 Interval history: Linh was admitted to the hospital yesterday, for presenting to the emergency room with AMS, fever, clinical concern for sepsis. Cellulitis most likely source. Incidentally, ER imaging noted fluid and gas in her endometrium (pelvic ultrasound nondiagnostic), as well as possible thickening of gallbladder wall. She has had no pelvic pain and no right upper quadrant pain, she is hungry today and would like to try p.o. intake. Since admission, patient has improved significantly. She is on Vancomycin and Zosyn. Therapies following. Comorbidities include rate controlled atrial fibrillation, MARCELL, noninsulin dependent DM2. BGs 103-213, patient ready to start eating this morning. Remains in rate controlled atrial fibrillation. Supplemental oxygen discontinued this morning. Linh has no concerns for hospitalist team this morning. She and both note surprise at how quickly she got sick yesterday; wondering about any preventative measures for the future. Exam Narrative: Exam Narrative: GEN: Alert in laying comfortably in bed, significantly more awake than when I saw her in the ER yesterday HEENT: EOMIs bilaterally, no scleral icterus CV: Rate controlled atrial fibrillation, No concerning murmurs R: LCTA bilaterally without concerning wheezing, air movement adequate Ab: Soft, negative Franco sign, mild erythema of abdominal wall Ext: Erythema of right lower extremity has improved from yesterday Skin: No other concerning skin lesions or rashes on exposed skin Neuro: No focal deficits, no resting tremor Psych: Appropriate Const: Vital Signs, click to edit/add: Vital Signs - 24 hr 05/12/23 08:42 05/12/23 08:43 05/12/23 08:45 Temperature Pulse Rate 91 88 92 Pulse Rate [Pulse Oximeter] Respiratory Rate Blood Pressure 120/96 H Blood Pressure [Ri ght Arm] Pulse Oximetry 90 91 89 Oxygen Delivery Me thod Oxygen Flow Rate 05/12/23 09:00 05/12/23 09:01 05/12/23 09:15 Temperature Pulse Rate 90 89 91 Pulse Rate [Pulse Oximeter] Respiratory Rate Blood Pressure 135/75 Blood Pressure [Ri ght Arm] Pulse Oximetry 92 95 89 Oxygen Delivery Me thod Oxygen Flow Rate 05/12/23 09:31 05/12/23 09:32 05/12/23 09:32 Temperature Pulse Rate 92 89 89 Pulse Rate [Pulse Oximeter] Respiratory Rate Blood Pressure 133/72 133/72 Blood Pressure [Ri ght Arm] Pulse Oximetry 92 93 93 Oxygen Delivery Me thod Oxygen Flow Rate 05/12/23 09:45 05/12/23 10:01 05/12/23 10:02 Temperature Pulse Rate 92 87 92 Pulse Rate [Pulse Oximeter] Respiratory Rate Blood Pressure 109/69 Blood Pressure [Ri ght Arm] Pulse Oximetry 94 94 93 Oxygen Delivery Me thod Oxygen Flow Rate 05/12/23 10:15 05/12/23 10:30 05/12/23 10:32 Temperature Pulse Rate 84 89 89 Pulse Rate [Pulse Oximeter] Respiratory Rate Blood Pressure 157/84 H Blood Pressure [Ri ght Arm] Pulse Oximetry 93 92 93 Oxygen Delivery Me thod Oxygen Flow Rate 05/12/23 10:45 05/12/23 11:00 05/12/23 11:01 Temperature Pulse Rate 85 79 81 Pulse Rate [Pulse Oximeter] Respiratory Rate Blood Pressure 166/88 H Blood Pressure [Ri ght Arm] Pulse Oximetry 93 88 91 Oxygen Delivery Me thod Oxygen Flow Rate 05/12/23 11:15 05/12/23 11:30 05/12/23 11:32 Temperature Pulse Rate 78 78 84 Pulse Rate [Pulse Oximeter] Respiratory Rate Blood Pressure 149/98 H Blood Pressure [Ri ght Arm] Pulse Oximetry 88 92 93 Oxygen Delivery Me thod Oxygen Flow Rate 05/12/23 11:45 05/12/23 12:00 05/12/23 12:02 Temperature Pulse Rate 90 80 87 Pulse Rate [Pulse Oximeter] Respiratory Rate Blood Pressure 137/113 H Blood Pressure [Ri ght Arm] Pulse Oximetry 95 95 91 Oxygen Delivery Me thod Oxygen Flow Rate 05/12/23 12:03 05/12/23 12:15 05/12/23 12:42 Temperature Pulse Rate 81 75 Pulse Rate [Pulse Oximeter] Respiratory Rate Blood Pressure 134/101 H Blood Pressure [Ri ght Arm] Pulse Oximetry 88 96 Oxygen Delivery Me thod Oxygen Flow Rate 05/12/23 12:55 05/12/23 13:00 05/12/23 13:03 Temperature Pulse Rate 73 83 82 Pulse Rate [Pulse Oximeter] Respiratory Rate Blood Pressure 150/62 H Blood Pressure [Ri ght Arm] Pulse Oximetry 92 91 92 Oxygen Delivery Me thod Oxygen Flow Rate 05/12/23 13:04 05/12/23 13:15 05/12/23 13:30 Temperature Pulse Rate 76 72 79 Pulse Rate [Pulse Oximeter] Respiratory Rate Blood Pressure Blood Pressure [Ri ght Arm] Pulse Oximetry 89 87 L 92 Oxygen Delivery Me thod Oxygen Flow Rate 05/12/23 13:33 05/12/23 13:52 05/12/23 14:02 Temperature Pulse Rate 81 Pulse Rate [Pulse Oximeter] Respiratory Rate Blood Pressure 114/58 L 93/65 Blood Pressure [Ri ght Arm] Pulse Oximetry 95 Oxygen Delivery Me thod Oxygen Flow Rate 05/12/23 14:31 05/12/23 15:12 05/12/23 15:12 Temperature 100.1 F H Pulse Rate Pulse Rate [Pulse Oximeter] 70 Respiratory Rate 22 24 Blood Pressure 111/97 H Blood Pressure [Ri ght Arm] 151/83 H Pulse Oximetry 96 94 Oxygen Delivery Me thod Nasal Cannula Nasal Cannula Oxygen Flow Rate 1 1 05/12/23 15:20 05/12/23 19:00 05/12/23 23:00 Temperature 100.1 F H 100.1 F H Pulse Rate Pulse Rate [Pulse Oximeter] 83 73 Respiratory Rate 24 22 28 H Blood Pressure Blood Pressure [Ri ght Arm] 182/109 H 151/83 H Pulse Oximetry 89 90 Oxygen Delivery Me thod Room Air Nasal Cannula Oxygen Flow Rate 1 05/12/23 23:00 05/12/23 23:00 05/13/23 01:53 Temperature 98.1 F Pulse Rate 69 Pulse Rate [Pulse Oximeter] 74 Respiratory Rate 28 H 28 H Blood Pressure Blood Pressure [Or ght Arm] 123/65 Pulse Oximetry 94 94 Oxygen Delivery Me thod Nasal Cannula Nasal Cannula Oxygen Flow Rate 1 1 05/13/23 03:00 05/13/23 07:00 05/13/23 07:00 Temperature 97.1 F L Pulse Rate Pulse Rate [Pulse Oximeter] 66 66 Respiratory Rate 24 20 20 Blood Pressure Blood Pressure [Or ght Arm] 129/76 Pulse Oximetry 96 93 Oxygen Delivery Me thod Nasal Cannula Room Air Oxygen Flow Rate 1 05/13/23 07:00 Temperature 99.3 F Pulse Rate Pulse Rate [Pulse Oximeter] 64 Respiratory Rate 20 Blood Pressure Blood Pressure [Or ght Arm] 151/94 H Pulse Oximetry 94 Oxygen Delivery Me thod Room Air Oxygen Flow Rate Labs Labs: Laboratory Results - last 24 hr 05/12/23 05/12/23 05/13/23 12:32 18:50 06:47 WBC 12.09 H 6.30 RBC 3.68 L 3.52 L Hgb 11.6 L 11.1 L Hct 36.1 35.2 MCV 98 100 MCH 32 32 MCHC 32 32 RDW Coeff of Maria 16.0 H Plt Count 184 166 Neut % (Auto) 84.3 H Lymph % (Auto) 7.4 L [place] % (Auto) 6.8 Eos % (Auto) 0.1 Baso % (Auto) 0.2 Neut # (Auto) 10.20 H Lymph # (Auto) 0.90 [place] # (Auto) 0.80 Eos # (Auto) 0.00 Baso # (Auto) 0.00 Abs Immat Gran (auto) 0.10 Imm/Tot Granulo (auto) 1.2 INR 2.53 H VBG pH 7.484 H 7.420 VBG pCO2 33 L 40 VBG pO2 54.4 H 52.7 H VBG HCO3 25 26 Sodium 138 Potassium 3.7 Chloride 106 Carbon Dioxide 25 Anion Gap 7 BUN 12 Creatinine 0.7 Estimated Creat Clear 43.30 Estimated GFR 93 Glucose 114 Lactate 1.9 1.6 Calcium 8.5 Phosphorus 3.3 Magnesium 1.7 Troponin I 0.02 C-Reactive Protein 5.8 H NT-Pro-B Natriuret Pep 1290 Albumin 3.4 Procalcitonin 0.88 H Urine Color Yellow Urine Appearance Clear Urine pH 6.0 Ur Specific [place] 1.020 Urine Protein 1+ A Urine Glucose (UA) Negative Urine Ketones Trace A Urine Blood Trace-intact A Urine Nitrite Negative Urine Bilirubin Negative Urine Urobilinogen 0.2 Ur Leukocyte Esterase Negative Urine RBC 0-2 Urine WBC 0-2 Ur Squamous Epith Cells None Urine Bacteria None
[2023-05-13] MEDS: 0.9 % SODIUM CHLORIDE 1000 ml 1,000 ML 75 ML IV (11:43)
--- NOTE | 2023-05-13 14:43 | PC.SOCIAL ---
Received a voicemail from Toni at [facility] at [phone]. Pt has home care for Nursing, PT, and OT. [facility] requested an update on pt. Phone call to Toni at [facility]. Left a voicemail providing an update on pt. Requested information on if pt returns home if [facility] would need a new face to face order or resumption of care order. Social work will follow up as needed.
--- NOTE | 2023-05-13 15:04 | PC.NURSE ---
Nursing Care Hours: [id number] Pt this shift alert and oriented, calm and cooperative. SB assist with walker. Ayala in place, u/o hematuria. Low output after receiving diuretics. Bladder scan shows about 200ml retained. Had pt stand to move to bed to adjust Ayala catheter and bag started filling, adding another 300ml. Medical Data Entry Clerk still advanced the catheter after cleaning with iodine and using sterile gloves. Pt c/o pain during advancements and adjusting. Catheter continues to be patent, but pt encouraged to stand every couple of hours d/t positional occlusion of catheter. Redness noted on upper bilat glutes midline, zinc oxide applied. Redness over legs and lower abdomen outlined. No weeping from legs, open to air. VSS, afebrile. IV patent, ABX given. Pt eating regular diet, tolerating well. Encouraged to drink more fluids d/t hematuria. No insulin given per sliding scale.
[2023-05-13] MEDS: WARFARIN 5 MG TABLET PO (17:42)
[2023-05-14 05:00] VITALS: BP 142/87; PULSE 94; RESP 20; TEMP 36.4; O2SAT 94
[2023-05-14] MEDS: PIPERACILLIN/TAZOBACTAM 3.375 GM in 0.9 % SODIUM CHLORIDE Mini-bag 100 ML IVPB ×3 (05:50→20:14)
[2023-05-14 06:30] LABS: HCO3 VBG 25 mmol/L (21-28); PCO2 VBG 33 mmHG (40-50); PO2 VBG 42.3 mmHG (25-47); pH VBG 7.477 (7.32-7.43)
[2023-05-14 06:33] LABS: Basophils Absolute Auto 0.04 K/uL (0.00-0.30); Basophils Percent Auto 0.7 % (0.0-3.0); Eosinophils Absolute Auto 0.21 K/uL (0.00-0.50); Eosinophils Percent Auto 3.6 % (0.0-7.0); Hematocrit 36.5 % (33.0-51.0); Hemoglobin* 11.6 gm/dL (12.0-16.0); Immature Granulocytes Abs Auto 0.13 K/uL (0.00-0.30); Immature Granulocytes Pct Auto 2.2 %; Lymphocytes Absolute Auto 1.18 K/uL (0.90-2.90); Lymphocytes Percent Auto 20.2 % (20-44); Mean Corpuscular HGB Conc 32 gm/dL (32-36); Mean Corpuscular Hemoglobin 31 pg (26-34); Mean Corpuscular Volume 99 fL (80-100); Monocytes Percent Auto 9.2 % (0.0-11.0); Neutrophils Absolute Auto 3.75 K/uL (1.7-7.0); Neutrophils Percent Auto 64.1 % (42.0-72.0); Platelet Count* 188 K/uL (140-440); RDW Coefficient of Variation % 15.8 % (11.5-15.5); Red Blood Count 3.69 m/uL (4.00-5.20); White Blood Count* 5.85 K/uL (4.50-11.00)
[2023-05-14 06:34] LABS: Slide Review Reflex No
--- NOTE | 2023-05-14 06:47 | PC.NURSE ---
Addendum entered by Mala Lantigua RN 05/14/23 07:34: cellulitis starting to rise outside of the margins on the abdomen, updated, no new orders received. Original Note: SHIFT NOTE : Pt A&O. Afebrile. Oxygen saturations >90% on RA. Up SBA with a walker and tolerating well. Pt Ayala with bloody output, updated, no new orders received. This AM Ayala still patent and draining bloody urine, but is also leaking some urine, tried deflating balloon and inserting the Ayala further into urethra, Ayala continues to leak around insertion, will update MD this AM. Pt cellulitis is outlined, warm to touch. Pt denies pain, SOB, CP, and N/V.
[2023-05-14 07:00] VITALS: BP 145/94; PULSE 78; RESP 20; TEMP 36.6; O2SAT 96
[2023-05-14 07:04] LABS: Albumin* 3.6 g/dL (3.3-5.0); Chloride* 108 mmol/L (96-114); Potassium* 3.7 mmol/L (3.6-5.1); Sodium* 139 mmol/L (135-149)
[2023-05-14 07:06] LABS: Bilirubin Total* 1.2 mg/dL (0.1-1.5); Creatinine* 0.8 mg/dL (0.5-1.5); Estimated Glomerular Filt Rate 79 ml/min
[2023-05-14 07:07] LABS: Alanine Aminotransferase* 22 U/L (4-35); Alkaline Phosphatase* 59 U/L (40-150); Anion Gap 9 mEq/L (7-15); Aspartate Amino Transferase* 39 U/L (12-35); Blood Urea Nitrogen* 12 mg/dL (7-30); Calcium* 8.4 mg/dL (8.4-10.6); Carbon Dioxide* 22 mmol/L (20-32); Glucose* 89 mg/dL (60-115); Total Protein* 7.1 g/dL (6.0-8.3)
[2023-05-14 07:17] LABS: Procalcitonin* 0.65 ng/mL (<0.50)
[2023-05-14 07:27] LABS: Chloride* 108 mmol/L (96-114)
[2023-05-14 07:28] LABS: Albumin* 3.6 g/dL (3.3-5.0); Potassium* 3.8 mmol/L (3.6-5.1); Sodium* 138 mmol/L (135-149)
[2023-05-14 07:30] LABS: Creatinine* 0.8 mg/dL (0.5-1.5); Estimated Glomerular Filt Rate 79 ml/min
[2023-05-14 07:31] LABS: Anion Gap 10 mEq/L (7-15); Blood Urea Nitrogen* 12 mg/dL (7-30); Calcium* 8.5 mg/dL (8.4-10.6); Carbon Dioxide* 20 mmol/L (20-32); Glucose* 89 mg/dL (60-115); Phosphorus* 2.9 mg/dL (2.5-4.5)
[2023-05-14 07:42] LABS: Prothrombin Time 37.9 Seconds
--- NOTE | 2023-05-14 08:21 | PM.IMPN1 ---
Progress Note: A&P Assessment and plan (1) Sepsis: Problem details: - source unclear, presumably cellulitis of RLE +/- panniculitis. Concern of possible cholecystitis on imaging; asymptomatic, reassuring LFTs - blood cultures obtained, currently NGTD - IV vancomycin and Zosyn started empirically (05/12/23), also on Fluconazole - stable VS, IVFs discontinued on 05/13 Status: Acute (2) Cellulitis of right leg: Problem details: - presumably source of #1 above - increased risk given lymphedema, DM2 Status: Acute (3) Panniculitis: Problem details: - recurrent, likely has an element of both bacterial and fungal sources - on Ceftriaxone, Vancomycin, Fluconazole, probiotics Status: Acute (4) Endometritis: Problem details: - incidentally noted on ED imaging 05/12, pelvic ultrasound nondiagnostic - unclear clinical significance (patient not symptomatic, no concerns for STI) - continue Vancomycin/Zosyn Status: Acute (5) Chronic acquired lymphedema: Problem details: - chronic bilateral lower extremity lymphedema stage 3 - home care assisting with wraps and outpatient management (was not treated prior to hospitalization in April 2023) Status: Acute (6) Atrial fibrillation: Problem details: - rate controlled (Diltiazem and Metoprolol), anticoagulated on Warfarin. INR goal 2-3, appreciate pharmacy management Status: Acute (7) Diabetes mellitus: Problem details: - A1c 7.4. Blood glucose ACHS, insulin sliding scale - continue home doses Metformin, Sitagliptin, Glipizide Status: Acute (8) MARCELL (obstructive sleep apnea): Problem details: - has required BIPAP in the hospital previously - will need outpatient sleep study in the future Status: Acute (9) Physical debility: Problem details: - therapies following, do not believe she will need SNF placement upon discharge Status: Acute Plan - per above - likely home with family and resumption of home care when medically cleared (1-2 more days, pending continued improvement) Subjective Date Seen: 05/14/23 Interval history: Linh was admitted to the hospital on 05/12, after presenting to the emergency room with AMS, fever, clinical concern for sepsis. Cellulitis most likely source, given history of this in addition to erythematous/warm RLE upon presentation. Incidentally, ER imaging noted fluid and gas in her endometrium (pelvic ultrasound nondiagnostic), as well as possible thickening of gallbladder wall. She has had no pelvic pain and no right upper quadrant pain. She is tolerating po intake. On Vancomycin and Zosyn (05/12); blood cultures currently NGTD with improvement in WBC and inflammatory markers. Therapies following, do not think she will require a SNF after this stay (hospitalized in April, discharged to SNF, home since 05/06/23). Comorbidities include rate controlled atrial fibrillation, MARCELL, noninsulin dependent DM2. BGs 103-142, tolerating po intake. Remains in rate controlled atrial fibrillation, anticoagulated on Coumadin. INR 3.5 today. This morning, Linh has no concerns for the hospitalist team. Tmax 99.3. She is having hematuria from Ayala with leakage around placement site, amenable to having this removed today. Exam Narrative: Exam Narrative: GEN: Alert and laying comfortably in bed, nontoxic, breathing comfortably on RA HEENT: EOMIs bilaterally, no scleral icterus CV: Rate controlled atrial fibrillation without concerning murmurs R: LCTA bilaterally without concerning wheezing, air movement adequate Ab: + erythema and warmth of abdominal wall, improving. Negative Franco's sign, no ttp Ext: + lymphedema, R>L. Erythema of RLE continues to improve, + skin thickening noted. No open wounds or drainage Skin: Scattered bruising on extremities Neuro: Nonfocal Psych: Appropriate Const: Vital Signs, click to edit/add: Vital Signs - 24 hr 05/13/23 11:00 05/13/23 16:36 05/13/23 16:36 Temperature 99.3 F 98.5 F Pulse Rate [Pulse Oximeter] 58 L 62 Respiratory Rate 18 18 Blood Pressure [Ri ght Arm] 120/81 144/89 H Pulse Oximetry 95 97 97 Oxygen Delivery Me thod Room Air Room Air Room Air 05/13/23 19:00 05/13/23 23:00 05/13/23 23:00 Temperature 98.0 F Pulse Rate [Pulse Oximeter] 66 73 Respiratory Rate 18 18 18 Blood Pressure [Ri ght Arm] 156/89 H Pulse Oximetry 93 93 Oxygen Delivery Me thod Room Air Room Air 05/13/23 23:00 05/14/23 05:00 Temperature 99.2 F 97.5 F L Pulse Rate [Pulse Oximeter] 73 94 Respiratory Rate 18 20 Blood Pressure [Ri ght Arm] 138/79 142/87 H Pulse Oximetry 93 94 Oxygen Delivery Me thod Room Air Room Air Labs Labs: Laboratory Results - last 24 hr 05/14/23 05/14/23 05/14/23 06:15 06:15 06:15 WBC 5.85 Cancelled RBC 3.69 L Cancelled Hgb 11.6 L Hct MCV MCH MCHC RDW Coeff of Maria Plt Count Neut % (Auto) Lymph % (Auto) [place] % (Auto) Eos % (Auto) Baso % (Auto) Neut # (Auto) Lymph # (Auto) [place] # (Auto) Eos # (Auto) Baso # (Auto) Abs Immat Gran (auto) Imm/Tot Granulo (auto) INR VBG pH VBG pCO2 VBG pO2 VBG HCO3 Sodium Potassium Chloride Carbon Dioxide Anion Gap BUN Creatinine Estimated Creat Clear Estimated GFR Glucose Calcium Phosphorus Total Bilirubin AST ALT Alkaline Phosphatase Total Protein Albumin Procalcitonin 05/14/23 05/14/23 05/14/23 06:15 06:15 06:15 WBC RBC Hgb Cancelled Hct 36.5 Cancelled MCV 99 Cancelled MCH 31 MCHC RDW Coeff of Maria Plt Count Neut % (Auto) Lymph % (Auto) [place] % (Auto) Eos % (Auto) Baso % (Auto) Neut # (Auto) Lymph # (Auto) [place] # (Auto) Eos # (Auto) Baso # (Auto) Abs Immat Gran (auto) Imm/Tot Granulo (auto) INR VBG pH VBG pCO2 VBG pO2 VBG HCO3 Sodium Potassium Chloride Carbon Dioxide Anion Gap BUN Creatinine Estimated Creat Clear Estimated GFR Glucose Calcium Phosphorus Total Bilirubin AST ALT Alkaline Phosphatase Total Protein Albumin Procalcitonin 05/14/23 05/14/23 05/14/23 06:15 06:15 06:15 WBC RBC Hgb Hct MCV MCH Cancelled MCHC 32 Cancelled RDW Coeff of Maria 15.8 H Plt Count 188 Cancelled Neut % (Auto) 64.1 Lymph % (Auto) 20.2 [place] % (Auto) 9.2 Eos % (Auto) 3.6 Baso % (Auto) 0.7 Neut # (Auto) 3.75 Lymph # (Auto) 1.18 [place] # (Auto) 0.50 Eos # (Auto) 0.21 Baso # (Auto) 0.04 Abs Immat Gran (auto) 0.13 Imm/Tot Granulo (auto) 2.2 INR VBG pH 7.477 H VBG pCO2 33 L VBG pO2 42.3 VBG HCO3 25 Sodium 139 Potassium Chloride Carbon Dioxide Anion Gap BUN Creatinine Estimated Creat Clear Estimated GFR Glucose Calcium Phosphorus Total Bilirubin AST ALT Alkaline Phosphatase Total Protein Albumin Procalcitonin 05/14/23 05/14/23 05/14/23 06:15 06:15 06:15 WBC RBC Hgb Hct MCV MCH MCHC RDW Coeff of Maria Plt Count Neut % (Auto) Lymph % (Auto) [place] % (Auto) Eos % (Auto) Baso % (Auto) Neut # (Auto) Lymph # (Auto) [place] # (Auto) Eos # (Auto) Baso # (Auto) Abs Immat Gran (auto) Imm/Tot Granulo (auto) INR VBG pH VBG pCO2 VBG pO2 VBG HCO3 Sodium 138 Potassium 3.7 3.8 Chloride 108 108 Carbon Dioxide 22 Anion Gap BUN Creatinine Estimated Creat Clear Estimated GFR Glucose Calcium Phosphorus Total Bilirubin AST ALT Alkaline Phosphatase Total Protein Albumin Procalcitonin 05/14/23 05/14/23 05/14/23 06:15 06:15 06:15 WBC RBC Hgb Hct MCV MCH MCHC RDW Coeff of Maria Plt Count Neut % (Auto) Lymph % (Auto) [place] % (Auto) Eos % (Auto) Baso % (Auto) Neut # (Auto) Lymph # (Auto) [place] # (Auto) Eos # (Auto) Baso # (Auto) Abs Immat Gran (auto) Imm/Tot Granulo (auto) INR VBG pH VBG pCO2 VBG pO2 VBG HCO3 Sodium Potassium Chloride Carbon Dioxide 20 Anion Gap 9 10 BUN 12 12 Creatinine 0.8 Estimated Creat Clear Estimated GFR Glucose Calcium Phosphorus Total Bilirubin AST ALT Alkaline Phosphatase Total Protein Albumin Procalcitonin 05/14/23 05/14/23 05/14/23 06:15 06:15 06:15 WBC RBC Hgb Hct MCV MCH MCHC RDW Coeff of Maria Plt Count Neut % (Auto) Lymph % (Auto) [place] % (Auto) Eos % (Auto) Baso % (Auto) Neut # (Auto) Lymph # (Auto) [place] # (Auto) Eos # (Auto) Baso # (Auto) Abs Immat Gran (auto) Imm/Tot Granulo (auto) INR VBG pH VBG pCO2 VBG pO2 VBG HCO3 Sodium Potassium Chloride Carbon Dioxide Anion Gap BUN Creatinine 0.8 Estimated Creat Clear 43.30 43.30 Estimated GFR 79 79 Glucose 89 Calcium Phosphorus Total Bilirubin AST ALT Alkaline Phosphatase Total Protein Albumin Procalcitonin 05/14/23 05/14/23 05/14/23 06:15 06:15 06:15 WBC RBC Hgb Hct MCV MCH MCHC RDW Coeff of Maria Plt Count Neut % (Auto) Lymph % (Auto) [place] % (Auto) Eos % (Auto) Baso % (Auto) Neut # (Auto) Lymph # (Auto) [place] # (Auto) Eos # (Auto) Baso # (Auto) Abs Immat Gran (auto) Imm/Tot Granulo (auto) INR VBG pH VBG pCO2 VBG pO2 VBG HCO3 Sodium Potassium Chloride Carbon Dioxide Anion Gap BUN Creatinine Estimated Creat Clear Estimated GFR Glucose 89 Calcium 8.4 8.5 Phosphorus 2.9 Total Bilirubin 1.2 AST 39 H ALT 22 Alkaline Phosphatase 59 Total Protein 7.1 Albumin 3.6 3.6 Procalcitonin 0.65 H 05/14/23 06:57 WBC RBC Hgb Hct MCV MCH MCHC RDW Coeff of Maria Plt Count Neut % (Auto) Lymph % (Auto) [place] % (Auto) Eos % (Auto) Baso % (Auto) Neut # (Auto) Lymph # (Auto) [place] # (Auto) Eos # (Auto) Baso # (Auto) Abs Immat Gran (auto) Imm/Tot Granulo (auto) INR 3.50 H VBG pH VBG pCO2 VBG pO2 VBG HCO3 Sodium Potassium Chloride Carbon Dioxide Anion Gap BUN Creatinine Estimated Creat Clear Estimated GFR Glucose Calcium Phosphorus Total Bilirubin AST ALT Alkaline Phosphatase Total Protein Albumin Procalcitonin
[2023-05-14] MEDS: glipiZIDE 5 MG TABLET PO (08:30)
[2023-05-14] MEDS: dilTIAZem 240 MG CAP (CD) PO (08:30)
[2023-05-14] MEDS: NYSTATIN POWDER 1 APPLIC TOPICAL ×2 (08:30→21:28)
[2023-05-14] MEDS: FUROSEMIDE 20 MG TABLET 60 MG PO (08:30)
[2023-05-14] MEDS: METFORMIN 500 MG TABLET PO ×2 (08:30→19:34)
[2023-05-14] MEDS: LACTOBACILLUS ACIDOPHILUS 1 TABLET 2 TAB PO ×3 (08:30→19:34)
[2023-05-14] MEDS: METOPROLOL SUCCINATE (XL) 50 MG TAB 25 MG PO (08:31)
[2023-05-14] MEDS: FLUCONAZOLE 100 MG TABLET PO (08:31)
[2023-05-14] MEDS: lisinopriL 10 MG TABLET PO (08:31)
[2023-05-14] MEDS: SODIUM CHLORIDE 0.9 % (FLUSH) 10 ML SYRINGE 5 ML IVF ×2 (08:32→21:28)
--- NOTE | 2023-05-14 09:20 | PC.SOCIAL ---
Instructions for home care resumption at discharge: Pr is on service already for RN, PT, OT and home health aid with [facility]. When discharge date is determined, please contact [facility] at [phone] and choose intake option to let them know she is being discharged home. MD discharge orders need to include resume home care, RN, PT, OT and bath aid with [facility] . A new face to face form is not needed. Please send the discharge orders to [facility] by fax [phone] or secure email to [email or web address].
[2023-05-14 15:00] VITALS: BP 113/61; PULSE 57; RESP 18; RESP 20; TEMP 36.8; O2SAT 97
--- NOTE | 2023-05-14 16:48 | PC.NURSE ---
Shift Note [id number]: Pt friendly and cooperative, VS WNL & afebrile. Ayala dc'd this morning and pt voiding without difficulty. Loose stool x2 today, pt is partially incontinent of both bladder and bowel d/t urgency. Denies pain. Erythema improved and LE's normal temperature to touch. Pannus and raymond care cleansed, dried, and Nystatin applied. IV inflitrated and anesthesia used to start new 20# to right FA with guided ultrasound. Moves well with SBA.
[2023-05-14 20:10] VITALS: BP 130/73; PULSE 69; RESP 24; TEMP 36.7; O2SAT 95
[2023-05-14] MEDS: INSULIN ASPART 100 UNIT/ML SUBCUT (21:31)
[2023-05-14 23:00] VITALS: BP 133/81; PULSE 77; RESP 18; TEMP 36.4; O2SAT 94
[2023-05-15] VITALS (7 sets, daily range): BP systolic 107–140; BP diastolic 57–89; PULSE 52–80; RESP 18–24; TEMP 36.4–36.9; O2SAT 94–97
[2023-05-15] MEDS: PIPERACILLIN/TAZOBACTAM 3.375 GM in 0.9 % SODIUM CHLORIDE Mini-bag 100 ML IVPB ×4 (02:06→20:12)
--- NOTE | 2023-05-15 06:29 | PC.NURSE ---
Patient pleasant, alert and oriented. Slept in recliner. Ambulated to bathroom with walker and assist of one. Denied pain. Vital signs within normal limits.?
[2023-05-15 06:42] LABS: HCO3 VBG 24 mmol/L (21-28); PCO2 VBG 37 mmHG (40-50); PO2 VBG 98.9 mmHG (25-47); pH VBG 7.432 (7.32-7.43)
[2023-05-15 07:07] LABS: Albumin* 3.2 g/dL (3.3-5.0); Chloride* 110 mmol/L (96-114); INR 2.89 (0.91-1.10); Potassium* 3.4 mmol/L (3.6-5.1); Prothrombin Time 32.5 Seconds; Sodium* 140 mmol/L (135-149)
[2023-05-15 07:08] LABS: Albumin* 3.2 g/dL (3.3-5.0); Chloride* 109 mmol/L (96-114)
[2023-05-15 07:09] LABS: Basophils Absolute Auto 0.02 K/uL (0.00-0.30); Basophils Percent Auto 0.4 % (0.0-3.0); Eosinophils Percent Auto 4.2 % (0.0-7.0); Hematocrit 34.9 % (33.0-51.0); Hemoglobin* 11.1 gm/dL (12.0-16.0); Immature Granulocytes Abs Auto 0.16 K/uL (0.00-0.30); Immature Granulocytes Pct Auto 3.4 %; Lymphocytes Absolute Auto 0.98 K/uL (0.90-2.90); Lymphocytes Percent Auto 20.6 % (20-44); Mean Corpuscular HGB Conc 32 gm/dL (32-36); Mean Corpuscular Hemoglobin 32 pg (26-34); Mean Corpuscular Volume 99 fL (80-100); Neutrophils Absolute Auto 2.83 K/uL (1.7-7.0); Neutrophils Percent Auto 59.4 % (42.0-72.0); Platelet Count* 183 K/uL (140-440); Potassium* 3.4 mmol/L (3.6-5.1); RDW Coefficient of Variation % 15.9 % (11.5-15.5); Red Blood Count 3.51 m/uL (4.00-5.20); Sodium* 140 mmol/L (135-149); White Blood Count* 4.76 K/uL (4.50-11.00)
[2023-05-15 07:10] LABS: Anion Gap 9 mEq/L (7-15); Blood Urea Nitrogen* 10 mg/dL (7-30); Carbon Dioxide* 21 mmol/L (20-32); Creatinine* 0.7 mg/dL (0.5-1.5); Estimated Glomerular Filt Rate 93 ml/min
[2023-05-15 07:11] LABS: Alkaline Phosphatase* 60 U/L (40-150); Anion Gap 9 mEq/L (7-15); Aspartate Amino Transferase* 31 U/L (12-35); Bilirubin Total* 0.8 mg/dL (0.1-1.5); Blood Urea Nitrogen* 11 mg/dL (7-30); Calcium* 8.5 mg/dL (8.4-10.6); Carbon Dioxide* 22 mmol/L (20-32); Creatinine* 0.7 mg/dL (0.5-1.5); Estimated Glomerular Filt Rate 93 ml/min; Glucose* 108 mg/dL (60-115); Phosphorus* 2.8 mg/dL (2.5-4.5); Total Protein* 6.6 g/dL (6.0-8.3)
[2023-05-15 07:12] LABS: Alanine Aminotransferase* 20 U/L (4-35); Calcium* 8.5 mg/dL (8.4-10.6); Magnesium* 1.5 mg/dL (1.5-2.6)
[2023-05-15 07:19] LABS: Slide Review Reflex No
[2023-05-15 07:25] LABS: Procalcitonin* 0.35 ng/mL (<0.50)
[2023-05-15] MEDS: FUROSEMIDE 20 MG TABLET 60 MG PO (08:00)
[2023-05-15] MEDS: LACTOBACILLUS ACIDOPHILUS 1 TABLET 2 TAB PO ×3 (08:00→18:20)
[2023-05-15] MEDS: glipiZIDE 5 MG TABLET PO (08:00)
[2023-05-15] MEDS: METFORMIN 500 MG TABLET PO ×2 (08:00→18:21)
[2023-05-15] MEDS: FLUCONAZOLE 100 MG TABLET PO (10:19)
[2023-05-15] MEDS: METOPROLOL SUCCINATE (XL) 50 MG TAB 25 MG PO (10:19)
[2023-05-15] MEDS: dilTIAZem 240 MG CAP (CD) PO (10:19)
[2023-05-15] MEDS: lisinopriL 10 MG TABLET PO (10:20)
[2023-05-15] MEDS: SODIUM CHLORIDE 0.9 % (FLUSH) 10 ML SYRINGE 5 ML IVF ×2 (10:21→21:21)
[2023-05-15] MEDS: NYSTATIN POWDER 1 APPLIC TOPICAL ×2 (10:21→21:21)
--- NOTE | 2023-05-15 16:40 | PM.IMPN1 ---
Progress Note: A&P Assessment and plan (1) Sepsis: Problem details: - source unclear, presumably cellulitis of RLE +/- panniculitis. Concern of possible cholecystitis on imaging; asymptomatic, reassuring LFTs - blood cultures obtained, currently NGTD - IV vancomycin and Zosyn started empirically (05/12/23), also on Fluconazole - stable VS, IVFs discontinued on 05/13 - 05/15: Sepsis resolved. Has remained afebrile for greater than 24 hours. Vital signs stable. Status: Resolved (2) Cellulitis of right leg: Problem details: - presumably source of #1 above - increased risk given lymphedema, DM2 - is being treated with ceftriaxone, vancomycin, fluconazole and probiotics. Had been doing lymphedema wraps in the [facility] and her daughter was set up to do them at home. Patient also was going to be set up with home health. Status: Acute (3) Panniculitis: Problem details: - recurrent, likely has an element of both bacterial and fungal sources - on Ceftriaxone, Vancomycin, Fluconazole, probiotics Status: Acute (4) Endometritis: Problem details: - incidentally noted on ED imaging 05/12, pelvic ultrasound nondiagnostic - unclear clinical significance (patient not symptomatic, no concerns for STI) - she continues to do well, well transition to doxycycline for home going and have patient follow-up with gynecology as an outpatient as the thickened endometrium is concerning at her age for the possibility of endometrial cancer. Status: Acute (5) Chronic acquired lymphedema: Problem details: - chronic bilateral lower extremity lymphedema stage 3 - home care assisting with wraps and outpatient management (was not treated prior to hospitalization in April 2023) Status: Acute (6) Atrial fibrillation: Problem details: - rate controlled (Diltiazem and Metoprolol), anticoagulated on Warfarin. INR goal 2-3, appreciate pharmacy management - 05/15: INR 2.89. Status: Acute (7) Diabetes mellitus: Problem details: - A1c 7.4. Blood glucose ACHS, insulin sliding scale - continue home doses Metformin, Sitagliptin, Glipizide - chronic care glucose is 109-208. Continue current regimen Status: Acute (8) MARCELL (obstructive sleep apnea): Problem details: - has required BIPAP in the hospital previously - will need outpatient sleep study in the future Status: Acute (9) Physical debility: Problem details: - therapies following, do not believe she will need SNF placement upon discharge Status: Acute Plan - per above - If she continues to do well, may be able to go home tomorrow or the next day on doxycycline and fluconazole with follow-up with her primary care provider and home health. Subjective Time Seen by Provider: 12:10 Date Seen: 05/15/23 Interval history: Linh feels better, but is concerned about going home because she deteriorated quickly after returning home from [facility] last week. She also states that she had a bad experience [facility] and does not want to go back. Exam Narrative: Exam Narrative: General: No acute distress. Awake, alert, oriented x3. No pallor. No jaundice. Oropharynx: Clear. Mucous membranes moist. Cardiovascular: Regular rate and rhythm. No murmurs, gallops, or rubs. Respiratory: Clear to auscultation bilaterally. No wheezes or crackles. Abdomen: Bowel sounds present. Soft, massive lymphedema of pannus with mild erythema that has receded from the lines drawn. Nontender. Extremities: Massive lymphedema, right more than left. No open areas or weeping. Multiple polypoid lesions on right lower leg. Mild erythema of right leg, receding from lines drawn. Const: Vital Signs, click to edit/add: Vital Signs - 24 hr 05/14/23 20:10 05/14/23 23:00 05/14/23 23:00 Temperature 98.0 F 97.6 F Pulse Rate [Apical ] Pulse Rate [Pulse Oximeter] 69 77 Respiratory Rate 24 18 18 Blood Pressure [Le ft Arm] 133/81 Blood Pressure [Ri ght Arm] 130/73 Pulse Oximetry 95 94 94 Oxygen Delivery Me thod Room Air Room Air Room Air 05/15/23 02:24 05/15/23 07:00 05/15/23 07:00 Temperature 98.4 F Pulse Rate [Apical ] Pulse Rate [Pulse Oximeter] 72 74 Respiratory Rate 21 18 18 Blood Pressure [Le ft Arm] 125/76 Blood Pressure [Ri ght Arm] Pulse Oximetry 96 96 Oxygen Delivery Me thod Room Air Room Air 05/15/23 07:00 05/15/23 11:00 05/15/23 15:00 Temperature 98.0 F 98.1 F Pulse Rate [Apical ] 55 L Pulse Rate [Pulse Oximeter] 74 74 80 Respiratory Rate 18 18 18 Blood Pressure [Le ft Arm] Blood Pressure [Ri ght Arm] 135/77 107/57 L Pulse Oximetry 96 97 Oxygen Delivery Me thod Room Air Room Air 05/15/23 15:00 05/15/23 15:00 Temperature 98 F Pulse Rate [Apical ] Pulse Rate [Pulse Oximeter] 80 Respiratory Rate 18 18 Blood Pressure [Le ft Arm] Blood Pressure [Ri ght Arm] 139/89 Pulse Oximetry 96 96 Oxygen Delivery Me thod Room Air Room Air Labs Labs: Laboratory Results - last 24 hr 05/15/23 05/15/23 05/15/23 06:02 06:02 06:02 WBC 4.76 Cancelled RBC 3.51 L Cancelled Hgb 11.1 L Hct MCV MCH MCHC RDW Coeff of Maria Plt Count Neut % (Auto) Lymph % (Auto) [place] % (Auto) Eos % (Auto) Baso % (Auto) Neut # (Auto) Lymph # (Auto) [place] # (Auto) Eos # (Auto) Baso # (Auto) Abs Immat Gran (auto) Imm/Tot Granulo (auto) INR VBG pH VBG pCO2 VBG pO2 VBG HCO3 Sodium Potassium Chloride Carbon Dioxide Anion Gap BUN Creatinine Estimated Creat Clear Estimated GFR Glucose Calcium Phosphorus Magnesium Total Bilirubin AST ALT Alkaline Phosphatase Total Protein Albumin Procalcitonin 05/15/23 05/15/23 05/15/23 06:02 06:02 06:02 WBC RBC Hgb Cancelled Hct 34.9 Cancelled MCV 99 Cancelled MCH 32 MCHC RDW Coeff of Maria Plt Count Neut % (Auto) Lymph % (Auto) [place] % (Auto) Eos % (Auto) Baso % (Auto) Neut # (Auto) Lymph # (Auto) [place] # (Auto) Eos # (Auto) Baso # (Auto) Abs Immat Gran (auto) Imm/Tot Granulo (auto) INR VBG pH VBG pCO2 VBG pO2 VBG HCO3 Sodium Potassium Chloride Carbon Dioxide Anion Gap BUN Creatinine Estimated Creat Clear Estimated GFR Glucose Calcium Phosphorus Magnesium Total Bilirubin AST ALT Alkaline Phosphatase Total Protein Albumin Procalcitonin 05/15/23 05/15/23 05/15/23 06:02 06:02 06:02 WBC RBC Hgb Hct MCV MCH Cancelled MCHC 32 Cancelled RDW Coeff of Maria 15.9 H Plt Count 183 Cancelled Neut % (Auto) 59.4 Lymph % (Auto) 20.6 [place] % (Auto) 12.0 H Eos % (Auto) 4.2 Baso % (Auto) 0.4 Neut # (Auto) 2.83 Lymph # (Auto) 0.98 [place] # (Auto) 0.60 Eos # (Auto) 0.20 Baso # (Auto) 0.02 Abs Immat Gran (auto) 0.16 Imm/Tot Granulo (auto) 3.4 INR 2.89 H VBG pH 7.432 H VBG pCO2 37 L VBG pO2 98.9 H VBG HCO3 24 Sodium 140 Potassium Chloride Carbon Dioxide Anion Gap BUN Creatinine Estimated Creat Clear Estimated GFR Glucose Calcium Phosphorus Magnesium Total Bilirubin AST ALT Alkaline Phosphatase Total Protein Albumin Procalcitonin 05/15/23 05/15/23 05/15/23 06:02 06:02 06:02 WBC RBC Hgb Hct MCV MCH MCHC RDW Coeff of Maria Plt Count Neut % (Auto) Lymph % (Auto) [place] % (Auto) Eos % (Auto) Baso % (Auto) Neut # (Auto) Lymph # (Auto) [place] # (Auto) Eos # (Auto) Baso # (Auto) Abs Immat Gran (auto) Imm/Tot Granulo (auto) INR VBG pH VBG pCO2 VBG pO2 VBG HCO3 Sodium 140 Potassium 3.4 L 3.4 L Chloride 109 110 Carbon Dioxide 22 Anion Gap BUN Creatinine Estimated Creat Clear Estimated GFR Glucose Calcium Phosphorus Magnesium Total Bilirubin AST ALT Alkaline Phosphatase Total Protein Albumin Procalcitonin 05/15/23 05/15/23 05/15/23 06:02 06:02 06:02 WBC RBC Hgb Hct MCV MCH MCHC RDW Coeff of Maria Plt Count Neut % (Auto) Lymph % (Auto) [place] % (Auto) Eos % (Auto) Baso % (Auto) Neut # (Auto) Lymph # (Auto) [place] # (Auto) Eos # (Auto) Baso # (Auto) Abs Immat Gran (auto) Imm/Tot Granulo (auto) INR VBG pH VBG pCO2 VBG pO2 VBG HCO3 Sodium Potassium Chloride Carbon Dioxide 21 Anion Gap 9 9 BUN 11 10 Creatinine 0.7 Estimated Creat Clear Estimated GFR Glucose Calcium Phosphorus Magnesium Total Bilirubin AST ALT Alkaline Phosphatase Total Protein Albumin Procalcitonin 05/15/23 05/15/23 05/15/23 06:02 06:02 06:02 WBC RBC Hgb Hct MCV MCH MCHC RDW Coeff of Maria Plt Count Neut % (Auto) Lymph % (Auto) [place] % (Auto) Eos % (Auto) Baso % (Auto) Neut # (Auto) Lymph # (Auto) [place] # (Auto) Eos # (Auto) Baso # (Auto) Abs Immat Gran (auto) Imm/Tot Granulo (auto) INR VBG pH VBG pCO2 VBG pO2 VBG HCO3 Sodium Potassium Chloride Carbon Dioxide Anion Gap BUN Creatinine 0.7 Estimated Creat Clear 43.30 43.30 Estimated GFR 93 93 Glucose 108 Calcium Phosphorus Magnesium Total Bilirubin AST ALT Alkaline Phosphatase Total Protein Albumin Procalcitonin 05/15/23 05/15/23 05/15/23 06:02 06:02 06:02 WBC RBC Hgb Hct MCV MCH MCHC RDW Coeff of Maria Plt Count Neut % (Auto) Lymph % (Auto) [place] % (Auto) Eos % (Auto) Baso % (Auto) Neut # (Auto) Lymph # (Auto) [place] # (Auto) Eos # (Auto) Baso # (Auto) Abs Immat Gran (auto) Imm/Tot Granulo (auto) INR VBG pH VBG pCO2 VBG pO2 VBG HCO3 Sodium Potassium Chloride Carbon Dioxide Anion Gap BUN Creatinine Estimated Creat Clear Estimated GFR Glucose 108 Calcium 8.5 8.5 Phosphorus 2.8 Magnesium 1.5 Total Bilirubin 0.8 AST 31 ALT 20 Alkaline Phosphatase 60 Total Protein 6.6 Albumin 3.2 L 3.2 L Procalcitonin 0.35
[2023-05-15] MEDS: WARFARIN 5 MG TABLET PO (16:42)
--- NOTE | 2023-05-15 18:28 | PC.NURSE ---
Shift Note : Shift unremarkable. Pt continues to tolerate activity well, VSWNL and LS COA. She has remained afebrile and denies pain. LE erythema continues to improve and pt has 2+. LE's elevated as much as tolerated. Pannus and abdominal folds cleansed, dried, and Nystatin applied. Skin intact. Pt concerned about of Lasix and resulting urgency/incontinence trying to get to the toilet and MD subsequently decreased Lasix dose.
[2023-05-15] MEDS: INSULIN ASPART 100 UNIT/ML SUBCUT (21:18)
[2023-05-16] MEDS: PIPERACILLIN/TAZOBACTAM 3.375 GM in 0.9 % SODIUM CHLORIDE Mini-bag 100 ML IVPB ×2 (01:44→09:29)
[2023-05-16 02:30] VITALS: BP 138/84; PULSE 68; RESP 20; TEMP 36.7; O2SAT 93
[2023-05-16 06:19] LABS: HCO3 VBG 26 mmol/L (21-28); PCO2 VBG 36 mmHG (40-50); PO2 VBG 49.5 mmHG (25-47); pH VBG 7.461 (7.32-7.43)
[2023-05-16 06:25] LABS: Hematocrit 36.4 % (33.0-51.0); Hemoglobin* 11.6 gm/dL (12.0-16.0); Mean Corpuscular HGB Conc 32 gm/dL (32-36); Mean Corpuscular Hemoglobin 31 pg (26-34); Mean Corpuscular Volume 99 fL (80-100); Platelet Count* 206 K/uL (140-440); Red Blood Count 3.69 m/uL (4.00-5.20); White Blood Count* 5.06 K/uL (4.50-11.00)
[2023-05-16 06:30] LABS: Slide Review Reflex No
[2023-05-16 06:39] LABS: Prothrombin Time 31.7 Seconds
[2023-05-16 07:00] VITALS: BP 132/78; PULSE 78; RESP 20; TEMP 36.6; O2SAT 95
[2023-05-16 07:04] LABS: Albumin* 3.5 g/dL (3.3-5.0); Chloride* 108 mmol/L (96-114); Sodium* 140 mmol/L (135-149)
[2023-05-16 07:05] LABS: Potassium* 3.6 mmol/L (3.6-5.1)
[2023-05-16 07:07] LABS: Anion Gap 9 mEq/L (7-15); Blood Urea Nitrogen* 9 mg/dL (7-30); Carbon Dioxide* 23 mmol/L (20-32); Creatinine* 0.7 mg/dL (0.5-1.5); Estimated Glomerular Filt Rate 93 ml/min
[2023-05-16 07:08] LABS: Glucose* 92 mg/dL (60-115); Phosphorus* 2.9 mg/dL (2.5-4.5)
--- NOTE | 2023-05-16 07:47 | PC.NURSE ---
Patient pleasant, alert and oriented. Slept in recliner. Ambulated with walker and stand by assist of one. Denied pain.?
[2023-05-16] MEDS: FUROSEMIDE 40 MG TABLET PO (08:27)
[2023-05-16] MEDS: LACTOBACILLUS ACIDOPHILUS 1 TABLET 2 TAB PO (08:27)
[2023-05-16] MEDS: glipiZIDE 5 MG TABLET PO (08:27)
[2023-05-16] MEDS: METFORMIN 500 MG TABLET PO (08:28)
[2023-05-16] MEDS: dilTIAZem 240 MG CAP (CD) PO (09:05)
[2023-05-16] MEDS: METOPROLOL SUCCINATE (XL) 50 MG TAB 25 MG PO (09:06)
[2023-05-16] MEDS: lisinopriL 10 MG TABLET PO (09:06)
[2023-05-16] MEDS: FLUCONAZOLE 100 MG TABLET PO (09:07)
[2023-05-16] MEDS: SODIUM CHLORIDE 0.9 % (FLUSH) 10 ML SYRINGE 5 ML IVF (09:11)
--- NOTE | 2023-05-16 12:21 | P.DS_ITS ---
DS: Providers Provider Time Seen by Provider: 09:45 Date Seen: 05/16/23 Date of admission: 05/12/23 15:31 Primary care physician: Gomez Argueta MD Admitting Clinician: Ana Bhardwaj MD Consults: 05/12/23 15:32 Consult to Physical Therapy [CONS] Routine Comment: Reason(s) for PT Consult:: Evaluate and Treat Any Restrictions?:: No Restrictions Consult to [employer] [CONS] Routine Comment: Reason for Consult:: Discharge Planning Needs 05/12/23 15:35 Consult to Occupational Therapy [CONS] Routine Comment: Reason(s) for OT Consult:: Evaluate and Treat Any Restrictions?:: No Restrictions 05/12/23 22:28 Consult to Occupational Therapy [CONS] Routine Comment: Reason(s) for OT Consult:: Evaluate and Treat Any Restrictions?:: No Restrictions Consult to Physical Therapy [CONS] Routine Comment: Reason(s) for PT Consult:: Evaluate and Treat Any Restrictions?:: No Restrictions Attending Physician on discharge: Nikki Corcoran MD Date of Discharge: 05/16/23 DS: Diagnosis Discharge Diagnosis (1) Sepsis: Status: Resolved Problem details: - source unclear, presumably cellulitis of RLE +/- panniculitis. Concern of possible cholecystitis on imaging; asymptomatic, reassuring LFTs - blood cultures obtained, currently NGTD - IV vancomycin and Zosyn started empirically (05/12/23), also on Fluconazole - stable VS, IVFs discontinued on 05/13 - 05/15: Sepsis resolved. Has remained afebrile for greater than 24 hours. Vital signs stable. (2) Endometritis: Status: Acute Problem details: - incidentally noted on ED imaging 05/12, pelvic ultrasound nondiagnostic - unclear clinical significance (patient not symptomatic, no concerns for STI) - she continues to do well, well transition to doxycycline for home going and have patient follow-up with gynecology as an outpatient as the thickened endometrium is concerning at her age for the possibility of endometrial cancer. 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 (4) Cellulitis of right leg: Status: Acute Problem details: - presumably source of #1 above - increased risk given lymphedema, DM2 - is being treated with ceftriaxone, vancomycin, fluconazole and probiotics. Keith e regimen as above. Had been doing lymphedema wraps in the shelter and her daughter was set up to do them at home. Patient also was going to be set up with home health. (5) Acute hypoxic respiratory failure: Status: Acute Problem details: In setting of sepsis, BiPAP initiated. 04/25/2023, furosemide 80 mg IV x1. 04/26/2023, furosemide 80 mg IV x1. Patient refuse BiPAP support since. 04/27/2023, furosemide 80 mg IV x1. Will transition to oral diuretics tomorrow. 04/28/2023, furosemide 80 mg p.o.. Tomorrow will begin furosemide 60 mg p.o. daily. Prior to admission patient was on furosemide 20 mg once daily. 05/15/22 furosemide decreased to 40 mg po daily. (6) Atrial fibrillation: Status: Acute Problem details: - rate controlled (Diltiazem and Metoprolol), anticoagulated on Warfarin. INR goal 2-3, appreciate pharmacy management - 05/16: INR 2.8. (7) Obesity hypoventilation syndrome: Status: Acute Problem details: In setting of sepsis, benefited from BiPAP initially. Subsequently has done well without BiPAP. Hypoxia resolved 1/4 am. (8) MARCELL (obstructive sleep apnea): Status: Acute Problem details: - has required BIPAP in the hospital previously - will need outpatient sleep study in the future (9) Diabetes mellitus: Status: Acute Problem details: - A1c 7.4. Blood glucose ACHS, insulin sliding scale - continue home doses Metformin, Sitagliptin, Glipizide (10) Physical debility: Status: Acute Problem details: - therapies do not believe she will need SNF placement upon discharge. Resume home health (11) Hypomagnesemia: Status: Resolved (12) Chronic acquired lymphedema: Status: Acute Problem details: - chronic bilateral lower extremity lymphedema stage 3 - home care assisting with wraps and outpatient management (was not treated prior to hospitalization in April 2023) - daughter will do lymphedema wraps (13) Hypokalemia: Status: Resolved DS: Summary Hospital Course Hospital Course: This is a 72-year-old female, recently hospitalized in the middle of April for sepsis and group B strep, streptococcal agalatiae bacteremia from cellulitis and panniculitis. She was discharged to a shelter [facility] and then discharged home from there around May 08. She was supposed to start home health services, however developed altered mental status and was brought back to the emergency department with concerns of sepsis before her 1st home care appointment. Blood cultures were obtained and have remained negative. She was started on IV vancomycin and Zosyn search for source of sepsis revealed cellulitis of the right leg and pannus as well as a thickened endometrial stripe. A pelvic ultrasound was nondiagnostic. Patient made good improvement over the next few hospital days, sepsis resolved. She has been afebrile for greater than 48 hours and is tolerating a general diet and able to ambulate and do her ADLs. She is discharged home today in stable and improved condition. Note to primary care provider: This patient may benefit from an outpatient sleep study. She has a thickened endometrial stripe and is being treated for endometritis, however neoplasm should also be considered. She will need further investigation of this, consideration could be given to gynecology referral. Splenic artery aneurysm was noted on scan, however patient seem to already be aware of this and noted that you had referred her to [facility] for a splenic lesion. I have encouraged her to keep that appointment. Time Spent with Patient Time attestation: Total time spent providing and/or coordinating discharge services: 40 minutes Exam Narrative: Exam Narrative: General: No acute distress. Awake, alert, oriented. Oropharynx: Clear. Mucous membranes moist. Cardiovascular: Regular rate and rhythm. No murmurs, gallops, or rubs. Respiratory: Clear to auscultation bilaterally. No wheezes or crackles. Abdomen: Bowel sounds present. Soft, massive lymphedema of pannus with mild erythema that has receded from the lines drawn. Nontender. Extremities: Massive lymphedema, right more than left. No open areas or weeping. Multiple polypoid lesions on right lower leg. Mild erythema of right leg, receding from lines drawn. Const: Vital Signs, click to edit/add: Vital Signs - 24 hr 05/15/23 15:00 05/15/23 15:00 05/15/23 15:00 Temperature 98 F Pulse Rate [Pulse Oximeter] 80 80 Respiratory Rate 18 18 18 Blood Pressure [Ri ght Arm] 139/89 Pulse Oximetry 96 96 Oxygen Delivery Me thod Room Air Room Air 05/15/23 15:00 05/15/23 19:00 05/15/23 22:07 Temperature 98 F 97.5 F L 97.9 F Pulse Rate [Pulse Oximeter] 52 L 64 63 Respiratory Rate 18 22 24 Blood Pressure [Ri ght Arm] 121/86 127/70 140/82 H Pulse Oximetry 96 94 96 Oxygen Delivery Me thod Room Air Room Air Room Air 05/15/23 23:00 05/16/23 02:30 05/16/23 07:00 Temperature 98.1 F Pulse Rate [Pulse Oximeter] 68 78 Respiratory Rate 24 20 20 Blood Pressure [Ri ght Arm] 138/84 Pulse Oximetry 96 93 Oxygen Delivery Me thod Room Air Room Air 05/16/23 07:00 05/16/23 07:00 Temperature 98 F Pulse Rate [Pulse Oximeter] 78 Respiratory Rate 20 20 Blood Pressure [Ri ght Arm] 132/78 Pulse Oximetry 95 95 Oxygen Delivery Me thod Room Air Room Air DS: Data Data Completed and Pending Completed studies during hospitalization: Procedures Assistance with Respiratory Ventilation, Less than 24 Consecutive Hours, Continuous Positive Airway Pressure (04/23/23) Labs on day of discharge: Labs from last 24 hours 05/16/23 05:48 WBC 5.06 RBC 3.69 L Hgb 11.6 L Hct 36.4 MCV 99 MCH 31 MCHC 32 Plt Count 206 INR 2.80 H VBG pH 7.461 H VBG pCO2 36 L VBG pO2 49.5 H VBG HCO3 26 Sodium 140 Potassium 3.6 Chloride 108 Carbon Dioxide 23 Anion Gap 9 BUN 9 Creatinine 0.7 Estimated Creat Clear 43.30 Estimated GFR 93 Glucose 92 Calcium 9.0 Phosphorus 2.9 Albumin 3.5 Preliminary micro results at discharge 05/12/23 06:15 Blood Culture - Preliminary Blood NO GROWTH AFTER 96 HOURS 05/12/23 05:48 Blood Culture - Preliminary Blood NO GROWTH AFTER 96 HOURS 05/14/2023 EKG: Atrial fibrillation, heart rate 99 beats per minute, low voltage QRS. Ordering Physician: Vinicius Penaloza M.D. Date of Service: 05/12/23 Procedure(s): CT chest abdomen pelv w con Accession Number(s): [id number] cc: Gomez Argueta M.D.; Vinicius Penaloza M.D.~ For Patients: As a result of the Century Cures Act, medical imaging exams and procedure reports are released immediately into your electronic medical record. You may view this report before your referring provider. If you have questions, please contact your health care provider. INDICATION: Cough, fever and sepsis. COMPARISON: A similar examination dated April 23, 2023 in portions of an examination from March 22, 2023 TECHNIQUE: CT examination of the chest, abdomen and pelvis was performed following the uneventful intravenous administration of 128 cc of Isovue 370. Thin section axial images were obtained from the thoracic inlet through the pubic symphysis. Oral contrast was not administered. Sagittal and coronal reformatted imaging was performed Please note that all CT scans at this facility use dose modulation, iterative reconstruction, and/or weight-based dosing when appropriate to reduce radiation dose to as low as reasonably achievable. FINDINGS: CHEST: Technically limited due to patient related motion artifact Enlarged heart. Atherosclerotic vascular and valvular calcifications. Enlarged central pulmonary arteries likely related to pulmonary hypertension. Ectasia of the aorta. No significant pericardial fluid. Basilar and dependent lung opacities are probably due to atelectasis. No definite focal consolidation, infiltrate or mass. No pleural effusion or pneumothorax. ABDOMEN AND PELVIS: Limited due to motion LIVER/BILIARY SYSTEM:Hepatic steatosis. The infiltration is in a geographic pattern. 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 These were present on the prior contrast-enhanced study of 03/22/2023. There is cholelithiasis. I question gallbladder wall thickening. Recommend sonography for further evaluation. No intra or extrahepatic biliary ductal dilation. ADRENALS: Normal KIDNEYS, URETERS and BLADDER:The kidneys appear normal. The bladder is poorly evaluated due to streak artifact from a right hip arthroplasty. 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 This is unchanged. Splenic artery aneurysms larger than 2 centimeters are considered at risk for rupture and appropriate follow-up is recommended. PANCREAS: Appears normal. RETROPERITONEUM and MESENTERY: No mass or adenopathy. Atherosclerotic vascular calcification. 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 The small bowel as visualized appears normal. PELVIS: Fluid and gas within the endometrial canal. This is not a normal finding and could be due to neoplasia or endometritis. Correlate clinically.. OSSEOUS STRUCTURES and ABDOMINAL WALL: There is an age-appropriate appearance of the osseous structures.Diastasis of the anterior abdominal wall. There is also a fat containing ventral hernias. OTHER: No free fluid or free air. IMPRESSION: 1. CHEST: Basilar opacities probably due to atelectasis. No pleural effusion or pneumothorax. No specific visible cause for sepsis in the chest. Nonacute appearing findings as above 2. ABDOMEN: Cholelithiasis and possible gallbladder wall thickening. Correlate with sonography. Hepatic steatosis. 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 These were present previously. 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 This is not currently bleeding but should be considered for treatment at a clinically appropriate time, based on its size. 3. PELVIS: There is gas and fluid in the endometrium. Primary differential considerations are neoplasia versus endometritis. Correlate clinically 4. There are other nonacute appearing findings as discussed above. Please review the comments. Please note that all CT scans at this facility use dose modulation, iterative reconstruction, and/or weight-based dosing when appropriate to reduce radiation dose to as low as reasonably achievable. Dictated by Gomez Balbuena MD @ 05/12/2023 9:05:24 AM (Electronically Signed) Ordering Physician: Vernon Sosa M.D. Date of Service: 05/12/23 Procedure(s): US gallbladder Accession Number(s): [id number] cc: Gomez Argueta M.D.; Vernon Sosa M.D.~ For Patients: As a result of the Century Cures Act, medical imaging exams and procedure reports are released immediately into your electronic medical record. You may view this report before your referring provider. If you have questions, please contact your health care provider. INDICATION: Gallbladder wall thickening on CT COMPARISON: Same day CT of the abdomen and pelvis TECHNIQUE: Severino-scale and color ultrasound of the gallbladder and biliary tree. FINDINGS: Gallbladder: Distention: Normal. Wall: 4 mm, slightly thickened diffusely. Stones: Yes. Sludge: Yes. Pericholecystic inflammation / fluid: None. Sonographic Franco`s sign: Not reported. Bile ducts: Not dilated. The common bile duct measures 6 mm. Included liver: Normal. Included pancreatic head: Obscured by bowel gas Ascites: None. IMPRESSION: Thickened gallbladder wall with gallstones and sludge. However the gallbladder does not appear overly distended. Could be hydropic versus cholecystitis. Correlate with the patient`s clinical presentation for acute cholecystitis. Dictated by Jessica Diaz MD @ 05/12/2023 11:12:36 AM (Electronically Signed) Ordering Physician: Vernon Sosa M.D. Date of Service: 05/12/23 Procedure(s): US pelvic transvaginal Accession Number(s): [id number] cc: Gomez Argueta M.D.; Vernon Sosa M.D.~ For Patients: As a result of the Century Cures Act, medical imaging exams and procedure reports are released immediately into your electronic medical record. You may view this report before your referring provider. If you have questions, please contact your health care provider. INDICATION: Gas in endometrium COMPARISON: Same day CT, CT 04/23/2023 TECHNIQUE: TV: Transvaginal ultrasound of the pelvis was performed to better visualize the genitourinary organs, such as the ovaries and/or endometrium. Color-flow and spectral Doppler imaging of both ovaries is attempted. FINDINGS: Reported last menstrual period: Postmenopausal. Technically difficult exam due to patient tolerance and body habitus. Limited visualization of the uterus and endometrium. Technologist indicated that the endometrium with fluid filled. However accurate measurements cannot be obtained. Neither ovary could be seen. IMPRESSION: Essentially nondiagnostic pelvic ultrasound due to body habitus and patient tolerance. Dictated by Jessica Diaz MD @ 05/12/2023 11:06:23 AM (Electronically Signed) Discharge Plan Discharge Disposition: Home, Self-Care Date of Admission: 05/12/23 15:31 Attending Provider on Discharge: Nikki Corcoran Primary Care Provider: Gomez Argueta Condition: Improved Anticipated Discharge Date/Time: 05/16/23 12:36 Discharge Medications: New furosemide 40 mg Tablet 40 mg PO DAILY@0800 Qty: 30 0RF nystatin 100,000 unit/gram Powder 1 applic topical BID Qty: 30 0RF doxycycline hyclate 100 mg capsule 100 mg PO BID 10 Days Qty: 20 0RF cephalexin 500 mg capsule 500 mg PO BID Qty: 10 0RF Lactobacillus acidophilus 500 million cell capsule 500 mmu cells PO TID Qty: 15 0RF Continued metformin 500 mg tablet 500 mg PO BID metoprolol succinate 50 mg tablet extended release 24 hr 25 mg PO DAILY diltiazem HCl 240 mg capsule,extended release 24hr 240 mg PO DAILY lisinopril 10 mg tablet 10 mg PO DAILY Patient Comments: HAS A NEW RX FOR 5 MG FROM [facility] BUT HASN'T CHANGED DOSING warfarin 5 mg tablet 5 - 7.5 mg PO DAILY Rx Instructions: 7.5 MG ON MON, WED, FRI AND 5 MG ALL OTHER DAYS glipizide 5 mg tablet 5 mg PO DAILY acetaminophen 325 mg Tablet 650 mg PO Q6H PRN30 Days Qty: 100 0RF Lactobacillus acidophilus 0.5 mg (100 million cell) Tablet 1 mg PO TIDWM 30 Days Qty: 90 1RF lisinopril 5 mg tablet 5 mg PO DAILY Januvia 50 mg tablet 50 mg PO DAILY Patient Comments: THIS WAS DC'D AT LAST HOSPITALIZATION BUT PT HAD RESTARTED ON HER OWN Discontinued furosemide 20 mg Tablet 60 mg PO DAILY@0800 30 Days Qty: 90 0RF Discharge Orders: Discharge Order (Routine); Ordered 05/16/23 Ordered By: Nikki Corcoran Patient Education: Cephalexin (By mouth), Furosemide (By mouth), Doxycycline (By mouth), Nystatin (On the skin), Probiotic (By mouth) (Acidophilus Probiotic Blend, Culturelle,..., Cellulitis (GEN) Additional Instructions: * Referral to gynecology for thickened endometrium. * INR on Wednesday. * Daughter will place and change lymphedema wraps as previously prescribed. * See PCP for gynecology referral for thickened endometrium and outpatient sleep study. * Keep appointment for [facility] referral for splenic artery aneurysm. * Resume home care, RN, PT, OT and bath orders through [employer] fax [phone] Activity Level: No Restrictions Discharge Diet: Diabetic Follow Up Appointments: Gomez Argueta MD [Primary Care Provider] - (Call and schedule an appointment for a basic metabolic panel for 3 days post discharge. ) Forms: [employer] Info Instructions
[2023-05-16] MEDS: NYSTATIN POWDER 1 APPLIC TOPICAL (13:53)
--- NOTE | 2023-05-16 16:30 | PC.NURSE ---
[facility] updated ([facility]) that patient is discharging today and care will start with [facility]. Faxed orders and discharge summary to [facility] that included requested orders.
--- NOTE | 2023-05-16 17:36 | PC.NURSE ---
Discharge Note: Pt had shower this morning with OT. IV zosyn infused and IV vancomycin started infusing. Vanco infused approx 75% prior to IV infiltration. IV dc'd, pt discharging and transitioned to oral antibiotics. [facility] [place] as pt's preferred pharmacy was closed for the day. LE edema and erythema improved since admission and elevated as tolerated. Denies pain. Discussed POC with hill Josue at bedside and later reviewed discharge information with pt and her Ramez. Both pt and her verbalized understanding of discharge instructions and follow up appointments.
--- NOTE | 2023-05-17 11:59 | PC.SOCIAL ---
Phone call to Toni at [facility] at [phone] to ensure that all documents were received and provide update that pt was discharged from [facility] on 05/16/23 to home. Toni informs that she needs pt's discharge summary. Faxed requested information to [facility] at [phone]. Social work will follow up as needed.
== END 2023-05-16 19:13 | disposition home health service (06) | DRG 872 ==
LOC: ED 10:27 → MEDSURG 14:45
PROVIDERS: Family Medicine; Internal Medicine; Admitting Provider Family Medicine; Emergency Provider Family Medicine; PCP Family Medicine; Visit Provider Physician Assistant
DX: A41.9 Sepsis, unspecified organism (principal); N71.0 Acute inflammatory disease of uterus; L03.311 Cellulitis of abdominal wall; K80.10 Calculus of gallbladder with chronic cholecystitis without obstruction; Z68.43 Body mass index [BMI] 50.0-59.9, adult; I87.2 Venous insufficiency (chronic) (peripheral); R32 Unspecified urinary incontinence; K76.0 Fatty (change of) liver, not elsewhere classified; I72.8 Aneurysm of other specified arteries; Z79.84 Long term (current) use of oral hypoglycemic drugs; Z79.01 Long term (current) use of anticoagulants
CPT/HCPCS: 36415; 51701; 71260; 74177; 76705; 76830; 80048; 80053; 80069; 80076; 81001; 82803; 82962; 83605; 83735; 83880; 84145; 84484; 85025; 85027; 85610; 86140; 87040; 87631; 93005; 97112; 97116; 97161; 97166; 97530; 97535; 99285; A9270; J2060; J2543; J3370; J3475; J7030; J7050; Q9967

== ENCOUNTER 2023-12-30 23:52 | Emergency (ER) | payer MEDICARE, BC, SELFPAY ==
[2023-12-30 23:55] VITALS: BP 146/73; PULSE 72; RESP 18; TEMP 36.6; O2SAT 97; BMI 48.4
--- NOTE | 2023-12-31 00:13 | ED_ITS ---
HPI - General Adult General Chief complaint: Unspecified Complaint, Adult Stated complaint: Low blood count Time Seen by Provider: 12/31/23 00:02 History of Present Illness HPI narrative: Patient is a 73-year-old woman who developed a brief episode of nausea tonight she vomited x1 and had resolution of her nausea but did check her blood sugar and found to be 347. This is very high for her. Patient now feels much better but is concerned by the elevated blood sugar. Patient takes metformin and glyburide for management of her type 2 diabetes. Patient is very much obese and states she recently had over 100 lb of fluid removed from her which I find difficult to believe. In any case she has had no chest pain no shortness a breath orthopnea no PND no syncopal events. She is brought in by her who is very concerned. Id she has no urinary symptoms. Related Data Home Medications ?Medication ?Instructions ?Recorded ?Confirmed diltiazem HCl 240 mg 240 mg PO DAILY 04/23/23 05/12/23 capsule,extended release 24 hr glipizide 5 mg tablet 5 mg PO DAILY 04/23/23 05/12/23 lisinopril 10 mg tablet 10 mg PO DAILY 04/23/23 05/12/23 metformin 500 mg tablet 500 mg PO BID 04/23/23 05/12/23 metoprolol succinate 50 mg 25 mg PO DAILY 04/23/23 05/12/23 tablet,extended release 24 hr warfarin 5 mg tablet 5 - 7.5 mg PO DAILY 04/23/23 05/12/23 lisinopril 5 mg tablet 5 mg PO DAILY 05/12/23 05/12/23 sitagliptin phosphate 50 mg tablet 50 mg PO DAILY 05/12/23 05/12/23 (Destiny) Previous Rx's ?Medication ?Instructions ?Recorded Lactobacillus acidophilus 0.5 mg 1 mg (2 x 0.5 mg (100 million 04/29/23 (100 million cell) tablet cell)) PO TIDWM 30 days #90 tabs acetaminophen 325 mg tablet 650 mg (2 x 325 mg) PO Q6H PRN 30 04/29/23 days #100 tabs Lactobacillus acidophilus 500 500 mmu cells PO TID #15 caps 05/16/23 million cell capsule cephalexin 500 mg capsule 500 mg PO BID #10 caps 05/16/23 doxycycline hyclate 100 mg capsule 100 mg PO BID 10 days #20 caps 05/16/23 furosemide 40 mg tablet 40 mg PO DAILY@0800 #30 tabs 05/16/23 nystatin 100,000 unit/gram topical 1 applic topical BID #30 grams 05/16/23 powder Allergies Allergy/AdvReac Type Severity Reaction Status Date / Time No Known Drug Allergies Allergy Verified 05/12/23 08:53 Review of Systems Status of ROS: Reports: 10 or more systems reviewed and unremarkable except as noted in History and below [facility] Medical History Physical debility ?R53.81 - Other malaise (ICD-10) Cellulitis ?L03.90 - Cellulitis, unspecified (ICD-10) Diabetes mellitus ?E11.9 - Type 2 diabetes mellitus without complications (ICD-10) MARCELL (obstructive sleep apnea) ?G47.33 - Obstructive sleep apnea (adult) (pediatric) (ICD-10) Obesity hypoventilation syndrome ?E66.2 - Morbid (severe) obesity with alveolar hypoventilation (ICD-10) Atrial fibrillation ?I48.91 - Unspecified atrial fibrillation (ICD-10) Acute hypoxic respiratory failure ?J96.01 - Acute respiratory failure with hypoxia (ICD-10) Metabolic encephalopathy ?G93.41 - Metabolic encephalopathy (ICD-10) Sepsis ?A41.9 - Sepsis, unspecified organism (ICD-10) Chronic acquired lymphedema ?I89.0 - Lymphedema, not elsewhere classified (ICD-10) Social History What is your current living situation?: I presently have a place to live Problems where you live: no known problems Problems where you live details: none In the past 12 months, utilities in danger of being shut off: no In past 12 months, lack of transportation kept you from medical appts, meetings, work, or getting things needed for daily living: no In the past 12 mos, have been you worried that your food would run out before you had money to buy more?: never true In the past 12 mos, the food you bought just didn't last and you didn't have money to buy more?: never true Highest level of school completed/degree received: Associate degree: occupational, technical, vocational program Smoking Status: Never smoker Do you use any of these nicotine containing products: None Second hand tobacco smoke exposure: No How often do you have a drink containing alcohol: never AUDIT-C Alcohol total score: 0 Non-prescribed substance use: denies use Caffeine: Yes (diet coke) How often does anyone, including family, friends and others, physically hurt you : never How often does anyone, including family, friends and others, insult or talk down to you: never How often does anyone, including family, friends and others, threaten you with harm: never How often does anyone, including family, friends and others, scream or curse at you: never service: No Exam Narrative: Exam Narrative: EXAM GENERAL: Patient appears comfortable but obese. EYES: No scleral icterus. LYMPH: No supraclavicular or cervical lymphadenopathy. SKIN: Visible skin seen during exam normal or with benign process only. EXT: No dependent lower extremity pedal edema. HEART: Regular rate and rhythm with no murmurs, rubs, or gallops. LUNGS: Clear to auscultation bilaterally with no crackles or wheezes. ABD: Soft, non tender, non distended. PSYCH: Good eye contact, speech is not pressured. Const: Vital Signs, click to edit/add: Vital Signs - 24 hr 12/30/23 23:55 Temperature 97.9 F Pulse Rate [Left P ulse Oximeter] 72 Respiratory Rate 18 Blood Pressure [Ri ght Upper Arm] 146/73 H Pulse Oximetry 97 Oxygen Delivery Me thod Room Air Course Course ED Course: Initially do not believe she has significant pathology present. I did send off CBC basic metabolic panel give her a 4 mg of Zofran and 250 mL of normal saline. Will reassess after where her labs back. Vital Signs Vital signs: Initial Vital Signs Temperature 97.9 F 12/30/23 23:55 Temperature Source Temporal Artery Scan 12/30/23 23:55 Pulse Rate 72 12/30/23 23:55 Pulse Rhythm Regular 12/30/23 23:55 Respiratory Rate 18 12/30/23 23:55 Blood Pressure 146/73 H 12/30/23 23:55 Blood Pressure Mean 97 12/30/23 23:55 Blood Pressure Position Sitting 12/30/23 23:55 Pulse Oximetry 97 12/30/23 23:55 Oxygen Delivery Method Room Air 12/30/23 23:55 Vital Signs Temperature 97.9 F 12/30/23 23:55 Pulse Rate 72 12/30/23 23:55 Respiratory Rate 18 12/30/23 23:55 Blood Pressure 146/73 H 12/30/23 23:55 Pulse Oximetry 97 12/30/23 23:55 Oxygen Delivery Method Room Air 12/30/23 23:55 Temperature 97.9 F 12/30/23 23:55 Pulse Rate 72 12/30/23 23:55 Respiratory Rate 18 12/30/23 23:55 Blood Pressure 146/73 H 12/30/23 23:55 Pulse Oximetry 97 12/30/23 23:55 Oxygen Delivery Method Room Air 12/30/23 23:55 Medications Administered Medications: Generic Name Dose Route Start Last Admin Trade Name Freq PRN Reason Stop Dose Admin Ondansetron HCl 4 mg 12/31/23 00:12 12/31/23 01:06 Ondansetron 2 Mg/Ml Inj IVP 4 mg ONCE PRN Administration Discontinued Medications Generic Name Dose Route Start Last Admin Trade Name Freq PRN Reason Stop Dose Admin Sodium Chloride 250 mls @ 250 mls/hr 12/31/23 00:12 12/31/23 01:04 0.9 % Sodium Chloride 250 Ml IV 12/31/23 01:11 250 mls/hr .Q1H ONE Administration Medical Decision Making [facility] Narrative Medical decision making narrative: Patient is a 73-year-old woman who was recently hospitalized at [facility] for large volume diuresis. She states that she has been feeling reasonably well but did of single episode of vomiting earlier tonight and noted her blood sugar to be 370. Patient takes glyburide and metformin. She comes in for further evaluation I did do labs and did find her blood sugar to be 280. Past 0 concerning like found her potassium to be 6.0. She has increase in her creatinine from a baseline of 0.7-1.7 but she states that these are her new normal after her recent diuresis. Unfortunately we do not have her records. Patient states that she feels better after a L of saline and 4 mg of Zofran. I did recommend hospitalization to potentially try to get her potassium a little bit lower into the safer range which I do think will complication at least partially with our saline bolus here. Patient states she is not interested in further treatment would like to be discharged home. She understands the risk of doing so. I did emphasize that she does need close outpatient follow-up with her primary physician. I also informed her that were always happy to help take care of her but he would be in her best interest to keep her medical care if possible 1 facility as the patient has had care [facility] and now [facility] in the last month. Again I am very concerned about her ability to manage her symptoms at home but again she has declined any further treatment. With the increase in her creatinine consideration should be given to discontinuation metformin. Lab Data Labs: Lab Results 12/31/23 Range/Units 00:55 WBC 6.01 (4.50-11.00) K/uL RBC 4.71 (4.00-5.20) m/uL Hgb 14.3 (12.0-16.0) gm/dL Hct 42.3 (33.0-51.0) % MCV 90 (80-100) fL MCH 30 (26-34) pg MCHC 34 (32-36) gm/dL RDW Coeff of Maria 14.5 (11.5-15.5) % Plt Count 158 (140-440) K/uL Neut % (Auto) 72.3 H (42.0-72.0) % Lymph % (Auto) 15.5 L (20-44) % Garland % (Auto) 7.8 (0.0-11.0) % Eos % (Auto) 3.0 (0.0-7.0) % Baso % (Auto) 0.7 (0.0-3.0) % Neut # (Auto) 4.30 (1.7-7.0) K/uL Lymph # (Auto) 0.90 (0.90-2.90) K/uL Garland # (Auto) 0.50 (0.00-0.90) K/UL Eos # (Auto) 0.18 (0.00-0.50) K/uL Baso # (Auto) 0.04 (0.00-0.30) K/uL Abs Immat Gran (auto) 0.04 (0.00-0.30) K/uL Imm/Tot Granulo (auto) 0.7 % Sodium 132 L (135-149) mmol/L Potassium 6.0 H (3.6-5.1) mmol/L Chloride 101 (96-114) mmol/L Carbon Dioxide 20 (20-32) mmol/L Anion Gap 11 (7-15) mEq/L BUN 51 H (7-30) mg/dL Creatinine 1.7 H (0.5-1.5) mg/dL Estimated Creat Clear 25.11 Estimated GFR 32 ml/min Glucose 281 H (60-115) mg/dL Calcium 10.5 (8.4-10.6) mg/dL Discharge Plan Discharge Clinical Impression: Diabetes mellitus Patient Disposition: Home, Self-Care Condition: Stable Additional Instructions: Hydrate Continue medications Insure close follow-up with your doctor or no later than Wednesday with repeat electrolytes. Activity Level: No Restrictions Discharge Diet: Regular Prescriptions: No Action metformin 500 mg tablet 500 mg PO BID metoprolol succinate 50 mg tablet extended release 24 hr 25 mg PO DAILY diltiazem HCl 240 mg capsule,extended release 24hr 240 mg PO DAILY lisinopril 10 mg tablet 10 mg PO DAILY Patient Comments: HAS A NEW RX FOR 5 MG FROM [facility] BUT HASN'T CHANGED DOSING warfarin 5 mg tablet 5 - 7.5 mg PO DAILY Rx Instructions: 7.5 MG ON MON, WED, FRI AND 5 MG ALL OTHER DAYS glipizide 5 mg tablet 5 mg PO DAILY acetaminophen 325 mg Tablet 650 mg PO Q6H PRN30 Days Qty: 100 0RF Lactobacillus acidophilus 0.5 mg (100 million cell) Tablet 1 mg PO TIDWM 30 Days Qty: 90 1RF lisinopril 5 mg tablet 5 mg PO DAILY Januvia 50 mg tablet 50 mg PO DAILY Patient Comments: THIS WAS DC'D AT LAST HOSPITALIZATION BUT PT HAD RESTARTED ON HER OWN furosemide 40 mg Tablet 40 mg PO DAILY@0800 Qty: 30 0RF nystatin 100,000 unit/gram Powder 1 applic topical BID Qty: 30 0RF doxycycline hyclate 100 mg capsule 100 mg PO BID 10 Days Qty: 20 0RF cephalexin 500 mg capsule 500 mg PO BID Qty: 10 0RF Lactobacillus acidophilus 500 million cell capsule 500 mmu cells PO TID Qty: 15 0RF Follow Up/Referrals: Gomez Argueta MD [Primary Care Provider] - Stand Alone Forms: [facility] Info Instructions
[2023-12-31] MEDS: 0.9 % SODIUM CHLORIDE 250 ml 250 ML IV (01:04)
[2023-12-31] MEDS: ONDANSETRON 2 MG/ML inj 4 MG IVP (01:06)
[2023-12-31 01:08] LABS: Basophils Absolute Auto 0.04 K/uL (0.00-0.30); Basophils Percent Auto 0.7 % (0.0-3.0); Eosinophils Absolute Auto 0.18 K/uL (0.00-0.50); Hematocrit 42.3 % (33.0-51.0); Hemoglobin* 14.3 gm/dL (12.0-16.0); Immature Granulocytes Abs Auto 0.04 K/uL (0.00-0.30); Immature Granulocytes Pct Auto 0.7 %; Lymphocytes Percent Auto 15.5 % (20-44); Mean Corpuscular HGB Conc 34 gm/dL (32-36); Mean Corpuscular Hemoglobin 30 pg (26-34); Mean Corpuscular Volume 90 fL (80-100); Monocytes Percent Auto 7.8 % (0.0-11.0); Neutrophils Percent Auto 72.3 % (42.0-72.0); Platelet Count* 158 K/uL (140-440); RDW Coefficient of Variation % 14.5 % (11.5-15.5); Red Blood Count 4.71 m/uL (4.00-5.20); White Blood Count* 6.01 K/uL (4.50-11.00)
[2023-12-31 01:11] LABS: Slide Review Reflex No
[2023-12-31 01:20] LABS: Chloride* 101 mmol/L (96-114); Sodium* 132 mmol/L (135-149)
[2023-12-31 01:22] LABS: Creatinine* 1.7 mg/dL (0.5-1.5); Est. Creatinine Clearance* 25.11; Estimated Glomerular Filt Rate 32 ml/min
--- OUTSIDE RECORDS SUMMARY | 2023-12-31 01:22 | XMS_ITS | Clinical Summary ---
Author Organization [employer] [facility] & [facility] Address [place], [place] [address] Care Team Providers Care Furniture Inspector Name Role Phone Gomez Argueta MD Primary Care Provider [phone] Allergies No known active allergies Medications Medication Sig Dispensed Refills Start Date End Date Status glipiZIDE (GLUCOTROL) 5 mg tablet Take 1 tablet by mouth once daily before a meal. 0 6 Active acetaminophen (TYLENOL) 325 mg tablet Take 1 Tablet (325 mg) by mouth every 6 hours if needed for Pain. Max acetaminophen dose: 4000mg in 24 hrs. 3 Active metFORMIN (GLUCOPHAGE) 500 mg tablet Take 1 Tablet (500 mg) by mouth two times daily with meals. 3 Active wheelchairIndica tions:Cellulitis of skin,Lymphedema Wheelchair: Bariatric (over 250 lbs) with leg rests: (Elevating Length of need: 99 months with standard cushion 3 Active metoprolol succinate (TOPROL XL) 25 mg Sustained-Releas e tablet Take 25 mg by mouth once daily. 4 Active pantoprazole (PROTONIX) 40 mg delayed-release tabletIndication s:Gastroesophage al reflux disease without esophagitis Take 1 Tablet (40 mg) by mouth once daily. 30 Tablet 2 4 024 Active sennosides (SENNA) 8.6 mg tabletIndication s:Constipation, unspecified constipation type Take 1-2 Tablets (8.6-17.2 mg) by mouth 2 times daily if needed for Constipation. 30 Tablet 4 Active camphor-menthol (SARNA ORIGINAL) 0.5-0.5 % lotionIndication s:Cellulitis of right leg Apply topically to affected area(s) 3 times daily if needed for Itching. 222 mL 4 Active nystatin 100,000 unit/gram creamIndications :Cellulitis of right leg Apply topically to affected area(s) 2 times daily if needed (irritation of the inguinal folds). 30 g 4 Active bumetanide (BUMEX) 1 mg tabletIndication s:Acute diastolic congestive heart failure (HC) Take 1 Tablet (1 mg) by mouth once daily in the morning. 60 Tablet 2 4 Active dilTIAZem CD (CARDIZEM CD) 180 mg extended release 24 hr capsuleIndicatio ns:Atrial fibrillation with rapid ventricular response (HC) Take 1 Capsule (180 mg) by mouth once daily. 30 Capsule 4 Active spironolactone (ALDACTONE) 50 mg tabletIndication s:Cirrhosis of liver with ascites, unspecified hepatic cirrhosis type (HC) Take 1 Tablet (50 mg) by mouth once daily in the morning. 30 Tablet 4 Active warfarin (COUMADIN) 5 mg tabletIndication s:Atrial fibrillation, unspecified type (HC) Take 1 Tablet (5 mg) by mouth once daily. 4 Active lactulose 10 gram/15 mL solutionIndicati ons:Cirrhosis of liver with ascites, unspecified hepatic cirrhosis type (HC) Take 15 mL (10 g) by mouth 3 times daily if needed for Constipation (Goal 3 bowel movements per day). 1350 mL 4 024 Active dilTIAZem CD (CARDIZEM CD) 240 mg extended release 24 hr capsuleIndicatio ns:Atrial fibrillation with rapid ventricular response (HC) TAKE 1 TAB po daily 3 024 Discontinued warfarin (COUMADIN) 5 mg tabletIndication s:Atrial fibrillation, unspecified type (HC) Take 0.5 Tablets (2.5 mg) by mouth once daily. 4 024 Discontinued ciprofloxacin HCl (CIPRO) 500 mg tabletIndication s:skin and skin structure infection Take 1 Tablet (500 mg) by mouth two times daily for 7 days. 14 Tablet 4 024 spironolactone (ALDACTONE) 100 mg tabletIndication s:Cirrhosis of liver with ascites, unspecified hepatic cirrhosis type (HC) Take 1 Tablet (100 mg) by mouth once daily in the morning. 30 Tablet 4 024 Discontinued furosemide (LASIX) 20 mg tabletIndication s:Cirrhosis of liver with ascites, unspecified hepatic cirrhosis type (HC) Take 1 Tablet (20 mg) by mouth once daily in the morning. 30 Tablet 4 024 Discontinued(*I P Discontinued) bumetanide (BUMEX) 1 mg tabletIndication s:Acute diastolic congestive heart failure (HC) Take 1 Tablet (1 mg) by mouth two times daily. 60 Tablet 2 4 024 Discontinued trimethoprim-sul famethoxazole, 160-800 mg, (BACTRIM DS, SEPTRA DS) tabIndications:u rinary tract infection Take 1 Tablet by mouth two times daily for 5 days. 10 Tablet 4 024 Active Problems Problem Noted Date Diagnosed Date Weakness 12/19/2023 Severe sepsis 2/2 cellulitis of the right lower extremity 12/06/2023 Acute upper GI bleed in the setting of known liver cirrhosis 12/06/2023 Hepatocellular injury 12/06/2023 Acute metabolic encephalopathy 12/06/2023 Type 2 diabetes mellitus wit h hyperglycemia, without long-term current use of insulin 12/06/2023 Severe sepsis, likely due to pneumonia Type 2 diabetes mellitus wit h hyperglycemia, with long-term current use of insulin 11/20/2023 Demand ischemia 11/20/2023 Coagulopathy 11/20/2023 Morbid obesity with BMI of 60.0-69.9, adult 11/07 Generalized weakness 11/20/2023 Sepsis due to pneumonia 10/06/2023 Severe sepsis 10/06/2023 Cirrhosis of liver with ascites 08/20/2023 Suspected SBP (spontaneous bacterial peritonitis ) 08/20/2023 Bacteremia due to Gram-negative bacteria 024 Class 3 severe obesity due t o excess calories with serious comorbidity and body mass index (BMI) of 50.0 to 59.9 in adult 08/19/2023 Lymphedema of both lower extremities 08/18/2023 Acute cystitis without hematuria 08/18/2023 Longstanding persistent atrial fibrillation 08/08 Severe sepsis 08/17/2023 Aspiration pneumonia, bilateral lung base 2023 Type 2 diabetes mellitus wit h hyperglycemia, without long-term current use of insulin 08/17/2023 Acute metabolic encephalopathy 08/17/2023 Multilobar lung infiltrates 07/27/2023 Severe sepsis 06/20/2023 Atrial fibrillation 06/20/2023 Anticoagulation monitoring, INR range 2-3 2023 Panniculitis 06/20/2023 COVID-19 virus infection 06/20/2023 Hypertension 07/18/2015 Overview: -07/23/2015 ECHO Technically difficult study. ?? Normal left ventricular size and systolic function, estimated ejection fraction 60-65%. Normal right ventricular size and systolic function. Mild to moderate biatrial enlargement. ?? Mild to moderate mitral regurgitation. ?? Moderate tricuspid regurgitation. Estimated right ventricular systolic pressure 26 mmHg plus right atrial pressure. DMII (diabetes mellitus, type 2) 07/18/2015 Overview: -06/26/2015 hemoglobin A1c greater than 14 started on metformin 850 mg twice daily Atrial fibrillation with rapid ventricular respo nse 07/18/2015 Overview: -06/19/2015 rate 160s started on Cardizem CD 120 mg daily -06/22/2015 TSH 4.130 (normal 0.450-4.50) free T4 1.28 -07/23/2015 24-hour Holter monitor [facility] atrial fibrillation with ventricular response of 103-169 bpm with an average rate of 123 bpm. Frequent VPCs and/or aberrantly conducted beats occurred singly, paired, in bigeminy and in 3 beat runs of ectopic (ventricular tachycardia). The maximum VT rate was 174 bpm. 3% PVC burden. ST analysis was not done due to atrial fibrillation. The patient stated symptoms of dizzy in her diary. At and near this time but strip showed atrial fibrillation with heart rate spring from 116-137 bpm with a single VPCs or aberrantly beat and a 3 beat run of ventricular ectopy, rate 174 bpm [id number] score at least 3 HTN, DM, Gender on Pradaxa Shortness of breath 07/18/2015 Resolved Problems Problem Noted Date Diagnosed Date Resolved Date Anticoagulation monitoring, INR range 2-3 04/30/2023 05/24/2023 Encounters Date Type Department Care Team Description 12/19/2023 2:51 PM CDT - 12/22/2023 4:44 PM CDT Hospital Encounter [address] [address] Lety Galvin MD McCarthy, Laura Anne, MD Weak (Primary Dx); Altered mental status, unspecified altered mental status type; ROSA (acute kidney injury) (HC); Acute cystitis with hematuria; Other problems related to social environment; Acute diastolic congestive heart failure (HC); Atrial fibrillation with rapid ventricular response (HC); Cirrhosis of liver with ascites, unspecified hepatic cirrhosis type (HC); Atrial fibrillation, unspecified type (HC); Acute cystitis without hematuria Discharge Disposition: Home Self Care 12/19/2023 Travel 12/14/2023 Telephone [facility] [address] [address] Christianne Acosta MD Appointment (ID ll POST HOSP F/U) 12/08/2023 4:01 PM CDT Anesthesia Event [address] [address] Nabor Leon MD Knutsen, Peder Nels, MD 12/08/2023 3:10 PM CDT - 12/08/2023 3:45 PM CDT Surgery [address] [id number] Topher Love MD ESOPHAGOGASTRODUODENOSCOPY WITH BIOPSY 12/07/2023 Travel 12/06/2023 12:27 AM CDT - 12/11/2023 6:52 PM CDT Hospital Encounter [address] [place] [address] Arnav Helton MD Fafara, Jafary, MD Bogonko, Neva Vick, [facility] Hospitalists, Stf Cellulitis of right leg (Primary Dx); Hematemesis with nausea; Severe sepsis (HC); Acute diastolic congestive heart failure (HC); Gastroesophageal reflux disease without esophagitis; Constipation, unspecified constipation type; Lymphedema of both lower extremities Discharge Disposition: Home Self Care 12/06/2023 Travel 11/20/2023 5:50 PM CDT - 11/25/2023 4:40 PM CDT Hospital Encounter [address] [address] Espinoza Sharif MD Fafara, Jafary, MD Bullard, Gomez Herrera MD Pneumonia of right lower lobe due to infectious organism (Primary Dx); Severe sepsis (HC); Cirrhosis of liver with ascites, unspecified hepatic cirrhosis type (HC); Activity intolerance; Anticoagulation monitoring, INR range 2-3 Discharge Disposition: Home Self Care 11/20/2023 Travel 10/06/2023 10:23 AM CDT - 10/09/2023 2:55 PM CDT Hospital Encounter [address] [address] Aaron Nixon MD Ellis, Shane Thomas, MD Schmidt, MD Alina Kirby, Maxi Skelton, DO Hospitalists, Stf Septic shock (HC) (Primary Dx); Pneumonia of both lungs due to infectious organism, unspecified part of lung; Cough, unspecified type; Lymphedema of both lower extremities; Atrial fibrillation, unspecified type (HC); Severe sepsis (HC); Sepsis due to pneumonia (HC) Discharge Disposition: Home Self Care 10/06/2023 Travel from Last 3 Months Immunizations Name Administration Dates Next Due Influenza, High-dose Inactivated 02/28/2018 Pneumococcal Poly,23-Valent (Pneumovax) 09/15/19 19 Pneumococcal conj 13-Valent (Prevnar 13) 018 Tdap 10/29/2020 Family History Medical History Relation Name Comments Diabetes Maternal Grandmother Diabetes Paternal Grandmother Relation Name Status Comments Maternal Grandmother Paternal Grandmother Social History Tobacco Use Types Packs/Day Years Used Date Smoking Tobacco: Never Tobacco Cessation:Counseling Given: Yes Alcohol Use Standard Drinks/Week Comments Never 0 (1 standard drink = 0.6 oz pur e alcohol) Social Connections Answer Date Recorded Frequency of Communication with Friends and Fami ly 4 12/21/2023 Financial Resource Strain Answer Date R ecorded Difficulty of Paying Living Expenses 3 2023 Difficulty of Paying Living Expenses Not on file 2023 Food Insecurity Answer Date Recorded Worried About Running Out of Food in the Last Ye ar 1 2023 Transportation Needs Answer Date Record ed Lack of Transportation (Medical) 1 2023 Housing Stability Answer Date Recorded Unable to Pay for Housing in the Last Year 1 2023 Sex and Gender Information Value Date Recorded Sex Assigned at Not on file Gender Identity Not on file Sexual Orientation Not on file Obstetrics History Last Filed Vital Signs Vital Sign Reading Time Taken Comments Blood Pressure 131/70 12/22/2023 1:10 PM CDT Pulse 69 12/22/2023 1:10 PM CDT Temperature 36.8 ??C (98.2 ??F) 12/22/2023 1 0:35 AM CDT Respiratory Rate 18 12/22/2023 10:3 5 AM CDT Oxygen Saturation 96% 12/22/2023 10: 35 AM CDT Inhaled Oxygen Concentration - - Weight 124.5 kg (274 lb 6.4 oz) 12/22/2023 4:24 AM CDT Height 157.5 cm (5' 2) 12/19/2023 3:01 PM CDT Body Mass Index 50.19 12/19/2023 3:01 PM CDT Plan of Treatment Health Maintenance Due Date Last Done Comments Depression screening for age 12+ 1964 BMI (ht and wt on same day) for age 18+ 1970 Hepatitis C screening for age 18-79 1970 Colonoscopy through age 75 1997 Lipids for age 45-75 1997 Mammogram for age 45-75 1997 Zoster (shingles) series for age 50+ (1 of 2) 2002 DEXA/DXA scan for age 65+ 2017 Medicare Wellness for age 65+ 2017 COVID-19 vaccine series (24 season) 2023 Influenza for age 65+ 01/09/2024 02/28/2018 Tetanus booster 10/29/2030 10/29/2020 Pneumococcal series for age 65+ Completed 9, 07/19/2017 Tdap Completed 10/29/2020 Procedures Procedure Name Priority Date/Time Associated Diagnosis Comments GLUCOSE METER Timed 12/22/2023 3:20 PM CDT GLUCOSE METER Timed 12/22/2023 1:08 PM CDT GLUCOSE METER Timed 12/22/2023 11:19 AM CDT GLUCOSE METER Timed 12/22/2023 7:20 AM CDT BASIC METABOLIC PANEL Early AM 12/22/2023 6:24 AM CDT HEPATIC FUNCTION PANEL Early AM 6:24 AM CDT PROTIME-INR Early AM 12/22/2023 6:24 AM CDT GLUCOSE METER Timed 12/21/2023 8:37 PM CDT GLUCOSE METER Timed 12/21/2023 4:34 PM CDT BASIC METABOLIC PANEL Timed 12/21/2023 1:04 PM CDT GLUCOSE METER Timed 12/21/2023 11:25 AM CDT GLUCOSE METER Timed 12/21/2023 7:30 AM CDT AMMONIA Early AM 12/21/2023 6:55 AM CDT PROTIME-INR Early AM 12/21/2023 6:55 AM CDT GLUCOSE METER Timed 12/20/2023 9:17 PM CDT GLUCOSE METER Timed 12/20/2023 4:59 PM CDT US ABDOMEN LIMITED RUQ STAT 11:55 AM CDT GLUCOSE METER Timed 12/20/2023 11:48 AM CDT GLUCOSE METER Timed 12/20/2023 8:37 AM CDT BASIC METABOLIC PANEL Early AM 12/20/2023 6:22 AM CDT PROTIME-INR Early AM 12/20/2023 6:22 AM CDT HEPATIC FUNCTION PANEL Early AM 6:22 AM CDT AMMONIA Early AM 12/20/2023 6:21 AM CDT GLUCOSE METER Timed 12/19/2023 10:47 PM CDT LACTATE VENOUS STAT 12/19/2023 6:35 PM CDT URINE CULTURE DWIGHT 12/19/2023 6:30 PM CDT URINALYSIS MICROSCOPIC STAT 6:30 PM CDT UA W/ SEDIMENT EXAM REFLEXED PER CRITERIA STAT 12/19/2023 6:[address] ANGIO HEAD AND NECK CAROTID STAT 0 12/19/2023 6:24 PM CDT BLOOD CULTURE STAT 12/19/2023 4:43 PM CDT PRO-BNP DWIGHT 12/19/2023 4:18 PM CDT SALICYLATE DWIGHT 12/19/2023 4:18 PM CDT ACETAMINOPHEN DWIGHT 12/19/2023 4:18 PM CDT CBC WITH AUTO DIFFERENTIAL STAT 12/18 4:18 PM CDT MAGNESIUM STAT 12/19/2023 4:18 PM CDT BLOOD GAS,VENOUS STAT 12/19/2023 4:18 PM CDT PROCALCITONIN STAT 12/19/2023 4:18 PM CDT PROTIME-INR STAT 12/19/2023 4:18 PM CDT COMP METABOLIC PANEL STAT 12/19/2023 4:18 PM CDT BLOOD CULTURE STAT 12/19/2023 4:18 PM CDT CBC WITH AUTO DIFFERENTIAL STAT 12/18 4:18 PM CDT LACTATE VENOUS STAT 12/19/2023 4:18 PM CDT EKG 12 LEAD STAT 12/19/2023 4:10 PM CDT XR CHEST 1 VIEW PA OR AP STAT 024 3:[address] HEAD BRAIN WO STAT 12/19/2023 3:46 PM CDT GLUCOSE METER Timed 12/19/2023 3:14 PM CDT SCAN-CARDIAC STRIP 12/19/2023 12:00 AM CDT SCAN-CARDIAC STRIP 12/19/2023 12:00 AM CDT SCAN-CARDIAC STRIP 12/19/2023 12:00 AM CDT SCAN-CARDIAC STRIP 12/19/2023 12:00 AM CDT GLUCOSE METER Timed 12/11/2023 4:37 PM CDT GLUCOSE METER Timed 12/11/2023 12:03 PM CDT POTASSIUM Timed 12/11/2023 11:42 AM CDT GLUCOSE METER Timed 12/11/2023 7:40 AM CDT POTASSIUM Early AM 12/11/2023 7:04 AM CDT WHITE BLOOD COUNT Early AM 12/11/2023 7:04 AM CDT CREATININE Early AM 12/11/2023 7:04 AM CDT PROTIME-INR Early AM 12/11/2023 7:04 AM CDT HEPATIC FUNCTION PANEL Early AM 7:04 AM CDT GLUCOSE METER Timed 12/10/2023 8:56 PM CDT POTASSIUM Today 12/10/2023 8:49 PM CDT PROTIME-INR Today 12/10/2023 5:50 PM CDT GLUCOSE METER Timed 12/10/2023 5:07 PM CDT GLUCOSE METER Timed 12/10/2023 10:35 AM CDT ECHO TTE COMPLETE WO CONTRAST Routine 8:18 AM CDT GLUCOSE METER Timed 12/10/2023 7:38 AM CDT MAGNESIUM DWIGHT 12/10/2023 5:49 AM CDT HEMOGLOBIN DWIGHT 12/10/2023 5:49 AM CDT POTASSIUM DWIGHT 12/10/2023 5:49 AM CDT WHITE BLOOD COUNT Early AM 12/10/2023 5:49 AM CDT CREATININE Early AM 12/10/2023 5:49 AM CDT HEPATIC FUNCTION PANEL Early AM 5:49 AM CDT GLUCOSE METER Timed 12/09/2023 9:59 PM CDT GLUCOSE METER Timed 12/09/2023 5:37 PM CDT GLUCOSE METER Timed 12/09/2023 2:53 PM CDT GLUCOSE METER Timed 12/09/2023 12:22 PM CDT GLUCOSE METER Timed 12/09/2023 7:45 AM CDT GLUCOSE METER Timed 12/09/2023 5:51 AM CDT HEMOGLOBIN DWIGHT 12/09/2023 5:49 AM CDT WHITE BLOOD COUNT Early AM 12/09/2023 5:49 AM CDT BUN Early AM 12/09/2023 5:49 AM CDT SODIUM Early AM 12/09/2023 5:49 AM CDT POTASSIUM Early AM 12/09/2023 5:49 AM CDT CREATININE Early AM 12/09/2023 5:49 AM CDT MAGNESIUM Early AM 12/09/2023 5:49 AM CDT HEPATIC FUNCTION PANEL Early AM 5:49 AM CDT GLUCOSE METER Timed 12/09/2023 2:08 AM CDT GLUCOSE METER Timed 12/08/2023 9:43 PM CDT POTASSIUM Today 12/08/2023 5:56 PM CDT GLUCOSE METER Timed 12/08/2023 5:55 PM CDT PATH TISSUE EXAM Today 12/08/2023 4:10 PM CDT ESOPHAGOGASTRODUODENOSCOPY W ITH BIOPSY 12/08/2023 3:51 PM CDT gastritis ENDOSCOPY 12/08/2023 3:41 PM CDT GLUCOSE METER Timed 12/08/2023 2:16 PM CDT GLUCOSE METER Timed 12/08/2023 10:23 AM CDT PROTIME-INR Today 12/08/2023 9:18 AM CDT SODIUM Timed 12/08/2023 9:18 AM CDT GLUCOSE METER Timed 12/08/2023 5:56 AM CDT BASIC METABOLIC PANEL DWIGHT 12/08/2023 4:27 AM CDT MAGNESIUM DWIGHT 12/08/2023 4:27 AM CDT WHITE BLOOD COUNT Early AM 12/08/2023 4:27 AM CDT POTASSIUM Early AM 12/08/2023 4:27 AM CDT HEPATIC FUNCTION PANEL Early AM 4:27 AM CDT SODIUM Timed 12/08/2023 4:27 AM CDT HEMOGLOBIN Timed 12/08/2023 4:27 AM CDT GLUCOSE METER Timed 12/08/2023 1:52 AM CDT SODIUM Timed 12/07/2023 10:16 PM CDT HEMOGLOBIN Timed 12/07/2023 10:16 PM CDT GLUCOSE METER Timed 12/07/2023 10:13 PM CDT GLUCOSE METER Timed 12/07/2023 6:42 PM CDT SODIUM Timed 12/07/2023 5:31 PM CDT CREATININE Today 12/07/2023 5:31 PM CDT PROTIME-INR Today 12/07/2023 3:09 PM CDT HEMOGLOBIN Timed 12/07/2023 3:09 PM CDT GLUCOSE METER Timed 12/07/2023 3:01 PM CDT NM HEPATOBILIARY IMAGING WITH EF Routine 12/07/2023 2:31 PM CDT GLUCOSE METER Timed 12/07/2023 10:38 AM CDT POTASSIUM DWIGHT 12/07/2023 5:49 AM CDT SODIUM DWIGHT 12/07/2023 5:49 AM CDT HEMOGLOBIN Timed 12/07/2023 5:49 AM CDT WHITE BLOOD COUNT Early AM 12/07/2023 5:49 AM CDT AMMONIA Early AM 12/07/2023 5:49 AM CDT HEPATIC FUNCTION PANEL Early AM 5:49 AM CDT PROTIME-INR Early AM 12/07/2023 5:49 AM CDT CREATININE Timed 12/07/2023 5:49 AM CDT GLUCOSE METER Timed 12/07/2023 5:39 AM CDT HEMOGLOBIN Timed 12/07/2023 3:37 AM CDT GLUCOSE METER Timed 12/07/2023 1:08 AM CDT GLUCOSE METER Timed 12/06/2023 9:37 PM CDT URINALYSIS MICROSCOPIC STAT 5:35 PM CDT UA W/ SEDIMENT EXAM REFLEXED PER CRITERIA STAT 12/06/2023 5:35 PM CDT GLUCOSE METER Timed 12/06/2023 5:25 PM CDT GLUCOSE METER Timed 12/06/2023 3:24 PM CDT PROTIME-INR Today 12/06/2023 3:09 PM CDT HEPATIC FUNCTION PANEL Timed 3:09 PM CDT HEMOGLOBIN Timed 12/06/2023 3:09 PM CDT US ABDOMEN LIMITED GALLBLADDER Routine 0 12/06/2023 12:50 PM CDT US PELVIS COMPLETE TV Routine 12/06/2023 12:47 PM CDT IR PICC LINE STAT 12/06/2023 12:28 PM CDT XR CHEST 1 VIEW PORTABLE STAT 024 11:48 AM CDT HEMOGLOBIN Timed 12/06/2023 9:42 AM CDT PROTIME-INR DWIGHT 12/06/2023 9:42 AM CDT GLUCOSE METER Timed 12/06/2023 8:13 AM CDT GLUCOSE METER Timed 12/06/2023 5:57 AM CDT AMMONIA Today 12/06/2023 5:45 AM CDT HEMOGLOBIN Timed 12/06/2023 5:45 AM CDT LACTATE VENOUS STAT 12/06/2023 5:[address] TIBIA FIBULA RIGHT W STAT 12/06/19 24 4:18 AM CDT LACTATE VENOUS STAT 12/06/2023 4:[address] ABDOMEN PELVIS W STAT 12/06/2023 4:08 AM CDT XR CHEST 1 VIEW PORTABLE STAT 024 2:02 AM CDT BLOOD CULTURE STAT 12/06/2023 1:33 AM CDT TYPE & SCREEN STAT 12/06/2023 1:30 AM CDT C-REACTIVE PROTEIN DWIGHT 12/06/2023 1:30 AM CDT PRO-BNP DWIGHT 12/06/2023 1:30 AM CDT CBC WITH AUTO DIFFERENTIAL STAT 12/05 1:30 AM CDT LIPASE STAT 12/06/2023 1:30 AM CDT HEPATIC FUNCTION PANEL STAT 1:30 AM CDT BASIC METABOLIC PANEL STAT 12/06/2023 1:30 AM CDT COVID-19 MOLECULAR STAT 12/06/2023 1:30 AM CDT PROTIME-INR STAT 12/06/2023 1:30 AM CDT BLOOD CULTURE STAT 12/06/2023 1:30 AM CDT CBC WITH AUTO DIFFERENTIAL STAT 12/05 1:30 AM CDT LACTATE VENOUS STAT 12/06/2023 1:30 AM CDT EKG 12 LEAD STAT 12/06/2023 12:36 AM CDT SCAN-CARDIAC STRIP 12/06/2023 12:00 AM CDT SCAN-CARDIAC STRIP 12/06/2023 12:00 AM CDT SCAN-CARDIAC STRIP 12/06/2023 12:00 AM CDT SCAN-CARDIAC STRIP 12/06/2023 12:00 AM CDT SCAN-CARDIAC STRIP 12/06/2023 12:00 AM CDT SCAN-CARDIAC STRIP 12/06/2023 12:00 AM CDT SCAN-CARDIAC STRIP 12/06/2023 12:00 AM CDT GLUCOSE METER Timed 11/25/2023 11:28 AM CDT PROTIME-INR Today 11/25/2023 10:41 AM CDT GLUCOSE METER Timed 11/25/2023 7:13 AM CDT POTASSIUM Early AM 11/25/2023 6:47 AM CDT PROTIME-INR Early AM 11/25/2023 6:47 AM CDT GLUCOSE METER Timed 11/24/2023 8:56 PM CDT GLUCOSE METER Timed 11/24/2023 5:40 PM CDT GLUCOSE METER Timed 11/24/2023 11:31 AM CDT GLUCOSE METER Timed 11/24/2023 8:34 AM CDT POTASSIUM Early AM 11/24/2023 7:05 AM CDT MAGNESIUM Early AM 11/24/2023 7:05 AM CDT PROTIME-INR Early AM 11/24/2023 7:05 AM CDT GLUCOSE METER Timed 11/23/2023 9:38 PM CDT GLUCOSE METER Timed 11/23/2023 5:07 PM CDT GLUCOSE METER Timed 11/23/2023 12:02 PM CDT GLUCOSE METER Timed 11/23/2023 7:37 AM CDT HEMOGLOBIN Early AM 11/23/2023 7:12 AM CDT PLATELET COUNT Early AM 11/23/2023 7:12 AM CDT MAGNESIUM Early AM 11/23/2023 6:32 AM CDT C-REACTIVE PROTEIN Today 11/23/2023 6:32 AM CDT POTASSIUM Early AM 11/23/2023 6:32 AM CDT PROTIME-INR Early AM 11/23/2023 6:32 AM CDT GLUCOSE METER Timed 11/22/2023 9:19 PM CDT GLUCOSE METER Timed 11/22/2023 5:03 PM CDT LEGIONELLA AND PNEUMOCOCCAL URINE ANTIGEN Today 11/22/2023 2:49 PM CDT GLUCOSE METER Timed 11/22/2023 12:24 PM CDT GLUCOSE METER Timed 11/22/2023 7:51 AM CDT SODIUM Early AM 11/22/2023 7:02 AM CDT CO2,TOTAL Early AM 11/22/2023 7:02 AM CDT BUN Early AM 11/22/2023 7:02 AM CDT MAGNESIUM Early AM 11/22/2023 7:02 AM CDT CREATININE Early AM 11/22/2023 7:02 AM CDT HEMOGLOBIN Early AM 11/22/2023 7:02 AM CDT PLATELET COUNT Early AM 11/22/2023 7:02 AM CDT WHITE BLOOD COUNT Early AM 11/22/2023 7:02 AM CDT POTASSIUM Early AM 11/22/2023 7:02 AM CDT PROTIME-INR Early AM 11/22/2023 7:02 AM CDT GLUCOSE METER Timed 11/21/2023 4:30 PM CDT GLUCOSE METER Timed 11/21/2023 12:17 PM CDT US VENOUS LOWER EXTREMITY BILATERAL Routine 11/21/2023 9:40 AM CDT GLUCOSE METER Timed 11/21/2023 7:49 AM CDT PROTIME-INR Early AM 11/21/2023 6:54 AM CDT PLATELET COUNT Early AM 11/21/2023 6:54 AM CDT HEMOGLOBIN Early AM 11/21/2023 6:54 AM CDT WHITE BLOOD COUNT Early AM 11/21/2023 6:54 AM CDT MAGNESIUM Early AM 11/21/2023 6:54 AM CDT CREATININE Early AM 11/21/2023 6:54 AM CDT POTASSIUM Early AM 11/21/2023 6:54 AM CDT SODIUM Early AM 11/21/2023 6:54 AM CDT BLOOD GAS,VENOUS STAT 11/20/2023 9:09 PM CDT BLOOD CULTURE STAT 11/20/2023 9:09 PM CDT BLOOD CULTURE MULTIPLEX PCR STAT 11/07 8:35 PM CDT BLOOD CULTURE STAT 11/20/2023 8:35 PM CDT LACTATE VENOUS STAT 11/20/2023 8:35 PM CDT COVID/FLU/RSV PANEL Today 11/20/2023 7:50 PM CDT XR CHEST 1 VIEW PORTABLE STAT 024 7:45 PM CDT EKG 12 LEAD STAT 11/20/2023 6:40 PM CDT PRO-BNP DWIGHT 11/20/2023 6:30 PM CDT CBC WITH AUTO DIFFERENTIAL STAT 11/19 6:30 PM CDT TROPONIN T (HS) ONE TIME STAT 024 6:30 PM CDT PROCALCITONIN STAT 11/20/2023 6:30 PM CDT PROTIME-INR STAT 11/20/2023 6:30 PM CDT LACTATE VENOUS STAT 11/20/2023 6:30 PM CDT BASIC METABOLIC PANEL STAT 11/20/2023 6:30 PM CDT CBC WITH AUTO DIFFERENTIAL STAT 11/19 6:30 PM CDT SCAN-CARDIAC STRIP 11/20/2023 12:00 AM CDT SCAN-CARDIAC STRIP 11/20/2023 12:00 AM CDT GLUCOSE METER Timed 10/09/2023 11:40 AM CDT MAGNESIUM Timed 10/09/2023 8:38 AM CDT CREATININE Early AM 10/09/2023 8:38 AM CDT POTASSIUM Early AM 10/09/2023 8:38 AM CDT SODIUM Early AM 10/09/2023 8:38 AM CDT PROTIME-INR Timed 10/09/2023 8:38 AM CDT GLUCOSE METER Timed 10/09/2023 7:15 AM CDT GLUCOSE METER Timed 10/08/2023 8:43 PM CDT GLUCOSE METER Timed 10/08/2023 4:31 PM CDT GLUCOSE METER Timed 10/08/2023 1:04 PM CDT GLUCOSE METER Timed 10/08/2023 8:09 AM CDT PLATELET COUNT DWIGHT 10/08/2023 5:32 AM CDT MAGNESIUM DWIGHT 10/08/2023 5:32 AM CDT HEMOGLOBIN Early AM 10/08/2023 5:32 AM CDT LACTATE VENOUS Early AM 10/08/2023 5:32 AM CDT CREATININE Early AM 10/08/2023 5:32 AM CDT SODIUM Early AM 10/08/2023 5:32 AM CDT PROTIME-INR Timed 10/08/2023 5:32 AM CDT POTASSIUM Early AM 10/08/2023 5:32 AM CDT GLUCOSE METER Timed 10/07/2023 9:14 PM CDT GLUCOSE METER Timed 10/07/2023 4:47 PM CDT LACTATE VENOUS Timed 10/07/2023 1:45 PM CDT GLUCOSE METER Timed 10/07/2023 12:54 PM CDT LACTATE VENOUS Today 10/07/2023 11:16 AM CDT GLUCOSE METER Timed 10/07/2023 8:24 AM CDT BLOOD CULTURE Today 10/07/2023 8:01 AM CDT BLOOD CULTURE Today 10/07/2023 7:39 AM CDT PROTIME-INR DWIGHT 10/07/2023 7:38 AM CDT C-REACTIVE PROTEIN DWIGHT 10/07/2023 6:30 AM CDT PROCALCITONIN Early AM 10/07/2023 6:30 AM CDT CREATININE Timed 10/07/2023 6:30 AM CDT POTASSIUM Early AM 10/07/2023 6:30 AM CDT SODIUM Early AM 10/07/2023 6:30 AM CDT PLATELET COUNT Early AM 10/07/2023 6:29 AM CDT HEMOGLOBIN Early AM 10/07/2023 6:29 AM CDT WHITE BLOOD COUNT Early AM 10/07/2023 6:29 AM CDT GLUCOSE METER Timed 10/06/2023 9:21 PM CDT MRSA/SA PCR Today 10/06/2023 7:56 PM CDT GLUCOSE METER Timed 10/06/2023 6:30 PM CDT MAGNESIUM DWIGHT 10/06/2023 1:11 PM CDT LACTATE VENOUS STAT 10/06/2023 1:11 PM CDT TROPONIN T (HS) ONE TIME Timed 024 1:11 PM CDT URINALYSIS MICROSCOPIC STAT 12:15 PM CDT URINE CULTURE STAT 10/06/2023 12:15 PM CDT UA W/ SEDIMENT EXAM REFLEXED PER CRITERIA STAT 10/06/2023 12:15 PM CDT XR CHEST 1 VIEW PORTABLE STAT 024 11:22 AM CDT HEMOGLOBIN A1C DWIGHT 10/06/2023 10:57 AM CDT EXTRA TUBE LIGHT GREEN Today 10:57 AM CDT EXTRA TUBE LAVENDER Today 10/06/2023 10:57 AM CDT PROTIME-INR STAT 10/06/2023 10:56 AM CDT BLOOD CULTURE STAT 10/06/2023 10:56 AM CDT COVID/FLU/RSV PANEL Today 10/06/2023 10:47 AM CDT EKG 12 LEAD STAT 10/06/2023 10:45 AM CDT CBC WITH AUTO DIFFERENTIAL STAT 10/05 10:45 AM CDT TROPONIN T (HS) ACUTE W/2HR REFLEX STAT 10/06/2023 10:45 AM CDT COMP METABOLIC PANEL STAT 10/06/2023 10:45 AM CDT BLOOD CULTURE STAT 10/06/2023 10:45 AM CDT CBC WITH AUTO DIFFERENTIAL STAT 10/05 10:45 AM CDT LACTATE VENOUS STAT 10/06/2023 10:45 AM CDT SCAN-CARDIAC STRIP 10/06/2023 12:00 AM CDT SCAN-CARDIAC STRIP 10/06/2023 12:00 AM CDT SCAN-CARDIAC STRIP 10/06/2023 12:00 AM CDT from Last 3 Months Results * (ABNORMAL) GLUCOSE METER (12/22/2023 3:20 PM CDT) Only the most recent of74 resultswithin the time period is included. GLUCOSE METER 277(H) 65 - 100 mg/dL 12/22/2023 3:26 PM CDT [facility] Blood BLOOD SPECIMEN / Unknown 12/22/2023 3:20 PM CDT 12/22/2023 3:26 PM CDT Mayra Coleman MD CHEMISTRY Performing Organization Address [facility] de Phone Number [address] [address] * (ABNORMAL) PROTIME-INR (12/22/2023 6:24 AM CDT) Only the most recent of23 resultswithin the time period is included. INR 1.4(H) <1.3 12/22/2023 7:21 AM CDT [facility] PROTIME 15.8(H) 10.3 - 12.3 sec 12/22/2023 7:21 AM CDT [facility] Blood BLOOD SPECIMEN / Unknown Venipuncture / Unknown 12/22/2023 6:24 AM CDT 12/22/2023 7:09 AM CDT Narrative [facility] - 12/22/2023 7:21 AM CDT ?Therapeutic Range 2.0-3.0 for most anticoagulated patients 2.5-3.5 or 4.0 for high risk patients The INR is only used for patients on stable oral anticoagulant therapy. It makes no significant contribution to the diagnosis or treatment of patients whose Protime is prolonged for other reasons. INR results are increased when heparin levels exceed 1.0 U/mL, which corresponds to an aPTT >125 seconds if the patient is on UFH. Mayra Coleman MD HEMATOLOGY Performing Organization Address [facility] de Phone Number [address] [address] * (ABNORMAL) HEPATIC FUNCTION PANEL (12/22/2023 6:24 AM CDT) Only the most recent of9 resultswithin the time period is included. ALBUMIN 4.0 4.0 - 4.9 g/dL 12/22/2023 7:47 AM CDT [facility] PROTEIN,TOTAL 7.6 6.0 - 8.0 g/dL 12/22/2023 7:47 AM CDT [facility] BILIRUBIN,TOTAL 1.5(H) 0.0 - 1.2 mg/dL 12/22/2023 7:47 AM CDT [facility] BILIRUBIN,DIRECT 0.7(H) 0.0 - 0.2 mg/dL 12/22/2023 7:47 AM CDT [facility] BILIRUBIN,INDIRE CT 0.8 0.2 - 0.8 mg/dL 12/22/2023 7:47 AM CDT [facility] ALK PHOSPHATASE 74 35 - 104 IU/L 12/22/2023 7:47 AM CDT [facility] ALT (SGPT) 24 10 - 35 IU/L 12/22/2023 7:47 AM CDT [facility] AST (SGOT) 43(H) 10 - 35 IU/L 12/22/2023 7:47 AM CDT [facility] Blood BLOOD SPECIMEN / Unknown Venipuncture / Unknown 12/22/2023 6:24 AM CDT 12/22/2023 7:09 AM CDT Mayra Coleman MD CHEMISTRY [id number] [place] [address] * (ABNORMAL) BASIC METABOLIC PANEL (12/22/2023 6:24 AM CDT) Only the most recent of6 resultswithin the time period is included. SODIUM 133(L) 136 - 145 mmol/L 12/22/2023 7:47 AM CDT [facility] POTASSIUM 4.7 3.5 - 5.1 mmol/L 12/22/2023 7:47 AM CDT [facility] CHLORIDE 99 98 - 107 mmol/L 12/22/2023 7:47 AM CDT [facility] CO2,TOTAL 19(L) 22 - 29 mmol/L 12/22/2023 7:47 AM CDT [facility] ANION GAP 15 5 - 18 12/22/2023 7:47 AM CDT [facility] GLUCOSE 239(H) 70 - 99 mg/dL 12/22/2023 7:47 AM CDT [facility] CALCIUM 10.8(H) 8.8 - 10.2 mg/dL 12/22/2023 7:47 AM CDT [facility] BUN 40(H) 8 - 23 mg/dL 12/22/2023 7:47 AM CDT [facility] CREATININE 1.28(H) 0.50 - 0.90 mg/dL 12/22/2023 7:47 AM CDT [facility] BUN/CREAT RATIO 31(H) 10 - 20 7:47 AM CDT [facility] eGFR 45(L) >90 mL/min/1.7 3m2 12/22/2023 7:47 AM CDT [facility] Comment:As of 2021, eG FR is calculated by the CKD-EPI creatinine equation without race adjustment. ??eGFR can be influenced by muscle mass, exercise, and diet. ??The reported eGFR is an estimation only and is only applicable if the renal function is stable. Blood BLOOD SPECIMEN / Unknown Venipuncture / Unknown 12/22/2023 6:24 AM CDT 12/22/2023 7:09 AM CDT Mayra Coleman MD CHEMISTRY [id number] [place] [address] * AMMONIA (12/21/2023 6:55 AM CDT) Only the most recent of4 resultswithin the time period is included. AMMONIA 54 16 - 60 umol/L 12/21/2023 7:30 AM CDT [facility] Blood BLOOD SPECIMEN / Unknown Butterfly / Unknown 12/21/2023 6:55 AM CDT 12/21/2023 7:03 AM CDT Narrative [facility] - 12/21/2023 7:30 AM CDT 1. ??Sulfasalazine and its metabolite Sulfapyridine at therapeutic concentrations may lead to falsely low results. 2. ??Temozolomide and its metabolite MTIC may lead to falsely elevated results, and its metabolite AIC may lead to falsely low results. Mayra Coleman MD CHEMISTRY [address] [address] * US ABDOMEN LIMITED RUQ (12/20/2023 11:55 AM CDT) Anatomical Region Laterality Modality Abdomen, LIVER Ultrasound 12/20/2023 12:1 0 PM CDT Impressions 12/20/2023 12:10 PM CDT 1. Cholelithiasis with no imaging evidence of acute cholecystitis or abnormal biliary dilatation. Dictated by Gabriel Hassan MD @ Dec 20 2023 12:10PM (Electronically Signed) [email or web address] Narrative 12/20/2023 12:10 PM CDT For Patients: ??As a result of the Century Cures Act, medical imaging exams and procedure reports are released immediately into your electronic medical record. ??You may view this report before your referring provider. ??If you have questions, please contact your health care provider. INDICATION: Abnormal liver function studies. Inpatient. TECHNIQUE: Ultrasound abdomen limited. ?? Sonographic images of the right upper quadrant were obtained using oneal-scale and color Doppler images. COMPARISON: Recent ultrasound study dated 12/06/2023. FINDINGS: Liver: Normal in size and echotexture. ??No masses. ??No intrahepatic biliary dilatation. ?? Gallbladder: Negative sonographic Franco`s sign. Shadowing gallstones with largest gallstone measuring 9 mm. Gallbladder wall thickness normal, measuring 2 mm. No pericholecystic fluid. Common bile duct: 3 mm. ?? Pancreas: Unremarkable. ?? Right kidney: Length 12.1 cm. ??Normal echotexture and cortex. ??No masses, stones, or hydronephrosis. ?? Vasculature: Main portal vein patent with normal flow toward the liver. Procedure Note Gabriel Hassan MD - 12/20/2023 For Patients: As a result of the Century Cures Act, medical imagingexams and procedure reports are released immediately into your electronicmedical record. You may view this report before your referring provider.If you have questions, please contact your health care provider. INDICATION: Abnormal liver function studies. Inpatient. TECHNIQUE: Ultrasound abdomen limited. Sonographic images of the right upper quadrant were obtained usinggray-scale and color Doppler images. COMPARISON: Recent ultrasound study dated 12/06/2023. FINDINGS: Liver: Normal in size and echotexture. No masses. No intrahepaticbiliary dilatation. Gallbladder: Negative sonographic Franco`s sign. Shadowing gallstones withlargest gallstone measuring 9 mm. Gallbladder wall thickness normal,measuring 2 mm. No pericholecystic fluid. Common bile duct: 3 mm. Pancreas: Unremarkable. Right kidney: Length 12.1 cm. Normal echotexture and cortex. No masses,stones, or hydronephrosis. Vasculature: Main portal vein patent with normal flow toward the liver. IMPRESSION: 1. Cholelithiasis with no imaging evidence of acute cholecystitis orabnormal biliary dilatation. Dictated by Gabriel Hassan MD @ Dec 20 2023 12:10PM (Electronically Signed) [email or web address] Mayra Coleman MD US * LACTATE VENOUS (12/19/2023 6:35 PM CDT) Only the most recent of12 resultswithin the time period is included. LACTATE,VENOUS 2.0 0.5 - 2.0 mmol/L 12/19/2023 7:18 PM CDT [facility] Blood BLOOD SPECIMEN / Unknown Non-Lab Venipuncture / Unknown 12/19/2023 6:35 PM CDT 12/19/2023 6:38 PM CDT Lety Galvin MD CHEMISTRY [facility] [address] [place] [address] * (ABNORMAL) URINALYSIS MICROSCOPIC (12/19/2023 6:30 PM CDT) Only the most recent of3 resultswithin the time period is included. RBC 26-50(A) 0-2, None Seen /HPF 12/19/2023 7:33 PM CDT [facility] WBC 26-50(A) 0-2, 3-5, None Seen /HPF 12/19/2023 7:33 PM CDT [facility] BACTERIA Moderate(A ) None Seen, Rare, Few Bacteria/H PF 12/19/2023 7:33 PM CDT [facility] EPITHELIAL CELLS Many(A) None Seen, Few Epi/HPF 12/19/2023 7:33 PM CDT [facility] Urine URINE SPECIMEN / Unknown Non-Blood / Unknown 12/19/2023 6:30 PM CDT 12/19/2023 6:33 PM CDT Lety Galvin MD URINE [address] [place] [address] * (ABNORMAL) URINE CULTURE (12/19/2023 6:30 PM CDT) Only the most recent of2 resultswithin the time period is included. CULTURE RESULT(A) 12/24/2023 10:19 AM CDT [facility] [employer] [facility]TRAL LABORATORY CULTURE 10,000-50,000 CFU/mL Klebsiella aerogenes (formerly Enterobacter aerogenes) 12/24/2023 10:19 AM CDT [facility] Comment: May develop resistance during prolonged therapy with 3rd-generation cephalosporins as a result of derepression of AmpC beta-lactamase. ??Therefore, isolates that are initially susceptible may become resistant within 3 to 4 days after initiation of therapy. ??Testing repeat isolates may be warranted. Oral cephalosporins are also not recommended. CULTURE 10,000-50,000 CFU/mL Enterococcus faecium 12/24/2023 10:19 AM CDT [facility] Comment: Levofloxacin susceptibilities for Enterococcus available upon request for urine isolates ONLY. Levofloxacin is not routinely recommended for Enterococcus and can ONLY be used for infections isolated in the urinary tract. ??In the setting of polymicrobial urine cultures, Enterococcus often represents colonization and may not necessitate treatment. Isolate is VRE (Vancomycin-resistant Enterococcus). CULTURE <10,000 CFU/mL Multiple organisms probable contaminants 12/24/2023 10:19 AM CDT [facility] ENTRAL LABORATORY Urine URINE SPECIMEN / Unknown Non-Blood / Unknown 12/19/2023 6:30 PM CDT 12/19/2023 6:33 PM CDT Narrative Organism Antibiotic Method Susceptibility Klebsiella aerogenes (former ly Enterobacter aerogenes) TRIMETHOPRIM/SULF <=/: S Klebsiella aerogenes (former ly Enterobacter aerogenes) CEFAZOLIN >=32: R Klebsiella aerogenes (former ly Enterobacter aerogenes) GENTAMICIN <=1: S Klebsiella aerogenes (former ly Enterobacter aerogenes) CEFTRIAXONE >=64: R Comment:see organism -specific comment above Klebsiella aerogenes (former ly Enterobacter aerogenes) CEFTAZIDIME >=32: R Comment:see organism -specific comment above Klebsiella aerogenes (former ly Enterobacter aerogenes) LEVOFLOXACIN >=8: R Klebsiella aerogenes (former ly Enterobacter aerogenes) CIPROFLOXACIN >=4: R Klebsiella aerogenes (former ly Enterobacter aerogenes) PIPERACILLIN/TAZO 32: R Klebsiella aerogenes (former ly Enterobacter aerogenes) CEFEPIME >=32: R Klebsiella aerogenes (former ly Enterobacter aerogenes) MEROPENEM <=0.25: S Klebsiella aerogenes (former ly Enterobacter aerogenes) NITROFURANTOIN 128: R Enterococcus faecium VANCOMYCIN >=32: R Enterococcus faecium AMPICILLIN >=32: R Enterococcus faecium NITROFURANTOIN 64: I Lety Galvin MD MICROBIOLOGY [facility] [address] [place] [address], * (ABNORMAL) URINALYSIS W REFLEX MICROSCOPIC IF POSITIVE (12/19/2023 6:30 PM CDT) Only the most recent of3 resultswithin the time period is included. COLOR Yellow Yellow Color 12/19/2023 6:46 PM CDT [facility] CLARITY Slightly Cloudy(A) Clear Clarity 12/19/2023 6:46 PM CDT [facility] SPECIFIC GRAVITY,URINE <=1.005(A) 1.010, 1.015, 1.020, 1.025 12/19/2023 6:46 PM CDT [facility] PH,URINE 7.5 6.0, 7.0, 8.0, 5.5, 6.5, 7.5, 8.5 12/19/2023 6:46 PM CDT [facility] UROBILINOGEN, QUALITATIVE Normal Normal EU/dl 12/19/2023 6:46 PM CDT [facility] PROTEIN, URINE Negative Negative mg/dL 12/19/2023 6:46 PM CDT [facility] GLUCOSE, URINE 100(A) Negative mg/dL 12/19/2023 6:46 PM CDT [facility] KETONES,URINE Negative Negative mg/dL 12/19/2023 6:46 PM CDT [facility] BILIRUBIN,URI NE Negative Negative 12/19/2023 6:46 PM CDT [facility] OCCULT BLOOD,URINE Large(A) Negative 12/19/2023 6:46 PM CDT [facility] NITRITE Negative Negative 12/19/2023 6:46 PM CDT [facility] LEUKOCYTE ESTERASE Moderate(A) Negative 12/19/2023 6:46 PM CDT [facility] Urine URINE SPECIMEN / Unknown Non-Blood / Unknown 12/19/2023 6:30 PM CDT 12/19/2023 6:33 PM CDT Lety Galvin MD URINE [facility] [address] [place] [address] * CT ANGIO HEAD AND NECK CAROTID (12/19/2023 6:24 PM CDT) Anatomical Region Laterality Modality BRAIN, NECK Computed Tomogra phy 12/19/2023 7:10 PM CDT Addenda Addendum by Yolette Kumar MD on 12/19/2023 9:46 PM CDT For Patients: ??As a result of the Cures Act, medical imaging exams and procedure reports are released immediately into your electronic medical record. ??You may view this report before your referring provider. ?? If you have questions, please contact your health care provider. DATE: 12/19/2023 CLINICAL HISTORY: Patient with altered mental status. TECHNIQUE: Standard helical CT image acquisition through the intracranial circulation following intravenous administration of contrast material with bolus tracking. 2D and 3D MIP images for post-processing were performed and interpreted on an independent workstation and 3D images were permanently archived. COMPARISON: CT same day. FINDINGS: There is no cerebral aneurysm or large vessel occlusion. The right internal carotid artery is normal. The right middle cerebral artery and its branches are normal. The right anterior cerebral artery and its branches are normal. The left internal carotid artery is normal. The left middle cerebral artery and its branches are normal. The left anterior cerebral artery and its branches are normal. The anterior communicating artery is well visualized and appears normal. The right vertebral artery and PICA are normal. The left vertebral artery and PICA are normal. The vertebral arteries are codominant. The basilar artery is patent and appears normal. The right posterior cerebral artery is normal. The left posterior cerebral artery is normal. IMPRESSION: Patent proximal intracranial vasculature without intracranial aneurysms. Please note that all CT scans at this facility use dose modulation, iterative reconstruction, and/or weight-based dosing when appropriate to reduce radiation dose to as low as reasonably achievable. Dictated by Yolette Kumar MD @ 12/19/2023 9:46:12 PM (Electronically Signed) Impressions 12/19/2023 9:44 PM CDT Patent cervical vasculature. Please note that all CT scans at this facility use dose modulation, iterative reconstruction, and/or weight-based dosing when appropriate to reduce radiation dose to as low as reasonably achievable. Dictated by Yolette Kumar MD @ 12/19/2023 9:44:19 PM (Electronically Signed) Narrative 12/19/2023 9:44 PM CDT For Patients: ??As a result of the Cures Act, medical imaging exams and procedure reports are released immediately into your electronic medical record. ??You may view this report before your referring provider. ??If you have questions, please contact your health care provider. DATE: 12/19/2023 CLINICAL HISTORY: Patient with altered mental status. TECHNIQUE: Standard helical CT image acquisition of the neck up to the skull base after bolus intravenous contrast enhancement. 2D and 3D MIP images for post-processing were performed and interpreted on an independent workstation and 3D images were permanently archived. COMPARISON: CT same day. FINDINGS: The origins of the great vessels from the aortic arch are patent. The origin of the right vertebral artery is patent. The origin of the left vertebral artery is patent. The common carotid arteries are patent. There is plaque without stenosis at the origin of the right internal carotid artery. There is plaque without stenosis at the origin of the left internal carotid artery. The rest of the cervical segments of the internal carotid arteries are patent up to the skull base, following a retropharyngeal course. The vertebral arteries are codominant. The cervical segments of the vertebral arteries are patent up to the skull base. The visualized lung apices are unremarkable. The thyroid gland is unremarkable. The soft tissues of the neck are unremarkable. There are degenerative changes in the cervical spine. Procedure Note Yolette Kumar MD - 12/19/2023 For Patients: As a result of the Century Cures Act, medical imagingexams and procedure reports are released immediately into your electronicmedical record. You may view this report before your referring provider.If you have questions, please contact your health care provider. DATE: 12/19/2023 CLINICAL HISTORY: Patient with altered mental status. TECHNIQUE: Standard helical CT image acquisition of the neck up to the skull baseafter bolus intravenous contrast enhancement. 2D and 3D MIP images forpost-processing were performed and interpreted on an independentworkstation and 3D images were permanently archived. COMPARISON: CT same day. FINDINGS: The origins of the great vessels from the aortic arch are patent. Theorigin of the right vertebral artery is patent. The origin of the leftvertebral artery is patent. The common carotid arteries are patent. There is plaque without stenosis at the origin of the right internalcarotid artery. There is plaque without stenosis at the origin of the left internalcarotid artery. The rest of the cervical segments of the internal carotid arteries arepatent up to the skull base, following a retropharyngeal course. The vertebral arteries are codominant. The cervical segments of thevertebral arteries are patent up to the skull base. The visualized lung apices are unremarkable. The thyroid gland is unremarkable. The soft tissues of the neck are unremarkable. There are degenerative changes in the cervical spine. IMPRESSION: Patent cervical vasculature. Please note that all CT scans at this facility use dose modulation,iterative reconstruction, and/or weight-based dosing when appropriate toreduce radiation dose to as low as reasonably achievable. Dictated by Yolette Kumar MD @ 12/19/2023 9:44:19 PM (Electronically Signed) Lety Galvin MD CT * BLOOD CULTURE X2 (12/19/2023 4:43 PM CDT) Only the most recent of10 resultswithin the time period is included. [facility] CULTURE No Growth. 12/24/2023 5:27 PM CDT [facility] Blood BLOOD SPECIMEN / Unknown Non-Lab Butterfly / Unknown 12/19/2023 4:43 PM CDT 12/19/2023 4:47 PM CDT Narrative [facility] - 12/24/2023 5:27 PM CDT Low volume blood culture received; possible false negative culture. Lety Galvin MD MICROBIOLOGY [address] [address] * (ABNORMAL) CBC WITH AUTO DIFFERENTIAL (12/19/2023 4:18 PM CDT) Only the most recent of4 resultswithin the time period is included. WHITE BLOOD COUNT 4.7 4.5 - 11.0 thou/cu mm 12/19/2023 4:33 PM CDT [facility] RED BLOOD COUNT 4.82 4.00 - 5.20 mil/cu mm 12/19/2023 4:33 PM CDT [facility] HEMOGLOBIN 14.8 12.0 - 16.0 g/dL 12/19/2023 4:33 PM CDT [facility] HEMATOCRIT 42.7 33.0 - 51.0 % 12/19/2023 4:33 PM CDT [facility] MCV 89 80 - 100 fL 12/19/2023 4:33 PM CDT [facility] MCH 30.7 26.0 - 34.0 pg 12/19/2023 4:33 PM CDT [facility] MCHC 34.7 32.0 - 36.0 g/dL 12/19/2023 4:33 PM CDT [facility] RDW 15.1 11.5 - 15.5 % 12/19/2023 4:33 PM CDT [facility] PLATELET COUNT 174 140 - 440 thou/cu mm 12/19/2023 4:33 PM CDT [facility] MPV 11.7(H) 6.5 - 11.0 fL 12/19/2023 4:33 PM CDT [facility] NRBC 0.0 % 12/19/2023 4:33 PM CDT [facility] ABS NRBC 0.0 thou /cu mm 12/19/2023 4:33 PM CDT [facility] % NEUT 68.2 % 12/19/2023 4:33 PM CDT [facility] % LYMPH 18.0 % 12/19/2023 4:33 PM CDT [facility] % MONO 8.9 % 12/19/2023 4:33 PM CDT [facility] % EOS 3.0 % 12/19/2023 4:33 PM CDT [facility] % BASO 0.8 % 12/19/2023 4:33 PM CDT [facility] % IMMATURE GRAN (METAS,MYELOS,NC OS) 1.1 % 12/19/2023 4:33 PM CDT [facility] ABSOLUTE NEUTROPHILS 3.2 1.7 - 7.0 thou/cu mm 12/19/2023 4:33 PM CDT [facility] ABSOLUTE LYMPHOCYTES 0.9 0.9 - 2.9 thou/cu mm 12/19/2023 4:33 PM CDT [facility] ABSOLUTE MONOCYTES 0.4 <0.9 thou/cu mm 12/19/2023 4:33 PM CDT [facility] ABSOLUTE EOSINOPHILS 0.1 <0.5 thou/cu mm 12/19/2023 4:33 PM CDT [facility] ABSOLUTE BASOPHILS 0.0 <0.3 thou/cu mm 12/19/2023 4:33 PM CDT [facility] ABSOLUTE IMMATURE GRANULOCYTES(MET ,MYELOS,PROS) 0.1 <0.3 thou/cu mm 12/19/2023 4:33 PM CDT [facility] Blood BLOOD SPECIMEN / Unknown IV Start / Unknown 12/19/2023 4:18 PM CDT 12/19/2023 4:27 PM CDT Lety Galvin MD HEMATOLOGY [facility] [address] [place] [address] * PROCALCITONIN (12/19/2023 4:18 PM CDT) Only the most recent of3 resultswithin the time period is included. PROCALCITONIN 0.07 ng/ml 12/19/2023 5:00 PM CDT [facility] Blood BLOOD SPECIMEN / Unknown IV Start / Unknown 12/19/2023 4:18 PM CDT 12/19/2023 4:27 PM CDT Narrative [facility] - 12/19/2023 5:00 PM CDT Procalcitonin for initial assessment of Lower Respiratory Tract Infection: Results Interpretation <0.10 ng/mL Antibiotic therapy strongly discoraged. ??Indicates absent of bacterial infection. * 0.10 - 0.25 ng/mL Antibiotic therapy discouraged. ??Bacterial infection unlikely. * 0.26 - 0.50 ng/mL Antibiotic therapy encouraged. ??Bacterial infection possible. >0.50 ng/mL Antibiotic therapy strongly encouraged. ??Suggestive of presence of bacterial infection. *Antibiotic therapy should be considered regardless of PCT result if the patient is clinically unstable, is at high risk for adverse outcome, has strong evidence of bacterial pathogen, or the clinical context indicates antibiotic therapy is warranted. ??If antibiotics are withheld, reassess if symptoms persist/worsen and/or repeat PCT measurement within 6-24 hours. ? In order to assess treatment success and to support a decision to discontinue antibiotic therapy, follow up samples should be tested once every 1-2 days, based upon physician discretion taking into account patient's evolution and progress. Procalcitonin for initial assessment of severe sepsis risk: Results Interpretation <0.5 ng/ml A PCT level below 0.5 ng/ml on the first day of ICU admission is associated with a low risk for progression to severe sepsis and/or septic shock. > 2.0 ng/mL A PCT level above 2.0 ng/mL on the first day of ICU admission is associated with a high risk for progression to severe sepsis and/or septic shock. Note: Concentrations < 0.5 ng/mL do not exclude an infection, on account of localized infections (without systemic signs) which can be associated with such low concentrations, or a systemic infection in its initial stages(< 6 hours). Furthermore, increased procalcitonin can occur without infection. PCT concentrations between 0.5 and 2.0 ng/mL should be interpreted taking into account the patient's history. It is recommended to retest PCT within 6-24 hours if any concentrations < 2 ng/mL are obtained. Lety Galvin MD SEND OUTS [place] [id number] * (ABNORMAL) BLOOD GAS,VENOUS (12/19/2023 4:18 PM CDT) Only the most recent of2 resultswithin the time period is included. PH, VENOUS 7.48(H) 7.32 - 7.43 12/19/2023 4:43 PM CDT [facility] PCO2, VENOUS 36(L) 41 - 51 mmHg 12/19/2023 4:43 PM CDT [facility] PO2, VENOUS 96(H) 35 - 40 mmHg 12/19/2023 4:43 PM CDT [facility] HCO3,VENOUS 27 22 - 29 mmol/L 12/19/2023 4:43 PM CDT [facility] BASE EXCESS, VENOUS, POCT 3.4(H) -2.0 - 3.0 12/19/2023 4:43 PM CDT [facility] O2 SATURATION, VENOUS 99(H) 70 - 75 % 12/19/2023 4:43 PM CDT [facility] PATIENT TEMPERATURE 37.0 Degrees C 12/19/2023 4:43 PM CDT [facility] Blood VENOUS BLOOD SPECIMEN / Unknown IV Start / Unknown 12/19/2023 4:18 PM CDT 12/19/2023 4:27 PM CDT Lety Galvin MD CHEMISTRY [facility] [address] [place] [address] * (ABNORMAL) PRO-BNP (12/19/2023 4:18 PM CDT) Only the most recent of3 resultswithin the time period is included. PRO-BNP 294(H) <125 pg/mL 12/19/2023 5:25 PM CDT [facility] Blood BLOOD SPECIMEN / Unknown IV Start / Unknown 12/19/2023 4:18 PM CDT 12/19/2023 4:27 PM CDT Narrative [facility] - 12/19/2023 5:25 PM CDT The following cut-points have been suggested for the use of proBNP for the diagnostic evaluation of heart failure (HF) in patient with acute dyspnea. Patients with eGFR >= 60 Diagnosis (rule in CHF) ? <50 Years Old ?450 pg/mL 50 - 75 Years Old ?900 pg/mL >75 Years Old ? 1800 pg/mL Exclusion (rule out CHF) Age Independent ?300 pg/mL A cutoff of 1200 pg/mL for patients with an eGFR <60 yields a diagnostic sensitivity of 89% and specificity of 72% for acute congestive heart failure. ? Lety Galvin MD SEND OUTS Performing Organization Address [facility] de Phone Number [address] [address] * (ABNORMAL) MAGNESIUM (12/19/2023 4:18 PM CDT) Only the most recent of11 resultswithin the time period is included. MAGNESIUM 1.2(L) 1.6 - 2.4 mg/dL 12/19/2023 4:53 PM CDT [facility] Blood BLOOD SPECIMEN / Unknown IV Start / Unknown 12/19/2023 4:18 PM CDT 12/19/2023 4:27 PM CDT Lety Galvin MD CHEMISTRY Performing Organization Address [facility] de Phone Number [address] [address] * (ABNORMAL) ACETAMINOPHEN (12/19/2023 4:18 PM CDT) ACETAMINOPHEN <5.0(L) 10.0 - 30.0 ug/mL 12/19/2023 4:53 PM CDT [facility] Blood BLOOD SPECIMEN / Unknown IV Start / Unknown 12/19/2023 4:18 PM CDT 12/19/2023 4:27 PM CDT Lety Galvin MD CHEMISTRY Performing Organization Address [facility] de Phone Number [facility] [address] [place] [phone] * (ABNORMAL) SALICYLATE (12/19/2023 4:18 PM CDT) SALICYLATE <0.5(L) 15.0 - 30.0 mg/dL 12/19/2023 4:53 PM CDT [facility] Blood BLOOD SPECIMEN / Unknown IV Start / Unknown 12/19/2023 4:18 PM CDT 12/19/2023 4:27 PM CDT Lety Galvin MD CHEMISTRY [facility] [address] [place] [address] * (ABNORMAL) COMP METABOLIC PANEL (12/19/2023 4:18 PM CDT) Only the most recent of2 resultswithin the time period is included. Pathologist [facility] SODIUM 137 136 - 145 mmol/L 12/19/2023 4:53 PM CDT [facility] POTASSIUM 4.4 3.5 - 5.1 mmol/L 12/19/2023 4:53 PM CDT [facility] CHLORIDE 97(L) 98 - 107 mmol/L 12/19/2023 4:53 PM CDT [facility] CO2,TOTAL 23 22 - 29 mmol/L 12/19/2023 4:53 PM CDT [facility] ANION GAP 17 5 - 18 12/19/2023 4:53 PM CDT [facility] GLUCOSE 327(H) 70 - 99 mg/dL 12/19/2023 4:53 PM CDT [facility] CALCIUM 11.0(H) 8.8 - 10.2 mg/dL 12/19/2023 4:53 PM CDT [facility] BUN 45(H) 8 - 23 mg/dL 12/19/2023 4:53 PM CDT [facility] CREATININE 1.46(H) 0.50 - 0.90 mg/dL 12/19/2023 4:53 PM CDT [facility] BUN/CREAT RATIO 31(H) 10 - 20 4:53 PM CDT [facility] eGFR 38(L) >90 mL/min/1.7 3m2 12/19/2023 4:53 PM CDT [facility] Comment:As of 2021, eG FR is calculated by the CKD-EPI creatinine equation without race adjustment. ??eGFR can be influenced by muscle mass, exercise, and diet. ??The reported eGFR is an estimation only and is only applicable if the renal function is stable. ALBUMIN 4.7 4.0 - 4.9 g/dL 12/19/2023 4:53 PM CDT [facility] PROTEIN,TOTAL 8.7(H) 6.0 - 8.0 g/dL 12/19/2023 4:53 PM CDT [facility] BILIRUBIN,TOTAL 1.8(H) 0.0 - 1.2 mg/dL 12/19/2023 4:53 PM CDT [facility] ALK PHOSPHATASE 80 35 - 104 IU/L 12/19/2023 4:53 PM CDT [facility] ALT (SGPT) 14 10 - 35 IU/L 12/19/2023 4:53 PM CDT [facility] AST (SGOT) 34 10 - 35 IU/L 12/19/2023 4:53 PM CDT [facility] Blood BLOOD SPECIMEN / Unknown IV Start / Unknown 12/19/2023 4:18 PM CDT 12/19/2023 4:27 PM CDT Lety Galvin MD CHEMISTRY [facility] [address] [place] [id number] * EKG 12 Lead (12/19/2023 4:10 PM CDT) Only the most recent of4 resultswithin the time period is included. Interpretation Atrial fibrillation Low voltage QRS Abnormal ECG BEYOND NOW Ventricular Rate 71 BPM BEYOND NOW Atrial Rate 312 BPM BEYOND NOW P-R Interval ms BEYOND NOW QRS Duration 86 ms BEYOND NOW QT 414 ms BEYOND NOW QTc 449 ms BEYOND NOW P [place] degrees BEYOND NOW R [place] 52 degrees BEYOND NOW T [place] 25 degrees BEYOND NOW 12/19/2023 4:10 PM CDT 12/20/2023 11:51 AM CDT Lety Galvin MD EKG ORD BEYOND NOW [place], [place] * XR CHEST 1 VIEW PA OR AP (12/19/2023 3:49 PM CDT) Anatomical Region Laterality Modality CHEST, THORAX, Lung, HEART Digit al Radiography 12/19/2023 4:22 PM CDT Narrative 12/19/2023 4:22 PM CDT For Patients: ??As a result of the Cures Act, medical imaging exams and procedure reports are released immediately into your electronic medical record. ??You may view this report before your referring provider. ??If you have questions, please contact your health care provider. Indication: Sepsis Comparison: Single-view chest December 06, 2023 Technique: Single AP view chest Findings: There are diffusely increased interstitial markings. Minimal basilar airspace opacity which may represent atelectasis, underlying infiltrates may be difficult to exclude. There is no pneumothorax. The cardiac silhouette is mildly prominent. The bony thorax is grossly intact. Impression: Diffusely increased interstitial markings likely representing pulmonary vascular congestion with basilar atelectasis. Dictated by Maxi Ventura MD @ 12/19/2023 4:22:20 PM (Electronically Signed) Procedure Note Maxi Ventura MD - 12/19/2023 For Patients: As a result of the Cures Act, medical imagingexams and procedure reports are released immediately into your electronicmedical record. You may view this report before your referring provider.If you have questions, please contact your health care provider. Indication: Sepsis Comparison: Single-view chest December 06, 2023 Technique: Single AP view chest Findings: There are diffusely increased interstitial markings. Minimal basilar airspace opacity which may represent atelectasis,underlying infiltrates may be difficult to exclude. There is nopneumothorax. The cardiac silhouette is mildly prominent. The bony thorax is grossly intact. Impression: Diffusely increased interstitial markings likely representing pulmonaryvascular congestion with basilar atelectasis. Dictated by Maxi Ventura MD @ 12/19/2023 4:22:20 PM (Electronically Signed) Lety Galvin MD GENERAL IMAGIN G * CT HEAD BRAIN WO (12/19/2023 3:46 PM CDT) Anatomical Region Laterality Modality HEAD, BRAIN Computed Tomogra phy 12/19/2023 4:05 PM CDT Impressions 12/19/2023 4:05 PM CDT ?IMPRESSION:1. ??No CT evidence of acute cortical infarct. No acute intracranial hemorrhage. No other acute intracranial findings. Please note that all CT scans at this facility use dose modulation, iterative reconstruction, and/or weight-based dosing when appropriate to reduce radiation dose to as low as reasonably achievable. Dictated by True Castro MD @ 12/19/2023 4:05:52 PM (Electronically Signed) Narrative 12/19/2023 4:05 PM CDT For Patients: ??As a result of the Cures Act, medical imaging exams and procedure reports are released immediately into your electronic medical record. ??You may view this report before your referring provider. ??If you have questions, please contact your health care provider. INDICATION: Altered mental status. TECHNIQUE: CT of the head without contrast. Coronal and sagittal reformats are included. COMPARISON: Head CT from 08/17/2023. FINDINGS: No CT evidence of acute cortical infarct. No loss of finn white matter differentiation. No hyperdense vessels to suggest intracranial thrombus. No acute intracranial hemorrhage. No mass effect or midline shift. No hydrocephalus or extra-axial collections. Patchy white matter hypoattenuation, typical for chronic microvascular ischemic change. No acute osseous abnormalities. Mastoid air cells and paranasal sinuses are clear. Normal soft tissues. Procedure Note True Castro MD - 12/19/2023 For Patients: As a result of the Cures Act, medical imagingexams and procedure reports are released immediately into your electronicmedical record. You may view this report before your referring provider.If you have questions, please contact your health care provider. INDICATION: Altered mental status. TECHNIQUE: CT of the head without contrast. Coronal and sagittal reformats areincluded. COMPARISON: Head CT from 08/17/2023. FINDINGS: No CT evidence of acute cortical infarct. No loss of finn white matterdifferentiation. No hyperdense vessels to suggest intracranial thrombus.No acute intracranial hemorrhage. No mass effect or midline shift. Nohydrocephalus or extra-axial collections. Patchy white matterhypoattenuation, typical for chronic microvascular ischemic change. No acute osseous abnormalities. Mastoid air cells and paranasal sinusesare clear. Normal soft tissues. IMPRESSION: IMPRESSION:1. No CT evidence of acute cortical infarct. No acuteintracranial hemorrhage. No other acute intracranial findings. Please note that all CT scans at this facility use dose modulation,iterative reconstruction, and/or weight-based dosing when appropriate toreduce radiation dose to as low as reasonably achievable. Dictated by True Castro MD @ 12/19/2023 4:05:52 PM (Electronically Signed) Lety Galvin MD CT * SCAN-CARDIAC STRIP (12/19/2023 12:00 AM CDT) Narrative 12/19/2023 12:00 AM CDT Ordered by an unspecified provider. Other Clinical Staff OTHER * SCAN-CARDIAC STRIP (12/19/2023 12:00 AM CDT) Narrative 12/19/2023 12:00 AM CDT Ordered by an unspecified provider. Other Clinical Staff OTHER * SCAN-CARDIAC STRIP (12/19/2023 12:00 AM CDT) Narrative 12/19/2023 12:00 AM CDT Ordered by an unspecified provider. Other Clinical Staff OTHER * SCAN-CARDIAC STRIP (12/19/2023 12:00 AM CDT) Narrative 12/19/2023 12:00 AM CDT Ordered by an unspecified provider. Other Clinical Staff OTHER * POTASSIUM (12/11/2023 11:42 AM CDT) Only the most recent of16 resultswithin the time period is included. [facility] Signature POTASSIUM 3.9 3.5 - 5.1 mmol/L 12/11/2023 12:02 PM CDT [facility] Blood BLOOD SPECIMEN / Unknown Line/Port / Unknown 12/11/2023 11:42 AM CDT 12/11/2023 11:50 AM CDT Neva Vick [facility] CHEMISTRY Performing Organization Address [facility] de Phone Number [address] [address] * WHITE BLOOD COUNT (12/11/2023 7:04 AM CDT) Only the most recent of8 resultswithin the time period is included. WHITE BLOOD COUNT 6.3 4.5 - 11.0 thou/cu mm 12/11/2023 7:13 AM CDT [facility] NRBC 0.0 % 12/11/2023 7:13 AM CDT [facility] ABS NRBC 0.0 thou /cu mm 12/11/2023 7:13 AM CDT [facility] Blood BLOOD SPECIMEN / Unknown Line/Port / Unknown 12/11/2023 7:04 AM CDT 12/11/2023 7:11 AM CDT Neva Vick [facility] HEMATOLOGY Performing Organization Address [facility] de Phone Number [address] [address] * (ABNORMAL) CREATININE (12/11/2023 7:04 AM CDT) Only the most recent of10 resultswithin the time period is included. eGFR 59(L) >90 mL/min/1.7 3m2 12/11/2023 7:37 AM CDT [facility] Comment:As of 2021, eG FR is calculated by the CKD-EPI creatinine equation without race adjustment. ??eGFR can be influenced by muscle mass, exercise, and diet. ??The reported eGFR is an estimation only and is only applicable if the renal function is stable. CREATININE 1.02(H) 0.50 - 0.90 mg/dL 12/11/2023 7:37 AM CDT [facility] Blood BLOOD SPECIMEN / Unknown Line/Port / Unknown 12/11/2023 7:04 AM CDT 12/11/2023 7:11 AM CDT Neva Macdonald [facility] CHEMISTRY [facility] [address] [place] [address] * ECHO TTE COMPLETE WO CONTRAST (12/10/2023 8:18 AM CDT) AORTIC VALVE MEAN PG 7 mmHg PEAK TR VELOCITY 2.9 m/s LVEDD 4.8 cm EJECTION FRACTION 55 - 60% Anatomical Region Laterality Modality Ultrasound 12/10/2023 7:33 AM CDT Narrative 12/10/2023 8:59 AM CDT ECHOCARDIOGRAM ZANE MUNOZ ? Accession#: ?? [id number] : ?1950 73 years Study Date: ?? 12/10/2023 7:33:09 AM Gender: F ?BP: ? 131/60 mmHg Height: 158.00 cm ?BSA: ?2.23 m? ? ? Weight: 130.00 kg ?Tech: ? NKM ? Referring MD: NEVA MACDONALD Site: ? [facility] Reading Location: [facility] Patient Location: Inpatient. Procedure: 2D, Color Doppler and Spectral Doppler. Indication for study: CHF Cardiac Rhythm: Atrial fibrillation.Study quality: Good. Final Impressions: 1. Normal LV size, borderline wall thickness, normal global systolic function with an estimated EF of 55 - 60%. 2. Right ventricular cavity size is mildly enlarged, global systolic RV function is borderline reduced. 3. Moderately enlarged left atrium. 4. The aortic valve is trileaflet and sclerotic, no stenosis and no regurgitation. 5. The mitral valve is sclerotic, trace mitral regurgitation. 6. Moderate tricuspid regurgitation. 7. Mildly increased estimated pulmonary pressures by tricuspid regurgitation velocity and right atrial pressure (32 mmHg plus RAP which is estimated to be 15 mm Hg based on IVC geometry ). Comparison Compared to prior exam report of 07/30/23, there has been no significant change. Chamber Sizes and Function Normal left ventricular size, borderline wall thickness, normal global systolic function with an estimated EF of 55 - 60%. No definite resting regional wall motion abnormality seen. Left atrial size is moderately enlarged. Right ventricular cavity size is mildly enlarged, global systolic RV function is borderline reduced. RV wall thickness is normal. The right atrium is severely enlarged. Right atrial area is 27 cm? ? ?. The pulmonary artery is of normal size and origin. The sinus of Valsalva is normal sized. The ascending aorta is normal for age/sex/bsa. Valves, RV Pressures and Diastolic Function The aortic valve is trileaflet and sclerotic, no stenosis and no regurgitation. The mitral valve is sclerotic, trace mitral regurgitation. Indeterminate pattern of LV diastolic filling. The tricuspid valve is normal in structure. Tricuspid regurgitation is moderate. The tricuspid regurgitant velocity is 2.8 m/s, the estimated right ventricular systolic pressure is 32 mmHg plus right atrial pressure. There is mildly increased estimated pulmonary pressure by tricuspid regurgitation velocity and right atrial pressure. The pulmonic valve is normal. No pulmonary regurgitation. Pulmonary veins show a normal flow pattern. Masses, Effusion, Shunts There is no pericardial effusion. The inferior vena cava is dilated, respiratory size variation less than 50%. No left to right shunting was detected by limited color flow Doppler interrogation of the interatrial septum. MEASUREMENTS AND CALCULATIONS 2-D Measurements and LV Function: LVID (d) 4.8 cm LVOT diameter 2.1 cm IVS (d) ??1.1 cm HR ?77 bpm LVPW (d) 1.1 cm LA Vol index ??41 ml/m2 Ao Sinus 3.3 cm RA area ? 27 cm? ? ? Asc Ao ?? 3.8 cm RV Max 4C (d) 4.4 cm LA ? 4.1 cm Diastology: Mitral ?Tissue Doppler ?Pulmonary veins E Peak 1.3 m/s ??e', Septum ? 0.10 m/s Pulm s ?47.0 cm/s A Peak 0.3 m/s ??e', Lateral ?0.14 m/s Pulm d ?65.4 cm/s E/A ?4.2 ?E/e' Average ?? 11.28 ?Pulm s/d ratio ??0.72 DT ? 193 msec Aortic Valve: Vmax ? 1.7 m/s ??MARLENI (V) ?? 2.57 cm? ? ? VTI ?0.38 m ?? MARLENI (I) ?? 2.23 cm? ? ? LVOT V max 1.3 m/s ??Max PG ?12 mmHg LVOT VTI ?? 0.25 m ?? Mean PG ?? 7 mmHg SV ? 85 ml ?Dim Index 0.64 SV index ?? 38 ml/m? ? ? CO ?6.6 l/min ?CI ?2.9 l/min/m? ? ? Mitral Valve: MVA ? 3.9 cm? ? ? MV P 1/2 ??56 msec MV Mean G 2 mmHg Tricuspid Valve and estimated PA pressures: TR Vmax 2.8 m/s TAPSE 1.8 cm TR maxG 32 mmHg Pulmonic Valve: PV Vmax 1.5 m/s . This study was interpreted by an [facility] accredited facility. ??Final ?? Procedure Note Sebastian Berger MD - 12/10/2023 ECHOCARDIOGRAM ZANE MUNOZ : 1950 73 years Study Date: 12/10/2023 7:33:09 AM Gender: F BP: 131/60 mmHg Height: 158.00 cm BSA: 2.23 m? ? ? Weight: 130.00 kg Tech: [facility] Referring MD: NEVA MACDONALD Site: [facility] Reading Location: [facility] Patient Location: Inpatient. Procedure: 2D, Color Doppler and Spectral Doppler. Indication for study: CHF Cardiac Rhythm: Atrial fibrillation.Study quality: Good. Final Impressions: 1. Normal LV size, borderline wall thickness, normal global systolicfunction with an estimated EF of 55 - 60%. 2. Right ventricular cavity size is mildly enlarged, global systolic RVfunction is borderline reduced. 3. Moderately enlarged left atrium. 4. The aortic valve is trileaflet and sclerotic, no stenosis and noregurgitation. 5. The mitral valve is sclerotic, trace mitral regurgitation. 6. Moderate tricuspid regurgitation. 7. Mildly increased estimated pulmonary pressures by tricuspidregurgitation velocity and right atrial pressure (32 mmHg plus RAP whichis estimated to be 15 mm Hg based on IVC geometry ). Comparison Compared to prior exam report of 07/30/23, there has been no significantchange. Chamber Sizes and Function Normal left ventricular size, borderline wall thickness, normal globalsystolic function with an estimated EF of 55 - 60%. No definite restingregional wall motion abnormality seen. Left atrial size is moderatelyenlarged. Right ventricular cavity size is mildly enlarged, globalsystolic RV function is borderline reduced. RV wall thickness is normal.The right atrium is severely enlarged. Right atrial area is 27 cm? ? ?. Thepulmonary artery is of normal size and origin. The sinus of Valsalva isnormal sized. The ascending aorta is normal for age/sex/bsa. Valves, RV Pressures and Diastolic Function The aortic valve is trileaflet and sclerotic, no stenosis and noregurgitation. The mitral valve is sclerotic, trace mitral regurgitation.Indeterminate pattern of LV diastolic filling. The tricuspid valve isnormal in structure. Tricuspid regurgitation is moderate. The tricuspidregurgitant velocity is 2.8 m/s, the estimated right ventricular systolicpressure is 32 mmHg plus right atrial pressure. There is mildly increasedestimated pulmonary pressure by tricuspid regurgitation velocity and rightatrial pressure. The pulmonic valve is normal. No pulmonary regurgitation.Pulmonary veins show a normal flow pattern. Masses, Effusion, Shunts There is no pericardial effusion. The inferior vena cava is dilated,respiratory size variation less than 50%. No left to right shunting wasdetected by limited color flow Doppler interrogation of the interatrialseptum. MEASUREMENTS AND CALCULATIONS 2-D Measurements and LV Function: LVID (d) 4.8 cm LVOT diameter 2.1 cm IVS (d) 1.1 cm HR 77 bpm LVPW (d) 1.1 cm LA Vol index 41 ml/m2 Ao Sinus 3.3 cm RA area 27 cm? ? ? Asc Ao 3.8 cm RV Max 4C (d) 4.4 cm LA 4.1 cm Diastology: Mitral Tissue Doppler Pulmonary veins E Peak 1.3 m/s e', Septum 0.10 m/s Pulm s 47.0 cm/s A Peak 0.3 m/s e', Lateral 0.14 m/s Pulm d 65.4 cm/s E/A 4.2 E/e' Average 11.28 Pulm s/d ratio 0.72 DT 193 msec Aortic Valve: Vmax 1.7 m/s MARLENI (V) 2.57 cm? ? ? VTI 0.38 m MARLENI (I) 2.23 cm? ? ? LVOT V max 1.3 m/s Max PG 12 mmHg LVOT VTI 0.25 m Mean PG 7 mmHg SV 85 ml Dim Index 0.64 SV index 38 ml/m? ? ? CO 6.6 l/min CI 2.9 l/min/m? ? ? Mitral Valve: MVA 3.9 cm? ? ? MV P 1/2 56 msec MV Mean G 2 mmHg Tricuspid Valve and estimated PA pressures: TR Vmax 2.8 m/s TAPSE 1.8 cm TR maxG 32 mmHg Pulmonic Valve: PV Vmax 1.5 m/s . This study was interpreted by an [facility] accredited facility. Final Neva Macdonald [facility] ECHO ORD * HEMOGLOBIN (12/10/2023 5:49 AM CDT) Only the most recent of15 resultswithin the time period is included. HEMOGLOBIN 12.8 12.0 - 16.0 g/dL 12/10/2023 1:49 PM CDT [facility] MCV 94 80 - 100 fL 12/10/2023 1:49 PM CDT [facility] Blood BLOOD SPECIMEN / Unknown Line/Port / Unknown 12/10/2023 5:49 AM CDT 12/10/2023 5:52 AM CDT [facility] HEMATOLOGY Performing Organization Address [facility]/ZIP Co de Phone Number [address] [address] * BUN (12/09/2023 5:49 AM CDT) Only the most recent of2 resultswithin the time period is included. BUN 21 8 - 23 mg/dL 12/09/2023 6:39 AM CDT [facility] Blood BLOOD SPECIMEN / Unknown Line/Port / Unknown 12/09/2023 5:49 AM CDT 12/09/2023 6:13 AM CDT Neva Macdonald [facility] CHEMISTRY Performing Organization Address City/[facility]/ZIP Co de Phone Number [address] [address] * SODIUM (12/09/2023 5:49 AM CDT) Only the most recent of11 resultswithin the time period is included. SODIUM 140 136 - 145 mmol/L 12/09/2023 6:39 AM CDT [facility] Blood BLOOD SPECIMEN / Unknown Line/Port / Unknown 12/09/2023 5:49 AM CDT 12/09/2023 6:13 AM CDT Neva Macdonald [facility] CHEMISTRY [facility] [address] [facility] [place] [address] * PATH TISSUE EXAM (12/08/2023 4:10 PM CDT) Case Report Pathology Report ?Case: [id number] ? Authorizing Provider: ??Topher Love MD ?Collected: ? 12/08/2023 1610 ? Ordering Location: ? [facility] ?Received: ?12/09/2023 1030 ? [facility] ? Pathologist: ? Joyce Jiménez, DO ? Specimens: ?? A) - Small Bowel Biopsy, for anemia ? B) - Stomach Biopsy, h pylori ? C) - Distal Esophagus Biopsy, rule out barretts esophagitis ? 12/10/2023 1:09 PM CDT [employer] [facility] Final Diagnosis A) DUODENUM, BIOPSY: 1. Normal duodenal mucosa 2. Negative for celiac disease and other enteropathy B) STOMACH, BIOPSY: 1. Patchy chronic active gastritis (see comment) ?? a. Sampling: Antrum and body ?? b. Distribution: Antrum and body 2. Negative for atrophic gastritis or granulomas 3. Negative for Helicobacter (immunohistoche vianney negative) C) ESOPHAGUS, DISTAL, BIOPSY: 1. Inflammatory changes consistent with reflux esophagitis 2. Gastric cardia type mucosa with nonspecific reactive changes 3. Negative for eosinophilic esophagitis, intestinal metaplasia and dysplasia 12/10/2023 1:09 PM T [employer] [facility] [facility] Comment B) The active chronic gastritis pattern observed here is often linked to Helicobacter infection, although Helicobacter organisms are not detectable. Histologic examination is not 100% sensitive and may be less effective in the presence of proton pump inhibitor use. If clinically warranted, additional tests (such as stool antigen or urea breath test) for Helicobacter may be beneficial. Some instances of this pattern may be attributed to Crohn's disease affecting the stomach, while others remain unexplained. Generally, Crohn's gastritis is not observed in the absence of ileal or colonic involvement. 12/10/2023 1:09 PM T [employer] [facility] Clinical Information Ms. Munoz is a 73 y.o. who presents with iron deficiency anemia. 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 12/10/2023 1:09 PM CDT [employer] [facility] Gross Description A) Received in formalin are 2 hoover mucosal fragments averaging 4 mm in greatest dimension, which are entirely submitted in one cassette. It is labeled with the patient's name and designated small bowel biopsy for anemia. B) Received in formalin are 4 hoover mucosal fragments averaging 4 mm in greatest dimension, which are entirely submitted in one cassette. It is labeled with the patient's name and designated stomach biopsy, H. pylori. C) Received in formalin is a hoover mucosal fragment measuring 3 mm in greatest dimension, which is entirely submitted in one cassette. It is labeled with the patient's name and designated distal esophagus biopsy rule out River's esophagitis. Moncho Khoury 12/09/2023 1:53 PM 12/10/2023 1:09 PM CDT [facility] [employer] [facility] Microscopic Description The final diagnosis is based on microscopic examination of appropriate sections of all specimens. 12/10/2023 1:09 PM CDT [facility] Additional Information Interpreted at [facility] - [address] [place] [address] [address] Immunohistochem istry controls were reviewed and approved by the pathologist during this examination. 12/10/2023 1:09 PM CDT [facility] Biopsy (Small Bowel Biopsy) 12/08/2023 4:10 PM CDT 12/09/2023 10:30 AM CDT Biopsy specimen (specimen) (Stomach Biopsy) 12/08/2023 4:11 PM CDT 12/09/2023 10:30 AM CDT Biopsy specimen (specimen) (Distal Esophagus Biopsy) 12/08/2023 4:13 PM CDT 12/09/2023 10:30 AM CDT Topher Love MD PATHOLOGY/[facility]Y [facility] [address] [place] [address], * ENDOSCOPY (12/08/2023 3:41 PM CDT) 12/08/2023 3:41 PM CDT Narrative Transcriptions Topher Love MD - 12/08/2023 4:17 PM CDT Endoscopy Patient Name: Zane Munoz Procedure Date: 12/08/2023 Gender: Female Date of : 1950 Admit Type: Inpatient Procedure: Upper GI endoscopy Proceduralist: Topehr Love MD Indications/Pre-Op Diagnosis: Iron deficiency anemia secondary to chronic blood loss, Iron deficiency anemia,Hematemesis Medications: Monitored Anesthesia Care Procedure Description: Risk of bleeding, infection, perforation, need for surgery and alternatives discussed. The endoscope GIF-[id number] was introduced through the mouth, and advanced to the second part of duodenum. The upper GI endoscopy was accomplished without difficulty. The patient tolerated the procedure well. Complications: No immediate complications. Estimated Blood Loss & Specimen: Estimated blood loss: none. Specimen collected: Yes and sent to Laboratory Findings: There were esophageal mucosal changes suspicious for short-segment River's esophagus present in the lower third of the esophagus. The maximum longitudinal extent of these mucosal changes was 2 cm inlength. Mucosa was biopsied with a cold forceps for histology in a targeted manner at intervals of 1 cm in the lower third of the esophagus. One specimen bottle was sent to pathology. Estimated blood loss: none. Diffuse moderately erythematous mucosa without bleeding was found inthe entire examined stomach. Biopsies were taken with a cold forceps for Helicobacter pylori testing. Estimated blood loss: none. The first portion of the duodenum and second portion of the duodenum were normal. Biopsies for histology were taken with a cold forcepsfor evaluation of celiac disease. Impressions/Post-Op Diagnosis: - Esophageal mucosal changes suspicious for short-segment River's esophagus, C0M2 if positive. Biopsied. - Erythematous mucosa in the stomach. Biopsied. - Normal first portion of the duodenum and second portion of the duodenum. Biopsied. Recommendation: - Discharge patient to home. - Resume regular diet. - Continue present medications. - Await pathology results. - Use Protonix (pantoprazole) 40 mg PO daily. Topher Love MD 12/08/2023 4:17:42 PM This report has been signed electronically. Note Initiated On: 12/08/2023 3:41 PM Total Procedure Duration Time 0 hours 5 minutes 20 seconds Topher Love MD PROCEDURE ORD * NM HEPATOBILIARY IMAGING WITH EF (12/07/2023 2:31 PM CDT) Anatomical Region Laterality Modality LIVER Nuclear Medicine 12/07/2023 3:51 PM CDT Narrative 12/07/2023 3:51 PM CDT For Patients: ??As a result of the Cures Act, medical imaging exams and procedure reports are released immediately into your electronic medical record. ??You may view this report before your referring provider. ??If you have questions, please contact your health care provider. Indication: Evaluate for cholecystitis Technique: Abdominal ultrasound December 06, 2023 Comparison: Nuclear medicine hepatobiliary scan with gallbladder ejection fraction after the intravenous administration of 8.2 millicuries technetium 99 M Mebrofenin and 3.1 microgram CCK. Pain after CCK. Findings: Mildly delayed hepatic extraction and excretion of the radiopharmaceutical with prompt appearance of the common bile duct followed by the gallbladder and small bowel. After CCK there is minimal contraction of the gallbladder. Calculated gallbladder ejection fraction is 21 percent. There is no enterogastric reflux. Impression: Gallbladder and hepatocellular dysfunction. Dictated by Fidel Mclean MD @ 12/07/2023 3:51:32 PM (Electronically Signed) Procedure Note Fidel Mclean MD - 12/07/2023 For Patients: As a result of the Cures Act, medical imagingexams and procedure reports are released immediately into your electronicmedical record. You may view this report before your referring provider.If you have questions, please contact your health care provider. Indication: Evaluate for cholecystitis Technique: Abdominal ultrasound December 06, 2023 Comparison: Nuclear medicine hepatobiliary scan with gallbladder ejection fractionafter the intravenous administration of 8.2 millicuries technetium 99 MMebrofenin and 3.1 microgram CCK. Pain after CCK. Findings: Mildly delayed hepatic extraction and excretion of the radiopharmaceuticalwith prompt appearance of the common bile duct followed by the gallbladderand small bowel. After CCK there is minimal contraction of thegallbladder. Calculated gallbladder ejection fraction is 21 percent. Thereis no enterogastric reflux. Impression: Gallbladder and hepatocellular dysfunction. Dictated by Fidel Mclean MD @ 12/07/2023 3:51:32 PM (Electronically Signed) Neva Macdonald [facility] NM * US ABDOMEN LIMITED GALLBLADDER (12/06/2023 12:50 PM CDT) Anatomical Region Laterality Modality Abdomen Ultrasound 12/06/2023 1:02 PM CDT Impressions 12/06/2023 1:02 PM CDT 1. Cholelithiasis with mildly thickened gallbladder wall and pericholecystic fluid, suspicious for acute cholecystitis. No abnormal biliary dilatation. Recommend General surgery consultation. Dictated by Gabriel Hassan MD @ Dec 06 2023 ??1:02PM (Electronically Signed) [email or web address] Narrative 12/06/2023 1:02 PM CDT For Patients: ??As a result of the Century Cures Act, medical imaging exams and procedure reports are released immediately into your electronic medical record. ??You may view this report before your referring provider. ??If you have questions, please contact your health care provider. INDICATION: Right upper quadrant pain. TECHNIQUE: Ultrasound abdomen limited. COMPARISON: CT study earlier on 12/06/2023. FINDINGS: Gallbladder: ??Negative sonographic Franco`s sign. There are shadowing gallstones, largest measuring 1.3 cm. Gallbladder wall is mildly thickened, measuring approximately 5 mm. There is trace free fluid adjacent to the gallbladder. Common bile duct: ??6 mm. Procedure Note Gabriel Hassan MD - 12/06/2023 For Patients: As a result of the Cures Act, medical imagingexams and procedure reports are released immediately into your electronicmedical record. You may view this report before your referring provider.If you have questions, please contact your health care provider. INDICATION: Right upper quadrant pain. TECHNIQUE: Ultrasound abdomen limited. COMPARISON: CT study earlier on 12/06/2023. FINDINGS: Gallbladder: Negative sonographic Franco`s sign. There are shadowinggallstones, largest measuring 1.3 cm. Gallbladder wall is mildlythickened, measuring approximately 5 mm. There is trace free fluidadjacent to the gallbladder. Common bile duct: 6 mm. IMPRESSION: 1. Cholelithiasis with mildly thickened gallbladder wall andpericholecystic fluid, suspicious for acute cholecystitis. No abnormalbiliary dilatation. Recommend General surgery consultation. Dictated by Gabriel Hassan MD @ Dec 06 2023 1:02PM (Electronically Signed) [email or web address] Eric Hair MD US * US PELVIS COMPLETE TV (12/06/2023 12:47 PM CDT) Anatomical Region Laterality Modality Pelvis, OVARIES, UTERUS Ultrasou nd 12/06/2023 12:5 9 PM CDT Impressions 12/06/2023 12:59 PM CDT 1. Technically limited transvaginal pelvic ultrasound. 2. Ovaries not characterized. Dictated by Gabriel Hassan MD @ Dec 06 2023 12:59PM (Electronically Signed) [email or web address] Narrative 12/06/2023 12:59 PM CDT For Patients: ??As a result of the Cures Act, medical imaging exams and procedure reports are released immediately into your electronic medical record. ??You may view this report before your referring provider. ??If you have questions, please contact your health care provider. INDICATION: Incidental endometrial air on earlier CT. Follow-up pelvic ultrasound. Inpatient. TECHNIQUE: Ultrasound pelvis transvaginal for better assessment or to better visualize the endometrium. Real-time sonographic images obtained of the adnexal regions. COMPARISON: None FINDINGS: Uterus: 7.6 x 5.0 cm. Transverse dimension not measured. Technically limited evaluation. The uterus is not visualized on transabdominal imaging. Limited characterization on submitted transvaginal ultrasound images. Endometrium: Not well characterized. Right ovary: Not visualized. Left ovary: Not visualized. Cul-de-sac: No visualized free pelvic fluid. Procedure Note Gabriel Hassan MD - 12/06/2023 For Patients: As a result of the Cures Act, medical imagingexams and procedure reports are released immediately into your electronicmedical record. You may view this report before your referring provider.If you have questions, please contact your health care provider. INDICATION: Incidental endometrial air on earlier CT. Follow-up pelvic ultrasound.Inpatient. TECHNIQUE: Ultrasound pelvis transvaginal for better assessment or to bettervisualize the endometrium. Real-time sonographic images obtained of theadnexal regions. COMPARISON: None FINDINGS: Uterus: 7.6 x 5.0 cm. Transverse dimension not measured. Technicallylimited evaluation. The uterus is not visualized on transabdominalimaging. Limited characterization on submitted transvaginal ultrasoundimages. Endometrium: Not well characterized. Right ovary: Not visualized. Left ovary: Not visualized. Cul-de-sac: No visualized free pelvic fluid. IMPRESSION: 1. Technically limited transvaginal pelvic ultrasound. 2. Ovaries not characterized. Dictated by Gabriel Hassan MD @ Dec 06 2023 12:59PM (Electronically Signed) [email or web address] Vipul Fitzgerald MD US * IR PICC LINE (12/06/2023 12:28 PM CDT) Anatomical Region Laterality Modality Other Narrative 12/06/2023 11:17 AM CDT For additional information please refer to the patient's progress notes. ??No radiology involvement for this study required. Neva Macdonald [facility] IR * XR CHEST 1 VIEW PORTABLE (12/06/2023 11:48 AM CDT) Only the most recent of4 resultswithin the time period is included. Anatomical Region Laterality Modality HEART, THORAX, CHEST Digital Rad iography 12/06/2023 12:2 5 PM CDT Impressions 12/06/2023 12:25 PM CDT 1. Interval placement of right upper extremity PICC. 2. Mild cardiomegaly. Dictated by Gabriel Hassan MD @ Dec 06 2023 12:25PM (Electronically Signed) [email or web address] Narrative 12/06/2023 12:25 PM CDT For Patients: ??As a result of the Cures Act, medical imaging exams and procedure reports are released immediately into your electronic medical record. ??You may view this report before your referring provider. ??If you have questions, please contact your health care provider. INDICATION: Line placement. TECHNIQUE: Chest radiograph 1 view COMPARISON: 12/06/2023 FINDINGS: Interval placement of right upper extremity PICC, tip in the expected SVC at level of madeleine. No pneumothorax identified. Stable mild cardiac enlargement. Senescent calcifications of the aortic arch. Procedure Note Gabriel Hassan MD - 12/06/2023 For Patients: As a result of the Cures Act, medical imagingexams and procedure reports are released immediately into your electronicmedical record. You may view this report before your referring provider.If you have questions, please contact your health care provider. INDICATION: Line placement. TECHNIQUE: Chest radiograph 1 view COMPARISON: 12/06/2023 FINDINGS: Interval placement of right upper extremity PICC, tip in the expected SVCat level of madeleine. No pneumothorax identified. Stable mild cardiac enlargement. Senescent calcifications of the aorticarch. IMPRESSION: 1. Interval placement of right upper extremity PICC. 2. Mild cardiomegaly. Dictated by Gabriel Hassan MD @ Dec 06 2023 12:25PM (Electronically Signed) [email or web address] Neva Niacnor Macdonald [facility] GENERAL IMAGIN G * CT TIBIA FIBULA RIGHT W (12/06/2023 4:18 AM CDT) Anatomical Region Laterality Modality LEG R Computed Tomogra phy 12/06/2023 4:40 AM CDT Impressions 12/06/2023 4:40 AM CDT 1. Motion degraded examination. 2. Cellulitis and bullae involving the right calf without organized fluid collection to suggest abscess. No soft tissue gas is seen. Please note that all CT scans at this facility use dose modulation, iterative reconstruction, and/or weight-based dosing when appropriate to reduce radiation dose to as low as reasonably achievable. Dictated by Kailey Gonsales MD @ 12/06/2023 4:40:02 AM (Electronically Signed) Narrative 12/06/2023 4:40 AM CDT For Patients: ??As a result of the Cures Act, medical imaging exams and procedure reports are released immediately into your electronic medical record. ??You may view this report before your referring provider. ??If you have questions, please contact your health care provider. INDICATION: Severe soft tissue infection. TECHNIQUE: CT of the right tibia and fibula following the administration of 100 mL Omnipaque 350. COMPARISON: None. FINDINGS: Motion degraded examination. Bones: Alignment is anatomic. No acute fracture. No aggressive osseous lesion. Regional muscles and tendons: Mild fatty replacement of the calf musculature. No organized intramuscular fluid collection is identified to suggest abscess. Tendons are normal in course and caliber. ?? Soft tissues: Circumferential calf edema and skin thickening. Multiple bullae are seen along the anteromedial aspect of the calf. No organized fluid collection. No soft tissue gas. Extensive atherosclerotic arterial calcification. Dystrophic soft tissue calcifications within the subcutaneous fat. Procedure Note Kailey Gonsales DO - 12/06/2023 For Patients: As a result of the Cures Act, medical imagingexams and procedure reports are released immediately into your electronicmedical record. You may view this report before your referring provider.If you have questions, please contact your health care provider. INDICATION: Severe soft tissue infection. TECHNIQUE: CT of the right tibia and fibula following the administration of 100 mLOmnipaque 350. COMPARISON: None. FINDINGS: Motion degraded examination. Bones: Alignment is anatomic. No acute fracture. No aggressive osseouslesion. Regional muscles and tendons: Mild fatty replacement of the calfmusculature. No organized intramuscular fluid collection is identified tosuggest abscess. Tendons are normal in course and caliber. Soft tissues: Circumferential calf edema and skin thickening. Multiplebullae are seen along the anteromedial aspect of the calf. No organizedfluid collection. No soft tissue gas. Extensive atherosclerotic arterialcalcification. Dystrophic soft tissue calcifications within thesubcutaneous fat. IMPRESSION: 1. Motion degraded examination. 2. Cellulitis and bullae involving the right calf without organized fluidcollection to suggest abscess. No soft tissue gas is seen. Please note that all CT scans at this facility use dose modulation,iterative reconstruction, and/or weight-based dosing when appropriate toreduce radiation dose to as low as reasonably achievable. Dictated by Kailey Gonsales MD @ 12/06/2023 4:40:02 AM (Electronically Signed) Eric Hair MD CT * CT ABDOMEN PELVIS W (12/06/2023 4:08 AM CDT) Anatomical Region Laterality Modality Abdomen, Pelvis, AORTA, LIVER, SPLEEN Computed Tomography 12/06/2023 4:34 AM CDT Narrative 12/06/2023 4:34 AM CDT For Patients: ??As a result of the Century Cures Act, medical imaging exams and procedure reports are released immediately into your electronic medical record. ??You may view this report before your referring provider. ??If you have questions, please contact your health care provider. Indication: Abdominal pain. Technique: CT of the abdomen and pelvis was performed following the administration of 100 mL Omnipaque 350. Comparison: 08/19/2023. Findings: Visualized lung bases: Respiratory motion significantly limits evaluation of the lung bases. There is dependent atelectasis and a nodular density within the right middle lobe measuring 5 mm, that is unchanged compared to August 2023. Liver: Nodular liver contour in keeping with cirrhotic morphology. Subcapsular enhancing foci are similar in appearance within both hepatic lobes which appear to have both hepatic vein and portal vein communication. 1.2 cm hypodense lesion in the right hepatic lobe measures simple fluid attenuation and likely represents a cyst. Small stones are seen within the contracted gallbladder. Similar mild pericholecystic edema. No biliary ductal dilation. Pancreas: Similar fatty replacement of the pancreas. Spleen: Unremarkable. 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 Adrenals: Unremarkable. Kidneys: Symmetric renal enhancement. 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 No hydronephrosis or nephrolithiasis. Aorta/IVC: Moderate atherosclerotic aortic calcifications without aneurysmal dilation. Lymph nodes: Prominent subcentimeter retroperitoneal lymph nodes. Mildly enlarged bilateral inguinal lymph nodes, similar to prior. Bowel: Nonobstructed bowel. Appendix is not definitively visualized. No localized inflammatory changes. No intraperitoneal free air or fluid. Pelvis: Limited evaluation due to beam hardening artifact from the patient`s right hip prosthesis. Small amount of air within the endometrial cavity. Bones/body wall: Anasarca. Partially visualized right hip prosthesis. Multilevel degenerative disc disease. Impression: 1. Similar cirrhotic appearance of the liver with subcapsular lesions within the right and left hepatic lobes. Appearance favors vascular malformations due to communication with the hepatic and portal veins. 2. Unchanged appearance of the uterus with small amount of air in the endometrial cavity. Recommend pelvic ultrasound if there is clinical concern. 3. 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 4. Cholelithiasis with similar mild pericholecystic edema. Recommend correlation for right upper quadrant abdominal pain and consider ultrasound as clinically indicated. 5. Unchanged right middle lobe pulmonary nodule. If this patient is at increased risk of lung cancer, consider CT chest follow-up in 12 months. 6. Bilateral inguinal lymphadenopathy, nonspecific. Please note that all CT scans at this facility use dose modulation, iterative reconstruction, and/or weight-based dosing when appropriate to reduce radiation dose to as low as reasonably achievable. Dictated by Kailey Gonsales MD @ 12/06/2023 4:34:58 AM (Electronically Signed) Procedure Note Kailey Gonsales, - 12/06/2023 For Patients: As a result of the 21st Century Cures Act, medical imagingexams and procedure reports are released immediately into your electronicmedical record. You may view this report before your referring provider.If you have questions, please contact your health care provider. Indication: Abdominal pain. Technique: CT of the abdomen and pelvis was performed following the administration of100 mL Omnipaque 350. Comparison: 08/19/2023. Findings: Visualized lung bases: Respiratory motion significantly limits evaluationof the lung bases. There is dependent atelectasis and a nodular densitywithin the right middle lobe measuring 5 mm, that is unchanged compared toApr2023. Liver: Nodular liver contour in keeping with cirrhotic morphology.Subcapsular enhancing foci are similar in appearance within both hepaticlobes which appear to have both hepatic vein and portal veincommunication. 1.2 cm hypodense lesion in the right hepatic lobe measuressimple fluid attenuation and likely represents a cyst. Small stones areseen within the contracted gallbladder. Similar mild pericholecysticedema. No biliary ductal dilation. Pancreas: Similar fatty replacement of the pancreas. Spleen: Unremarkable. Unchanged peripherally calcified splenic arteryaneurysm at the level of the splenic hilum measuring 3.7 cm. Adrenals: Unremarkable. Kidneys: Symmetric renal enhancement. Unchanged peripherally calcified 1.3cm left renal artery aneurysm. No hydronephrosis or nephrolithiasis. Aorta/IVC: Moderate atherosclerotic aortic calcifications withoutaneurysmal dilation. Lymph nodes: Prominent subcentimeter retroperitoneal lymph nodes. Mildlyenlarged bilateral inguinal lymph nodes, similar to prior. Bowel: Nonobstructed bowel. Appendix is not definitively visualized. Nolocalized inflammatory changes. No intraperitoneal free air or fluid. Pelvis: Limited evaluation due to beam hardening artifact from thepatient`s right hip prosthesis. Small amount of air within the endometrialcavity. Bones/body wall: Anasarca. Partially visualized right hip prosthesis.Multilevel degenerative disc disease. Impression: 1. Similar cirrhotic appearance of the liver with subcapsular lesionswithin the right and left hepatic lobes. Appearance favors vascularmalformations due to communication with the hepatic and portal veins. 2. Unchanged appearance of the uterus with small amount of air in theendometrial cavity. Recommend pelvic ultrasound if there is clinicalconcern. 3. Similar peripherally calcified splenic artery and left renal arteryaneurysms. 4. Cholelithiasis with similar mild pericholecystic edema. Recommendcorrelation for right upper quadrant abdominal pain and considerultrasound as clinically indicated. 5. Unchanged right middle lobe pulmonary nodule. If this patient is atincreased risk of lung cancer, consider CT chest follow-up in 12 months. 6. Bilateral inguinal lymphadenopathy, nonspecific. Please note that all CT scans at this facility use dose modulation,iterative reconstruction, and/or weight-based dosing when appropriate toreduce radiation dose to as low as reasonably achievable. Dictated by Kailey Gonsales MD @ 12/06/2023 4:34:58 AM (Electronically Signed) Eric Hair MD CT * COVID-19 MOLECULAR (12/06/2023 1:30 AM CDT) COVID 19 [facility] MOLECULAR Negative Negative 12/06/2023 2:20 AM CDT [facility] Comment:All PCR tests are rose bject to false negative result due to variability in viral load and collection technique. A negative result does not rule out a SARS-CoV-2 infection. Clinical correlation required. TESTING LABORATORY [facility] 12/06/2023 2:20 AM CDT [facility] Comment:Specimen submitted t o [facility] for testing. Other SPECIMEN FROM NASOPHARYNGEAL STRUCTURE / Unknown Non-Blood / Unknown 12/06/2023 1:30 AM CDT 12/06/2023 1:40 AM CDT Arnav Helton MD MICROBIOLOGY Performing Organization Address City/[facility] Co de Phone Number [address] [address] * TYPE AND SCREEN ONLY (12/06/2023 1:30 AM CDT) ABORH O Rh Positive 12/06/2023 2:19 AM CDT [facility] ANTIBODY SCREEN Negative Negative 12/06/2023 2:19 AM CDT [facility] SPECIMEN EXPIRATION DATE/TIME 12/09/23 23:59 12/06/2023 2:19 AM CDT [facility] Blood BLOOD SPECIMEN / Unknown IV Start / Unknown 12/06/2023 1:30 AM CDT 12/06/2023 1:40 AM CDT Arnav Helton MD BLOOD BANK Performing Organization Address City/[facility] Co de Phone Number [facility] BLOOD [facility] [address] [place] [phone] * (ABNORMAL) C-REACTIVE PROTEIN (12/06/2023 1:30 AM CDT) Only the most recent of3 resultswithin the time period is included. C-REACTIVE PROTEIN 0.5(H) <0.5 mg/dL 12/06/2023 12:23 PM CDT [facility] Blood BLOOD SPECIMEN / Unknown IV Start / Unknown 12/06/2023 1:30 AM CDT 12/06/2023 1:39 AM CDT Christianne Acosta MD CHEMISTRY Performing Organization Address City/[facility] Co de Phone Number [address] [address] * (ABNORMAL) LIPASE (12/06/2023 1:30 AM CDT) Pathologist [facility] LIPASE 71.2(H) 13.0 - 60.0 IU/L 12/06/2023 2:01 AM CDT [facility] Blood BLOOD SPECIMEN / Unknown IV Start / Unknown 12/06/2023 1:30 AM CDT 12/06/2023 1:39 AM CDT Arnav Helton MD CHEMISTRY Performing Organization Address City/[facility] Co de Phone Number [address] [address] * SCAN-CARDIAC STRIP (12/06/2023 12:00 AM CDT) Narrative 12/06/2023 12:00 AM CDT Ordered by an unspecified provider. Other Clinical Staff OTHER * SCAN-CARDIAC STRIP (12/06/2023 12:00 AM CDT) Narrative 12/06/2023 12:00 AM CDT Ordered by an unspecified provider. Other Clinical Staff OTHER * SCAN-CARDIAC STRIP (12/06/2023 12:00 AM CDT) Narrative 12/06/2023 12:00 AM CDT Ordered by an unspecified provider. Other Clinical Staff OTHER * SCAN-CARDIAC STRIP (12/06/2023 12:00 AM CDT) Narrative 12/06/2023 12:00 AM CDT Ordered by an unspecified provider. Other Clinical Staff OTHER * SCAN-CARDIAC STRIP (12/06/2023 12:00 AM CDT) Narrative 12/06/2023 12:00 AM CDT Ordered by an unspecified provider. Other Clinical Staff OTHER * SCAN-CARDIAC STRIP (12/06/2023 12:00 AM CDT) Narrative 12/06/2023 12:00 AM CDT Ordered by an unspecified provider. Other Clinical Staff OTHER * SCAN-CARDIAC STRIP (12/06/2023 12:00 AM CDT) Narrative 12/06/2023 12:00 AM CDT Ordered by an unspecified provider. Other Clinical Staff OTHER * (ABNORMAL) PLATELET COUNT (11/23/2023 7:12 AM CDT) Only the most recent of5 resultswithin the time period is included. [facility] PLATELET COUNT 122(L) 140 - 440 thou/cu mm 11/23/2023 7:39 AM CDT [facility] MPV 11.0 6.5 - 11.0 fL 11/23/2023 7:39 AM CDT [facility] Blood BLOOD SPECIMEN / Unknown Venipuncture / Unknown 11/23/2023 7:12 AM CDT 11/23/2023 7:20 AM CDT Gomez Paiz MD HEMATOLOGY [facility] [address] [place] [address] * LEGIONELLA AND PNEUMOCOCCAL URINE ANTIGEN (11/22/2023 2:49 PM CDT) [facility] STREP PNEUMO ANTIGEN Negative 11/22/2023 7:26 PM CDT [facility] Comment:Presumptive negative for pneumococcal pneumonia, suggesting no current or recent pneumococcal infection. Infection due to S. pneumoniae cannot be ruled out since the antigen present in the sample may be below the detection limit of the test. LEGIONELLA ANTIGEN Negative 11/22/2023 7:26 PM CDT [facility] Comment:Negative for L.pneum ophila serogroup 1 antigen, suggesting no recent or current infection. Infection due to Legionella cannot be ruled out since other serogroups and species may cause disease, antigen may not be present in urine in early infection, and the level of antigen present may be below the detection limit of the test. Low test sensitivity in patients with mild pneumonia. Urine URINE SPECIMEN / Unknown Non-Blood / Unknown 11/22/2023 2:49 PM CDT 11/22/2023 2:53 PM CDT Gomez Paiz MD MICROBIOLOGY [facility] [address] [place] [address], * CO2,TOTAL (11/22/2023 7:02 AM CDT) CO2,TOTAL 25 22 - 29 mmol/L 11/22/2023 7:53 AM CDT [facility] Blood BLOOD SPECIMEN / Unknown Butterfly / Unknown 11/22/2023 7:02 AM CDT 11/22/2023 7:24 AM CDT Gomez Paiz MD CHEMISTRY Performing Organization Address City/[facility]/ZIP Co de Phone Number [address] [address] * US VENOUS LOWER EXTREMITY BILATERAL (11/21/2023 9:40 AM CDT) Anatomical Region Laterality Modality LEGS, LEG L, LEG R Ultrasound 11/21/2023 10:0 1 AM CDT Impressions 11/21/2023 10:01 AM CDT 1. Technically limited study with limited visualization of calf veins. 2. No imaging evidence of right or left lower extremity DVT. Dictated by Gabriel Hassan MD @ 11/21/2023 10:01:28 AM (Electronically Signed) Narrative 11/21/2023 10:01 AM CDT For Patients: ??As a result of the Cures Act, medical imaging exams and procedure reports are released immediately into your electronic medical record. ??You may view this report before your referring provider. ??If you have questions, please contact your health care provider. INDICATION: Leg pain and swelling. TECHNIQUE: : Ultrasound venous duplex lower extremity bilateral. ??Compression venous exam was performed using oneal-scale, color Doppler, and spectral Doppler imaging. COMPARISON: None. FINDINGS: Sonographic imaging demonstrates the common femoral, deep femoral, superficial femoral, popliteal, and greater saphenous veins to be fully compressible with normal color Doppler blood flow in both lower extremities. Limited evaluation of posterior tibial and peroneal veins bilaterally. Procedure Note Gabriel Hassan MD - 11/21/2023 For Patients: As a result of the Cures Act, medical imagingexams and procedure reports are released immediately into your electronicmedical record. You may view this report before your referring provider.If you have questions, please contact your health care provider. INDICATION: Leg pain and swelling. TECHNIQUE: : Ultrasound venous duplex lower extremity bilateral. Compression venousexam was performed using oneal-scale, color Doppler, and spectral Dopplerimaging. COMPARISON: None. FINDINGS: Sonographic imaging demonstrates the common femoral, deep femoral,superficial femoral, popliteal, and greater saphenous veins to be fullycompressible with normal color Doppler blood flow in both lowerextremities. Limited evaluation of posterior tibial and peroneal veinsbilaterally. IMPRESSION: 1. Technically limited study with limited visualization of calf veins. 2. No imaging evidence of right or left lower extremity DVT. Dictated by Gabriel Hassan MD @ 11/21/2023 10:01:28 AM (Electronically Signed) Eric Hair MD * (ABNORMAL) BLOOD CULTURE MULTIPLEX PCR (11/20/2023 8:35 PM CDT) Organism(s) Detected Enterobacte riaceae(AA) No organism targets detected., Invalid 11/22/2023 4:25 PM CDT [facility] Resistance Gene(s) None detected None detected 11/22/2023 4:25 PM CDT [facility] CTX-M (ESBL-resistance gene) NOT Detected 11/22/2023 4:25 PM CDT [facility] IMP (carbapenem-resistanc e gene) NOT Detected NOT Detected, N/A 11/22/2023 4:25 PM CDT [facility] KPC (carbapenem-resistanc e gene) NOT Detected NOT Detected, N/A 11/22/2023 4:25 PM CDT [facility] mcr-1 (colistin-resistance gene) N/A 11/22/2023 4:25 PM CDT [facility] mecA/C (methicillin-resistan ce gene) N/A 11/22/2023 4:25 PM CDT [facility] mecA/C and MREJ (methicillin-resistan ce gene) N/A 11/22/2023 4:25 PM CDT [facility] NDM (carbapenem-resistanc e gene) NOT Detected NOT Detected, N/A 11/22/2023 4:25 PM CDT [facility] OXA-48 like (carbapenem-resistanc e gene) NOT Detected NOT Detected, N/A 11/22/2023 4:25 PM CDT [facility] van A/B (vancomycin-resistanc e genes) N/A 11/22/2023 4:25 PM CDT [facility] VIM (carbapenem-resistanc e gene) NOT Detected NOT Detected, N/A 11/22/2023 4:25 PM CDT [facility] Enterococcus faecalis NOT Detected 11/22/2023 4:25 PM CDT [facility] Enterococcus faecium NOT Detected 11/22/2023 4:25 PM CDT [facility] Listeria monocytogenes NOT Detected 11/22/2023 4:25 PM CDT [facility] Staphylococcus NOT Detected 11/22/2023 4:25 PM CDT [facility] Staphlococcus aureus NOT Detected 11/22/2023 4:25 PM CDT [facility] Staphylococcus epidermidis NOT Detected 11/22/2023 4:25 PM CDT [facility] Staphylococcus lugdunensis NOT Detected 11/22/2023 4:25 PM CDT [facility] Streptococcus NOT Detected 11/22/2023 4:25 PM CDT [facility] Streptococcus agalactiae (Group B) NOT Detected 11/22/2023 4:25 PM CDT [facility] Streptococcus pneumoniae NOT Detected 11/22/2023 4:25 PM CDT [facility] Streptococcus pyogenes (Group A) NOT Detected 11/22/2023 4:25 PM CDT [facility] Acinetobacter calcoaceticus-gilda ii complex NOT Detected 11/22/2023 4:25 PM CDT [facility] Enterobacteriaceae Detected 2023 4:25 PM CDT [facility] Enterobacter cloacae complex NOT Detected 11/22/2023 4:25 PM CDT [facility] Escherichia coli NOT Detected 11/22/2023 4:25 PM CDT [facility] Klebsiella oxytoca NOT Detected 11/22/2023 4:25 PM CDT [facility] Klebsiella pneumoniae group NOT Detected 11/22/2023 4:25 PM CDT [facility] Proteus NOT Detected 11/22/2023 4:25 PM CDT [facility] Serratia marcescens NOT Detected 11/22/2023 4:25 PM CDT [facility] Haemophilus influenzae NOT Detected 11/22/2023 4:25 PM CDT [facility] Neisseria meningitidis NOT Detected 11/22/2023 4:25 PM CDT [facility] Pseudomonas aeruginosa NOT Detected 11/22/2023 4:25 PM CDT [facility] Mouna albicans NOT Detected 11/22/2023 4:25 PM CDT [facility] Mouna glabrata NOT Detected 11/22/2023 4:25 PM CDT [facility] Mouna krusei NOT Detected 11/22/2023 4:25 PM CDT [facility] Mouna parapsilosis NOT Detected 11/22/2023 4:25 PM CDT [facility] Mouna tropicalis NOT Detected 11/22/2023 4:25 PM CDT [facility] Bacteroides fragilis group NOT Detected 11/22/2023 4:25 PM CDT [facility] Klebsiella aerogenes NOT Detected 11/22/2023 4:25 PM CDT [facility] Salmonella NOT Detected 11/22/2023 4:25 PM CDT [facility] Stenotrophomonas maltophilia NOT Detected 11/22/2023 4:25 PM CDT [facility] Mouna auris NOT Detected 11/22/2023 4:25 PM CDT [facility] Cryptococcus neoformans/gattii NOT Detected 11/22/2023 4:25 PM CDT [facility] Blood BLOOD SPECIMEN / Unknown Line/Port / Unknown 11/20/2023 8:35 PM CDT 11/20/2023 8:44 PM CDT Espinoza Sharif MD MICROBIOLOGY [facility] [address] [place] [address], * COVID/FLU/RSV PANEL (11/20/2023 7:50 PM CDT) Only the most recent of2 resultswithin the time period is included. COVID 19 [facility] Negative Negative 11/20/2023 8:39 PM CDT [facility] Comment:All PCR tests are rose bject to false negative result due to variability in viral load and collection technique. A negative result does not rule out a SARS-CoV-2 infection. Clinical correlation required. INFLUENZA A PCR Negative 4 8:39 PM CDT [facility] INFLUENZA B PCR Negative 4 8:[address] [facility] Respiratory Syncytial Virus Negative 11/20/2023 8:39 PM CDT [facility] Swab NASOPHARYNGEAL SWAB / Unknown Non-Blood / Unknown 11/20/2023 7:50 PM CDT 11/20/2023 7:57 PM CDT Espinoza Sharif MD MICROBIOLOGY [facility] [address] [place] [address] * (ABNORMAL) TROPONIN T (HS) ONE TIME (11/20/2023 6:30 PM CDT) Only the most recent of2 resultswithin the time period is included. TROPONIN T HS 29(H) 6-10 ng/L ng/L 11/20/2023 7:04 PM CDT [facility] Blood BLOOD SPECIMEN / Unknown IV Start / Unknown 11/20/2023 6:30 PM CDT 11/20/2023 6:42 PM CDT Narrative [facility] - 11/20/2023 7:04 PM CDT hs-cTnT (Elecsys Troponin T Gen 5) concentration (s) above the sex-specific 99th percentile (16 ng/L or greater for males or 11 ng/L or greater for females) are indicative of myocardial injury. If initial hs-cTnT <=100 ng/L at presentation, a 0h/2h ABSOLUTE (ng/L) delta change (rising or falling) of >=10 ng/L suggests a significant change, whereas a 0h/2h delta change <=3 ng/L suggests no significant change. If initial hs-cTnT >100 ng/L at presentation, a 0h/2h/ RELATIVE (percent, %) delta change of 20% is suggested to distinguish patients with acute vs. chronic myocardial injury. There are multiple etiologies that can cause hs-cTnT increases above the 99th percentile (myocardial injury) other than acute myocardial infarction. Clinical context and careful clinical evaluation are critical for diagnosis and risk-stratification. The diagnosis of acute myocardial infarction requires a rising and/or falling pattern in hs-cTnT concentrations with at least one value above the sex-specific 99th percentile PLUS at least one of the following clinical criteria: ischemic symptoms, new or presumed new significant ST-T wave changes or new LBBB, development of pathological Q waves, imaging evidence of new loss of viable myocardium or new regional wall motion abnormality, or identification of intracoronary atherothrombosis or an acute angiographic culprit on coronary angiography. In appropriate low-risk patients with a non-ischemic electrocardiogram without active chest pain with a symptom onset >3-hours without recurrence, a single initial hs-cTnT<6 ng/L identifies patient with a very low risk in emergency department patient population. Espinoza Sharif MD CHEMISTRY Performing Organization Address [facility] Co de Phone Number [address] [address] * SCAN-CARDIAC STRIP (11/20/2023 12:00 AM CDT) Narrative 11/20/2023 12:00 AM CDT Ordered by an unspecified provider. Other Clinical Staff OTHER * SCAN-CARDIAC STRIP (11/20/2023 12:00 AM CDT) Narrative 11/20/2023 12:00 AM CDT Ordered by an unspecified provider. Other Clinical Staff OTHER * MRSA/SA PCR (10/06/2023 7:56 PM CDT) MRSA DNA PCR Negative Negative 10/06/2023 9:35 PM CDT [facility] STAPHYLOCOCCUS AUREUS PCR Negative Negative 10/06/2023 9:35 PM CDT [facility] Other SPECIMEN FROM INTERNAL NOSE / Unknown Non-Blood / Unknown 10/06/2023 7:56 PM CDT 10/06/2023 8:06 PM CDT Narrative [facility] - 10/06/2023 9:35 PM CDT Test result does not preclude MRSA or SA nasal colonization. Samuel Taylor MD MICROBIOLOGY Performing Organization Address [facility] Co de Phone Number [address] [address] * EXTRA TUBE LIGHT GREEN (10/06/2023 10:57 AM CDT) Blood BLOOD SPECIMEN / Unknown Non-Lab Venipuncture / Unknown 10/06/2023 10:57 AM CDT 10/06/2023 1:31 PM CDT Samuel Taylor MD LABORATORY Performing Organization Address [facility] [place] [address] * EXTRA TUBE LAVENDER (10/06/2023 10:57 AM CDT) Blood BLOOD SPECIMEN / Unknown Non-Lab Venipuncture / Unknown 10/06/2023 10:57 AM CDT 10/06/2023 1:20 PM CDT Samuel Taylor MD LABORATORY Performing Organization Address [facility] de Phone Number [address] [address] * (ABNORMAL) Hemoglobin A1C (10/06/2023 10:57 AM CDT) [facility] HEMOGLOBIN A1C MONITORING (POCT) 8.3(H) <=6.4 % 10/06/2023 4:15 PM CDT [facility] Blood BLOOD SPECIMEN / Unknown Non-Lab Venipuncture / Unknown 10/06/2023 10:57 AM CDT 10/06/2023 1:20 PM CDT Narrative [facility] - 10/06/2023 4:15 PM CDT ? (<=6.9%) ? Indicates good control ? (7.0% to 7.9%) ? Indicates fair control ? (>=8.0%) ? Indicates poor control ?? NOTE: ??These thresholds are guidelines and ?individual targets may vary. Falsely low levels may be seen with: Recent Transfusion, Recent Significant Blood Loss, Hemolytic Diseases, or Falsely elevated levels may be seen with: Untreated Anemias, Splenectomy ? Samuel Taylor MD CHEMISTRY [facility] [address] [place] [address] * (ABNORMAL) TROPONIN T (HS) ACUTE W/2HR REFLEX (10/06/2023 10:45 AM CDT) TROPONIN T HS 28(H) 6-10 ng/L ng/L 10/06/2023 11:24 AM CDT [facility] Blood BLOOD SPECIMEN / Unknown IV Start / Unknown 10/06/2023 10:45 AM CDT 10/06/2023 10:52 AM CDT Narrative [facility] - 10/06/2023 11:24 AM CDT hs-cTnT (Elecsys Troponin T Gen 5) concentration (s) above the sex-specific 99th percentile (16 ng/L or greater for males or 11 ng/L or greater for females) are indicative of myocardial injury. If initial hs-cTnT <=100 ng/L at presentation, a 0h/2h ABSOLUTE (ng/L) delta change (rising or falling) of >=10 ng/L suggests a significant change, whereas a 0h/2h delta change <=3 ng/L suggests no significant change. If initial hs-cTnT >100 ng/L at presentation, a 0h/2h/ RELATIVE (percent, %) delta change of 20% is suggested to distinguish patients with acute vs. chronic myocardial injury. There are multiple etiologies that can cause hs-cTnT increases above the 99th percentile (myocardial injury) other than acute myocardial infarction. Clinical context and careful clinical evaluation are critical for diagnosis and risk-stratification. The diagnosis of acute myocardial infarction requires a rising and/or falling pattern in hs-cTnT concentrations with at least one value above the sex-specific 99th percentile PLUS at least one of the following clinical criteria: ischemic symptoms, new or presumed new significant ST-T wave changes or new LBBB, development of pathological Q waves, imaging evidence of new loss of viable myocardium or new regional wall motion abnormality, or identification of intracoronary atherothrombosis or an acute angiographic culprit on coronary angiography. In appropriate low-risk patients with a non-ischemic electrocardiogram without active chest pain with a symptom onset >3-hours without recurrence, a single initial hs-cTnT<6 ng/L identifies patient with a very low risk in emergency department patient population. Aaron Nixon MD CHEMISTRY [facility] [address] [place] [address] * SCAN-CARDIAC STRIP (10/06/2023 12:00 AM CDT) Narrative 10/06/2023 12:00 AM CDT Ordered by an unspecified provider. Other Clinical Staff OTHER * SCAN-CARDIAC STRIP (10/06/2023 12:00 AM CDT) Narrative 10/06/2023 12:00 AM CDT Ordered by an unspecified provider. Other Clinical Staff OTHER * SCAN-CARDIAC STRIP (10/06/2023 12:00 AM CDT) Narrative 10/06/2023 12:00 AM CDT Ordered by an unspecified provider. 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 12/19/2023 Advance Directives * Full Code (Latest Code Status on File) Date Activated Date Inactivated Comments 12/19/2023 9:32 PM 12/22/2023 6:49 PM Question Answer Comments Code Status Discussion: Reviewed Preferences * Full Code Date Activated Date Inactivated Comments 12/06/2023 4:34 AM 12/11/2023 8:53 PM Question Answer Comments Code Status Discussion: Reviewed Preferences * Full Code Date Activated Date Inactivated Comments 11/20/2023 10:39 PM 11/25/2023 6:46 PM Question Answer Comments Code Status Discussion: Reviewed Preferences * Full Code Date Activated Date Inactivated Comments 10/06/2023 4:08 PM 10/09/2023 5:01 PM Question Answer Comments Code Status Discussion: Reviewed Preferences * Full Code Date Activated Date Inactivated Comments 08/17/2023 4:30 AM 08/21/2023 8:26 PM Verified by s on at bedside Question Answer Comments Code Status Discussion: Other Care Teams Furniture Inspector Relationship Specialty Start Date End Date Gomez Argueta MD [address] [place] [address] PCP - General Family Practice 06/20/23
[2023-12-31 01:23] LABS: Anion Gap 11 mEq/L (7-15); Blood Urea Nitrogen* 51 mg/dL (7-30); Calcium* 10.5 mg/dL (8.4-10.6); Carbon Dioxide* 20 mmol/L (20-32); Glucose* 281 mg/dL (60-115)
--- OUTSIDE RECORDS SUMMARY | 2023-12-31 01:23 | XMS_ITS | Clinical Summary ---
Author Organization [facility] Address [address] [place] [id number] Care Team Providers Care Casework Supervisor Name Role Phone Elsewhere, Pcp Primary Care Provider Unavailabl e Source Comments Patient records contain information from all sites at [facility]. For routine questions regarding patient records, call [phone] during business hours, M-F 8:00 AM - 5:00 PM Central Time. Record requests for emergency care only can be directed to [phone] at any time.[facility] Allergies No known active allergies Medications Medication Sig Dispensed Refills Start Date End Date Status amoxicillin (AMOXIL) 500 mg capsule Take 2,000 mg by mouth once. 1 hour before dental appointment 1 09/22/2017 Active CONTOUR NEXT TEST STRIPS strips TEST TWO TIMES A DAY 12 07/19/2017 Active CARTIA XT 240 mg 24 hr capsule Take 240 mg by mouth 2 (two) times a day. 3 07/20/2017 Active furosemide (LASIX) 20 mg tablet Take 40 mg by mouth every morning. 2 07/20/2017 Active glipiZIDE (GLUCOTROL) 5 mg tablet Take 5 mg by mouth once daily. 3 08/03/2017 Active metFORMIN (GLUCOPHAGE) 1,000 mg tablet Take 1,000 mg by mouth 2 (two) times a day. 3 08/17/2017 Active metoprolol succinate (TOPROL-XL) 25 mg 24 hr tablet Take 25 mg by mouth once daily. 11 08/17/2017 Active sitaGLIPtin phosphate (JANUVIA) 50 mg tablet Take 1 tablet (50 mg total) by mouth daily. 90 tablet 3 03/22/2023 Active lisinopriL (PRINIVIL,ZESTRIL) 10 mg tablet Take 1 tablet (10 mg total) by mouth daily. 90 tablet 3 03/22/2023 Active warfarin (COUMADIN) 5 mg tablet Take 1 tablet (5 mg total) by mouth daily. Go to INR check at [facility] on or before 03/25/2023 90 tablet 3 03/22/2023 Active ondansetron ODT (ZOFRAN-ODT) 4 mg disintegrating tablet Dissolve 1 tablet (4 mg total) in the mouth every 8 (eight) hours as needed for nausea or vomiting. 20 tablet 09/12/2023 Active Active Problems Problem Noted Date Diagnosed Date Weakness General 03/22/2023 Diabetes Mellitus Type 2 Hyperglycemia Morbid Obesity Body Mass Index 50.0-59.9 Adult 1 05/22/2022 Improvement Leader (Current) Anticoagulant Treatment 03/10 Atrial Fibrillation Permanent 03/22/2023 History Of Falling 03/22/2023 Aneurysm Splenic Artery 03/22/2023 Cellulitis Leg 03/22/2023 Overview (03/22/2023): IV Tango and carolyn Resolved Problems Problem Noted Date Diagnosed Date Resolved Date Sleep Apnea 03/22/2023 03/22/2023 Hypomagnesemia 03/22/2023 03/22/2023 Social History Tobacco Use Types Packs/Day Years Used Date Smoking Tobacco: Never Smokeless Tobacco: Never Nutrition Answer Date Recorded Nutrition: EVOO Fat Source 13 12/04 Nutrition: Servings of Fruits/Vegetables per Day Not on file 12/05/2019 Dental Answer Date Recorded Dental: Regular Dentist Unknown 07/13/19 21 Sex and Gender Information Value Date Recorded Sex Assigned at Not on file Gender Identity Not on file Sexual Orientation Not on file Last Filed Vital Signs Vital Sign Reading Time Taken Comments Blood Pressure 116/55 09/12/2023 2:00 PM CDT Pulse 78 09/12/2023 2:00 PM CDT Temperature 37.3 ??C (99.1 ??F) 09/12/2023 2:00 PM CD T Respiratory Rate 17 09/12/2023 1:15 PM CDT Oxygen Saturation 95% 09/12/2023 2:00 PM CDT Inhaled Oxygen Concentration - - Weight 149 kg (328 lb 7.8 oz) 09/12/2023 7:24 AM CDT Height 160 cm (5' 2.99) 03/22/2023 4:00 AM CAR SWEEPER Body Mass Index 58.2 03/22/2023 4:00 AM CAR SWEEPER Plan of Treatment Health Maintenance Due Date Last Done Comments Bone Density Scan (Osteoporo sis Screen) 1952 CT Colonography 1952 Cologuard 1952 Colonoscopy 1952 Colorectal Cancer Screening 1952 Diabetic Office Visit with F oot Exam 1952 Dilated Eye Exam 1952 FIT 1952 Hepatitis C Screening 1952 Lipid (Cholesterol) Screening 1952 Office Visit for Blood Press ure Check / Re-check 1952 Urine Albumin 1952 Zoster Vaccines (1 of 2) 2002 Hepatitis B Vaccines (1 of 3 - Risk 3-dose series) 2012 Mammogram 08/11/2016 08/12/2015 COVID-19 Vaccine ( - 2022-2 4 season) 2023 Depression Screening (Annual PHQ-2) 05/10/2023 Fall Risk Screen (Annual) 05/10/2023 Hemoglobin A1C 01/27/2024 07/27/2023 Influenza Vaccine (#1) 2024 02/28/2018 Creatinine Level (Kidney Fun ction Test) 09/11/2024 09/12/2023, 08/20/2023, 08/17/2023, Additional history exists Potassium Level 09/11/2024 09/12/2023, 08/08, 08/19/2023, Additional history exists Sodium Level 09/11/2024 09/12/2023, 08/08, 08/19/2023, Additional history exists DTaP,Tdap,and Td Vaccines (2 - Td or Tdap) 10/29/2030 10/29/2020 Pneumococcal vaccine (65+ years) Completed 09/15/19, 07/19/2017 Procedures Procedure Name Priority Date/Time Associated Diagnosis Comments COMPREHENSIVE METABOLIC PANEL, S/P STAT 09/12/2023 8:04 AM CDT BI BREAST SCREENING BILATERAL Routine 08/12/2015 1:00 PM CDT from Last 3 Months or Most Recently Relevant to Health Maintenance Results * (ABNORMAL) Comprehensive Metabolic Panel (09/12/2023 8:04 AM CDT) Potassium, P 5.2 3.6 - 5.2 mmol/L 09/12/2023 8:27 AM CDT NPRG Sodium, P 137 135 - 145 mmol/L 09/12/2023 8:27 AM CDT NPRG Chloride, P 103 98 - 107 mmol/L 09/12/2023 8:27 AM CDT NPRG Bicarbonate, P 22 22 - 29 mmol/L 09/12/2023 8:27 AM CDT NPRG Anion Gap, P 12 7 - 15 09/12/2023 8:27 AM CDT NPRG BUN (Blood Urea Nitrogen), P 22(H) 6 - 21 mg/dL 09/12/2023 8:27 AM CDT NPRG Creatinine 1.00 0.59 - 1.04 mg/dL 09/12/2023 8:27 AM CDT NPRG Estimated GFR (eGFR) 60 >=60 mL/min/BS A 09/12/2023 8:27 AM CDT NPRG Comment: Estimated GFR calculated using the 2020 CKD_EPI creatinine equation. Calcium, Total, P 9.5 8.8 - 10.2 mg/dL 09/12/2023 8:27 AM CDT NPRG Glucose, P 168(H) 70 - 140 mg/dL 09/12/2023 8:27 AM CDT NPRG Protein, Total, P 7.2 6.3 - 7.9 g/dL 09/12/2023 8:27 AM CDT NPRG Albumin, P 3.5 3.5 - 5.0 g/dL 09/12/2023 8:27 AM CDT NPRG Aspartate Aminotransferase (AST), P 27 8 - 43 U/L 09/12/2023 8:27 AM CDT NPRG Alkaline Phosphatase, P 80 35 - 104 U/L 09/12/2023 8:27 AM CDT NPRG Alanine Aminotransferase (ALT), P 14 7 - 45 U/L 09/12/2023 8:27 AM CDT NPRG Bilirubin, Total, P 1.4(H) 0.0 - 1.2 mg/dL 09/12/2023 8:27 AM CDT NPRG Blood (Blood, Venous) 09/12/2023 8:04 AM CDT 09/12/2023 8:08 AM CDT Perico Muse M.D. LAB BLOOD ADD-ON [facility] [address] [place] [address], [facility] NPRG [facility] [address] [place] [address] * BI Breast Screening Bilateral (08/12/2015 1:00 PM CDT) Anatomical Region Laterality Modality Breast Bilateral Mammography 08/12/2015 1:00 PM CDT Addenda Addendum by ProviderTracee M.D. on 08/12/2015 1:00 PM CDT RAD^^^MA MA Mammo Screening w/ CADD 08/12/2015 13:00:00 Impressions 08/12/2015 2:08 PM CDT BI-RADS 1. Negative. Recommend routine screening mammogram. BREAST MAMMOGRAPHY-GENERAL OBSERVATION: The false negative rate for mammography it is 15 to 20%. It cannot be used, therefore, to replace regular physical examination. A normal or noncontributory mammogram report should also not deter the aggressive further workup of any suspected palpable masses. Narrative 08/12/2015 2:08 PM CDT Screening Digital Mammogram MLO and CC views Clinical history: No current complaint Comparison: Baseline Findings: The breast parenchyma is almost entirely fat density. There is no suspicious microcalcification, ??focal mass, or architectural distortion. Computer Aided Detection was utilized during the interpretation of this exam. Procedure Note Sebastian Ariza M.D. / ProviderTracee M.D. - 09/11/2016 Screening Digital Mammogram MLO and CC views Clinical history: No current complaint Comparison: Baseline Findings: The breast parenchyma is almost entirely fat density. There is no suspicious microcalcification, focal mass, or architectural distortion. Computer Aided Detection was utilized during the interpretation of this exam. IMPRESSION: BI-RADS 1. Negative. Recommend routine screening mammogram. BREAST MAMMOGRAPHY-GENERAL OBSERVATION: The false negative rate for mammography it is 15 to 20%. It cannot be used, therefore, to replace regular physical examination. A normal or noncontributory mammogram report should also not deter the aggressive further workup of any suspected palpable masses. Toyin Ortega R.TMartha(R)(CT), RMarthaTMartha(R) IMG BI PROCEDURES from Last 3 Months or Most Recently Relevant to Health Maintenance Advance Directives For more information, please contact: [phone] * Full Code (Latest Code Status on File) Date Activated Date Inactivated Comments 03/22/2023 7:56 AM 03/22/2023 9:25 PM Question Answer Comments Full Code: Discussed * Full Code Date Activated Date Inactivated Comments 03/22/2023 7:14 AM 03/22/2023 7:56 AM Question Answer Comments Full Code: Discussed Care Teams Casework Supervisor Relationship Specialty Start Date End Date Elsewhere, Pcp PCP - General Battery Inspector 05/22/19
--- OUTSIDE RECORDS SUMMARY | 2023-12-31 01:23 | XMS_ITS ---
Author Organization [facility] Address [address] [place] [address] Care Team Providers Care Engraver Flatware Name Role Phone Unavailable Unavailable Unavailable Surgery Details Not on file Complications Check Surgery Details section. Procedure Estimated Blood Loss Check Surgery Details section. Procedure Findings Check Surgery Details section. Procedure Specimens Taken Check Surgery Details section.
--- OUTSIDE RECORDS SUMMARY | 2023-12-31 01:23 | XMS_ITS | Referral Summary ---
Author Organization [facility] Address [address] [place] [address] Care Team Providers Care Security System Installer Name Role Phone Elsewhere, Pcp Primary Care Provider Unavailabl e Source Comments Patient records contain information from all sites at [facility]. For routine questions regarding patient records, call [phone] during business hours, M-F 8:00 AM - 5:00 PM Central Time. Record requests for emergency care only can be directed to [phone] at any time.[facility] Allergies No known active allergies Medications [...] mouth daily. Go to INR check at [facility] on or before 03/25/2023 90 tablet 3 03/22/2023 Active ondansetron ODT (ZOFRAN-ODT) 4 mg disintegrating tablet Dissolve 1 tablet (4 mg total) in the mouth every 8 (eight) hours as needed for nausea or vomiting. 20 tablet 09/12/2023 Active Active Problems Problem Noted Date Diagnosed Date Weakness General 03/22/2023 Diabetes Mellitus Type 2 Hyperglycemia Morbid Obesity Body Mass Index 50.0-59.9 Adult 1 05/22/2022 Web Content Coordinator (Current) Anticoagulant Treatment 03/10 Atrial Fibrillation Permanent [...] 160 cm (5' 2.99) 03/22/2023 4:00 AM ARCHEOLOGIST CLASSICAL Body Mass Index 58.2 03/22/2023 4:00 AM ARCHEOLOGIST CLASSICAL Plan of Treatment Not on file Procedures Procedure Name Priority Date/Time Associated Diagnosis [...] CDT Perico Muse M.D. LAB BLOOD ADD-ON [facility] [address] [place] [address], [facility] NPRG [facility] [address] [place] [address] * BI Breast Screening Bilateral (08/12/2015 1:00 PM CDT) Anatomical Region Laterality Modality Breast Bilateral Mammography 08/12/2015 1:00 PM CDT Addenda Addendum by Provider, Abby Easley on 08/12/2015 1:00 PM CDT RAD^^^MA MA [...] the interpretation of this exam. Procedure Note Ariza, Sebastian J, M.D. / ProviderTracee M.D. - 09/11/2016 Screening [...] workup of any suspected palpable masses. Toyin Stoddard(R)(CT), Arlyn(R) IMG BI PROCEDURES from Last 3 Months or Most Recently Relevant to Health Maintenance Advance Directives For more information, please contact: [phone] * Full Code (Latest Code Status on File) Date Activated Date Inactivated Comments 03/22/2023 7:56 AM 03/22/2023 9:25 PM Question Answer Comments Full Code: Discussed * Full Code Date Activated Date Inactivated Comments 03/22/2023 7:14 AM 03/22/2023 7:56 AM Question Answer Comments Full Code: Discussed Care Teams Security System Installer Relationship Specialty Start Date End Date Elsewhere, Pcp PCP - General Wood Block Artist 05/22/19
[2023-12-31 02:30] VITALS: BP 142/58; PULSE 70; RESP 16; O2SAT 97
== END 2023-12-31 03:01 | disposition home or self-care (01) ==
PROVIDERS: Emergency Provider Internal Medicine; PCP Family Medicine
DX: E11.9 Type 2 diabetes mellitus without complications (principal)
CPT/HCPCS: 36415; 80048; 85025; 96374; 99283; J2405; J7050

== ENCOUNTER 2024-09-26 13:30 | Outpatient (RCR) | payer MEDICARE, BC, SELFPAY | END 2024-09-26 16:24 | disposition home or self-care (01) | PROVIDERS: PCP Family Medicine; Visit Provider Family Medicine | DX: I89.0 Lymphedema, not elsewhere classified (principal); M62.81 Muscle weakness (generalized); R26.89 Other abnormalities of gait and mobility; Z51.89 Encounter for other specified aftercare | CPT/HCPCS: 97110; 97112; 97116; 97140; 97162; 97165; 97530; 97535; X5282 ==